=== PATIENT | male | born 1980 | race African-American/Black ===

== ENCOUNTER 2017-01-01 10:45 | Inpatient (IN) | payer OTHER ==
[2017-01-01 11:26] VITALS: BMI 26.1
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
[2017-01-01] MEDS ORDERED: LOPERAMIDE HCL 2 MG CAPSULE PO PRN (14:36)
[2017-01-01] MEDS ORDERED: chlordiazePOXIDE HCL 25 MG CAPSULE PO PRN (14:36)
[2017-01-01] MEDS ORDERED: MENTHOL/PHENOL 1 EACH UD MM PRN (14:36)
[2017-01-01] MEDS ORDERED: NICOTINE POLACRILEX 2 MG GUM BUC PRN (14:36)
[2017-01-01] MEDS ORDERED: P-EPHED 60MG/TRIPROLIDI 2.5MG TABLET PO PRN (14:36)
[2017-01-01] MEDS ORDERED: ACETAMINOPHEN 325 MG TABLET (FP) PO PRN (14:36)
[2017-01-01] MEDS ORDERED: IBUPROFEN 400 MG TABLET (FP) PO PRN (14:36)
[2017-01-01] MEDS ORDERED: guaiFENesin/D-METHORPHAN HB 10 ML UNIT-DOSE CUPS PO PRN (14:36)
[2017-01-01] MEDS ORDERED: MAGNESIUM CITRATE 300 ML BOTTLE PO PRN (14:36)
[2017-01-01] MEDS ORDERED: MAGNESIUM HYDROX 2400MG/30ML ORAL SUSPENSION 30 ML CUP PO PRN (14:36)
[2017-01-01] MEDS ORDERED: chlordiazePOXIDE HCL 25 MG CAPSULE PO ONE (15:20)
[2017-01-01] MEDS ORDERED: cloNIDine HCL 0.1 MG TABLET PO ONE (15:23)
[2017-01-01] MEDS: NICOTINE 14 MG/24 HOURS TOPICAL PATCH TD SCH (15:28)
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
[2017-01-01] MEDS: chlordiazePOXIDE HCL 25 MG CAPSULE PO SCH ×2 (17:22→22:25)
[2017-01-01] MEDS: hydrOXYzine PAMOATE 25 MG CAPSULE (FP) PO PRN (17:24)
[2017-01-01] MEDS ORDERED: ZOLPIDEM TARTRATE 10 MG TABLET (PARK CARE ONLY) PO PRN ×2 (18:06→22:00)
[2017-01-01 19:10] LABS: MCH 33.6 pg (25.7-33.7); MCHC 34.7 g/dl (32.0-35.9); MEAN CELL VOLUME 96.8 fl (80-96); MEAN PLT VOLUME 9.6 fl (7.5-11.1); PLATELET COUNT 240 K/MM3 (134-434); RDW 13.7 % (11.9-15.9); WHITE BLOOD COUNT 5.3 K/mm3 (4.0-10.0)
[2017-01-01 19:20] LABS: SICKLE CELL SCREEN NEGATIVE (NEGATIVE)
[2017-01-01 19:50] LABS: URINE APPEARANCE CLEAR; URINE BILIRUBIN NEGATIVE (NEGATIVE); URINE BLOOD NEGATIVE (NEGATIVE); URINE COLOR STRAW; URINE GLUCOSE (UA) NEGATIVE (NEGATIVE); URINE KETONE NEGATIVE (NEGATIVE); URINE NITRITE NEGATIVE (NEGATIVE); URINE PROTEIN NEGATIVE (NEGATIVE); URINE UROBILINOGEN NEGATIVE mg/dL (0.2-1.0)
[2017-01-01] MEDS: MAG HYDROX/AL HYDROX/SIMETH 30 ML UNIT-DOSE CUP PO PRN (20:14)
[2017-01-01 20:16] LABS: ALBUMIN 3.5 g/dl (3.4-5.0); ALK PHOS 100 U/L (45-117); ANION GAP 12 (8-16); BILIRUBIN,TOTAL 1.4 mg/dL (0.2-1.0); CALCIUM 7.8 mg/dL (8.5-10.1); CO2 25 mmol/L (21-32); CREATININE 1.2 mg/dL (0.7-1.3); GLUCOSE,RANDOM 117 mg/dL (74-106); TOT PROT 6.4 g/dl (6.4-8.2)
[2017-01-01 20:19] LABS: SGOT/AST 402 U/L (15-37); SGPT/ALT 309 U/L (12-78)
[2017-01-01 21:24] LABS: URINE LEUK ESTERASE Negative (NEGATIVE)
[2017-01-01] MEDS ORDERED: PATIENT'S OWN MEDICATION (NON-FORMULARY) (Lisinopril/Hydrochlorothiazide [Lisinopril-Hctz PO SCH (22:00)
[2017-01-01] MEDS: ZOLPIDEM TARTRATE 10 MG TABLET (PARK CARE ONLY) PO PRN (22:25)
[2017-01-01] MEDS: THIAMINE HCL 100 MG TABLET (FP) PO SCH (22:26)
[2017-01-01] MEDS: PATIENT'S OWN MEDICATION (NON-FORMULARY) (Lisinopril/Hydrochlorothiazide [Lisinopril-Hctz PO SCH (22:26)
[2017-01-02] MEDS: chlordiazePOXIDE HCL 25 MG CAPSULE PO SCH ×4 (05:23→22:07)
[2017-01-02] MEDS: PRENATAL VITAMINS W/ FOLIC ACID TABLET (FP) PO SCH (10:24)
[2017-01-02] MEDS: NICOTINE 14 MG/24 HOURS TOPICAL PATCH TD SCH (10:24)
[2017-01-02] MEDS: PATIENT'S OWN MEDICATION (NON-FORMULARY) (Lisinopril/Hydrochlorothiazide [Lisinopril-Hctz PO SCH ×2 (10:24→22:07)
--- NOTE | 2017-01-02 15:34 | PN ---
S CIWA - CIWA Score Nausea/Vomitin-No Nausea/No Vomiting Muscle Tremors: 3 Anxiety: 3 Agitation: 2 Paroxysmal Sweats: 3 Orientation: 0-Oriented Tacttile Disturbances: 1-Very Mild Itch/Numbness Auditory Disturbances: 1-Very Mild Visual Disturbances: 3-Moderate Sensitivity Headache: 0-None Present CIWA-Ar Total Score: 16 BHS Progress Note (SOAP) Subjective: Sweating, Tremors, Body Aches. Objective: PT. A & O X 3, OBSERVED AMBULATING ON UNIT. NO ACUTE DISTRESS. 01/02/17 15:31 Vital Signs Temperature 96.3 F L 01/02/17 13:07 Pulse Rate 85 01/02/17 13:07 Respiratory Rate 18 01/02/17 13:07 Blood Pressure 140/89 01/02/17 13:07 O2 Sat by Pulse Oximetry (%) Laboratory Tests 01/01/17 01/01/17 01/01/17 14:15 14:15 14:15 WBC 5.3 RBC 4.25 Hgb 14.3 Hct 41.1 MCV 96.8 H MCH 33.6 MCHC 34.7 RDW 13.7 Plt Count 240 MPV 9.6 Sickle Cell Screen Negative Sodium 131 L Potassium 3.7 Chloride 94 L Carbon Dioxide 25 Anion Gap 12 BUN 11 Creatinine 1.2 Creat Clearance w eGFR > 60 Random Glucose 117 H Calcium 7.8 L Total Bilirubin 1.4 H AST 402 H ALT 309 H Alkaline Phosphatase 100 Total Protein 6.4 Albumin 3.5 Urine Color Urine Appearance Urine pH Ur Specific [place] Urine Protein Urine Glucose (UA) Urine Ketones Urine Blood Urine Nitrite Urine Bilirubin Urine Urobilinogen Ur Leukocyte Esterase RPR Titer Nonreactive 01/01/17 19:00 WBC RBC Hgb Hct MCV MCH MCHC RDW Plt Count MPV Sickle Cell Screen Sodium Potassium Chloride Carbon Dioxide Anion Gap BUN Creatinine Creat Clearance w eGFR Random Glucose Calcium Total Bilirubin AST ALT Alkaline Phosphatase Total Protein Albumin Urine Color Straw Urine Appearance Clear Urine pH 7.0 Ur Specific [place] 1.003 Urine Protein Negative Urine Glucose (UA) Negative Urine Ketones Negative Urine Blood Negative Urine Nitrite Negative Urine Bilirubin Negative Urine Urobilinogen Negative Ur Leukocyte Esterase Negative RPR Titer LABS NOTED. Assessment: 01/02/17 15:31 WITHDRAWAL SYMPTOMS. Plan: CONTINUE DETOX. REPEAT AST, ALT TOMORROW AM FOR ELEVATED ADMISSION VALUES. INCREASE DAILY PO FLUID INTAKE.
--- NOTE | 2017-01-02 16:39 | EKG ---
Test Reason : Blood Pressure : / mmHG Vent. Rate : 072 BPM Atrial Rate : 072 BPM P-R Int : 142 ms QRS Dur : 086 ms QT Int : 420 ms P-R-T Axes : 065 021 013 degrees QTc Int : 459 ms NORMAL SINUS RHYTHM WITH SINUS ARRHYTHMIA BASELINE ARTIFACT NONSPECIFIC ST AND T WAVE ABNORMALITY IN THE INFERIOR LEADS NO PREVIOUS ECGS AVAILABLE CLINICAL CORRELATION IS RECOMMENDED Confirmed by OPAL MERRILL MD ([id number]) on 01/02/2017 4:39:05 PM Referred By: Confirmed By:OPAL MERRILL MD
[2017-01-02] MEDS: THIAMINE HCL 100 MG TABLET (FP) PO SCH (22:07)
[2017-01-02] MEDS: ZOLPIDEM TARTRATE 10 MG TABLET (PARK CARE ONLY) PO PRN (22:08)
[2017-01-03] MEDS: chlordiazePOXIDE HCL 25 MG CAPSULE PO SCH ×2 (05:31→10:16)
[2017-01-03] MEDS: hydrOXYzine PAMOATE 25 MG CAPSULE (FP) PO PRN (05:33)
[2017-01-03] MEDS: PATIENT'S OWN MEDICATION (NON-FORMULARY) (Lisinopril/Hydrochlorothiazide [Lisinopril-Hctz PO SCH ×2 (10:16→22:13)
[2017-01-03] MEDS: PRENATAL VITAMINS W/ FOLIC ACID TABLET (FP) PO SCH (10:16)
[2017-01-03] MEDS: NICOTINE 14 MG/24 HOURS TOPICAL PATCH TD SCH (10:16)
[2017-01-03 11:35] LABS: SGOT/AST 117 U/L (15-37); SGPT/ALT 162 U/L (12-78)
--- NOTE | 2017-01-03 13:10 | PN ---
S CIWA - CIWA Score Nausea/Vomitin-Mild Nausea/No Vomiting Muscle Tremors: 3 Anxiety: 3 Agitation: 3 Paroxysmal Sweats: 3 Orientation: 0-Oriented Tacttile Disturbances: 1-Very Mild Itch/Numbness Auditory Disturbances: 0-None Visual Disturbances: 0-None Headache: 2-Mild CIWA-Ar Total Score: 16 BHS Progress Note (SOAP) Subjective: Anxious, sweating, interrupted sleep, nausea Objective: 01/03/17 13:10 Last Vital Signs Temp Pulse Resp BP Pulse Ox 97.0 F L 101 H 18 129/87 01/03/17 10:23 01/03/17 10:23 01/03/17 10:23 01/03/17 10:23 Laboratory Tests 01/01/17 01/01/17 01/01/17 14:15 14:15 14:15 WBC 5.3 RBC 4.25 Hgb 14.3 Hct 41.1 MCV 96.8 H MCH 33.6 MCHC 34.7 RDW 13.7 Plt Count 240 MPV 9.6 Sickle Cell Screen Negative Sodium 131 L Potassium 3.7 Chloride 94 L Carbon Dioxide 25 Anion Gap 12 BUN 11 Creatinine 1.2 Creat Clearance w eGFR > 60 Random Glucose 117 H Calcium 7.8 L Total Bilirubin 1.4 H AST 402 H ALT 309 H Alkaline Phosphatase 100 Total Protein 6.4 Albumin 3.5 Urine Color Urine Appearance Urine pH Ur Specific [place] Urine Protein Urine Glucose (UA) Urine Ketones Urine Blood Urine Nitrite Urine Bilirubin Urine Urobilinogen Ur Leukocyte Esterase RPR Titer Nonreactive 01/01/17 01/03/17 19:00 07:40 WBC RBC Hgb Hct MCV MCH MCHC RDW Plt Count MPV Sickle Cell Screen Sodium Potassium Chloride Carbon Dioxide Anion Gap BUN Creatinine Creat Clearance w eGFR Random Glucose Calcium Total Bilirubin AST 117 H D ALT 162 H D Alkaline Phosphatase Total Protein Albumin Urine Color Straw Urine Appearance Clear Urine pH 7.0 Ur Specific [place] 1.003 Urine Protein Negative Urine Glucose (UA) Negative Urine Ketones Negative Urine Blood Negative Urine Nitrite Negative Urine Bilirubin Negative Urine Urobilinogen Negative Ur Leukocyte Esterase Negative RPR Titer Labs noted Assessment: 01/03/17 13:10 Withdrawal symptoms Plan: Continue detox
[2017-01-03] MEDS: MAG HYDROX/AL HYDROX/SIMETH 30 ML UNIT-DOSE CUP PO PRN (15:02)
[2017-01-03] MEDS: chlordiazePOXIDE 5 MG CAPSULE PO SCH ×2 (16:32→22:13)
[2017-01-03] MEDS: THIAMINE HCL 100 MG TABLET (FP) PO SCH (22:13)
[2017-01-03] MEDS: ZOLPIDEM TARTRATE 10 MG TABLET (PARK CARE ONLY) PO PRN (22:15)
[2017-01-04] MEDS: MAG HYDROX/AL HYDROX/SIMETH 30 ML UNIT-DOSE CUP PO PRN (00:29)
[2017-01-04] MEDS: chlordiazePOXIDE 5 MG CAPSULE PO SCH ×3 (05:55→10:19)
[2017-01-04] MEDS: PATIENT'S OWN MEDICATION (NON-FORMULARY) (Lisinopril/Hydrochlorothiazide [Lisinopril-Hctz PO SCH ×3 (07:04→22:15)
[2017-01-04] MEDS ORDERED: cloNIDine HCL 0.1 MG TABLET PO ONE (09:49)
--- NOTE | 2017-01-04 10:18 | PN ---
S Progress Note (SOAP) Subjective: ANXIETY,SWEATS,DECREASED TREMORS. ALERT O X 3. OOB AMBULATING ON HALLWAY. EAGER TO FOLLOW UP WITH NEXT LEVEL OF CARE. Objective: 01/04/17 10:17 Vital Signs Temperature 98.1 F 01/04/17 09:03 Pulse Rate 94 H 01/04/17 09:03 Respiratory Rate 20 01/04/17 09:03 Blood Pressure 140/93 01/04/17 09:03 O2 Sat by Pulse Oximetry (%) Laboratory Last Values WBC 5.3 K/mm3 (4.0-10.0) 01/01/17 14:15 RBC 4.25 M/mm3 (4.00-5.60) 01/01/17 14:15 Hgb 14.3 GM/dL (11.7-16.9) 01/01/17 14:15 Hct 41.1 % (35.4-49) 01/01/17 14:15 MCV 96.8 fl (80-96) H 01/01/17 14:15 MCH 33.6 pg (25.7-33.7) 01/01/17 14:15 MCHC 34.7 g/dl (32.0-35.9) 01/01/17 14:15 RDW 13.7 % (11.9-15.9) 01/01/17 14:15 Plt Count 240 K/MM3 (134-434) 01/01/17 14:15 MPV 9.6 fl (7.5-11.1) 01/01/17 14:15 Sickle Cell Screen Negative (NEGATIVE) 01/01/17 14:15 Sodium 131 mmol/L (136-145) L 01/01/17 14:15 Potassium 3.7 mmol/L (3.5-5.1) 01/01/17 14:15 Chloride 94 mmol/L (98-107) L 01/01/17 14:15 Carbon Dioxide 25 mmol/L (21-32) 01/01/17 14:15 Anion Gap 12 (8-16) 01/01/17 14:15 BUN 11 mg/dL (7-18) 01/01/17 14:15 Creatinine 1.2 mg/dL (0.7-1.3) 01/01/17 14:15 Creat Clearance w eGFR > 60 (>60) 01/01/17 14:15 Random Glucose 117 mg/dL (74-106) H 01/01/17 14:15 Calcium 7.8 mg/dL (8.5-10.1) L 01/01/17 14:15 Total Bilirubin 1.4 mg/dL (0.2-1.0) H 01/01/17 14:15 AST 117 U/L (15-37) H D 01/03/17 07:40 ALT 162 U/L (12-78) H D 01/03/17 07:40 Alkaline Phosphatase 100 U/L (45-117) 01/01/17 14:15 Total Protein 6.4 g/dl (6.4-8.2) 01/01/17 14:15 Albumin 3.5 g/dl (3.4-5.0) 01/01/17 14:15 Urine Color Straw 01/01/17 19:00 Urine Appearance Clear 01/01/17 19:00 Urine pH 7.0 (5.0-8.0) 01/01/17 19:00 Ur Specific [place] 1.003 (1.001-1.035) 01/01/17 19:00 Urine Protein Negative (NEGATIVE) 01/01/17 19:00 Urine Glucose (UA) Negative (NEGATIVE) 01/01/17 19:00 Urine Ketones Negative (NEGATIVE) 01/01/17 19:00 Urine Blood Negative (NEGATIVE) 01/01/17 19:00 Urine Nitrite Negative (NEGATIVE) 01/01/17 19:00 Urine Bilirubin Negative (NEGATIVE) 01/01/17 19:00 Urine Urobilinogen Negative mg/dL (0.2-1.0) 01/01/17 19:00 Ur Leukocyte Esterase Negative (NEGATIVE) 01/01/17 19:00 RPR Titer Nonreactive (NONREACTIVE) 01/01/17 14:15 Assessment: 01/04/17 10:18 DECREASED WITHDRAWAL SX Plan: CONTINUE DETOX
[2017-01-04] MEDS: PRENATAL VITAMINS W/ FOLIC ACID TABLET (FP) PO SCH (10:19)
[2017-01-04] MEDS: NICOTINE 14 MG/24 HOURS TOPICAL PATCH TD SCH (10:19)
[2017-01-04] MEDS: chlordiazePOXIDE HCL 10 MG CAPSULE PO SCH ×2 (17:02→22:12)
[2017-01-04] MEDS: THIAMINE HCL 100 MG TABLET (FP) PO SCH (22:12)
[2017-01-05] MEDS: MAG HYDROX/AL HYDROX/SIMETH 30 ML UNIT-DOSE CUP PO PRN (01:03)
[2017-01-05] MEDS: chlordiazePOXIDE HCL 10 MG CAPSULE PO SCH ×2 (05:15→10:16)
[2017-01-05 09:11] VITALS: BP 138/98; PULSE 81; TEMP 96.1
[2017-01-05] MEDS: PATIENT'S OWN MEDICATION (NON-FORMULARY) (Lisinopril/Hydrochlorothiazide [Lisinopril-Hctz PO SCH (10:16)
[2017-01-05] MEDS: PRENATAL VITAMINS W/ FOLIC ACID TABLET (FP) PO SCH (10:16)
[2017-01-05] MEDS: NICOTINE 14 MG/24 HOURS TOPICAL PATCH TD SCH (10:17)
[2017-01-05] MEDS: hydrOXYzine PAMOATE 25 MG CAPSULE (FP) PO PRN (10:19)
--- NOTE | 2017-01-05 10:23 | DS ---
[facility] Detox Discharge Summary Admission Date: 01/01/17 Discharge Date: 01/05/17 - History Present History: Alcohol Dependence Additional Comments: DETOX COMPLETED. ALERT O X 3. NAD. PT INSTRUCTED TO FOLLOW UP WITH PMD DR ROJAS ANTONY M.D AT [address] [place] [address] FOR MEDICAL MANAGEMENT OF COMORBID CONDITION. Pertinent Past History: HTN GERD ANEMIA - Physical Exam Results Vital Signs: Vital Signs Temperature 96.1 F L 01/05/17 09:10 Pulse Rate 81 01/05/17 09:10 Respiratory Rate 18 01/05/17 09:10 Blood Pressure 138/98 01/05/17 09:10 O2 Sat by Pulse Oximetry (%) Pertinent Admission Physical Exam Findings: WITHDRAWAL SX Laboratory Last Values WBC 5.3 K/mm3 (4.0-10.0) 01/01/17 14:15 RBC 4.25 M/mm3 (4.00-5.60) 01/01/17 14:15 Hgb 14.3 GM/dL (11.7-16.9) 01/01/17 14:15 Hct 41.1 % (35.4-49) 01/01/17 14:15 MCV 96.8 fl (80-96) H 01/01/17 14:15 MCH 33.6 pg (25.7-33.7) 01/01/17 14:15 MCHC 34.7 g/dl (32.0-35.9) 01/01/17 14:15 RDW 13.7 % (11.9-15.9) 01/01/17 14:15 Plt Count 240 K/MM3 (134-434) 01/01/17 14:15 MPV 9.6 fl (7.5-11.1) 01/01/17 14:15 Sickle Cell Screen Negative (NEGATIVE) 01/01/17 14:15 Sodium 131 mmol/L (136-145) L 01/01/17 14:15 Potassium 3.7 mmol/L (3.5-5.1) 01/01/17 14:15 Chloride 94 mmol/L (98-107) L 01/01/17 14:15 Carbon Dioxide 25 mmol/L (21-32) 01/01/17 14:15 Anion Gap 12 (8-16) 01/01/17 14:15 BUN 11 mg/dL (7-18) 01/01/17 14:15 Creatinine 1.2 mg/dL (0.7-1.3) 01/01/17 14:15 Creat Clearance w eGFR > 60 (>60) 01/01/17 14:15 Random Glucose 117 mg/dL (74-106) H 01/01/17 14:15 Calcium 7.8 mg/dL (8.5-10.1) L 01/01/17 14:15 Total Bilirubin 1.4 mg/dL (0.2-1.0) H 01/01/17 14:15 AST 117 U/L (15-37) H D 01/03/17 07:40 ALT 162 U/L (12-78) H D 01/03/17 07:40 Alkaline Phosphatase 100 U/L (45-117) 01/01/17 14:15 Total Protein 6.4 g/dl (6.4-8.2) 01/01/17 14:15 Albumin 3.5 g/dl (3.4-5.0) 01/01/17 14:15 Urine Color Straw 01/01/17 19:00 Urine Appearance Clear 01/01/17 19:00 Urine pH 7.0 (5.0-8.0) 01/01/17 19:00 Ur Specific [place] 1.003 (1.001-1.035) 01/01/17 19:00 Urine Protein Negative (NEGATIVE) 01/01/17 19:00 Urine Glucose (UA) Negative (NEGATIVE) 01/01/17 19:00 Urine Ketones Negative (NEGATIVE) 01/01/17 19:00 Urine Blood Negative (NEGATIVE) 01/01/17 19:00 Urine Nitrite Negative (NEGATIVE) 01/01/17 19:00 Urine Bilirubin Negative (NEGATIVE) 01/01/17 19:00 Urine Urobilinogen Negative mg/dL (0.2-1.0) 01/01/17 19:00 Ur Leukocyte Esterase Negative (NEGATIVE) 01/01/17 19:00 RPR Titer Nonreactive (NONREACTIVE) 01/01/17 14:15 - Treatment Hospital Course: Detox Protocol Followed, Detoxed Safely, Responded well, Discharged Condition Good, Rehab Referral Accepted Patient has Accepted a Rehab Referral to: [facility] - Medication Discharge Medications: Ambulatory Orders Lisinopril/Hydrochlorothiazide [Lisinopril-Hctz 10-12.5 mg Tab] 1 each PO BID - Diagnosis (1) Alcohol dependence with uncomplicated withdrawal Current Visit: Yes Status: Acute (2) Hypertension Current Visit: Yes Status: Chronic Qualifiers: Hypertension type: essential hypertension Qualified Code(s): I10 - Essential (primary) hypertension (3) History of hypercholesterolemia Current Visit: Yes Status: Chronic (4) Hx of gastroesophageal reflux (GERD) Current Visit: Yes Status: Chronic (5) History of anemia Current Visit: Yes Status: Chronic - AMA Did Patient Leave Against Medical Advice: No
== END 2017-01-05 10:56 | disposition home or self-care (01) | DRG 775 ==
LOC: YASAS 10:45 → Y3N 12:30
PROVIDERS: ADMIT Internal Medicine; ATTEND Internal Medicine
PROC: HZ2ZZZZ Detoxification Services for Substance Abuse Treatment (ICD-10-PCS; principal; 2017-01-01)
DX: F10.230 Alcohol dependence with withdrawal, uncomplicated (principal); F17.210 Nicotine dependence, cigarettes, uncomplicated; F32.9 Major depressive disorder, single episode, unspecified; G47.00 Insomnia, unspecified; I10 Essential (primary) hypertension; K21.9 Gastro-esophageal reflux disease without esophagitis; E78.00 Pure hypercholesterolemia, unspecified; D64.9 Anemia, unspecified
CPT/HCPCS: 36415; 80053; 81003; 84450; 84460; 85027; 85660; 86593; 93005; 93010

== ENCOUNTER 2017-05-22 10:51 | Inpatient (IN) | payer OTHER ==
[2017-05-22 11:10] VITALS: BMI 27.2
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
[2017-05-22] MEDS ORDERED: METHADONE HCL 10 MG TABLET (FOR DETOX USE ONLY) PO ONE ×2 (12:30→23:00)
[2017-05-22] MEDS ORDERED: P-EPHED 60MG/TRIPROLIDI 2.5MG TABLET PO PRN (12:30)
[2017-05-22] MEDS ORDERED: chlordiazePOXIDE HCL 25 MG CAPSULE PO ONE (12:30)
[2017-05-22] MEDS ORDERED: ACETAMINOPHEN 325 MG TABLET (FP) PO PRN (12:30)
[2017-05-22] MEDS ORDERED: MAGNESIUM CITRATE 300 ML BOTTLE PO PRN (12:30)
[2017-05-22] MEDS ORDERED: hydrOXYzine PAMOATE 25 MG CAPSULE (FP) PO PRN (12:30)
[2017-05-22] MEDS ORDERED: NICOTINE POLACRILEX 2 MG GUM BUC PRN (12:30)
[2017-05-22] MEDS ORDERED: LOPERAMIDE HCL 2 MG CAPSULE PO PRN (12:30)
[2017-05-22] MEDS ORDERED: IBUPROFEN 400 MG TABLET (FP) PO PRN (12:30)
[2017-05-22] MEDS ORDERED: MENTHOL/PHENOL 1 EACH UD MM PRN (12:30)
[2017-05-22] MEDS ORDERED: guaiFENesin/D-METHORPHAN HB 10 ML UNIT-DOSE CUPS PO PRN (12:30)
[2017-05-22] MEDS ORDERED: NAPROXEN 375 MG TABLET (FP) PO PRN (15:01)
[2017-05-22] MEDS: chlordiazePOXIDE HCL 25 MG CAPSULE PO SCH ×2 (19:15→22:42)
[2017-05-22] MEDS ORDERED: METHADONE HCL 10 MG TABLET (FOR DETOX USE ONLY) ONE (19:34)
[2017-05-22] MEDS ORDERED: PATIENT'S OWN MEDICATION (NON-FORMULARY) (Lisinopril/Hydrochlorothiazide [Lisinopril-Hctz PO SCH (22:00)
[2017-05-22] MEDS ORDERED: MELATONIN 5 MG TABLETS PO PRN (22:00)
[2017-05-22] MEDS ORDERED: NAPROXEN 375 MG TABLET (FP) PO SCH (22:00)
[2017-05-22] MEDS: HYDROCHLOROTHIAZIDE 12.5 MG CAPSULE (FP) PO SCH (22:42)
[2017-05-22] MEDS: LISINOPRIL 10 MG TABLET (FP) PO SCH (22:42)
[2017-05-22] MEDS: THIAMINE HCL 100 MG TABLET (FP) PO SCH (22:42)
[2017-05-23] MEDS: chlordiazePOXIDE HCL 25 MG CAPSULE PO SCH ×4 (05:53→22:11)
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
[2017-05-23] MEDS ORDERED: METHADONE HCL 10 MG TABLET (FOR DETOX USE ONLY) PO SCH (10:00)
[2017-05-23] MEDS: LISINOPRIL 10 MG TABLET (FP) PO SCH ×2 (10:32→22:12)
[2017-05-23] MEDS: PRENATAL VITAMINS W/ FOLIC ACID TABLET (FP) PO SCH (10:32)
[2017-05-23] MEDS: HYDROCHLOROTHIAZIDE 12.5 MG CAPSULE (FP) PO SCH ×2 (10:32→22:12)
--- NOTE | 2017-05-23 10:57 | PN ---
S CIWA - CIWA Score Nausea/Vomitin-Mild Nausea/No Vomiting Muscle Tremors: 4-Moderate,w/Arms Extend Anxiety: 3 Agitation: 3 Paroxysmal Sweats: 1-Minimal Palms Moist Orientation: 0-Oriented Tacttile Disturbances: 1-Very Mild Itch/Numbness Auditory Disturbances: 0-None Visual Disturbances: 0-None Headache: 0-None Present CIWA-Ar Total Score: 13 BHS COWS - Scale Resting Pulse: 0= [place] 80 or Below Sweatin= Chills/Flushing Restless Observation: 1= Difficult to Sit Still Pupil Size: 0= Normal to Room Light Bone or Joint Aches: 1= Mild Discomfort Runny Nose/ Eye Tearin= Nasal Congestion GI Upset > 30mins: 2= Nausea/Diarrhea Tremor Observation of Outstretched Hands: 2= Slight Tremor Visible Yawning Observation: 2= >3x During Session Anxiety or Irritability: 1=Feels Anxious/Irritable Goose Flesh Skin: 0=Smooth Skin COWS Score: 11 BHS Progress Note (SOAP) Subjective: constipation sweat tremor anxiety irritable restlessness trouble fall a sleep Objective: 05/23/17 10:56 Vital Signs Temperature 98.1 F 05/23/17 10:00 Pulse Rate 70 05/23/17 10:30 Respiratory Rate 18 05/23/17 10:30 Blood Pressure 151/94 05/23/17 10:00 O2 Sat by Pulse Oximetry (%) lab not available at this time Assessment: 05/23/17 10:56 withdrawal sx Plan: continue detox
[2017-05-23 11:03] LABS: HEMATOCRIT 38.2 % (35.4-49); HEMOGLOBIN 12.7 GM/dL (11.7-16.9); MCH 32.6 pg (25.7-33.7); MCHC 33.1 g/dl (32.0-35.9); MEAN CELL VOLUME 98.5 fl (80-96); MEAN PLT VOLUME 8.6 fl (7.5-11.1); PLATELET COUNT 187 K/MM3 (134-434); RBC 3.88 M/mm3 (4.00-5.60); RDW 13.2 % (11.9-15.9); WHITE BLOOD COUNT 5.6 K/mm3 (4.0-10.0)
[2017-05-23 11:05] LABS: CHLORIDE 101 mmol/L (98-107); POTASSIUM 3.6 mmol/L (3.5-5.1); SODIUM 136 mmol/L (136-145)
[2017-05-23] MEDS: MAGNESIUM HYDROX 2400MG/30ML ORAL SUSPENSION 30 ML CUP PO PRN (11:30)
[2017-05-23 12:30] LABS: ALBUMIN 3.5 g/dl (3.4-5.0); ANION GAP 7 (8-16); BLOOD UREA NITROGEN 9 mg/dL (7-18); CALCIUM 8.4 mg/dL (8.5-10.1); CO2 28 mmol/L (21-32); CREATININE 0.9 mg/dL (0.7-1.3); GLUCOSE,RANDOM 92 mg/dL (74-106); SGOT/AST 41 U/L (15-37); SGPT/ALT 27 U/L (12-78)
[2017-05-23 12:35] LABS: URINE APPEARANCE CLEAR; URINE BILIRUBIN NEGATIVE (<2.0 mg/dL); URINE BLOOD NEGATIVE (NEGATIVE); URINE COLOR LTYELLOW; URINE GLUCOSE (UA) NEGATIVE (NEGATIVE); URINE KETONE NEGATIVE (NEGATIVE); URINE LEUK ESTERASE NEGATIVE (NEGATIVE); URINE NITRITE NEGATIVE (NEGATIVE); URINE PROTEIN NEGATIVE (NEGATIVE); URINE UROBILINOGEN NEGATIVE mg/dL (0.2-1.0)
[2017-05-23 12:36] LABS: ALK PHOS 65 U/L (45-117); BILIRUBIN,TOTAL 0.4 mg/dL (0.2-1.0); TOT PROT 6.3 g/dl (6.4-8.2)
[2017-05-23] MEDS: chlordiazePOXIDE HCL 25 MG CAPSULE PO PRN ×2 (14:31→18:46)
--- NOTE | 2017-05-23 16:21 | EKG ---
Test Reason : Blood Pressure : / mmHG Vent. Rate : 093 BPM Atrial Rate : 093 BPM P-R Int : 134 ms QRS Dur : 080 ms QT Int : 356 ms P-R-T Axes : 071 031 003 degrees QTc Int : 442 ms NORMAL SINUS RHYTHM SEPTAL INFARCT , AGE UNDETERMINED ABNORMAL ECG WHEN COMPARED WITH ECG OF 01-JAN-2017 16:38, SEPTAL INFARCT IS NOW PRESENT Confirmed by MD TOO, MARCIAL ([id number]) on 05/23/2017 4:20:52 PM Referred By: Confirmed By:MARCIAL GAGE MD
[2017-05-23] MEDS: MAG HYDROX/AL HYDROX/SIMETH 30 ML UNIT-DOSE CUP PO PRN (16:37)
[2017-05-23] MEDS ORDERED: cloNIDine HCL 0.1 MG TABLET PO ONE (19:00)
--- NOTE | 2017-05-23 19:03 | PN ---
BHS Progress Note Note: WITHDRAWAL SYMPTOM Vital Signs Temperature 97.9 F 05/23/17 18:47 Pulse Rate 79 05/23/17 18:47 Respiratory Rate 18 05/23/17 18:47 Blood Pressure 144/113 05/23/17 18:47 O2 Sat by Pulse Oximetry (%) CLONIDINE 0.1 MG PO NOW CONTINUE DETOX BP MONITORING
[2017-05-23] MEDS: THIAMINE HCL 100 MG TABLET (FP) PO SCH (22:11)
[2017-05-23] MEDS: ZOLPIDEM TARTRATE 5 MG TABLET PO PRN (22:12)
[2017-05-24] MEDS: chlordiazePOXIDE HCL 25 MG CAPSULE PO SCH ×2 (05:44→10:35)
[2017-05-24] MEDS: HYDROCHLOROTHIAZIDE 12.5 MG CAPSULE (FP) PO SCH ×2 (10:35→22:32)
[2017-05-24] MEDS: LISINOPRIL 10 MG TABLET (FP) PO SCH ×2 (10:35→22:32)
[2017-05-24] MEDS: PRENATAL VITAMINS W/ FOLIC ACID TABLET (FP) PO SCH (10:35)
[2017-05-24] MEDS: METHADONE HCL 5 MG TABLET (FOR DETOX USE ONLY) PO SCH (10:35)
[2017-05-24] MEDS ORDERED: CYCLOBENZAPRINE HCL 10 MG TABLET (FP) PO PRN (11:43)
--- NOTE | 2017-05-24 11:43 | PN ---
[facility] CIWA - CIWA Score Nausea/Vomitin Muscle Tremors: 3 Anxiety: 2 Agitation: 3 Paroxysmal Sweats: 1-Minimal Palms Moist Orientation: 0-Oriented Tacttile Disturbances: 1-Very Mild Itch/Numbness Auditory Disturbances: 1-Very Mild Visual Disturbances: 0-None Headache: 2-Mild CIWA-Ar Total Score: 16 BHS COWS - Scale Resting Pulse: 1= [place] 81-100 Sweatin= Chills/Flushing Restless Observation: 3= Extraneous Movement Pupil Size: 1= Pupils >than Normal Bone or Joint Aches: 2= Severe Diffuse Aches Runny Nose/ Eye Tearin= Runny Nose/Eyes GI Upset > 30mins: 3= Vomiting/Diarrhea Tremor Observation of Outstretched Hands: 2= Slight Tremor Visible Yawning Observation: 1= 1-2x During Session Anxiety or Irritability: 2=Irritable/Anxious Goose Flesh Skin: 0=Smooth Skin COWS Score: 18 S Progress Note (SOAP) Subjective: ALERT,IRRITABLE,ANXIOUS,INTERRUPTED SLEEP,TREMOR,PAIN IN THE BODY AND BACK Objective: 05/24/17 11:41 Vital Signs Temperature 97.5 F L 05/24/17 09:05 Pulse Rate 86 05/24/17 09:05 Respiratory Rate 18 05/24/17 09:05 Blood Pressure 144/93 05/24/17 09:05 O2 Sat by Pulse Oximetry (%) Laboratory Last Values WBC 5.6 K/mm3 (4.0-10.0) 05/23/17 07:40 RBC 3.88 M/mm3 (4.00-5.60) L 05/23/17 07:40 Hgb 12.7 GM/dL (11.7-16.9) D 05/23/17 07:40 Hct 38.2 % (35.4-49) 05/23/17 07:40 MCV 98.5 fl (80-96) H 05/23/17 07:40 MCH 32.6 pg (25.7-33.7) 05/23/17 07:40 MCHC 33.1 g/dl (32.0-35.9) 05/23/17 07:40 RDW 13.2 % (11.9-15.9) 05/23/17 07:40 Plt Count 187 K/MM3 (134-434) D 05/23/17 07:40 MPV 8.6 fl (7.5-11.1) D 05/23/17 07:40 Sodium 136 mmol/L (136-145) 05/23/17 07:40 Potassium 3.6 mmol/L (3.5-5.1) 05/23/17 07:40 Chloride 101 mmol/L (98-107) 05/23/17 07:40 Carbon Dioxide 28 mmol/L (21-32) 05/23/17 07:40 Anion Gap 7 (8-16) L 05/23/17 07:40 BUN 9 mg/dL (7-18) 05/23/17 07:40 Creatinine 0.9 mg/dL (0.7-1.3) D 05/23/17 07:40 Creat Clearance w eGFR > 60 (>60) 05/23/17 07:40 Random Glucose 92 mg/dL (74-106) D 05/23/17 07:40 Calcium 8.4 mg/dL (8.5-10.1) L 05/23/17 07:40 Total Bilirubin 0.4 mg/dL (0.2-1.0) D 05/23/17 07:40 AST 41 U/L (15-37) H D 05/23/17 07:40 ALT 27 U/L (12-78) D 05/23/17 07:40 Alkaline Phosphatase 65 U/L (45-117) D 05/23/17 07:40 Total Protein 6.3 g/dl (6.4-8.2) L 05/23/17 07:40 Albumin 3.5 g/dl (3.4-5.0) 05/23/17 07:40 Urine Color Ltyellow 05/23/17 08:54 Urine Appearance Clear 05/23/17 08:54 Urine pH 6.0 (5.0-8.0) 05/23/17 08:54 Ur Specific [place] 1.012 (1.001-1.035) 05/23/17 08:54 Urine Protein Negative (NEGATIVE) 05/23/17 08:54 Urine Glucose (UA) Negative (NEGATIVE) 05/23/17 08:54 Urine Ketones Negative (NEGATIVE) 05/23/17 08:54 Urine Blood Negative (NEGATIVE) 05/23/17 08:54 Urine Nitrite Negative (NEGATIVE) 05/23/17 08:54 Urine Bilirubin Negative (<2.0 mg/dL) 05/23/17 08:54 Urine Urobilinogen Negative mg/dL (0.2-1.0) 05/23/17 08:54 Ur Leukocyte Esterase Negative (NEGATIVE) 05/23/17 08:54 RPR Titer Nonreactive (NONREACTIVE) 05/23/17 07:40 HIV 1&2 Antibody Screen Negative 05/23/17 07:40 HIV P24 Antigen Negative 05/23/17 07:40 Assessment: 05/24/17 11:42 WITHDRAWAL SYMPTOM Plan: CONTINUE DETOX
[2017-05-24] MEDS: amLODIPine BESYLATE 10 MG TABLET (FP) PO SCH (14:36)
[2017-05-24] MEDS: chlordiazePOXIDE 5 MG CAPSULE PO SCH ×2 (17:27→22:32)
[2017-05-24] MEDS: MAG HYDROX/AL HYDROX/SIMETH 30 ML UNIT-DOSE CUP PO PRN (19:05)
[2017-05-24] MEDS: THIAMINE HCL 100 MG TABLET (FP) PO SCH (22:31)
[2017-05-24] MEDS: ZOLPIDEM TARTRATE 5 MG TABLET PO PRN (22:32)
[2017-05-24] MEDS: cloNIDine HCL 0.1 MG TABLET PO SCH (22:32)
[2017-05-25] MEDS: chlordiazePOXIDE 5 MG CAPSULE PO SCH ×2 (05:27→10:27)
[2017-05-25] MEDS: MAGNESIUM HYDROX 2400MG/30ML ORAL SUSPENSION 30 ML CUP PO PRN (05:29)
[2017-05-25] MEDS: amLODIPine BESYLATE 10 MG TABLET (FP) PO SCH (10:27)
[2017-05-25] MEDS: LISINOPRIL 10 MG TABLET (FP) PO SCH ×2 (10:27→22:27)
[2017-05-25] MEDS: METHADONE HCL 5 MG TABLET (FOR DETOX USE ONLY) PO SCH (10:27)
[2017-05-25] MEDS: PRENATAL VITAMINS W/ FOLIC ACID TABLET (FP) PO SCH (10:27)
[2017-05-25] MEDS: HYDROCHLOROTHIAZIDE 12.5 MG CAPSULE (FP) PO SCH ×2 (10:27→22:27)
[2017-05-25] MEDS: cloNIDine HCL 0.1 MG TABLET PO SCH ×2 (10:27→22:27)
--- NOTE | 2017-05-25 11:54 | PN ---
S Progress Note (SOAP) Subjective: ALERT,IRRITABLE,ANXIOUS,INTERRUPTED SLEEP,PAIN IN THE BODY Objective: 05/25/17 11:53 Vital Signs Temperature 95.9 F L 05/25/17 10:00 Pulse Rate 89 05/25/17 10:00 Respiratory Rate 20 05/25/17 10:00 Blood Pressure 137/83 05/25/17 10:00 O2 Sat by Pulse Oximetry (%) Assessment: 05/25/17 11:53 WITHDRAWAL SYMPTOM,CONSTIPATED Plan: CONTINUE DETOX,COLACE 100 MGS PO TID
[2017-05-25] MEDS: DOCUSATE SODIUM 100 MG CAPSULE (FP) PO SCH ×2 (14:40→22:27)
[2017-05-25] MEDS: chlordiazePOXIDE HCL 10 MG CAPSULE PO SCH ×2 (17:53→22:27)
[2017-05-25] MEDS: ZOLPIDEM TARTRATE 5 MG TABLET PO PRN (22:27)
[2017-05-25] MEDS: THIAMINE HCL 100 MG TABLET (FP) PO SCH (22:27)
[2017-05-26] MEDS: MAG HYDROX/AL HYDROX/SIMETH 30 ML UNIT-DOSE CUP PO PRN (02:01)
[2017-05-26] MEDS: chlordiazePOXIDE HCL 10 MG CAPSULE PO SCH ×2 (05:58→10:57)
[2017-05-26] MEDS: DOCUSATE SODIUM 100 MG CAPSULE (FP) PO SCH ×3 (05:58→22:34)
[2017-05-26] MEDS ORDERED: METHADONE HCL 10 MG TABLET (FOR DETOX USE ONLY) PO SCH (10:00)
--- NOTE | 2017-05-26 10:31 | PN ---
S Progress Note (SOAP) Subjective: ALERT,IRRITABLE,INTERRUPTED SLEEP Objective: 05/26/17 10:29 Vital Signs Temperature 97.9 F 05/26/17 09:10 Pulse Rate 99 H 05/26/17 09:10 Respiratory Rate 18 05/26/17 09:10 Blood Pressure 133/87 05/26/17 09:10 O2 Sat by Pulse Oximetry (%) Assessment: 05/26/17 10:30 WITHDRAWAL SYMPTOM Plan: CONTINUE DETOX,DISCHARGE IN AM
[2017-05-26] MEDS: PRENATAL VITAMINS W/ FOLIC ACID TABLET (FP) PO SCH (10:56)
[2017-05-26] MEDS: HYDROCHLOROTHIAZIDE 12.5 MG CAPSULE (FP) PO SCH ×2 (10:56→22:34)
[2017-05-26] MEDS: RANITIDINE HCL 150 MG TABLET (FP) PO SCH ×2 (10:56→22:33)
[2017-05-26] MEDS: cloNIDine HCL 0.1 MG TABLET PO SCH ×2 (10:57→22:34)
[2017-05-26] MEDS: LISINOPRIL 10 MG TABLET (FP) PO SCH ×2 (10:57→22:33)
[2017-05-26] MEDS: amLODIPine BESYLATE 10 MG TABLET (FP) PO SCH (10:57)
[2017-05-26] MEDS: THIAMINE HCL 100 MG TABLET (FP) PO SCH (22:33)
[2017-05-26] MEDS: ZOLPIDEM TARTRATE 5 MG TABLET PO PRN (22:33)
[2017-05-27] MEDS: DOCUSATE SODIUM 100 MG CAPSULE (FP) PO SCH (05:47)
[2017-05-27] MEDS ORDERED: METHADONE HCL 5 MG TABLET (FOR DETOX USE ONLY) PO SCH (06:00)
[2017-05-27 06:15] VITALS: BP 147/85; PULSE 91; TEMP 98.1
--- NOTE | 2017-05-27 08:13 | PN ---
S Progress Note (SOAP) Subjective: ALERT,NO COMPLAINT Objective: 05/27/17 08:12 Vital Signs Temperature 98.1 F 05/27/17 06:14 Pulse Rate 91 H 05/27/17 06:14 Respiratory Rate 18 05/27/17 06:14 Blood Pressure 147/85 05/27/17 06:14 O2 Sat by Pulse Oximetry (%) Assessment: 05/27/17 08:12 DETOX COMPLETED,NO WITHDRAWAL SYMPTOM Plan: DISCHARGE TODAY,FOLLOW UP WITH AFTER CARE PROGRAM ARRANGEMENT
--- NOTE | 2017-05-27 08:14 | DS ---
[facility] Detox Discharge Summary Admission Date: 05/22/17 Discharge Date: 05/27/17 - History Present History: Alcohol Dependence, Opioid Dependence Additional Comments: FOLLOW UP WITH AFTER CARE PROGRAM ARRANGEMENT Pertinent Past History: GERD HYPERTENSION DEHYDRATION GOUT NICOTINE DEPENDENCE - Physical Exam Results Vital Signs: Vital Signs Temperature 98.1 F 05/27/17 06:14 Pulse Rate 91 H 05/27/17 06:14 Respiratory Rate 18 05/27/17 06:14 Blood Pressure 147/85 05/27/17 06:14 O2 Sat by Pulse Oximetry (%) Pertinent Admission Physical Exam Findings: WITHDRAWAL SIGNS AND SYMPTOM Vital Signs Temperature 98.1 F 05/27/17 06:14 Pulse Rate 91 H 05/27/17 06:14 Respiratory Rate 18 05/27/17 06:14 Blood Pressure 147/85 05/27/17 06:14 O2 Sat by Pulse Oximetry (%) Laboratory Last Values WBC 5.6 K/mm3 (4.0-10.0) 05/23/17 07:40 RBC 3.88 M/mm3 (4.00-5.60) L 05/23/17 07:40 Hgb 12.7 GM/dL (11.7-16.9) D 05/23/17 07:40 Hct 38.2 % (35.4-49) 05/23/17 07:40 MCV 98.5 fl (80-96) H 05/23/17 07:40 MCH 32.6 pg (25.7-33.7) 05/23/17 07:40 MCHC 33.1 g/dl (32.0-35.9) 05/23/17 07:40 RDW 13.2 % (11.9-15.9) 05/23/17 07:40 Plt Count 187 K/MM3 (134-434) D 05/23/17 07:40 MPV 8.6 fl (7.5-11.1) D 05/23/17 07:40 Sodium 136 mmol/L (136-145) 05/23/17 07:40 Potassium 3.6 mmol/L (3.5-5.1) 05/23/17 07:40 Chloride 101 mmol/L (98-107) 05/23/17 07:40 Carbon Dioxide 28 mmol/L (21-32) 05/23/17 07:40 Anion Gap 7 (8-16) L 05/23/17 07:40 BUN 9 mg/dL (7-18) 05/23/17 07:40 Creatinine 0.9 mg/dL (0.7-1.3) D 05/23/17 07:40 Creat Clearance w eGFR > 60 (>60) 05/23/17 07:40 Random Glucose 92 mg/dL (74-106) D 05/23/17 07:40 Calcium 8.4 mg/dL (8.5-10.1) L 05/23/17 07:40 Total Bilirubin 0.4 mg/dL (0.2-1.0) D 05/23/17 07:40 AST 41 U/L (15-37) H D 05/23/17 07:40 ALT 27 U/L (12-78) D 05/23/17 07:40 Alkaline Phosphatase 65 U/L (45-117) D 05/23/17 07:40 Total Protein 6.3 g/dl (6.4-8.2) L 05/23/17 07:40 Albumin 3.5 g/dl (3.4-5.0) 05/23/17 07:40 Urine Color Ltyellow 05/23/17 08:54 Urine Appearance Clear 05/23/17 08:54 Urine pH 6.0 (5.0-8.0) 05/23/17 08:54 Ur Specific [place] 1.012 (1.001-1.035) 05/23/17 08:54 Urine Protein Negative (NEGATIVE) 05/23/17 08:54 Urine Glucose (UA) Negative (NEGATIVE) 05/23/17 08:54 Urine Ketones Negative (NEGATIVE) 05/23/17 08:54 Urine Blood Negative (NEGATIVE) 05/23/17 08:54 Urine Nitrite Negative (NEGATIVE) 05/23/17 08:54 Urine Bilirubin Negative (<2.0 mg/dL) 05/23/17 08:54 Urine Urobilinogen Negative mg/dL (0.2-1.0) 05/23/17 08:54 Ur Leukocyte Esterase Negative (NEGATIVE) 05/23/17 08:54 RPR Titer Nonreactive (NONREACTIVE) 05/23/17 07:40 HIV 1&2 Antibody Screen Negative 05/23/17 07:40 HIV P24 Antigen Negative 05/23/17 07:40 - Treatment Hospital Course: Detox Protocol Followed, Detoxed Safely, Responded well, Discharged Condition Good Patient has Accepted a Rehab Referral to: DECLINED - Medication Discharge Medications: Ambulatory Orders Naproxen [Naprosyn -] 375 mg PO BID PRN 05/22/17 Quetiapine Fumarate [Seroquel] 50 tab PO HS 05/22/17 Ergocalciferol [Vitamin D2] 50,000 unit PO Q7D@1000 #4 capsule 05/26/17 Lisinopril/Hydrochlorothiazide [Lisinopril-Hctz 10-12.5 mg Tab] 1 each PO BID # 60 tablet 05/26/17 Naproxen [Naprosyn -] 375 mg PO BID PRN #20 tablet 05/26/17 Ranitidine [Zantac -] 150 mg PO BID #60 tablet 05/26/17 - Diagnosis (1) Opioid dependence with withdrawal Current Visit: Yes Status: Acute (2) Alcohol dependence with uncomplicated withdrawal Current Visit: Yes Status: Acute (3) Substance induced mood disorder Current Visit: Yes Status: Acute (4) Substance-induced sleep disorder Current Visit: Yes Status: Acute (5) Dehydration Current Visit: Yes Status: Chronic (6) Gout Current Visit: Yes Status: Chronic Qualifiers: Gout site: foot Gout etiology: unspecified cause Chronicity: chronic Laterality: right Qualified Code(s): M1A.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
--- NOTE | 2017-05-27 09:31 | PN ---
Psychiatric Progress Note Vital Signs: Vital Signs Period Temp Pulse Resp BP Sys/Griggs Pulse Ox Last 24 Hr 96.3 F-98.1 F 82-91 -18 136-147/82-87 Date of Session: 05/27/17 Chief Complaint:: Insomnia HPI: Patient reports using Seroquel 50mg po qhs prior to admission for insomnia , here during detox he used Ambien 10mg po prn qhs,. Patient asking to start Seroquel 50mg po qhs for insomnia upon discharge Current Medications: Active Medications Generic Name Dose Route Start Last Admin Trade Name Freq PRN Reason Stop Dose Admin Acetaminophen 650 mg 05/22/17 12:30 05/22/17 19:41 Tylenol - PO 650 mg Q4H PRN Administration FEVER Al Hydroxide/Mg Hydroxide 30 ml 05/22/17 12:30 05/26/17 02:01 Mylanta Oral Suspension - PO 30 ml Q6H PRN Administration DYSPEPSIA Amlodipine Besylate 10 mg 05/24/17 13:45 05/26/17 10:57 Norvasc - PO 10 mg DAILY [facility] Administration Clonidine 0.1 mg 05/24/17 22:00 05/26/17 22:34 Catapres - PO 0.1 mg BID KATELYN Administration Cyclobenzaprine HCl 10 mg 05/24/17 11:43 Flexeril - PO TID PRN MUSCLE SPASMS Docusate Sodium 100 mg 05/25/17 14:00 05/27/17 05:47 Colace - PO 100 mg TID KATELYN Administration Ergocalciferol 50,000 unit 05/29/17 10:00 Drisdol - PO Q7D@1000 [facility] Eucalyptus/Menthol/Phenol/Sorbitol 1 each 05/22/17 12:30 Cepastat Lozenge - MM Q4H PRN SORE THROAT Guaifenesin 10 ml 05/22/17 12:30 Robitussin Dm - PO Q6H PRN COUGH Hydrochlorothiazide 12.5 mg 05/22/17 22:00 05/26/17 22:34 Hctz - PO 12.5 mg BID KATELYN Administration Hydroxyzine Pamoate 25 mg 05/22/17 12:30 05/23/17 14:30 Vistaril - PO 25 mg Q4H PRN Administration AGITATION Lisinopril 10 mg 05/22/17 22:00 04/04/18 22:33 Prinivil PO 10 mg BID KATELYN Administration Loperamide HCl 4 mg 05/22/17 12:30 Imodium - PO Q6H PRN DIARRHEA Magnesium Citrate 300 ml 05/22/17 12:30 Citroma - PO Q48H PRN CONSTIPATION Magnesium Hydroxide 30 ml 05/22/17 12:30 05/25/17 05:29 Milk Of Magnesia - PO 30 ml DAILY PRN Administration CONSTIPATION Melatonin 5 mg 05/22/17 22:00 05/22/17 22:44 Melatonin PO 5 mg HS PRN Administration INSOMNIA Naproxen 375 mg 05/22/17 15:01 Naprosyn - PO BID PRN PAIN LEVEL 4 - 6 Nicotine Polacrilex 2 mg 05/22/17 12:30 Nicorette Gum - BUC Q2H PRN NICOTINE REPLACEMENT RX Multivit/Folic Acid/Iron 1 tab 05/23/17 10:00 05/26/17 10:56 Vitamins (Sjr) - PO 1 tab DAILY KATELYN Administration Pseudoephedrine/Triprolidine 1 combo 05/22/17 12:30 Actifed - PO TID PRN NASAL CONGESTION Ranitidine HCl 150 mg 05/26/17 10:00 05/26/17 22:33 Zantac - PO 150 mg BID KATELYN Administration Thiamine HCl 100 mg 05/22/17 22:00 05/26/17 22:33 Vitamin B1 - PO 100 mg HS KATELYN Administration Zolpidem Tartrate 10 mg 05/23/17 10:18 05/26/17 22:33 Ambien - PO 10 mg HS PRN Administration INSOMNIA Medication(s) Change(s): Seroquel 50mg po qhs Provider note:: Seroquel 50mg po qhs #30 order was sent to patient's pharmacy Mental Status Exam - Mental Status Exam Alert and Oriented to: Person Cognitive Function: Fair Patient Appearance: Well Groomed Mood: Anxious Affect: Mood Congruent Patient Behavior: Cooperative Speech Pattern: Appropriate Voice Loudness: Mildly Soft/Quiet Thought Process: Circumstantial Thought Disorder: Being Controlled Hallucinations: Denies Suicidal Ideation: Denies Homicidal Ideation: Denies Insight/Judgement: Fair Sleep: Difficulty falling asleep Appetite: Fair Muscle strength/Tone: Normal Gait/Station: Normal Additional Comments: Seroquel 50mg po qhs Psychiatric Treatment Plan - Problem List (1) Alcohol dependence with uncomplicated withdrawal Current Visit: Yes (2) Opioid dependence with withdrawal Current Visit: Yes (3) Substance induced mood disorder Current Visit: Yes (4) Substance-induced sleep disorder Current Visit: Yes (5) Nicotine dependence Current Visit: Yes Qualifiers: Nicotine product type: cigarettes Substance use status: uncomplicated Qualified Code(s): F17.210 - Nicotine dependence, cigarettes, uncomplicated (6) Insomnia Current Visit: No Initial treatment plan: Seroquel 50mg po qhs
[2017-05-27] MEDS: cloNIDine HCL 0.1 MG TABLET PO SCH (09:32)
[2017-05-27] MEDS: PRENATAL VITAMINS W/ FOLIC ACID TABLET (FP) PO SCH (09:32)
[2017-05-27] MEDS: HYDROCHLOROTHIAZIDE 12.5 MG CAPSULE (FP) PO SCH (09:32)
[2017-05-27] MEDS: amLODIPine BESYLATE 10 MG TABLET (FP) PO SCH (09:32)
[2017-05-27] MEDS: RANITIDINE HCL 150 MG TABLET (FP) PO SCH (09:32)
[2017-05-27] MEDS: LISINOPRIL 10 MG TABLET (FP) PO SCH (09:32)
[2017-05-29] MEDS ORDERED: ERGOCALCIFEROL (VITAMIN D2) 50,000 UNIT CAPSULE (FP) PO SCH (10:00)
== END 2017-05-27 09:35 | disposition home or self-care (01) | DRG 773 ==
LOC: YASAS 10:51 → Y6N 15:40
PROVIDERS: ADMIT Internal Medicine; ATTEND Internal Medicine
PROC: HZ2ZZZZ Detoxification Services for Substance Abuse Treatment (ICD-10-PCS; principal; 2017-05-22)
DX: F11.23 Opioid dependence with withdrawal (principal); F10.230 Alcohol dependence with withdrawal, uncomplicated; F17.210 Nicotine dependence, cigarettes, uncomplicated; F19.24 Other psychoactive substance dependence with psychoactive substance-induced mood disorder; F19.282 Other psychoactive substance dependence with psychoactive substance-induced sleep disorder; G47.00 Insomnia, unspecified; I10 Essential (primary) hypertension; K21.9 Gastro-esophageal reflux disease without esophagitis; E86.0 Dehydration; M10.9 Gout, unspecified
CPT/HCPCS: 36415; 80053; 81003; 85027; 86593; 87389; 93005; 93010; J0735

== ENCOUNTER 2017-06-23 11:39 | Inpatient (IN) | payer OTHER ==
[2017-06-23 13:18] VITALS: BMI 27.5
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
[2017-06-23] MEDS ORDERED: MENTHOL/PHENOL 1 EACH UD MM PRN (16:22)
[2017-06-23] MEDS ORDERED: MAG HYDROX/AL HYDROX/SIMETH 30 ML UNIT-DOSE CUP PO PRN (16:22)
[2017-06-23] MEDS ORDERED: ACETAMINOPHEN 325 MG TABLET (FP) PO PRN (16:22)
[2017-06-23] MEDS ORDERED: LOPERAMIDE HCL 2 MG CAPSULE PO PRN (16:22)
[2017-06-23] MEDS ORDERED: IBUPROFEN 400 MG TABLET (FP) PO PRN (16:22)
[2017-06-23] MEDS ORDERED: MAGNESIUM CITRATE 300 ML BOTTLE PO PRN (16:22)
[2017-06-23] MEDS ORDERED: P-EPHED 60MG/TRIPROLIDI 2.5MG TABLET PO PRN (16:22)
[2017-06-23] MEDS ORDERED: guaiFENesin/D-METHORPHAN HB 10 ML UNIT-DOSE CUPS PO PRN (16:22)
[2017-06-23] MEDS ORDERED: chlordiazePOXIDE HCL 25 MG CAPSULE PO PRN (16:25)
[2017-06-23] MEDS ORDERED: chlordiazePOXIDE HCL 25 MG CAPSULE PO ONE (17:30)
[2017-06-23] MEDS ORDERED: METHADONE HCL 10 MG TABLET (FOR DETOX USE ONLY) PO ONE ×2 (17:30→23:00)
[2017-06-23] MEDS: chlordiazePOXIDE HCL 25 MG CAPSULE PO SCH ×2 (18:40→22:08)
[2017-06-23] MEDS ORDERED: PATIENT'S OWN MEDICATION (NON-FORMULARY) (Lisinopril/Hydrochlorothiazide [Lisinopril-Hctz PO SCH (22:00)
[2017-06-23] MEDS: THIAMINE HCL 100 MG TABLET (FP) PO SCH (22:08)
[2017-06-23] MEDS: LISINOPRIL 10 MG TABLET (FP) PO SCH (22:08)
[2017-06-23] MEDS: HYDROCHLOROTHIAZIDE 12.5 MG CAPSULE (FP) PO SCH (22:08)
[2017-06-23 23:41] LABS: URINE APPEARANCE CLEAR; URINE BILIRUBIN NEGATIVE (<2.0 mg/dL); URINE COLOR STRAW; URINE GLUCOSE (UA) NEGATIVE (NEGATIVE); URINE KETONE NEGATIVE (NEGATIVE); URINE LEUK ESTERASE NEGATIVE (NEGATIVE); URINE NITRITE NEGATIVE (NEGATIVE); URINE PROTEIN NEGATIVE (NEGATIVE); URINE UROBILINOGEN NEGATIVE mg/dL (0.2-1.0)
[2017-06-23] MEDS: MELATONIN 5 MG TABLETS PO PRN (23:47)
[2017-06-24] MEDS: hydrOXYzine PAMOATE 50 MG CAPSULE (FP) PO PRN (00:18)
[2017-06-24] MEDS: chlordiazePOXIDE HCL 25 MG CAPSULE PO SCH ×4 (05:21→22:20)
[2017-06-24 09:46] LABS: HEMATOCRIT 40.1 % (35.4-49); HEMOGLOBIN 13.5 GM/dL (11.7-16.9); MCH 32.4 pg (25.7-33.7); MCHC 33.7 g/dl (32.0-35.9); MEAN CELL VOLUME 96.2 fl (80-96); MEAN PLT VOLUME 8.5 fl (7.5-11.1); PLATELET COUNT 251 K/MM3 (134-434); RBC 4.17 M/mm3 (4.00-5.60); RDW 13.5 % (11.9-15.9); WHITE BLOOD COUNT 5.7 K/mm3 (4.0-10.0)
[2017-06-24] MEDS ORDERED: METHADONE HCL 10 MG TABLET (FOR DETOX USE ONLY) PO SCH (10:00)
[2017-06-24] MEDS: HYDROCHLOROTHIAZIDE 12.5 MG CAPSULE (FP) PO SCH ×2 (10:27→22:20)
[2017-06-24] MEDS: PRENATAL VITAMINS W/ FOLIC ACID TABLET (FP) PO SCH (10:27)
[2017-06-24] MEDS: LISINOPRIL 10 MG TABLET (FP) PO SCH ×2 (10:27→22:20)
--- NOTE | 2017-06-24 10:32 | CONSULT ---
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 This is one of multiple admissions for patient. Pt. admitted to for alcohol and opiate dependence. Substance Abuse History: Following information confirmed with Mr. García: Smoking Cessation. Smoking history: Former smoker. Have you smoked in the past 12 months: Yes. Hx Chewing Tobacco Use: No. Initiated information on smoking cessation: No. - Substance & Tx. History. Hx Alcohol Use: Yes. Hx Substance Use: Yes. Substance Use Type: Alcohol, Opiates. Hx Substance Use Treatment: Yes. - Substances Abused. Alcohol. Route: Oral. Frequency: Daily. Amount used: 1-2 pints daily. Age of first use: 15. Date of Last Use: 06/23/17. Oxycontin. Route: Oral. Frequency: Daily. Amount used: 3 pills daily. Age of first use: 27. Date of Last Use: 06/21/17 Medical History: Asthma, hypercholesterolemia Psychiatric History: Patient denies h/o psychiatric hospitalizations and outpatient care. Pt. reports an overdose attempt approximately 2 months ago of pain killers and xanax. Stated to contract writer that he is motivated to complete detox and begin rehab. Patient's protective factors are his mother, brother, and children. Pt. currently denies suicidal and homicidal ideation. Physical/Sexual Abuse/Trauma History: Denies. Mental Status Exam - Mental Status Exam Alert and Oriented to: Time, Place, Person Cognitive Function: Good Patient Appearance: Well Groomed Mood: Hopeful Affect: Mood Congruent Patient Behavior: Cooperative Speech Pattern: Appropriate Voice Loudness: Normal Thought Process: Goal Oriented Thought Disorder: Not Present Hallucinations: Denies Suicidal Ideation: Denies Homicidal Ideation: Denies Insight/Judgement: Poor Sleep: Poorly Appetite: Fair Muscle strength/Tone: Normal Gait/Station: Normal Psychiatric Findings - Problem List ([place] 1, 2,3) (1) Alcohol dependence with uncomplicated withdrawal Current Visit: Yes Status: Acute (2) Opioid dependence with withdrawal Current Visit: Yes Status: Acute (3) Substance induced mood disorder Current Visit: Yes Status: Acute - Initial Treatment Plan Initial Treatment Plan: Psychoeducation provided. Detoxification in progress. Seroquel 50mg qhs. Benefits and side effects discussed. Verbal consent given. Will continue to monitor.
[2017-06-24 10:37] LABS: ALBUMIN 4.1 g/dl (3.4-5.0); ANION GAP 8 (8-16); BLOOD UREA NITROGEN 16 mg/dL (7-18); CALCIUM 8.2 mg/dL (8.5-10.1); CHLORIDE 103 mmol/L (98-107); CO2 28 mmol/L (21-32); CREATININE 1.4 mg/dL (0.7-1.3); GLUCOSE,RANDOM 123 mg/dL (74-106); POTASSIUM 3.8 mmol/L (3.5-5.1); SGOT/AST 49 U/L (15-37); SGPT/ALT 28 U/L (12-78); SODIUM 139 mmol/L (136-145)
[2017-06-24 10:39] LABS: ALK PHOS 69 U/L (45-117); BILIRUBIN,TOTAL 0.6 mg/dL (0.2-1.0); TOT PROT 7.1 g/dl (6.4-8.2)
[2017-06-24] MEDS ORDERED: ONDANSETRON *ODT* 4 MG TABLET SL PRN (11:30)
--- NOTE | 2017-06-24 11:30 | PN ---
[facility] CIWA - CIWA Score Nausea/Vomitin (N/V/D) Muscle Tremors: 4-Moderate,w/Arms Extend Anxiety: 4-Mod. Anxious/Guarded Agitation: 3 Paroxysmal Sweats: 1-Minimal Palms Moist Orientation: 0-Oriented Tacttile Disturbances: 0-None Auditory Disturbances: 0-None Visual Disturbances: 0-None Headache: 0-None Present CIWA-Ar Total Score: 17 [facility] COWS - Scale Resting Pulse: 1= DE 81-100 Sweatin= Chills/Flushing Restless Observation: 3= Extraneous Movement Pupil Size: 0= Normal to Room Light Bone or Joint Aches: 4=Acute Joint/Muscle Pain Runny Nose/ Eye Tearin= Nasal Congestion GI Upset > 30mins: 3= Vomiting/Diarrhea Tremor Observation of Outstretched Hands: 1= Tremor [place], Not Seen Yawning Observation: 1= 1-2x During Session Anxiety or Irritability: 2=Irritable/Anxious Goose Flesh Skin: 0=Smooth Skin COWS Score: 17 [facility] Progress Note (SOAP) Subjective: ANXIETY,IRRITABILITY,SWEATS,NAUSEA,VOMITING,DIARRHEA,DYSPEPSIA. Objective: 06/24/17 11:28 Vital Signs Temperature 98.7 F 06/24/17 09:21 Pulse Rate 89 06/24/17 10:30 Respiratory Rate 18 06/24/17 10:30 Blood Pressure 136/79 06/24/17 09:21 O2 Sat by Pulse Oximetry (%) Laboratory Last Values WBC 5.7 K/mm3 (4.0-10.0) 06/24/17 06:00 RBC 4.17 M/mm3 (4.00-5.60) 06/24/17 06:00 Hgb 13.5 GM/dL (11.7-16.9) 06/24/17 06:00 Hct 40.1 % (35.4-49) 06/24/17 06:00 MCV 96.2 fl (80-96) H 06/24/17 06:00 MCH 32.4 pg (25.7-33.7) 06/24/17 06:00 MCHC 33.7 g/dl (32.0-35.9) 06/24/17 06:00 RDW 13.5 % (11.9-15.9) 06/24/17 06:00 Plt Count 251 K/MM3 (134-434) D 06/24/17 06:00 MPV 8.5 fl (7.5-11.1) 06/24/17 06:00 Sodium 139 mmol/L (136-145) 06/24/17 06:00 Potassium 3.8 mmol/L (3.5-5.1) 06/24/17 06:00 Chloride 103 mmol/L (98-107) 06/24/17 06:00 Carbon Dioxide 28 mmol/L (21-32) 06/24/17 06:00 Anion Gap 8 (8-16) 06/24/17 06:00 BUN 16 mg/dL (7-18) D 06/24/17 06:00 Creatinine 1.4 mg/dL (0.7-1.3) H D 06/24/17 06:00 Creat Clearance w eGFR 57.03 (>60) 06/24/17 06:00 Random Glucose 123 mg/dL (74-106) H D 06/24/17 06:00 Calcium 8.2 mg/dL (8.5-10.1) L 06/24/17 06:00 Total Bilirubin 0.6 mg/dL (0.2-1.0) D 06/24/17 06:00 AST 49 U/L (15-37) H 06/24/17 06:00 ALT 28 U/L (12-78) 06/24/17 06:00 Alkaline Phosphatase 69 U/L (45-117) 06/24/17 06:00 Total Protein 7.1 g/dl (6.4-8.2) 06/24/17 06:00 Albumin 4.1 g/dl (3.4-5.0) 06/24/17 06:00 Urine Color Straw 06/23/17 23:49 Urine Appearance Clear 06/23/17 23:49 Urine pH 7.0 (5.0-8.0) 06/23/17 23:49 Ur Specific [place] 1.005 (1.001-1.035) 06/23/17 23:49 Urine Protein Negative (NEGATIVE) 06/23/17 23:49 Urine Glucose (UA) Negative (NEGATIVE) 06/23/17 23:49 Urine Ketones Negative (NEGATIVE) 06/23/17 23:49 Urine Blood Negative (NEGATIVE) 06/23/17 23:49 Urine Nitrite Negative (NEGATIVE) 06/23/17 23:49 Urine Bilirubin Negative (<2.0 mg/dL) 06/23/17 23:49 Urine Urobilinogen Negative mg/dL (0.2-1.0) 06/23/17 23:49 Ur Leukocyte Esterase Negative (NEGATIVE) 06/23/17 23:49 Assessment: 06/24/17 11:29 WITHDRAWAL SX Plan: CONTINUE DETOX ZOFRAN PRN MYLANTA X 1 DOSE GIVEN; THEN PRN
--- NOTE | 2017-06-24 11:30 | EKG ---
Test Reason : Blood Pressure : / mmHG Vent. Rate : 086 BPM Atrial Rate : 086 BPM P-R Int : 146 ms QRS Dur : 092 ms QT Int : 382 ms P-R-T Axes : 072 002 005 degrees QTc Int : 457 ms NORMAL SINUS RHYTHM NORMAL ECG WHEN COMPARED WITH ECG OF 22-MAY-2017 19:46, CRITERIA FOR SEPTAL INFARCT ARE NO LONGER PRESENT Confirmed by JESSICA CANO MD ([id number]) on 06/24/2017 11:30:27 AM Referred By: Confirmed By:JESSICA CANO MD
[2017-06-24] MEDS ORDERED: RANITIDINE HCL 150 MG TABLET (FP) PO ONE (12:30)
[2017-06-24] MEDS: MAGNESIUM HYDROX 2400MG/30ML ORAL SUSPENSION 30 ML CUP PO PRN (18:14)
[2017-06-24] MEDS: THIAMINE HCL 100 MG TABLET (FP) PO SCH (22:20)
[2017-06-24] MEDS: QUEtiapine FUMARATE 50 MG TABLET PO SCH (22:20)
[2017-06-24] MEDS: RANITIDINE HCL 150 MG TABLET (FP) PO SCH (22:20)
[2017-06-25] MEDS: MAGNESIUM HYDROX 2400MG/30ML ORAL SUSPENSION 30 ML CUP PO PRN (05:37)
[2017-06-25] MEDS: chlordiazePOXIDE HCL 25 MG CAPSULE PO SCH ×2 (05:37→10:19)
[2017-06-25] MEDS: RANITIDINE HCL 150 MG TABLET (FP) PO SCH ×2 (10:18→22:16)
[2017-06-25] MEDS: LISINOPRIL 10 MG TABLET (FP) PO SCH ×2 (10:18→22:17)
[2017-06-25] MEDS: METHADONE HCL 5 MG TABLET (FOR DETOX USE ONLY) PO SCH (10:18)
[2017-06-25] MEDS: PRENATAL VITAMINS W/ FOLIC ACID TABLET (FP) PO SCH (10:18)
[2017-06-25] MEDS: HYDROCHLOROTHIAZIDE 12.5 MG CAPSULE (FP) PO SCH ×2 (10:18→22:16)
--- NOTE | 2017-06-25 12:52 | PN ---
[facility] CIWA - CIWA Score Nausea/Vomitin-No Nausea/No Vomiting Muscle Tremors: 3 Anxiety: 5 Agitation: 4-Moderately Restless Paroxysmal Sweats: 1-Minimal Palms Moist Orientation: 0-Oriented Tacttile Disturbances: 0-None Auditory Disturbances: 0-None Visual Disturbances: 0-None Headache: 0-None Present CIWA-Ar Total Score: 13 [facility] COWS - Scale Resting Pulse: 0= SC 80 or Below Sweatin=Flushed/Facial Moisture Restless Observation: 3= Extraneous Movement Pupil Size: 2= Moderately Dilated Bone or Joint Aches: 1= Mild Discomfort Runny Nose/ Eye Tearin= None GI Upset > 30mins: 1= Stomach Cramp Tremor Observation of Outstretched Hands: 2= Slight Tremor Visible Yawning Observation: 2= >3x During Session Anxiety or Irritability: 2=Irritable/Anxious Goose Flesh Skin: 0=Smooth Skin COWS Score: 15 S Progress Note (SOAP) Subjective: ANXIETY,SWEATS, FATIGUE,CONSTIPATED. Objective: 06/25/17 12:51 Vital Signs 06/25/17 06/25/17 06:15 10:06 Temperature 96.5 F L 96.0 F L Pulse Rate 64 79 Respiratory 18 18 Rate Blood Pressure 140/86 150/91 06/25/17 12:51 Laboratory Tests 06/23/17 06/24/17 06/24/17 23:49 06:00 06:00 WBC 5.7 RBC 4.17 Hgb 13.5 Hct 40.1 MCV 96.2 H MCH 32.4 MCHC 33.7 RDW 13.5 Plt Count 251 D MPV 8.5 Sodium 139 Potassium 3.8 Chloride 103 Carbon Dioxide 28 Anion Gap 8 BUN 16 D Creatinine 1.4 H D Creat Clearance w eGFR 57.03 Random Glucose 123 H D Calcium 8.2 L Total Bilirubin 0.6 D AST 49 H ALT 28 Alkaline Phosphatase 69 Total Protein 7.1 Albumin 4.1 Urine Color Straw Urine Appearance Clear Urine pH 7.0 Ur Specific [place] 1.005 Urine Protein Negative Urine Glucose (UA) Negative Urine Ketones Negative Urine Blood Negative Urine Nitrite Negative Urine Bilirubin Negative Urine Urobilinogen Negative Ur Leukocyte Esterase Negative RPR Titer 06/24/17 06:00 WBC RBC Hgb Hct MCV MCH MCHC RDW Plt Count MPV Sodium Potassium Chloride Carbon Dioxide Anion Gap BUN Creatinine Creat Clearance w eGFR Random Glucose Calcium Total Bilirubin AST ALT Alkaline Phosphatase Total Protein Albumin Urine Color Urine Appearance Urine pH Ur Specific [place] Urine Protein Urine Glucose (UA) Urine Ketones Urine Blood Urine Nitrite Urine Bilirubin Urine Urobilinogen Ur Leukocyte Esterase RPR Titer Nonreactive Assessment: 06/25/17 12:51 WITHDRAWAL SX Plan: CONTINUE DETOX COLACE 100 MG PO TID INCREASE PO FLUIDS
[2017-06-25] MEDS: DOCUSATE SODIUM 100 MG CAPSULE (FP) PO SCH ×2 (13:10→22:17)
[2017-06-25] MEDS: chlordiazePOXIDE 5 MG CAPSULE PO SCH ×2 (17:42→22:17)
[2017-06-25] MEDS: THIAMINE HCL 100 MG TABLET (FP) PO SCH (22:16)
[2017-06-25] MEDS: QUEtiapine FUMARATE 50 MG TABLET PO SCH (22:17)
[2017-06-25] MEDS: MELATONIN 5 MG TABLETS PO PRN (23:45)
[2017-06-26] MEDS: chlordiazePOXIDE 5 MG CAPSULE PO SCH ×2 (05:51→10:37)
[2017-06-26] MEDS: DOCUSATE SODIUM 100 MG CAPSULE (FP) PO SCH ×3 (05:52→22:36)
[2017-06-26] MEDS: MAGNESIUM HYDROX 2400MG/30ML ORAL SUSPENSION 30 ML CUP PO PRN (05:53)
[2017-06-26] MEDS: RANITIDINE HCL 150 MG TABLET (FP) PO SCH ×2 (10:37→22:36)
[2017-06-26] MEDS: PRENATAL VITAMINS W/ FOLIC ACID TABLET (FP) PO SCH (10:37)
[2017-06-26] MEDS: METHADONE HCL 5 MG TABLET (FOR DETOX USE ONLY) PO SCH (10:37)
[2017-06-26] MEDS: LISINOPRIL 10 MG TABLET (FP) PO SCH ×2 (10:37→22:36)
[2017-06-26] MEDS: HYDROCHLOROTHIAZIDE 12.5 MG CAPSULE (FP) PO SCH ×2 (10:37→22:36)
[2017-06-26] MEDS ORDERED: WITCH HAZEL 50% (TUCKS) 40 PAD/JAR PAD TP PRN (10:45)
[2017-06-26] MEDS: BENZOCAINE 28 GM HEMORRHOIDAL OINTMENT PR PRN ×2 (13:57→23:51)
--- NOTE | 2017-06-26 14:19 | PN ---
[facility] Progress Note (SOAP) Subjective: Interrupted Sleep, Anxious, Constipation, Stomach Cramping. Objective: PATIENT A & O X 3, OBSERVED AMBULATING ON UNIT. NO ACUTE DISTRESS. 06/26/17 14:17 Vital Signs Temperature 98.9 F 06/26/17 09:27 Pulse Rate 77 06/26/17 09:27 Respiratory Rate 18 06/26/17 09:27 Blood Pressure 108/60 06/26/17 09:27 O2 Sat by Pulse Oximetry (%) Laboratory Tests 06/23/17 06/24/17 06/24/17 23:49 06:00 06:00 WBC 5.7 RBC 4.17 Hgb 13.5 Hct 40.1 MCV 96.2 H MCH 32.4 MCHC 33.7 RDW 13.5 Plt Count 251 D MPV 8.5 Sodium 139 Potassium 3.8 Chloride 103 Carbon Dioxide 28 Anion Gap 8 BUN 16 D Creatinine 1.4 H D Creat Clearance w eGFR 57.03 Random Glucose 123 H D Calcium 8.2 L Total Bilirubin 0.6 D AST 49 H ALT 28 Alkaline Phosphatase 69 Total Protein 7.1 Albumin 4.1 Urine Color Straw Urine Appearance Clear Urine pH 7.0 Ur Specific [place] 1.005 Urine Protein Negative Urine Glucose (UA) Negative Urine Ketones Negative Urine Blood Negative Urine Nitrite Negative Urine Bilirubin Negative Urine Urobilinogen Negative Ur Leukocyte Esterase Negative RPR Titer 06/24/17 06:00 WBC RBC Hgb Hct MCV MCH MCHC RDW Plt Count MPV Sodium Potassium Chloride Carbon Dioxide Anion Gap BUN Creatinine Creat Clearance w eGFR Random Glucose Calcium Total Bilirubin AST ALT Alkaline Phosphatase Total Protein Albumin Urine Color Urine Appearance Urine pH Ur Specific [place] Urine Protein Urine Glucose (UA) Urine Ketones Urine Blood Urine Nitrite Urine Bilirubin Urine Urobilinogen Ur Leukocyte Esterase RPR Titer Nonreactive LABS NOTED. Assessment: 06/26/17 14:17 WITHDRAWAL SYMPTOMS. Plan: CONTINUE DETOX.
[2017-06-26] MEDS: chlordiazePOXIDE HCL 10 MG CAPSULE PO SCH ×2 (17:28→22:36)
[2017-06-26] MEDS: THIAMINE HCL 100 MG TABLET (FP) PO SCH (22:36)
[2017-06-26] MEDS: QUEtiapine FUMARATE 50 MG TABLET PO SCH (22:36)
[2017-06-26] MEDS: MELATONIN 5 MG TABLETS PO PRN (23:51)
[2017-06-27] MEDS: chlordiazePOXIDE HCL 10 MG CAPSULE PO SCH ×2 (06:11→10:26)
[2017-06-27] MEDS: DOCUSATE SODIUM 100 MG CAPSULE (FP) PO SCH ×3 (06:12→22:34)
[2017-06-27] MEDS ORDERED: METHADONE HCL 10 MG TABLET (FOR DETOX USE ONLY) PO SCH (10:00)
[2017-06-27] MEDS: PRENATAL VITAMINS W/ FOLIC ACID TABLET (FP) PO SCH (10:25)
[2017-06-27] MEDS: HYDROCHLOROTHIAZIDE 12.5 MG CAPSULE (FP) PO SCH ×2 (10:25→22:34)
[2017-06-27] MEDS: LISINOPRIL 10 MG TABLET (FP) PO SCH ×2 (10:25→22:33)
[2017-06-27] MEDS: RANITIDINE HCL 150 MG TABLET (FP) PO SCH ×2 (10:25→22:33)
[2017-06-27] MEDS: BENZOCAINE 28 GM HEMORRHOIDAL OINTMENT PR SCH ×4 (10:26→22:34)
--- NOTE | 2017-06-27 12:36 | PN ---
[facility] Progress Note (SOAP) Subjective: ALERT O X 3. OOB AMBULATING ON UNIT, NO ACUTE DISTRESS. REPORTS POSITIVE BM WITH CITROMA. Objective: 06/27/17 12:36 Vital Signs Temperature 97.8 F 06/27/17 09:31 Pulse Rate 86 06/27/17 09:31 Respiratory Rate 18 06/27/17 09:31 Blood Pressure 130/86 06/27/17 09:31 O2 Sat by Pulse Oximetry (%) Laboratory Last Values WBC 5.7 K/mm3 (4.0-10.0) 06/24/17 06:00 RBC 4.17 M/mm3 (4.00-5.60) 06/24/17 06:00 Hgb 13.5 GM/dL (11.7-16.9) 06/24/17 06:00 Hct 40.1 % (35.4-49) 06/24/17 06:00 MCV 96.2 fl (80-96) H 06/24/17 06:00 MCH 32.4 pg (25.7-33.7) 06/24/17 06:00 MCHC 33.7 g/dl (32.0-35.9) 06/24/17 06:00 RDW 13.5 % (11.9-15.9) 06/24/17 06:00 Plt Count 251 K/MM3 (134-434) D 06/24/17 06:00 MPV 8.5 fl (7.5-11.1) 06/24/17 06:00 Sodium 139 mmol/L (136-145) 06/24/17 06:00 Potassium 3.8 mmol/L (3.5-5.1) 06/24/17 06:00 Chloride 103 mmol/L (98-107) 06/24/17 06:00 Carbon Dioxide 28 mmol/L (21-32) 06/24/17 06:00 Anion Gap 8 (8-16) 06/24/17 06:00 BUN 16 mg/dL (7-18) D 06/24/17 06:00 Creatinine 1.4 mg/dL (0.7-1.3) H D 06/24/17 06:00 Creat Clearance w eGFR 57.03 (>60) 06/24/17 06:00 Random Glucose 123 mg/dL (74-106) H D 06/24/17 06:00 Calcium 8.2 mg/dL (8.5-10.1) L 06/24/17 06:00 Total Bilirubin 0.6 mg/dL (0.2-1.0) D 06/24/17 06:00 AST 49 U/L (15-37) H 06/24/17 06:00 ALT 28 U/L (12-78) 06/24/17 06:00 Alkaline Phosphatase 69 U/L (45-117) 06/24/17 06:00 Total Protein 7.1 g/dl (6.4-8.2) 06/24/17 06:00 Albumin 4.1 g/dl (3.4-5.0) 06/24/17 06:00 Urine Color Straw 06/23/17 23:49 Urine Appearance Clear 06/23/17 23:49 Urine pH 7.0 (5.0-8.0) 06/23/17 23:49 Ur Specific [place] 1.005 (1.001-1.035) 06/23/17 23:49 Urine Protein Negative (NEGATIVE) 06/23/17 23:49 Urine Glucose (UA) Negative (NEGATIVE) 06/23/17 23:49 Urine Ketones Negative (NEGATIVE) 06/23/17 23:49 Urine Blood Negative (NEGATIVE) 06/23/17 23:49 Urine Nitrite Negative (NEGATIVE) 06/23/17 23:49 Urine Bilirubin Negative (<2.0 mg/dL) 06/23/17 23:49 Urine Urobilinogen Negative mg/dL (0.2-1.0) 06/23/17 23:49 Ur Leukocyte Esterase Negative (NEGATIVE) 06/23/17 23:49 RPR Titer Nonreactive (NONREACTIVE) 06/24/17 06:00 Assessment: 06/27/17 12:36 WITHDRAWAL SX Plan: CONTINUE DETOX
[2017-06-27] MEDS: MAGNESIUM HYDROX 2400MG/30ML ORAL SUSPENSION 30 ML CUP PO PRN (18:23)
[2017-06-27] MEDS: THIAMINE HCL 100 MG TABLET (FP) PO SCH (22:34)
[2017-06-27] MEDS: QUEtiapine FUMARATE 50 MG TABLET PO SCH (22:34)
[2017-06-27] MEDS: MELATONIN 5 MG TABLETS PO PRN (22:41)
[2017-06-28] MEDS: DOCUSATE SODIUM 100 MG CAPSULE (FP) PO SCH (05:26)
[2017-06-28] MEDS: hydrOXYzine PAMOATE 50 MG CAPSULE (FP) PO PRN (05:28)
[2017-06-28] MEDS ORDERED: METHADONE HCL 5 MG TABLET (FOR DETOX USE ONLY) PO SCH (06:00)
[2017-06-28 09:16] VITALS: BP 115/69; PULSE 87; TEMP 98.3
[2017-06-28] MEDS: LISINOPRIL 10 MG TABLET (FP) PO SCH (10:32)
[2017-06-28] MEDS: RANITIDINE HCL 150 MG TABLET (FP) PO SCH (10:32)
[2017-06-28] MEDS: HYDROCHLOROTHIAZIDE 12.5 MG CAPSULE (FP) PO SCH (10:32)
[2017-06-28] MEDS: PRENATAL VITAMINS W/ FOLIC ACID TABLET (FP) PO SCH (10:32)
[2017-06-28] MEDS: BENZOCAINE 28 GM HEMORRHOIDAL OINTMENT PR SCH (10:33)
--- NOTE | 2017-06-28 11:45 | PN ---
S Progress Note (SOAP) Subjective: Denies any complaints Objective: 06/28/17 11:43 A & Ox 3 Gait steady Not in acute distress Vital Signs Temperature 98.3 F 06/28/17 09:15 Pulse Rate 87 06/28/17 09:15 Respiratory Rate 18 06/28/17 09:15 Blood Pressure 115/69 06/28/17 09:15 O2 Sat by Pulse Oximetry (%) Assessment: 06/28/17 11:44 Detox successfully completed Plan: For d/c
--- NOTE | 2017-06-28 11:49 | DS ---
[facility] Detox Discharge Summary Admission Date: 06/23/17 Discharge Date: 06/28/17 - History Additional Comments: Pt discharged in stable condition. Will follow up care at [facility] Prescription Zantac and Lisinopril/HCTZ sent to pt's [place] pharmacy Pt will follow up with his PMD upon discharge from [facility]. Pertinent Past History: HTN GERD Chronic pain - Physical Exam Results Vital Signs: Vital Signs Temperature 98.3 F 06/28/17 09:15 Pulse Rate 87 06/28/17 09:15 Respiratory Rate 18 06/28/17 09:15 Blood Pressure 115/69 06/28/17 09:15 O2 Sat by Pulse Oximetry (%) Pertinent Admission Physical Exam Findings: Withdrawal sx - Treatment Hospital Course: Detox Protocol Followed, Detoxed Safely, Responded well, Discharged Condition Good, Rehab Referral Accepted Patient has Accepted a Rehab Referral to: [facility] - Medication Discharge Medications: Ambulatory Orders Naproxen [Naprosyn -] 375 mg PO BID PRN 05/22/17 Ergocalciferol [Vitamin D2] 50,000 unit PO Q7D@1000 #4 capsule 05/26/17 Quetiapine Fumarate [Seroquel] 50 tab PO HS #30 tablet 05/27/17 Lisinopril/Hydrochlorothiazide [Lisinopril-Hctz 10-12.5 mg Tab] 1 each PO BID # 60 tablet 06/28/17 Ranitidine [Zantac -] 150 mg PO BID #60 tablet 06/28/17 - Diagnosis (1) Opioid dependence with uncomplicated intoxication Status: Acute (2) Alcohol dependence with uncomplicated withdrawal Status: Acute (3) Anxiety Status: Chronic (4) Nicotine dependence Status: Acute Qualifiers: Nicotine product type: cigarettes Substance use status: in withdrawal Qualified Code(s): F17.213 - Nicotine dependence, cigarettes, with withdrawal (5) Substance induced mood disorder Status: Chronic (6) Substance-induced sleep disorder Status: Chronic (7) Gout Status: Chronic Qualifiers: Gout site: foot Gout etiology: unspecified cause Chronicity: chronic Laterality: right Qualified Code(s): M1A.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, right ankle and foot, without tophus (tophi) (8) History of hypercholesterolemia Status: Chronic (9) Hx of gastroesophageal reflux (GERD) Status: Chronic (10) Hypertension Status: Chronic Qualifiers: Hypertension type: essential hypertension Qualified Code(s): I10 - Essential (primary) hypertension (11) History of anemia Status: Resolved - AMA Did Patient Leave Against Medical Advice: No
== END 2017-06-28 10:35 | disposition other institution (70) | DRG 773 ==
LOC: YASAS 11:39 → Y3N 17:19
PROVIDERS: ADMIT Internal Medicine; ATTEND Internal Medicine
PROC: HZ2ZZZZ Detoxification Services for Substance Abuse Treatment (ICD-10-PCS; principal; 2017-06-23)
DX: F11.23 Opioid dependence with withdrawal (principal); F10.230 Alcohol dependence with withdrawal, uncomplicated; F17.213 Nicotine dependence, cigarettes, with withdrawal; F41.9 Anxiety disorder, unspecified; F19.24 Other psychoactive substance dependence with psychoactive substance-induced mood disorder; F19.282 Other psychoactive substance dependence with psychoactive substance-induced sleep disorder; R45.89 Other symptoms and signs involving emotional state; I10 Essential (primary) hypertension; E78.00 Pure hypercholesterolemia, unspecified; M1A.0710 Idiopathic chronic gout, right ankle and foot, without tophus (tophi); K21.9 Gastro-esophageal reflux disease without esophagitis; Z86.2 Personal history of diseases of the blood and blood-forming organs and certain disorders involving the immune mechanism
CPT/HCPCS: 36415; 80053; 81003; 85027; 86593; 93005; 93010

== ENCOUNTER 2017-07-30 09:52 | Inpatient (IN) | payer OTHER ==
[2017-07-30 10:28] VITALS: BMI 27.2
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
[2017-07-30] MEDS ORDERED: MAG HYDROX/AL HYDROX/SIMETH 30 ML UNIT-DOSE CUP PO PRN (15:47)
[2017-07-30] MEDS ORDERED: MENTHOL/PHENOL 1 EACH UD MM PRN (15:47)
[2017-07-30] MEDS ORDERED: chlordiazePOXIDE HCL 25 MG CAPSULE PO PRN (15:47)
[2017-07-30] MEDS ORDERED: LOPERAMIDE HCL 2 MG CAPSULE PO PRN (15:47)
[2017-07-30] MEDS ORDERED: MAGNESIUM CITRATE 300 ML BOTTLE PO PRN (15:47)
[2017-07-30] MEDS ORDERED: ACETAMINOPHEN 325 MG TABLET (FP) PO PRN (15:47)
[2017-07-30] MEDS ORDERED: P-EPHED 60MG/TRIPROLIDI 2.5MG TABLET PO PRN (15:47)
[2017-07-30] MEDS ORDERED: IBUPROFEN 400 MG TABLET (FP) PO PRN (15:47)
[2017-07-30] MEDS ORDERED: MAGNESIUM HYDROX 2400MG/30ML ORAL SUSPENSION 30 ML CUP PO PRN (15:47)
[2017-07-30] MEDS ORDERED: NAPROXEN 375 MG TABLET (FP) PO PRN (15:52)
[2017-07-30] MEDS ORDERED: chlordiazePOXIDE HCL 25 MG CAPSULE PO ONE (16:45)
[2017-07-30] MEDS: hydrOXYzine PAMOATE 50 MG CAPSULE (FP) PO PRN ×2 (18:36→22:24)
[2017-07-30] MEDS: guaiFENesin/D-METHORPHAN HB 10 ML UNIT-DOSE CUPS PO PRN (18:37)
[2017-07-30] MEDS ORDERED: MELATONIN 5 MG TABLETS PO PRN (22:00)
[2017-07-30] MEDS ORDERED: PATIENT'S OWN MEDICATION (NON-FORMULARY) (Lisinopril/Hydrochlorothiazide [Lisinopril-Hctz PO SCH (22:00)
[2017-07-30] MEDS: HYDROCHLOROTHIAZIDE 12.5 MG CAPSULE (FP) PO SCH (22:21)
[2017-07-30] MEDS: LISINOPRIL 10 MG TABLET (FP) PO SCH (22:21)
[2017-07-30] MEDS: THIAMINE HCL 100 MG TABLET (FP) PO SCH (22:22)
[2017-07-30] MEDS: chlordiazePOXIDE HCL 25 MG CAPSULE PO SCH (22:22)
[2017-07-30] MEDS: RANITIDINE HCL 150 MG TABLET (FP) PO SCH (22:22)
[2017-07-31] MEDS: chlordiazePOXIDE HCL 25 MG CAPSULE PO SCH ×4 (06:00→22:19)
[2017-07-31] MEDS ORDERED: ERGOCALCIFEROL (VITAMIN D2) 50,000 UNIT CAPSULE (FP) PO SCH (10:00)
[2017-07-31] MEDS: HYDROCHLOROTHIAZIDE 12.5 MG CAPSULE (FP) PO SCH ×2 (10:34→22:19)
[2017-07-31] MEDS: RANITIDINE HCL 150 MG TABLET (FP) PO SCH ×2 (10:34→22:19)
[2017-07-31] MEDS: LISINOPRIL 10 MG TABLET (FP) PO SCH ×2 (10:34→22:19)
[2017-07-31] MEDS: PRENATAL VITAMINS W/ FOLIC ACID TABLET (FP) PO SCH (10:34)
[2017-07-31] MEDS: guaiFENesin/D-METHORPHAN HB 10 ML UNIT-DOSE CUPS PO PRN (10:36)
[2017-07-31 10:53] LABS: HEMATOCRIT 37.7 % (35.4-49); HEMOGLOBIN 12.7 GM/dL (11.7-16.9); MCH 32.6 pg (25.7-33.7); MCHC 33.6 g/dl (32.0-35.9); MEAN CELL VOLUME 96.8 fl (80-96); MEAN PLT VOLUME 8.8 fl (7.5-11.1); PLATELET COUNT 237 K/MM3 (134-434); RDW 13.4 % (11.9-15.9); WHITE BLOOD COUNT 8.7 K/mm3 (4.0-10.0)
[2017-07-31 11:01] LABS: ALBUMIN 3.6 g/dl (3.4-5.0); ANION GAP 11 (8-16); BLOOD UREA NITROGEN 7 mg/dL (7-18); CALCIUM 8.4 mg/dL (8.5-10.1); CHLORIDE 108 mmol/L (98-107); CO2 21 mmol/L (21-32); GLUCOSE,RANDOM 106 mg/dL (74-106); POTASSIUM 3.9 mmol/L (3.5-5.1); SODIUM 140 mmol/L (136-145)
[2017-07-31 11:04] LABS: ALK PHOS 64 U/L (45-117); BILIRUBIN,TOTAL 0.5 mg/dL (0.2-1.0); CREATININE 1.1 mg/dL (0.7-1.3); SGOT/AST 29 U/L (15-37); SGPT/ALT 35 U/L (12-78); TOT PROT 7.1 g/dl (6.4-8.2)
[2017-07-31] MEDS ORDERED: ALBUTEROL SO4 2.5/IPRATROPIUM 0.5 INH SOL 3 ML VIAL.NEB. NEB PRN (12:48)
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
[2017-07-31] MEDS: INDOMETHACIN 50 MG CAPSULE PO SCH ×2 (13:40→22:19)
[2017-07-31] MEDS ORDERED: AZITHROMYCIN 250 MG TABLET PO ONE (14:45)
--- NOTE | 2017-07-31 14:50 | EKG ---
Test Reason : Blood Pressure : / mmHG Vent. Rate : 095 BPM Atrial Rate : 095 BPM P-R Int : 142 ms QRS Dur : 084 ms QT Int : 362 ms P-R-T Axes : 069 011 -07 degrees QTc Int : 454 ms NORMAL SINUS RHYTHM NORMAL ECG WHEN COMPARED WITH ECG OF 23-JUN-2017 18:49, NO SIGNIFICANT CHANGE WAS FOUND Confirmed by MD Helton Daniel ([id number]) on 07/31/2017 2:50:07 PM Referred By: Confirmed By:Gautam Helton MD
--- NOTE | 2017-07-31 14:51 | PN ---
[facility] CIWA - CIWA Score Nausea/Vomitin-No Nausea/No Vomiting Muscle Tremors: None Anxiety: 4-Mod. Anxious/Guarded Agitation: 3 Paroxysmal Sweats: 3 Orientation: 0-Oriented Tacttile Disturbances: 2-Mild Itch/Numbness/Burn Auditory Disturbances: 0-None Visual Disturbances: 2-Mild Sensitivity Headache: 3-Moderate CIWA-Ar Total Score: 17 BHS Progress Note (SOAP) Subjective: Sweating, Body Aches, H/A, Stomach Cramping, Constipation. Patient reports productive cough (green phlegm) and intermittent feeling as if he is "wheezing" and having difficulty breathing X 3 days. Patient reports history of asthma during childhood (since resolved, according to patient), but denies any recent history of chronic respiratory disease. Patient also reports history of Gout (for which he has been prescribed Indomethacin) and that he feels as if pain is beginning to develop on medial aspect of Right foot. Objective: PATIENT A & O X 3, OBSERVED AMBULATING ON UNIT. NO ACUTE DISTRESS. 07/31/17 14:46 Vital Signs Temperature 97.1 F L 07/31/17 14:18 Pulse Rate 91 H 07/31/17 14:18 Respiratory Rate 20 07/31/17 14:18 Blood Pressure 138/86 07/31/17 14:18 O2 Sat by Pulse Oximetry (%) Laboratory Tests 07/31/17 07/31/17 07/31/17 06:00 06:00 06:00 WBC 8.7 D RBC 3.90 L Hgb 12.7 Hct 37.7 MCV 96.8 H MCH 32.6 MCHC 33.6 RDW 13.4 Plt Count 237 MPV 8.8 Sodium 140 Potassium 3.9 Chloride 108 H Carbon Dioxide 21 D Anion Gap 11 BUN 7 D Creatinine 1.1 D Creat Clearance w eGFR > 60 Random Glucose 106 Calcium 8.4 L Total Bilirubin 0.5 AST 29 D ALT 35 D Alkaline Phosphatase 64 Total Protein 7.1 Albumin 3.6 RPR Titer Nonreactive LABS NOTED. UA RESULTS PENDING. 07/31/17 14:53 Assessment: 07/31/17 14:47 WITHDRAWAL SYMPTOMS. UPPER RESPIRATORY INFECTION. GOUT FLARE. 07/31/17 14:48 Plan: CONTINUE DETOX. AZITHROMYCIN, 500 MG PO X 1 DAY, THEN 250 MG PO X 4 DAYS. DUONEB PRN, GUIFENESIN PRN COUGH, DIFFICULTY BREATHING.
[2017-07-31] MEDS: THIAMINE HCL 100 MG TABLET (FP) PO SCH (22:19)
[2017-07-31] MEDS: ZOLPIDEM TARTRATE 10 MG TABLET (PARK CARE ONLY) PO PRN (23:26)
[2017-08-01] MEDS: chlordiazePOXIDE HCL 25 MG CAPSULE PO SCH ×3 (05:32→17:34)
[2017-08-01] MEDS: LISINOPRIL 10 MG TABLET (FP) PO SCH ×2 (10:10→22:30)
[2017-08-01] MEDS: RANITIDINE HCL 150 MG TABLET (FP) PO SCH ×2 (10:10→22:30)
[2017-08-01] MEDS: HYDROCHLOROTHIAZIDE 12.5 MG CAPSULE (FP) PO SCH (10:10)
[2017-08-01] MEDS: PRENATAL VITAMINS W/ FOLIC ACID TABLET (FP) PO SCH (10:10)
[2017-08-01] MEDS: INDOMETHACIN 50 MG CAPSULE PO SCH ×2 (10:11→22:31)
[2017-08-01] MEDS: AZITHROMYCIN 250 MG TABLET PO SCH (10:11)
[2017-08-01] MEDS: guaiFENesin/D-METHORPHAN HB 10 ML UNIT-DOSE CUPS PO PRN ×2 (11:12→21:28)
[2017-08-01] MEDS ORDERED: HYDROCHLOROTHIAZIDE 25 MG TABLET (FP) PO SCH (14:30)
--- NOTE | 2017-08-01 14:38 | PN ---
S CIWA - CIWA Score Nausea/Vomitin-No Nausea/No Vomiting Muscle Tremors: 4-Moderate,w/Arms Extend Anxiety: 4-Mod. Anxious/Guarded Agitation: 4-Moderately Restless Paroxysmal Sweats: 1-Minimal Palms Moist Orientation: 0-Oriented Tacttile Disturbances: 0-None Auditory Disturbances: 0-None Visual Disturbances: 0-None Headache: 0-None Present CIWA-Ar Total Score: 13 BHS Progress Note (SOAP) Subjective: ANXIETY,SWEATS,SLIGHT TREMORS. OCCASIONAL SOB, CHEST COLD. REPORTS HX CHILDHOOD ASTHMA. Objective: 08/01/17 14:27 Vital Signs 08/01/17 08/01/17 08/01/17 10:00 10:09 13:42 Temperature 96.3 F L 96.9 F L Pulse Rate 60 88 Respiratory 18 20 Rate Blood Pressure 150/98 151/102 149/93 Laboratory Tests 07/31/17 07/31/17 07/31/17 06:00 06:00 06:00 WBC 8.7 D RBC 3.90 L Hgb 12.7 Hct 37.7 MCV 96.8 H MCH 32.6 MCHC 33.6 RDW 13.4 Plt Count 237 MPV 8.8 Sodium 140 Potassium 3.9 Chloride 108 H Carbon Dioxide 21 D Anion Gap 11 BUN 7 D Creatinine 1.1 D Creat Clearance w eGFR > 60 Random Glucose 106 Calcium 8.4 L Total Bilirubin 0.5 AST 29 D ALT 35 D Alkaline Phosphatase 64 Total Protein 7.1 Albumin 3.6 RPR Titer Nonreactive OTHER LAB SPENDING LUNGS: CLEAR TO AUSCULTATE, BILATERALLY. Assessment: 08/01/17 14:28 WITHDRAWAL SX Plan: CONTINUE DETOX ROBITUSSIN DM PRN
[2017-08-01] MEDS: ZOLPIDEM TARTRATE 10 MG TABLET (PARK CARE ONLY) PO PRN (22:30)
[2017-08-01] MEDS: cloNIDine HCL 0.1 MG TABLET PO SCH (22:30)
[2017-08-01] MEDS: THIAMINE HCL 100 MG TABLET (FP) PO SCH (22:30)
[2017-08-01] MEDS: chlordiazePOXIDE 5 MG CAPSULE PO SCH (22:34)
[2017-08-02] MEDS: chlordiazePOXIDE 5 MG CAPSULE PO SCH ×3 (05:39→17:57)
[2017-08-02] MEDS ORDERED: HYDROCHLOROTHIAZIDE 12.5 MG CAPSULE (FP) PO SCH (10:00)
[2017-08-02] MEDS: RANITIDINE HCL 150 MG TABLET (FP) PO SCH ×2 (10:45→22:17)
[2017-08-02] MEDS: PRENATAL VITAMINS W/ FOLIC ACID TABLET (FP) PO SCH (10:45)
[2017-08-02] MEDS: INDOMETHACIN 50 MG CAPSULE PO SCH (10:45)
[2017-08-02] MEDS: LISINOPRIL 10 MG TABLET (FP) PO SCH ×2 (10:45→22:16)
[2017-08-02] MEDS: HYDROCHLOROTHIAZIDE 25 MG TABLET (FP) PO SCH (10:45)
[2017-08-02] MEDS: AZITHROMYCIN 250 MG TABLET PO SCH (10:45)
[2017-08-02] MEDS: cloNIDine HCL 0.1 MG TABLET PO SCH ×2 (10:45→22:16)
[2017-08-02] MEDS: amLODIPine BESYLATE 10 MG TABLET (FP) PO SCH (10:45)
[2017-08-02] MEDS: guaiFENesin/D-METHORPHAN HB 10 ML UNIT-DOSE CUPS PO PRN ×2 (11:04→22:19)
--- NOTE | 2017-08-02 11:48 | PN ---
S Progress Note (SOAP) Subjective: Constipation sweats Generalized Aches and pain Objective: 08/02/17 11:43 A & O x 3 Abdomen non tender, + bowel sounds No resp distress, breath sounds clear Vital Signs Temperature 96.6 F L 08/02/17 09:36 Pulse Rate 72 08/02/17 09:36 Respiratory Rate 16 08/02/17 09:36 Blood Pressure 140/85 08/02/17 09:36 O2 Sat by Pulse Oximetry (%) 08/02/17 11:48 Assessment: 08/02/17 11:46 withdrawal sx Constipation Plan: continue detox Increase hydration Mag citrate for constipation Pain meds per order
--- NOTE | 2017-08-02 12:22 | PN ---
PATRICIA Progress Note Note: Psychiatry Attending's note : Approached by patient. Issue : insomnia. Mr García is requesting seroquel. Recent refill for seroquel (100 mg/hs) : noted. Plan : Sleep hygiene discussed. Seroquel 100 mg po hs.Ordered. Side effects/benefits discussed with patient. Consent (verbal ) given to
[2017-08-02] MEDS ORDERED: QUEtiapine FUMARATE 100 MG TABLET (FP) PO SCH (22:00)
[2017-08-02] MEDS: ZOLPIDEM TARTRATE 10 MG TABLET (PARK CARE ONLY) PO PRN (22:15)
[2017-08-02] MEDS: chlordiazePOXIDE HCL 10 MG CAPSULE PO SCH (22:16)
[2017-08-02] MEDS: THIAMINE HCL 100 MG TABLET (FP) PO SCH (22:16)
[2017-08-02] MEDS: INDOMETHACIN 25 MG CAPSULE PO SCH (22:17)
[2017-08-03] MEDS: chlordiazePOXIDE HCL 10 MG CAPSULE PO SCH ×2 (05:20→10:15)
[2017-08-03 09:12] VITALS: BP 149/80; PULSE 90; TEMP 95.7
[2017-08-03] MEDS: cloNIDine HCL 0.1 MG TABLET PO SCH (09:34)
[2017-08-03] MEDS: PRENATAL VITAMINS W/ FOLIC ACID TABLET (FP) PO SCH (09:34)
[2017-08-03] MEDS: RANITIDINE HCL 150 MG TABLET (FP) PO SCH (09:34)
[2017-08-03] MEDS: amLODIPine BESYLATE 10 MG TABLET (FP) PO SCH (09:34)
[2017-08-03] MEDS: HYDROCHLOROTHIAZIDE 25 MG TABLET (FP) PO SCH (09:34)
[2017-08-03] MEDS: AZITHROMYCIN 250 MG TABLET PO SCH (09:35)
[2017-08-03] MEDS: LISINOPRIL 10 MG TABLET (FP) PO SCH (09:35)
[2017-08-03] MEDS: INDOMETHACIN 25 MG CAPSULE PO SCH (09:37)
--- NOTE | 2017-08-03 16:28 | PN ---
BHS Progress Note (SOAP) Subjective: Patient denies current Detox symptoms and reports that he feels well overall. Objective: PATIENT A & O X 3, OBSERVED AMBULATING ON UNIT. NO ACUTE DISTRESS. 08/03/17 16:27 Vital Signs Temperature 95.7 F L 08/03/17 09:11 Pulse Rate 90 08/03/17 09:11 Respiratory Rate 20 08/03/17 09:11 Blood Pressure 149/80 08/03/17 09:11 O2 Sat by Pulse Oximetry (%) Laboratory Tests 07/31/17 07/31/17 07/31/17 06:00 06:00 06:00 WBC 8.7 D RBC 3.90 L Hgb 12.7 Hct 37.7 MCV 96.8 H MCH 32.6 MCHC 33.6 RDW 13.4 Plt Count 237 MPV 8.8 Sodium 140 Potassium 3.9 Chloride 108 H Carbon Dioxide 21 D Anion Gap 11 BUN 7 D Creatinine 1.1 D Creat Clearance w eGFR > 60 Random Glucose 106 Calcium 8.4 L Total Bilirubin 0.5 AST 29 D ALT 35 D Alkaline Phosphatase 64 Total Protein 7.1 Albumin 3.6 RPR Titer Nonreactive LABS NOTED. Assessment: 08/03/17 16:28 COMPLETION OF DETOX REGIMEN. Plan: PATIENT SCHEDULED FOR DISCHARGE FORM DETOX UNIT TODAY.
--- NOTE | 2017-08-03 16:35 | DS ---
[facility] Detox Discharge Summary Admission Date: 07/30/17 Discharge Date: 08/03/17 - History Present History: Alcohol Dependence, Opioid Dependence Additional Comments: PATIENT GOING TO [facility] ([place] FOR AFTERCARE. PATIENT ADVISED TO FOLLOW-UP SOON POSSIBLE AFTER DISCHARGE FROM DETOX WITH [employer] DR. ABDULLAHI ([facility] [place] FOR GENERAL MEDICAL EVALUATION AND FOR FOLLOW-UP EVALUATION FOR HISTORY OF HTN, GOUT , AND URI. PRESCRIPTIONS FOR DISCHARGE MEDICATIONS [email or web address] ( [place] FOR PATIENT TO [facility] MANAGER AFTER DISCHARGE FROM DETOX UNIT. PATIENT WAS DISCHARGED FROM DETOX UNIT IN STABLE MEDICAL CONDITION. Pertinent Past History: HTN, Hypercholesterolemia (no meds.), GOUT, URI, Depression, Anxiety, Insomnia, History of Asthma (during childhood), Nicotine Dependence, Dehydration. - Physical Exam Results Vital Signs: Vital Signs Temperature 95.7 F L 08/03/17 09:11 Pulse Rate 90 08/03/17 09:11 Respiratory Rate 20 08/03/17 09:11 Blood Pressure 149/80 08/03/17 09:11 O2 Sat by Pulse Oximetry (%) Pertinent Admission Physical Exam Findings: WITHDRAWAL SYMPTOMS. Laboratory Tests 07/31/17 07/31/17 07/31/17 06:00 06:00 06:00 WBC 8.7 D RBC 3.90 L Hgb 12.7 Hct 37.7 MCV 96.8 H MCH 32.6 MCHC 33.6 RDW 13.4 Plt Count 237 MPV 8.8 Sodium 140 Potassium 3.9 Chloride 108 H Carbon Dioxide 21 D Anion Gap 11 BUN 7 D Creatinine 1.1 D Creat Clearance w eGFR > 60 Random Glucose 106 Calcium 8.4 L Total Bilirubin 0.5 AST 29 D ALT 35 D Alkaline Phosphatase 64 Total Protein 7.1 Albumin 3.6 RPR Titer Nonreactive LABS NOTED. - Treatment Hospital Course: Detox Protocol Followed, Detoxed Safely, Responded well, Discharged Condition Good Patient has Accepted a Rehab Referral to: PT GOING TO [facility] ([place] - Medication Discharge Medications: Ambulatory Orders Ergocalciferol [Vitamin D2] 50,000 unit PO Q7D@1000 #4 capsule 05/26/17 Quetiapine Fumarate [Seroquel] 100 mg PO HS 07/30/17 Indomethacin [Indocin -] 50 mg PO BID #60 capsule 08/02/17 Lisinopril/Hydrochlorothiazide [Lisinopril-Hctz 10-12.5 mg Tab] 1 each PO BID # 60 tablet 08/02/17 Quetiapine Fumarate [Seroquel] 100 mg PO HS #30 tablet 08/02/17 Ranitidine [Zantac -] 150 mg PO BID #60 tablet 08/02/17 Azithromycin [Zithromax -] 250 mg PO DAILY 3 Days #3 tab 08/03/17 Naproxen [Naprosyn -] 375 mg PO BID PRN #10 tablet 08/03/17 - Diagnosis (1) Gout flare Status: Acute Qualifiers: Gout site: foot Gout etiology: unspecified cause Laterality: right Qualified Code(s): M10.9 - Gout, unspecified (2) Upper respiratory infection Status: Acute Qualifiers: URI type: unspecified viral URI Qualified Code(s): J06.9 - Acute upper respiratory infection, unspecified (3) Alcohol dependence with uncomplicated withdrawal Status: Acute (4) Nicotine dependence Status: Chronic Qualifiers: Nicotine product type: cigarettes Substance use status: in withdrawal Qualified Code(s): F17.213 - Nicotine dependence, cigarettes, with withdrawal (5) Dehydration Status: Acute (6) Insomnia Status: Acute Qualifiers: Insomnia type: unspecified Qualified Code(s): G47.00 - Insomnia, unspecified (7) Opioid dependence with withdrawal Status: Acute - AMA Did Patient Leave Against Medical Advice: No
== END 2017-08-03 09:39 | disposition home or self-care (01) | DRG 773 ==
LOC: YASAS 09:52 → Y3N 15:41
PROVIDERS: ADMIT Surgery; ATTEND Surgery
PROC: HZ2ZZZZ Detoxification Services for Substance Abuse Treatment (ICD-10-PCS; principal; 2017-07-30)
DX: F11.23 Opioid dependence with withdrawal (principal); F10.230 Alcohol dependence with withdrawal, uncomplicated; F17.213 Nicotine dependence, cigarettes, with withdrawal; J06.9 Acute upper respiratory infection, unspecified; M10.9 Gout, unspecified; E86.0 Dehydration; G47.00 Insomnia, unspecified; K59.00 Constipation, unspecified; K21.9 Gastro-esophageal reflux disease without esophagitis; E78.5 Hyperlipidemia, unspecified; Z88.0 Allergy status to penicillin
CPT/HCPCS: 36415; 80053; 81003; 85027; 86593; 93005; 93010; J0735

== ENCOUNTER 2017-08-28 11:57 | Inpatient (IN) | payer OTHER ==
[2017-08-28 12:30] VITALS: BMI 27.4
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
[2017-08-28] MEDS ORDERED: IBUPROFEN 400 MG TABLET (FP) PO PRN (13:33)
[2017-08-28] MEDS ORDERED: P-EPHED 60MG/TRIPROLIDI 2.5MG TABLET PO PRN (13:33)
[2017-08-28] MEDS ORDERED: guaiFENesin/D-METHORPHAN HB 10 ML UNIT-DOSE CUPS PO PRN (13:33)
[2017-08-28] MEDS ORDERED: hydrOXYzine PAMOATE 50 MG CAPSULE (FP) PO PRN (13:33)
[2017-08-28] MEDS ORDERED: MENTHOL/PHENOL 1 EACH UD MM PRN (13:33)
[2017-08-28] MEDS ORDERED: LOPERAMIDE HCL 2 MG CAPSULE PO PRN (13:33)
[2017-08-28] MEDS ORDERED: MAG HYDROX/AL HYDROX/SIMETH 30 ML UNIT-DOSE CUP PO PRN (13:33)
[2017-08-28] MEDS ORDERED: chlordiazePOXIDE HCL 25 MG CAPSULE PO PRN (13:33)
[2017-08-28] MEDS ORDERED: MAGNESIUM HYDROX 2400MG/30ML ORAL SUSPENSION 30 ML CUP PO PRN (13:33)
[2017-08-28] MEDS ORDERED: MAGNESIUM CITRATE 300 ML BOTTLE PO PRN (13:33)
[2017-08-28] MEDS ORDERED: ACETAMINOPHEN 325 MG TABLET (FP) PO PRN (13:33)
[2017-08-28] MEDS: RANITIDINE HCL 150 MG TABLET (FP) PO SCH ×2 (14:59→22:22)
[2017-08-28] MEDS ORDERED: METHADONE HCL 10 MG TABLET (FOR DETOX USE ONLY) PO ONE ×2 (15:00→23:00)
[2017-08-28] MEDS ORDERED: chlordiazePOXIDE HCL 25 MG CAPSULE PO ONE (15:00)
[2017-08-28] MEDS: chlordiazePOXIDE HCL 25 MG CAPSULE PO SCH ×2 (17:36→22:23)
[2017-08-28] MEDS ORDERED: MELATONIN 5 MG TABLETS PO PRN (22:00)
[2017-08-28] MEDS ORDERED: THIAMINE HCL 100 MG TABLET (FP) PO SCH (22:00)
[2017-08-29] MEDS: chlordiazePOXIDE HCL 25 MG CAPSULE PO SCH ×2 (05:46→10:14)
[2017-08-29 09:42] LABS: HEMATOCRIT 37.7 % (35.4-49); HEMOGLOBIN 12.8 GM/dL (11.7-16.9); MCH 33.5 pg (25.7-33.7); MEAN CELL VOLUME 98.6 fl (80-96); MEAN PLT VOLUME 8.8 fl (7.5-11.1); PLATELET COUNT 294 K/MM3 (134-434); RBC 3.83 M/mm3 (4.00-5.60); RDW 14.4 % (11.9-15.9); WHITE BLOOD COUNT 8.8 K/mm3 (4.0-10.0)
[2017-08-29 09:49] VITALS: BP 139/83; PULSE 81; TEMP 97.3
[2017-08-29] MEDS ORDERED: HYDROCHLOROTHIAZIDE 12.5 MG CAPSULE (FP) PO SCH (10:00)
[2017-08-29] MEDS ORDERED: PRENATAL VITAMINS W/ FOLIC ACID TABLET (FP) PO SCH (10:00)
[2017-08-29] MEDS ORDERED: METHADONE HCL 10 MG TABLET (FOR DETOX USE ONLY) PO SCH (10:00)
[2017-08-29] MEDS ORDERED: LISINOPRIL 10 MG TABLET (FP) PO SCH (10:00)
[2017-08-29 10:07] LABS: CHLORIDE 100 mmol/L (98-107); POTASSIUM 4.5 mmol/L (3.5-5.1); SODIUM 137 mmol/L (136-145)
[2017-08-29] MEDS: RANITIDINE HCL 150 MG TABLET (FP) PO SCH (10:13)
[2017-08-29 10:33] LABS: ALBUMIN 4.1 g/dl (3.4-5.0); ALK PHOS 76 U/L (45-117); ANION GAP 17 (8-16); BILIRUBIN,TOTAL 0.2 mg/dL (0.2-1.0); BLOOD UREA NITROGEN 21 mg/dL (7-18); CALCIUM 9.1 mg/dL (8.5-10.1); CO2 20 mmol/L (21-32); CREATININE 1.4 mg/dL (0.7-1.3); GLUCOSE,RANDOM 100 mg/dL (74-106); SGOT/AST 33 U/L (15-37); SGPT/ALT 41 U/L (12-78); TOT PROT 7.4 g/dl (6.4-8.2)
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
--- NOTE | 2017-08-29 13:19 | PN ---
[facility] CIWA - CIWA Score Nausea/Vomitin-No Nausea/No Vomiting Muscle Tremors: 4-Moderate,w/Arms Extend Anxiety: 5 Agitation: 4-Moderately Restless Paroxysmal Sweats: 1-Minimal Palms Moist Orientation: 0-Oriented Tacttile Disturbances: 1-Very Mild Itch/Numbness Auditory Disturbances: 0-None Visual Disturbances: 0-None Headache: 1-Very Mild CIWA-Ar Total Score: 16 BHS COWS - Scale Resting Pulse: 0= [place] 80 or Below Sweatin= Chills/Flushing Restless Observation: 1= Difficult to Sit Still Pupil Size: 0= Normal to Room Light Bone or Joint Aches: 2= Severe Diffuse Aches Runny Nose/ Eye Tearin= Runny Nose/Eyes GI Upset > 30mins: 1= Stomach Cramp Tremor Observation of Outstretched Hands: 2= Slight Tremor Visible Yawning Observation: 2= >3x During Session Anxiety or Irritability: 2=Irritable/Anxious Goose Flesh Skin: 3=Piloerection COWS Score: 16 [facility] Progress Note (SOAP) Subjective: anxiety restlessness irritable agitative sweat tremor body ache joint pain gi distress Objective: 08/29/17 13:21 Vital Signs Temperature 97.3 F L 08/29/17 09:48 Pulse Rate 81 08/29/17 09:48 Respiratory Rate 20 08/29/17 09:48 Blood Pressure 139/83 08/29/17 09:48 O2 Sat by Pulse Oximetry (%) Laboratory Last Values WBC 8.8 K/mm3 (4.0-10.0) 08/29/17 07:45 RBC 3.83 M/mm3 (4.00-5.60) L 08/29/17 07:45 Hgb 12.8 GM/dL (11.7-16.9) 08/29/17 07:45 Hct 37.7 % (35.4-49) 08/29/17 07:45 MCV 98.6 fl (80-96) H 08/29/17 07:45 MCH 33.5 pg (25.7-33.7) 08/29/17 07:45 MCHC 34.0 g/dl (32.0-35.9) 08/29/17 07:45 RDW 14.4 % (11.9-15.9) 08/29/17 07:45 Plt Count 294 K/MM3 (134-434) D 08/29/17 07:45 MPV 8.8 fl (7.5-11.1) 08/29/17 07:45 Sodium 137 mmol/L (136-145) 08/29/17 07:45 Potassium 4.5 mmol/L (3.5-5.1) 08/29/17 07:45 Chloride 100 mmol/L (98-107) 08/29/17 07:45 Carbon Dioxide 20 mmol/L (21-32) L 08/29/17 07:45 Anion Gap 17 (8-16) H 08/29/17 07:45 BUN 21 mg/dL (7-18) H 08/29/17 07:45 Creatinine 1.4 mg/dL (0.7-1.3) H 08/29/17 07:45 Creat Clearance w eGFR 56.72 (>60) 08/29/17 07:45 Random Glucose 100 mg/dL (74-106) 08/29/17 07:45 Calcium 9.1 mg/dL (8.5-10.1) 08/29/17 07:45 Total Bilirubin 0.2 mg/dL (0.2-1.0) 08/29/17 07:45 AST 33 U/L (15-37) 08/29/17 07:45 ALT 41 U/L (12-78) 08/29/17 07:45 Alkaline Phosphatase 76 U/L (45-117) D 08/29/17 07:45 Total Protein 7.4 g/dl (6.4-8.2) 08/29/17 07:45 Albumin 4.1 g/dl (3.4-5.0) 08/29/17 07:45 RPR Titer Nonreactive (NONREACTIVE) 08/29/17 07:45 lab noted 08/29/17 13:23 repeat bun and creatinin Assessment: 08/29/17 13:23 withdrawal sx Plan: continue detox increase oral fluid
[2017-08-29] MEDS ORDERED: chlordiazePOXIDE HCL 25 MG CAPSULE PO SCH (17:00)
--- NOTE | 2017-08-29 18:48 | PN ---
PATRICIA Progress Note Note: patient did not want to complete treatment mentioned he has to go to work,all attempts to convince patient to stay with no avail,denise release ama
--- NOTE | 2017-08-29 18:53 | DS ---
[facility] Detox Discharge Summary Admission Date: 08/28/17 Discharge Date: 08/29/17 - History Present History: Alcohol Dependence, Opioid Dependence, Sedative Dependence Additional Comments: patient signed release ama,stated he has to leave to go to work,all attempts to convinve patient to stay with no avail Pertinent Past History: gerd - Physical Exam Results Vital Signs: Vital Signs Temperature 97.3 F L 08/29/17 09:48 Pulse Rate 81 08/29/17 09:48 Respiratory Rate 20 08/29/17 09:48 Blood Pressure 139/83 08/29/17 09:48 O2 Sat by Pulse Oximetry (%) Pertinent Admission Physical Exam Findings: withdrawal signs and symptom Vital Signs Temperature 97.3 F L 08/29/17 09:48 Pulse Rate 81 08/29/17 09:48 Respiratory Rate 20 08/29/17 09:48 Blood Pressure 139/83 08/29/17 09:48 O2 Sat by Pulse Oximetry (%) Laboratory Last Values WBC 8.8 K/mm3 (4.0-10.0) 08/29/17 07:45 RBC 3.83 M/mm3 (4.00-5.60) L 08/29/17 07:45 Hgb 12.8 GM/dL (11.7-16.9) 08/29/17 07:45 Hct 37.7 % (35.4-49) 08/29/17 07:45 MCV 98.6 fl (80-96) H 08/29/17 07:45 MCH 33.5 pg (25.7-33.7) 08/29/17 07:45 MCHC 34.0 g/dl (32.0-35.9) 08/29/17 07:45 RDW 14.4 % (11.9-15.9) 08/29/17 07:45 Plt Count 294 K/MM3 (134-434) D 08/29/17 07:45 MPV 8.8 fl (7.5-11.1) 08/29/17 07:45 Sodium 137 mmol/L (136-145) 08/29/17 07:45 Potassium 4.5 mmol/L (3.5-5.1) 08/29/17 07:45 Chloride 100 mmol/L (98-107) 08/29/17 07:45 Carbon Dioxide 20 mmol/L (21-32) L 08/29/17 07:45 Anion Gap 17 (8-16) H 08/29/17 07:45 BUN 21 mg/dL (7-18) H 08/29/17 07:45 Creatinine 1.4 mg/dL (0.7-1.3) H 08/29/17 07:45 Creat Clearance w eGFR 56.72 (>60) 08/29/17 07:45 Random Glucose 100 mg/dL (74-106) 08/29/17 07:45 Calcium 9.1 mg/dL (8.5-10.1) 08/29/17 07:45 Total Bilirubin 0.2 mg/dL (0.2-1.0) 08/29/17 07:45 AST 33 U/L (15-37) 08/29/17 07:45 ALT 41 U/L (12-78) 08/29/17 07:45 Alkaline Phosphatase 76 U/L (45-117) D 08/29/17 07:45 Total Protein 7.4 g/dl (6.4-8.2) 08/29/17 07:45 Albumin 4.1 g/dl (3.4-5.0) 08/29/17 07:45 RPR Titer Nonreactive (NONREACTIVE) 08/29/17 07:45 - Medication Discharge Medications: Ambulatory Orders Ergocalciferol [Vitamin D2] 50,000 unit PO Q7D@1000 #4 capsule 05/26/17 Lisinopril/Hydrochlorothiazide [Lisinopril-Hctz 10-12.5 mg Tab] 1 each PO BID # 60 tablet 08/02/17 Quetiapine Fumarate [Seroquel] 100 mg PO HS #30 tablet 08/02/17 Ranitidine [Zantac -] 150 mg PO BID #60 tablet 08/02/17 - AMA Did Patient Leave Against Medical Advice: Yes
[2017-08-29 21:42] LABS: URINE APPEARANCE CLEAR; URINE BILIRUBIN NEGATIVE (<2.0 mg/dL); URINE COLOR STRAW; URINE GLUCOSE (UA) NEGATIVE (NEGATIVE); URINE KETONE NEGATIVE (NEGATIVE); URINE LEUK ESTERASE NEGATIVE (NEGATIVE); URINE NITRITE NEGATIVE (NEGATIVE); URINE PROTEIN NEGATIVE (NEGATIVE); URINE UROBILINOGEN NEGATIVE mg/dL (0.2-1.0)
[2017-08-29] MEDS ORDERED: QUEtiapine FUMARATE 100 MG TABLET (FP) PO SCH (22:00)
[2017-08-30] MEDS ORDERED: METHADONE HCL 5 MG TABLET (FOR DETOX USE ONLY) PO SCH (10:00)
--- NOTE | 2017-08-30 15:10 | EKG ---
Test Reason : Blood Pressure : / mmHG Vent. Rate : 078 BPM Atrial Rate : 277 BPM P-R Int : 000 ms QRS Dur : 084 ms QT Int : 380 ms P-R-T Axes : 000 008 -11 degrees QTc Int : 433 ms PROBABLE SINUS RHYTHM CANNOT RULE OUT SEPTAL INFARCT , AGE UNDETERMINED ABNORMAL ECG WHEN COMPARED WITH ECG OF 30-JUL-2017 18:09, LIKELY NO SIGNIFICANT CHANGES Confirmed by SHARON HORTA, PATRICE ([id number]) on 08/30/2017 3:10:05 PM Referred By: Thmo Rosas Confirmed By:PATRICE HERRERA MD
[2017-08-30] MEDS ORDERED: chlordiazePOXIDE 5 MG CAPSULE PO SCH (17:00)
[2017-08-31] MEDS ORDERED: chlordiazePOXIDE HCL 10 MG CAPSULE PO SCH (17:00)
[2017-09-01] MEDS ORDERED: METHADONE HCL 10 MG TABLET (FOR DETOX USE ONLY) PO SCH (10:00)
[2017-09-02] MEDS ORDERED: METHADONE HCL 5 MG TABLET (FOR DETOX USE ONLY) PO SCH (06:00)
== END 2017-08-29 19:00 | disposition left against medical advice (07) | DRG 770 ==
LOC: YASAS 11:57 → Y6N 13:26
PROVIDERS: ADMIT Surgery; ATTEND Surgery
PROC: HZ2ZZZZ Detoxification Services for Substance Abuse Treatment (ICD-10-PCS; principal; 2017-08-28)
DX: F11.220 Opioid dependence with intoxication, uncomplicated (principal); F13.230 Sedative, hypnotic or anxiolytic dependence with withdrawal, uncomplicated; F10.230 Alcohol dependence with withdrawal, uncomplicated; F41.8 Other specified anxiety disorders; F19.24 Other psychoactive substance dependence with psychoactive substance-induced mood disorder; F19.282 Other psychoactive substance dependence with psychoactive substance-induced sleep disorder; I10 Essential (primary) hypertension; M12.9 Arthropathy, unspecified; M10.9 Gout, unspecified
CPT/HCPCS: 36415; 80053; 81003; 85027; 86593; 93005; 93010

== ENCOUNTER 2017-11-09 11:34 | Inpatient (IN) | payer OTHER ==
[2017-11-09 12:33] VITALS: BMI 27.1
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
[2017-11-09] MEDS ORDERED: MAGNESIUM HYDROX 2400MG/30ML ORAL SUSPENSION 30 ML CUP PO PRN (13:50)
[2017-11-09] MEDS ORDERED: MAG HYDROX/AL HYDROX/SIMETH 30 ML UNIT-DOSE CUP PO PRN (13:50)
[2017-11-09] MEDS ORDERED: ACETAMINOPHEN 325 MG TABLET (FP) PO PRN (13:50)
[2017-11-09] MEDS ORDERED: MAGNESIUM CITRATE 300 ML BOTTLE PO PRN (13:50)
[2017-11-09] MEDS ORDERED: RANITIDINE HCL 150 MG TABLET (FP) PO PRN (15:00)
[2017-11-09] MEDS: chlordiazePOXIDE HCL 25 MG CAPSULE PO PRN (15:33)
--- NOTE | 2017-11-09 16:44 | EKG ---
Test Reason : Blood Pressure : / mmHG Vent. Rate : 091 BPM Atrial Rate : 091 BPM P-R Int : 134 ms QRS Dur : 086 ms QT Int : 378 ms P-R-T Axes : 073 012 010 degrees QTc Int : 464 ms NORMAL SINUS RHYTHM POSSIBLE LEFT ATRIAL ENLARGEMENT SEPTAL INFARCT , AGE UNDETERMINED ABNORMAL ECG WHEN COMPARED WITH ECG OF 05-OCT-2017 19:03, T WAVE INVERSION NO LONGER EVIDENT IN INFERIOR LEADS Confirmed by Doron Nguyen ([id number]) on 11/09/2017 4:44:38 PM Referred By: Confirmed By:Doron Nguyen
[2017-11-09] MEDS: chlordiazePOXIDE HCL 25 MG CAPSULE PO SCH ×2 (17:29→22:37)
[2017-11-09 18:58] LABS: URINE APPEARANCE CLOUDY; URINE BILIRUBIN NEGATIVE (<2.0 mg/dL); URINE COLOR AMBER; URINE GLUCOSE (UA) NEGATIVE (NEGATIVE); URINE KETONE TRACE (NEGATIVE); URINE LEUK ESTERASE NEGATIVE (NEGATIVE); URINE NITRITE NEGATIVE (NEGATIVE)
[2017-11-09 19:03] LABS: URINE PROTEIN 2+ (NEGATIVE)
[2017-11-09 19:09] LABS: EPI CELLS RARE /HPF (FEW); URINE BACTERIA RARE /hpf (NONE SEEN); URINE HYALINE CAST 29 /lpf; URINE MUCUS MANY
[2017-11-09] MEDS ORDERED: METHADONE HCL 10 MG TABLET (FOR DETOX USE ONLY) PO ONE (22:00)
[2017-11-09] MEDS: LISINOPRIL 10 MG TABLET (FP) PO SCH (22:37)
[2017-11-09] MEDS: THIAMINE HCL 100 MG TABLET (FP) PO SCH (22:37)
[2017-11-09] MEDS: MELATONIN 5 MG TABLETS PO PRN (22:40)
[2017-11-10] MEDS: chlordiazePOXIDE HCL 25 MG CAPSULE PO SCH ×4 (05:35→22:36)
[2017-11-10] MEDS ORDERED: METHADONE HCL 10 MG TABLET (FOR DETOX USE ONLY) PO SCH (10:00)
[2017-11-10 10:20] LABS: HEMATOCRIT 43.4 % (35.4-49); HEMOGLOBIN 14.1 GM/dL (11.7-16.9); MCH 31.4 pg (25.7-33.7); MCHC 32.6 g/dl (32.0-35.9); MEAN CELL VOLUME 96.4 fl (80-96); MEAN PLT VOLUME 8.2 fl (7.5-11.1); PLATELET COUNT 245 K/MM3 (134-434); RDW 13.1 % (11.9-15.9); WHITE BLOOD COUNT 9.1 K/mm3 (4.0-10.0)
[2017-11-10] MEDS: LISINOPRIL 10 MG TABLET (FP) PO SCH ×2 (10:41→22:36)
[2017-11-10] MEDS: PRENATAL VITAMINS W/ FOLIC ACID TABLET (FP) PO SCH (10:41)
[2017-11-10] MEDS: PANTOPRAZOLE 40 MG TABLET (FP) PO SCH (10:42)
[2017-11-10] MEDS: HYDROCHLOROTHIAZIDE 12.5 MG CAPSULE (FP) PO SCH (10:45)
--- NOTE | 2017-11-10 11:01 | PN ---
[facility] CIWA - CIWA Score Nausea/Vomitin Muscle Tremors: 3 Anxiety: 2 Agitation: 2 Paroxysmal Sweats: 3 Orientation: 0-Oriented Tacttile Disturbances: 1-Very Mild Itch/Numbness Auditory Disturbances: 0-None Visual Disturbances: 0-None Headache: 0-None Present CIWA-Ar Total Score: 14 S COWS - Scale Resting Pulse: 0= [place] 80 or Below Sweatin=Flushed/Facial Moisture Restless Observation: 1= Difficult to Sit Still Pupil Size: 1= Pupils >than Normal Bone or Joint Aches: 1= Mild Discomfort Runny Nose/ Eye Tearin= Nasal Congestion GI Upset > 30mins: 1= Stomach Cramp Tremor Observation of Outstretched Hands: 1= Tremor [place], Not Seen Yawning Observation: 0= None Anxiety or Irritability: 1=Feels Anxious/Irritable Goose Flesh Skin: 0=Smooth Skin COWS Score: 9 BHS Progress Note (SOAP) Subjective: interrupted sleep, sweats, shakes nausea,body aches , anxiety Objective: 11/10/17 11:05 Vital Signs Temperature 97.9 F 11/10/17 09:41 Pulse Rate 85 11/10/17 09:41 Respiratory Rate 16 11/10/17 09:41 Blood Pressure 140/76 11/10/17 09:41 O2 Sat by Pulse Oximetry (%) Laboratory Tests 11/09/17 11/10/17 17:30 07:00 WBC 9.1 RBC 4.50 Hgb 14.1 Hct 43.4 MCV 96.4 H MCH 31.4 MCHC 32.6 RDW 13.1 Plt Count 245 MPV 8.2 Urine Color Sydni Urine Appearance Cloudy Urine pH 5.0 Ur Specific [place] 1.025 Urine Protein 2+ H Urine Glucose (UA) Negative Urine Ketones Trace H Urine Blood Negative Urine Nitrite Negative Urine Bilirubin Negative Urine Urobilinogen 2.0 Ur Leukocyte Esterase Negative Urine WBC (Auto) 7 Urine RBC (Auto) 5 Ur Epithelial Cells Rare Urine Bacteria Rare Hyaline Casts 29 Urine Mucus Many pt aox3 lying in bed Assessment: 11/10/17 11:06 withdrawal sx's Plan: continue detox increase fluids flexeril 5mg po/d vistaril 25mg q 4h prn
[2017-11-10] MEDS ORDERED: CYCLOBENZAPRINE HCL 5 MG TABLET PO ONE (11:03)
[2017-11-10] MEDS: hydrOXYzine PAMOATE 25 MG CAPSULE (FP) PO PRN (11:10)
[2017-11-10 11:15] LABS: ALBUMIN 4.1 g/dl (3.4-5.0); ALK PHOS 66 U/L (45-117); ANION GAP 10 MMOL/L (8-16); BLOOD UREA NITROGEN 20 mg/dL (7-18); CALCIUM 9.2 mg/dL (8.5-10.1); CHLORIDE 99 mmol/L (98-107); CO2 27 mmol/L (21-32); CREATININE 1.3 mg/dL (0.55-1.3); GLUCOSE,RANDOM 105 mg/dL (74-106); POTASSIUM 4.2 mmol/L (3.5-5.1); SGOT/AST 42 U/L (15-37); SGPT/ALT 36 U/L (13-61); SODIUM 136 mmol/L (136-145); TOT PROT 7.5 g/dl (6.4-8.2)
--- NOTE | 2017-11-10 13:12 | EKG ---
Test Reason : Blood Pressure : / mmHG Vent. Rate : 082 BPM Atrial Rate : 082 BPM P-R Int : 132 ms QRS Dur : 084 ms QT Int : 412 ms P-R-T Axes : 072 024 034 degrees QTc Int : 481 ms NORMAL SINUS RHYTHM PROLONGED QT ABNORMAL ECG WHEN COMPARED WITH ECG OF 09-NOV-2017 15:05, NO SIGNIFICANT CHANGE WAS FOUND Confirmed by MICHELLE VILLA MD ([id number]) on 11/10/2017 1:12:21 PM Referred By: Confirmed By:MICHELLE VILLA MD
[2017-11-10] MEDS: chlordiazePOXIDE HCL 25 MG CAPSULE PO PRN (13:59)
--- NOTE | 2017-11-10 18:25 | PN ---
S Progress Note Note: Psychiatric nurse practitioner note: Chart reviewed. Will order seroquel 50mg qhs for insomnia. Will follow up with psychiatric consultation tomorrow 11/11/17.
[2017-11-10] MEDS ORDERED: QUEtiapine FUMARATE 50 MG TABLET PO SCH (22:00)
[2017-11-10] MEDS: THIAMINE HCL 100 MG TABLET (FP) PO SCH (22:36)
[2017-11-10] MEDS: MELATONIN 5 MG TABLETS PO PRN (22:40)
[2017-11-11] MEDS: IBUPROFEN 400 MG TABLET (FP) PO PRN ×2 (00:06→05:26)
[2017-11-11] MEDS: chlordiazePOXIDE HCL 25 MG CAPSULE PO SCH ×2 (05:25→10:20)
[2017-11-11] MEDS ORDERED: METHADONE HCL 5 MG TABLET (FOR DETOX USE ONLY) PO SCH (10:00)
[2017-11-11] MEDS: CYCLOBENZAPRINE HCL 5 MG TABLET PO SCH (10:18)
[2017-11-11] MEDS: PANTOPRAZOLE 40 MG TABLET (FP) PO SCH (10:18)
[2017-11-11] MEDS: HYDROCHLOROTHIAZIDE 12.5 MG CAPSULE (FP) PO SCH (10:18)
[2017-11-11] MEDS: LISINOPRIL 10 MG TABLET (FP) PO SCH ×2 (10:18→22:10)
[2017-11-11] MEDS: PRENATAL VITAMINS W/ FOLIC ACID TABLET (FP) PO SCH (10:19)
[2017-11-11] MEDS ORDERED: CYCLOBENZAPRINE HCL 5 MG TABLET PO ONE (10:53)
[2017-11-11] MEDS: chlordiazePOXIDE HCL 25 MG CAPSULE PO PRN (13:02)
--- NOTE | 2017-11-11 16:00 | PN ---
[facility] CIWA - CIWA Score Nausea/Vomitin-Mild Nausea/No Vomiting Muscle Tremors: 3 Anxiety: 2 Agitation: 3 Paroxysmal Sweats: 1-Minimal Palms Moist Orientation: 0-Oriented Tacttile Disturbances: 1-Very Mild Itch/Numbness Auditory Disturbances: 0-None Visual Disturbances: 0-None Headache: 1-Very Mild CIWA-Ar Total Score: 12 BHS COWS - Scale Resting Pulse: 0= [place] 80 or Below Sweatin= Chills/Flushing Restless Observation: 1= Difficult to Sit Still Pupil Size: 1= Pupils >than Normal Bone or Joint Aches: 2= Severe Diffuse Aches Runny Nose/ Eye Tearin= Nasal Congestion GI Upset > 30mins: 2= Nausea/Diarrhea Tremor Observation of Outstretched Hands: 1= Tremor [place], Not Seen Yawning Observation: 1= 1-2x During Session Anxiety or Irritability: 2=Irritable/Anxious Goose Flesh Skin: 0=Smooth Skin COWS Score: 12 [facility] Progress Note (SOAP) Subjective: joints pain body aches muscle cramping sweat tremor restlessness Objective: 11/11/17 15:59 Vital Signs Temperature 98.1 F 11/11/17 13:39 Pulse Rate 85 11/11/17 13:39 Respiratory Rate 18 11/11/17 13:39 Blood Pressure 138/81 11/11/17 13:39 O2 Sat by Pulse Oximetry (%) Laboratory Last Values WBC 9.1 K/mm3 (4.0-10.0) 11/10/17 07:00 RBC 4.50 M/mm3 (4.00-5.60) 11/10/17 07:00 Hgb 14.1 GM/dL (11.7-16.9) 11/10/17 07:00 Hct 43.4 % (35.4-49) 11/10/17 07:00 MCV 96.4 fl (80-96) H 11/10/17 07:00 MCH 31.4 pg (25.7-33.7) 11/10/17 07:00 MCHC 32.6 g/dl (32.0-35.9) 11/10/17 07:00 RDW 13.1 % (11.9-15.9) 11/10/17 07:00 Plt Count 245 K/MM3 (134-434) 11/10/17 07:00 MPV 8.2 fl (7.5-11.1) 11/10/17 07:00 Sodium 136 mmol/L (136-145) 11/10/17 07:00 Potassium 4.2 mmol/L (3.5-5.1) 11/10/17 07:00 Chloride 99 mmol/L (98-107) 11/10/17 07:00 Carbon Dioxide 27 mmol/L (21-32) 11/10/17 07:00 Anion Gap 10 MMOL/L (8-16) 11/10/17 07:00 BUN 20 mg/dL (7-18) H 11/10/17 07:00 Creatinine 1.3 mg/dL (0.55-1.3) 11/10/17 07:00 Creat Clearance w eGFR > 60 (>60) 11/10/17 07:00 Random Glucose 105 mg/dL (74-106) 11/10/17 07:00 Calcium 9.2 mg/dL (8.5-10.1) 11/10/17 07:00 Total Bilirubin 1.0 mg/dL (0.2-1) 11/10/17 07:00 AST 42 U/L (15-37) H 11/10/17 07:00 ALT 36 U/L (13-61) 11/10/17 07:00 Alkaline Phosphatase 66 U/L (45-117) 11/10/17 07:00 Total Protein 7.5 g/dl (6.4-8.2) 11/10/17 07:00 Albumin 4.1 g/dl (3.4-5.0) 11/10/17 07:00 Urine Color Sydni 11/09/17 17:30 Urine Appearance Cloudy 11/09/17 17:30 Urine pH 5.0 (5.0-8.0) 11/09/17 17:30 Ur Specific [place] 1.025 (1.001-1.035) 11/09/17 17:30 Urine Protein 2+ (NEGATIVE) H 11/09/17 17:30 Urine Glucose (UA) Negative (NEGATIVE) 11/09/17 17:30 Urine Ketones Trace (NEGATIVE) H 11/09/17 17:30 Urine Blood Negative (NEGATIVE) 11/09/17 17:30 Urine Nitrite Negative (NEGATIVE) 11/09/17 17:30 Urine Bilirubin Negative (<2.0 mg/dL) 11/09/17 17:30 Urine Urobilinogen 2.0 mg/dL (0.2-1.0) 11/09/17 17:30 Ur Leukocyte Esterase Negative (NEGATIVE) 11/09/17 17:30 Urine WBC (Auto) 7 /hpf (3-5) 11/09/17 17:30 Urine RBC (Auto) 5 /hpf (0-3) 11/09/17 17:30 Ur Epithelial Cells Rare /HPF (FEW) 11/09/17 17:30 Urine Bacteria Rare /hpf (NONE SEEN) 11/09/17 17:30 Hyaline Casts 29 /lpf 11/09/17 17:30 Urine Mucus Many 11/09/17 17:30 RPR Titer Nonreactive (NONREACTIVE) 11/10/17 07:00 lab noted Assessment: 11/11/17 15:59 withdrawal sx Plan: continue detox
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
[2017-11-11] MEDS: chlordiazePOXIDE 5 MG CAPSULE PO SCH ×2 (17:36→22:10)
[2017-11-11] MEDS: THIAMINE HCL 100 MG TABLET (FP) PO SCH (22:10)
[2017-11-11] MEDS: QUEtiapine FUMARATE 100 MG TABLET (FP) PO SCH (22:10)
[2017-11-11] MEDS: hydrOXYzine PAMOATE 25 MG CAPSULE (FP) PO PRN (22:13)
[2017-11-11] MEDS: MELATONIN 5 MG TABLETS PO PRN (22:34)
[2017-11-12] MEDS: IBUPROFEN 400 MG TABLET (FP) PO PRN ×3 (01:17→22:42)
[2017-11-12] MEDS: chlordiazePOXIDE HCL 25 MG CAPSULE PO PRN (01:17)
[2017-11-12] MEDS: chlordiazePOXIDE 5 MG CAPSULE PO SCH ×2 (05:48→10:46)
[2017-11-12] MEDS ORDERED: METHADONE HCL 10 MG TABLET (FOR DETOX USE ONLY) PO SCH (10:00)
[2017-11-12] MEDS: CYCLOBENZAPRINE HCL 5 MG TABLET PO SCH (10:46)
[2017-11-12] MEDS: HYDROCHLOROTHIAZIDE 12.5 MG CAPSULE (FP) PO SCH (10:46)
[2017-11-12] MEDS: LISINOPRIL 10 MG TABLET (FP) PO SCH ×2 (10:46→22:41)
[2017-11-12] MEDS: PRENATAL VITAMINS W/ FOLIC ACID TABLET (FP) PO SCH (10:46)
[2017-11-12] MEDS: PANTOPRAZOLE 40 MG TABLET (FP) PO SCH (10:46)
--- NOTE | 2017-11-12 11:44 | PN ---
[facility] Progress Note Note: PATIENT PRESENT WITH FEELING TIRED. IN AND. CONTINUES DETOX FOR ETOH. Vital Signs Temperature 97.7 F 11/12/17 09:19 Pulse Rate 86 11/12/17 09:19 Respiratory Rate 18 11/12/17 09:19 Blood Pressure 119/61 11/12/17 09:19 O2 Sat by Pulse Oximetry (%) Laboratory Tests 11/09/17 11/10/17 11/10/17 17:30 07:00 07:00 WBC 9.1 RBC 4.50 Hgb 14.1 Hct 43.4 MCV 96.4 H MCH 31.4 MCHC 32.6 RDW 13.1 Plt Count 245 MPV 8.2 Sodium 136 Potassium 4.2 Chloride 99 Carbon Dioxide 27 Anion Gap 10 BUN 20 H Creatinine 1.3 Creat Clearance w eGFR > 60 Random Glucose 105 Calcium 9.2 Total Bilirubin 1.0 AST 42 H ALT 36 Alkaline Phosphatase 66 Total Protein 7.5 Albumin 4.1 Urine Color Sydni Urine Appearance Cloudy Urine pH 5.0 Ur Specific [place] 1.025 Urine Protein 2+ H Urine Glucose (UA) Negative Urine Ketones Trace H Urine Blood Negative Urine Nitrite Negative Urine Bilirubin Negative Urine Urobilinogen 2.0 Ur Leukocyte Esterase Negative Urine WBC (Auto) 7 Urine RBC (Auto) 5 Ur Epithelial Cells Rare Urine Bacteria Rare Hyaline Casts 29 Urine Mucus Many RPR Titer 11/10/17 07:00 WBC RBC Hgb Hct MCV MCH MCHC RDW Plt Count MPV Sodium Potassium Chloride Carbon Dioxide Anion Gap BUN Creatinine Creat Clearance w eGFR Random Glucose Calcium Total Bilirubin AST ALT Alkaline Phosphatase Total Protein Albumin Urine Color Urine Appearance Urine pH Ur Specific [place] Urine Protein Urine Glucose (UA) Urine Ketones Urine Blood Urine Nitrite Urine Bilirubin Urine Urobilinogen Ur Leukocyte Esterase Urine WBC (Auto) Urine RBC (Auto) Ur Epithelial Cells Urine Bacteria Hyaline Casts Urine Mucus RPR Titer Nonreactive PE: ALERT AND ORIENTED. RESTING IN BED, SLEEPY SKIN WARM AND DRY CAR S1S2 RESP CTA BL A/P: WITHDRAWAL SYNDROME ENCOURAGE ORAL FLUIDS AND DETOX PER PROTOCOL
[2017-11-12] MEDS: DOCUSATE SODIUM 100 MG CAPSULE (FP) PO SCH ×2 (15:49→22:41)
[2017-11-12] MEDS: chlordiazePOXIDE HCL 10 MG CAPSULE PO SCH ×2 (17:45→22:41)
[2017-11-12] MEDS: THIAMINE HCL 100 MG TABLET (FP) PO SCH (22:41)
[2017-11-12] MEDS: QUEtiapine FUMARATE 100 MG TABLET (FP) PO SCH (22:43)
[2017-11-12] MEDS: MELATONIN 5 MG TABLETS PO PRN (22:46)
[2017-11-12] MEDS: hydrOXYzine PAMOATE 25 MG CAPSULE (FP) PO PRN (22:46)
[2017-11-13] MEDS: DOCUSATE SODIUM 100 MG CAPSULE (FP) PO SCH (05:36)
[2017-11-13] MEDS: chlordiazePOXIDE HCL 10 MG CAPSULE PO SCH (05:36)
[2017-11-13] MEDS ORDERED: METHADONE HCL 5 MG TABLET (FOR DETOX USE ONLY) PO SCH (06:00)
[2017-11-13 06:26] VITALS: BP 134/77; PULSE 80; TEMP 97.5
--- NOTE | 2017-11-13 11:36 | DS ---
[facility] Detox Discharge Summary Admission Date: 11/09/17 Discharge Date: 11/13/17 - History Present History: Alcohol Dependence, Opioid Dependence, Sedative Dependence Pertinent Past History: GERD, HTN, HLD, Insomnia, generalized chronic pain - Physical Exam Results Vital Signs: Vital Signs Temperature 97.5 F L 11/13/17 06:00 Pulse Rate 80 11/13/17 06:00 Respiratory Rate 18 11/13/17 06:00 Blood Pressure 134/77 11/13/17 06:00 O2 Sat by Pulse Oximetry (%) Pertinent Admission Physical Exam Findings: Withdrawal sx Vital Signs - 8 hr 11/13/17 06:00 Temperature 97.5 F L Pulse Rate 80 Respiratory 18 Rate Blood Pressure 134/77 Laboratory Last Values WBC 9.1 K/mm3 (4.0-10.0) 11/10/17 07:00 RBC 4.50 M/mm3 (4.00-5.60) 11/10/17 07:00 Hgb 14.1 GM/dL (11.7-16.9) 11/10/17 07:00 Hct 43.4 % (35.4-49) 11/10/17 07:00 MCV 96.4 fl (80-96) H 11/10/17 07:00 MCH 31.4 pg (25.7-33.7) 11/10/17 07:00 MCHC 32.6 g/dl (32.0-35.9) 11/10/17 07:00 RDW 13.1 % (11.9-15.9) 11/10/17 07:00 Plt Count 245 K/MM3 (134-434) 11/10/17 07:00 MPV 8.2 fl (7.5-11.1) 11/10/17 07:00 Sodium 136 mmol/L (136-145) 11/10/17 07:00 Potassium 4.2 mmol/L (3.5-5.1) 11/10/17 07:00 Chloride 99 mmol/L (98-107) 11/10/17 07:00 Carbon Dioxide 27 mmol/L (21-32) 11/10/17 07:00 Anion Gap 10 MMOL/L (8-16) 11/10/17 07:00 BUN 20 mg/dL (7-18) H 11/10/17 07:00 Creatinine 1.3 mg/dL (0.55-1.3) 11/10/17 07:00 Creat Clearance w eGFR > 60 (>60) 11/10/17 07:00 Random Glucose 105 mg/dL (74-106) 11/10/17 07:00 Calcium 9.2 mg/dL (8.5-10.1) 11/10/17 07:00 Total Bilirubin 1.0 mg/dL (0.2-1) 11/10/17 07:00 AST 42 U/L (15-37) H 11/10/17 07:00 ALT 36 U/L (13-61) 11/10/17 07:00 Alkaline Phosphatase 66 U/L (45-117) 11/10/17 07:00 Total Protein 7.5 g/dl (6.4-8.2) 11/10/17 07:00 Albumin 4.1 g/dl (3.4-5.0) 11/10/17 07:00 Urine Color Sydni 11/09/17 17:30 Urine Appearance Cloudy 11/09/17 17:30 Urine pH 5.0 (5.0-8.0) 11/09/17 17:30 Ur Specific [place] 1.025 (1.001-1.035) 11/09/17 17:30 Urine Protein 2+ (NEGATIVE) H 11/09/17 17:30 Urine Glucose (UA) Negative (NEGATIVE) 11/09/17 17:30 Urine Ketones Trace (NEGATIVE) H 11/09/17 17:30 Urine Blood Negative (NEGATIVE) 11/09/17 17:30 Urine Nitrite Negative (NEGATIVE) 11/09/17 17:30 Urine Bilirubin Negative (<2.0 mg/dL) 11/09/17 17:30 Urine Urobilinogen 2.0 mg/dL (0.2-1.0) 11/09/17 17:30 Ur Leukocyte Esterase Negative (NEGATIVE) 11/09/17 17:30 Urine WBC (Auto) 7 /hpf (3-5) 11/09/17 17:30 Urine RBC (Auto) 5 /hpf (0-3) 11/09/17 17:30 Ur Epithelial Cells Rare /HPF (FEW) 11/09/17 17:30 Urine Bacteria Rare /hpf (NONE SEEN) 11/09/17 17:30 Hyaline Casts 29 /lpf 11/09/17 17:30 Urine Mucus Many 11/09/17 17:30 RPR Titer Nonreactive (NONREACTIVE) 11/10/17 07:00 Labs noted - Treatment Hospital Course: Detox Protocol Followed, Detoxed Safely (Patient requested early discharge), Responded well, Discharged Condition Good - Medication Discharge Medications: Ambulatory Orders Lisinopril/Hydrochlorothiazide [Lisinopril-Hctz 10-12.5 mg Tab] 1 tab PO BID # 30 tablet 10/08/17 Naproxen [Naprosyn -] 375 mg PO BID PRN #60 tablet 10/08/17 Ranitidine [Zantac -] 150 mg PO BID #60 tablet 10/08/17 Pantoprazole Sodium 40 mg PO DAILY 11/09/17 Quetiapine Fumarate [Seroquel] 100 mg PO HS #30 tablet 11/12/17 - Diagnosis (1) Alcohol dependence with uncomplicated withdrawal Current Visit: Yes Status: Acute (2) Opioid dependence with withdrawal Current Visit: Yes Status: Acute (3) Sedative, hypnotic or anxiolytic dependence with withdrawal, uncomplicated Current Visit: Yes Status: Acute (4) Insomnia Current Visit: No Status: Acute Qualifiers: Insomnia type: unspecified Qualified Code(s): G47.00 - Insomnia, unspecified (5) GERD (gastroesophageal reflux disease) Current Visit: No Status: Chronic Qualifiers: Esophagitis presence: esophagitis presence not specified Qualified Code(s) : K21.9 - Gastro-esophageal reflux disease without esophagitis (6) History of hypercholesterolemia Current Visit: No Status: Chronic (7) Hypertension Current Visit: Yes Status: Chronic Qualifiers: Hypertension type: essential hypertension Qualified Code(s): I10 - Essential (primary) hypertension - AMA Did Patient Leave Against Medical Advice: No
[2017-11-13] MEDS: HYDROCHLOROTHIAZIDE 12.5 MG CAPSULE (FP) PO SCH (11:41)
[2017-11-13] MEDS: CYCLOBENZAPRINE HCL 5 MG TABLET PO SCH (11:41)
[2017-11-13] MEDS: LISINOPRIL 10 MG TABLET (FP) PO SCH (11:41)
[2017-11-13] MEDS: PRENATAL VITAMINS W/ FOLIC ACID TABLET (FP) PO SCH (11:41)
[2017-11-13] MEDS: PANTOPRAZOLE 40 MG TABLET (FP) PO SCH (11:41)
[2017-11-13] MEDS: IBUPROFEN 400 MG TABLET (FP) PO PRN (11:44)
== END 2017-11-13 12:10 | disposition home or self-care (01) | DRG 773 ==
LOC: YASAS 11:34 → Y6N 14:17
PROC: HZ2ZZZZ Detoxification Services for Substance Abuse Treatment (ICD-10-PCS; principal; 2017-11-09)
DX: F11.23 Opioid dependence with withdrawal (principal); F10.230 Alcohol dependence with withdrawal, uncomplicated; F13.230 Sedative, hypnotic or anxiolytic dependence with withdrawal, uncomplicated; F19.282 Other psychoactive substance dependence with psychoactive substance-induced sleep disorder; F32.9 Major depressive disorder, single episode, unspecified; G47.00 Insomnia, unspecified; I10 Essential (primary) hypertension; K21.9 Gastro-esophageal reflux disease without esophagitis; M1A.0710 Idiopathic chronic gout, right ankle and foot, without tophus (tophi); Z87.09 Personal history of other diseases of the respiratory system
CPT/HCPCS: 36415; 80053; 81003; 81015; 85027; 86593; 93005; 93010

== ENCOUNTER 2017-11-22 10:54 | Inpatient (IN) | payer OTHER ==
[2017-11-22 11:16] VITALS: BMI 27.9
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
[2017-11-22] MEDS ORDERED: RANITIDINE HCL 150 MG TABLET (FP) PO PRN (11:52)
[2017-11-22] MEDS ORDERED: P-EPHED 60MG/TRIPROLIDI 2.5MG TABLET PO PRN (11:53)
[2017-11-22] MEDS ORDERED: guaiFENesin/D-METHORPHAN HB 10 ML UNIT-DOSE CUPS PO PRN (11:53)
[2017-11-22] MEDS ORDERED: MAG HYDROX/AL HYDROX/SIMETH 30 ML UNIT-DOSE CUP PO PRN (11:53)
[2017-11-22] MEDS ORDERED: IBUPROFEN 400 MG TABLET (FP) PO PRN (11:53)
[2017-11-22] MEDS ORDERED: ACETAMINOPHEN 325 MG TABLET (FP) PO PRN (11:53)
[2017-11-22] MEDS ORDERED: MAGNESIUM CITRATE 300 ML BOTTLE PO PRN (11:53)
[2017-11-22] MEDS ORDERED: MENTHOL/PHENOL 1 EACH UD MM PRN (11:53)
[2017-11-22] MEDS ORDERED: LOPERAMIDE HCL 2 MG CAPSULE PO PRN (11:53)
[2017-11-22] MEDS ORDERED: METHADONE HCL 10 MG TABLET PO ONE (19:15)
[2017-11-22] MEDS: chlordiazePOXIDE HCL 25 MG CAPSULE PO SCH ×2 (19:22→22:05)
[2017-11-22] MEDS: LISINOPRIL 10 MG TABLET (FP) PO SCH (19:44)
[2017-11-22] MEDS: HYDROCHLOROTHIAZIDE 12.5 MG CAPSULE (FP) PO SCH (19:44)
[2017-11-22] MEDS ORDERED: PATIENT'S OWN MEDICATION (NON-FORMULARY) (Lisinopril/Hydrochlorothiazide [Lisinopril-Hctz PO SCH (22:00)
[2017-11-22] MEDS ORDERED: HYDROCHLOROTHIAZIDE 12.5 MG CAPSULE (FP) PO SCH (22:00)
[2017-11-22] MEDS ORDERED: LISINOPRIL 10 MG TABLET (FP) PO SCH (22:00)
[2017-11-22] MEDS: THIAMINE HCL 100 MG TABLET (FP) PO SCH (22:05)
[2017-11-22] MEDS: MELATONIN 5 MG TABLETS PO PRN (22:52)
[2017-11-22] MEDS ORDERED: METHADONE HCL 10 MG TABLET (FOR DETOX USE ONLY) PO ONE (23:00)
[2017-11-22 23:21] LABS: URINE APPEARANCE CLEAR; URINE BILIRUBIN NEGATIVE (<2.0 mg/dL); URINE COLOR YELLOW; URINE GLUCOSE (UA) NEGATIVE (NEGATIVE); URINE KETONE NEGATIVE (NEGATIVE); URINE LEUK ESTERASE NEGATIVE (NEGATIVE); URINE NITRITE NEGATIVE (NEGATIVE); URINE PROTEIN 1+ (NEGATIVE); URINE UROBILINOGEN NEGATIVE mg/dL (0.2-1.0)
[2017-11-22 23:28] LABS: URINE MUCUS RARE
[2017-11-23] MEDS: chlordiazePOXIDE HCL 25 MG CAPSULE PO PRN (01:39)
[2017-11-23] MEDS: chlordiazePOXIDE HCL 25 MG CAPSULE PO SCH ×4 (05:17→22:00)
[2017-11-23] MEDS ORDERED: METHADONE HCL 10 MG TABLET (FOR DETOX USE ONLY) PO SCH (10:00)
[2017-11-23 10:24] LABS: HEMATOCRIT 35.9 % (35.4-49); HEMOGLOBIN 12.3 GM/dL (11.7-16.9); MCH 32.8 pg (25.7-33.7); MCHC 34.4 g/dl (32.0-35.9); MEAN CELL VOLUME 95.2 fl (80-96); MEAN PLT VOLUME 8.1 fl (7.5-11.1); PLATELET COUNT 276 K/MM3 (134-434); RBC 3.77 M/mm3 (4.00-5.60); RDW 13.3 % (11.9-15.9); WHITE BLOOD COUNT 4.7 K/mm3 (4.0-10.0)
[2017-11-23] MEDS: PRENATAL VITAMINS W/ FOLIC ACID TABLET (FP) PO SCH (10:27)
[2017-11-23] MEDS: LISINOPRIL 10 MG TABLET (FP) PO SCH ×2 (10:27→21:48)
[2017-11-23] MEDS: HYDROCHLOROTHIAZIDE 12.5 MG CAPSULE (FP) PO SCH ×2 (10:28→21:48)
[2017-11-23] MEDS: PANTOPRAZOLE 40 MG TABLET (FP) PO SCH (10:28)
[2017-11-23] MEDS ORDERED: METHADONE HCL 5 MG TABLET (FOR DETOX USE ONLY) PO SCH (10:40)
--- NOTE | 2017-11-23 11:07 | EKG ---
Test Reason : Blood Pressure : / mmHG Vent. Rate : 110 BPM Atrial Rate : 110 BPM P-R Int : 134 ms QRS Dur : 084 ms QT Int : 350 ms P-R-T Axes : 074 034 009 degrees QTc Int : 473 ms SINUS TACHYCARDIA NONSPECIFIC T WAVE ABNORMALITY ABNORMAL ECG Confirmed by Sadi Olivera MD ([id number]) on 11/23/2017 11:06:54 AM Referred By: Confirmed By:Sadi Olivera MD
[2017-11-23 11:22] LABS: ALBUMIN 3.3 g/dl (3.4-5.0); ALK PHOS 66 U/L (45-117); ANION GAP 13 MMOL/L (8-16); BILIRUBIN,TOTAL 0.2 mg/dL (0.2-1); BLOOD UREA NITROGEN 13 mg/dL (7-18); CALCIUM 8.2 mg/dL (8.5-10.1); CHLORIDE 102 mmol/L (98-107); CO2 25 mmol/L (21-32); GLUCOSE,RANDOM 109 mg/dL (74-106); POTASSIUM 3.8 mmol/L (3.5-5.1); SGOT/AST 45 U/L (15-37); SGPT/ALT 43 U/L (13-61); SODIUM 140 mmol/L (136-145)
--- NOTE | 2017-11-23 12:07 | PN ---
S CIWA - CIWA Score Nausea/Vomitin Muscle Tremors: 1-None Visible, but [place] Anxiety: 2 Agitation: 0-Normal Activity Paroxysmal Sweats: 2 Orientation: 0-Oriented Tacttile Disturbances: 0-None Auditory Disturbances: 0-None Visual Disturbances: 0-None Headache: 2-Mild CIWA-Ar Total Score: 9 BHS COWS - Scale Resting Pulse: 0= [place] 80 or Below Sweatin= No chills or Flushing Restless Observation: 0= Sits Still Pupil Size: 2= Moderately Dilated Bone or Joint Aches: 2= Severe Diffuse Aches Runny Nose/ Eye Tearin= None GI Upset > 30mins: 2= Nausea/Diarrhea Tremor Observation of Outstretched Hands: 1= Tremor [place], Not Seen Yawning Observation: 0= None Anxiety or Irritability: 1=Feels Anxious/Irritable Goose Flesh Skin: 0=Smooth Skin COWS Score: 8 BHS Progress Note (SOAP) Subjective: PATIENT C/O NAUSEA, DIARRHEA, BODY ACHES, TREMORS. Objective: 11/23/17 12:07 ALERT AND ORIENTED SKIN WARM AND DRY CAR S1S2 RESP CTA GI SOFT, BS+, NT, ND EXT NO EDEMA. +TREMORS PSYCH +ANXIETY 11/23/17 12:12 Assessment: 11/23/17 12:13 ETOH/OPIOD WITHDRAWAL SYNDROME Plan: CONTINUE DETOX PER PROTOCOL ENCOURAGE ORAL FLUIDS ADD FLEXERIL PRN FOR BODY ACHES AND VISTARIL FOR TREMORS/ANXIETY CONTINUE TO MONITOR CLINICALLY
[2017-11-23] MEDS: hydrOXYzine PAMOATE 25 MG CAPSULE (FP) PO PRN (17:37)
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
[2017-11-23] MEDS: MAGNESIUM HYDROX 2400MG/30ML ORAL SUSPENSION 30 ML CUP PO PRN (21:18)
[2017-11-23] MEDS: CYCLOBENZAPRINE HCL 10 MG TABLET (FP) PO PRN (21:48)
[2017-11-23] MEDS: THIAMINE HCL 100 MG TABLET (FP) PO SCH (21:48)
[2017-11-23] MEDS: MELATONIN 5 MG TABLETS PO PRN (23:34)
[2017-11-24] MEDS: chlordiazePOXIDE HCL 25 MG CAPSULE PO SCH ×2 (05:16→11:26)
[2017-11-24] MEDS: HYDROCHLOROTHIAZIDE 12.5 MG CAPSULE (FP) PO SCH ×2 (09:48→22:32)
[2017-11-24] MEDS: PRENATAL VITAMINS W/ FOLIC ACID TABLET (FP) PO SCH (09:48)
[2017-11-24] MEDS: PANTOPRAZOLE 40 MG TABLET (FP) PO SCH (09:48)
[2017-11-24] MEDS: LISINOPRIL 10 MG TABLET (FP) PO SCH ×2 (09:48→22:32)
[2017-11-24] MEDS ORDERED: METHADONE HCL 5 MG TABLET (FOR DETOX USE ONLY) PO SCH (10:00)
--- NOTE | 2017-11-24 14:07 | PN ---
[facility] CI[facility] - CIWA Score Nausea/Vomitin-Mild Nausea/No Vomiting Muscle Tremors: 1-None Visible, but [place] Anxiety: 2 Agitation: 0-Normal Activity Paroxysmal Sweats: 2 Orientation: 0-Oriented Tacttile Disturbances: 0-None Auditory Disturbances: 0-None Visual Disturbances: 0-None Headache: 1-Very Mild CIWA-Ar Total Score: 7 BHS COWS - Scale Resting Pulse: 0= [place] 80 or Below Sweatin=Flushed/Facial Moisture Restless Observation: 0= Sits Still Pupil Size: 1= Pupils >than Normal Bone or Joint Aches: 2= Severe Diffuse Aches Runny Nose/ Eye Tearin= None GI Upset > 30mins: 2= Nausea/Diarrhea Tremor Observation of Outstretched Hands: 1= Tremor [place], Not Seen Yawning Observation: 0= None Anxiety or Irritability: 1=Feels Anxious/Irritable Goose Flesh Skin: 0=Smooth Skin COWS Score: 9 S Progress Note (SOAP) Subjective: PATIENT C/O MUSCULAR ACHE, SHAKES, SWEATINESS AND NAUSEA/DIARRHEA. Objective: 11/24/17 14:06 Vital Signs Temperature 97.9 F 11/24/17 13:24 Pulse Rate 74 11/24/17 13:24 Respiratory Rate 20 11/24/17 13:24 Blood Pressure 155/97 11/24/17 13:24 O2 Sat by Pulse Oximetry (%) Laboratory Tests 11/22/17 11/23/17 11/23/17 19:46 07:30 07:30 WBC 4.7 RBC 3.77 L Hgb 12.3 Hct 35.9 D MCV 95.2 MCH 32.8 MCHC 34.4 RDW 13.3 Plt Count 276 MPV 8.1 Sodium 140 Potassium 3.8 Chloride 102 Carbon Dioxide 25 Anion Gap 13 BUN 13 Creatinine 1.0 Creat Clearance w eGFR > 60 Random Glucose 109 H Calcium 8.2 L Total Bilirubin 0.2 AST 45 H ALT 43 Alkaline Phosphatase 66 Total Protein 6.0 L Albumin 3.3 L Urine Color Yellow Urine Appearance Clear Urine pH 7.0 D Ur Specific [place] 1.029 Urine Protein 1+ H Urine Glucose (UA) Negative Urine Ketones Negative Urine Blood Negative Urine Nitrite Negative Urine Bilirubin Negative Urine Urobilinogen Negative Ur Leukocyte Esterase Negative Urine WBC (Auto) <1 Urine RBC (Auto) 1 Urine Mucus Rare RPR Titer 11/23/17 07:30 WBC RBC Hgb Hct MCV MCH MCHC RDW Plt Count MPV Sodium Potassium Chloride Carbon Dioxide Anion Gap BUN Creatinine Creat Clearance w eGFR Random Glucose Calcium Total Bilirubin AST ALT Alkaline Phosphatase Total Protein Albumin Urine Color Urine Appearance Urine pH Ur Specific [place] Urine Protein Urine Glucose (UA) Urine Ketones Urine Blood Urine Nitrite Urine Bilirubin Urine Urobilinogen Ur Leukocyte Esterase Urine WBC (Auto) Urine RBC (Auto) Urine Mucus RPR Titer Nonreactive PE: SKIN WARM AND FOREHEAD MOIST ALERT AND ORIENTED X 3 AMB AD CARLOS EXT MILD TREMORS Assessment: 11/24/17 14:06 WITHDRAWAL SYNDROME Plan: CONTINUE DETOX PER PROTOCOL INCREASE HCTZ TO 25MG STARTING TOMORROW ENCOURAGE ORAL FLUIDS REPEAT UA
[2017-11-24] MEDS: chlordiazePOXIDE 5 MG CAPSULE PO SCH ×2 (17:41→22:32)
[2017-11-24] MEDS: hydrOXYzine PAMOATE 25 MG CAPSULE (FP) PO PRN (17:43)
[2017-11-24] MEDS: THIAMINE HCL 100 MG TABLET (FP) PO SCH (22:32)
[2017-11-24] MEDS: CYCLOBENZAPRINE HCL 10 MG TABLET (FP) PO PRN (22:32)
[2017-11-24] MEDS: MELATONIN 5 MG TABLETS PO PRN (22:34)
[2017-11-25] MEDS: chlordiazePOXIDE HCL 25 MG CAPSULE PO PRN (01:06)
[2017-11-25] MEDS: chlordiazePOXIDE 5 MG CAPSULE PO SCH ×2 (05:09→10:30)
[2017-11-25] MEDS: MAGNESIUM HYDROX 2400MG/30ML ORAL SUSPENSION 30 ML CUP PO PRN (07:19)
[2017-11-25] MEDS ORDERED: ONDANSETRON *ODT* 4 MG TABLET SL PRN (09:20)
[2017-11-25] MEDS ORDERED: METHADONE HCL 10 MG TABLET (FOR DETOX USE ONLY) PO SCH (10:00)
[2017-11-25] MEDS: LISINOPRIL 10 MG TABLET (FP) PO SCH ×2 (10:30→22:26)
[2017-11-25] MEDS: PANTOPRAZOLE 40 MG TABLET (FP) PO SCH (10:30)
[2017-11-25] MEDS: HYDROCHLOROTHIAZIDE 12.5 MG CAPSULE (FP) PO SCH ×2 (10:30→22:26)
[2017-11-25] MEDS: PRENATAL VITAMINS W/ FOLIC ACID TABLET (FP) PO SCH (10:31)
[2017-11-25] MEDS: hydrOXYzine PAMOATE 25 MG CAPSULE (FP) PO PRN ×3 (10:34→22:27)
[2017-11-25] MEDS ORDERED: METHADONE HCL 5 MG TABLET (FOR DETOX USE ONLY) PO SCH (10:35)
--- NOTE | 2017-11-25 11:40 | PN ---
[facility] Progress Note (SOAP) Subjective: PATIENT C/O NAUSEA AND VOMITED X ONE. Objective: 11/25/17 11:39 Laboratory Tests 11/22/17 11/23/17 11/23/17 19:46 07:30 07:30 WBC 4.7 RBC 3.77 L Hgb 12.3 Hct 35.9 D MCV 95.2 MCH 32.8 MCHC 34.4 RDW 13.3 Plt Count 276 MPV 8.1 Sodium 140 Potassium 3.8 Chloride 102 Carbon Dioxide 25 Anion Gap 13 BUN 13 Creatinine 1.0 Creat Clearance w eGFR > 60 Random Glucose 109 H Calcium 8.2 L Total Bilirubin 0.2 AST 45 H ALT 43 Alkaline Phosphatase 66 Total Protein 6.0 L Albumin 3.3 L Urine Color Yellow Urine Appearance Clear Urine pH 7.0 D Ur Specific [place] 1.029 Urine Protein 1+ H Urine Glucose (UA) Negative Urine Ketones Negative Urine Blood Negative Urine Nitrite Negative Urine Bilirubin Negative Urine Urobilinogen Negative Ur Leukocyte Esterase Negative Urine WBC (Auto) <1 Urine RBC (Auto) 1 Urine Mucus Rare RPR Titer 11/23/17 07:30 WBC RBC Hgb Hct MCV MCH MCHC RDW Plt Count MPV Sodium Potassium Chloride Carbon Dioxide Anion Gap BUN Creatinine Creat Clearance w eGFR Random Glucose Calcium Total Bilirubin AST ALT Alkaline Phosphatase Total Protein Albumin Urine Color Urine Appearance Urine pH Ur Specific [place] Urine Protein Urine Glucose (UA) Urine Ketones Urine Blood Urine Nitrite Urine Bilirubin Urine Urobilinogen Ur Leukocyte Esterase Urine WBC (Auto) Urine RBC (Auto) Urine Mucus RPR Titer Nonreactive PE: ALERT AND ORIENTED X 3 SKIN WARM AND DRY CAR S1S2 RESP CTA BL GI SOFT, BS+, NT EXT FULL ROM Assessment: 11/25/17 11:40 WITHDRAWAL SYNDROME N/V Plan: CONTINUE DETOX ENCOURAGE ORAL FLUIDS GINGERALE ZOFRAN PRN CONTINUE TO MONITOR
[2017-11-25] MEDS: chlordiazePOXIDE HCL 10 MG CAPSULE PO SCH ×2 (16:44→22:26)
[2017-11-25 17:37] LABS: URINE APPEARANCE CLEAR; URINE BILIRUBIN NEGATIVE (<2.0 mg/dL); URINE COLOR STRAW; URINE GLUCOSE (UA) NEGATIVE (NEGATIVE); URINE KETONE NEGATIVE (NEGATIVE); URINE LEUK ESTERASE NEGATIVE (NEGATIVE); URINE NITRITE NEGATIVE (NEGATIVE); URINE PROTEIN NEGATIVE (NEGATIVE); URINE UROBILINOGEN NEGATIVE mg/dL (0.2-1.0)
[2017-11-25] MEDS: THIAMINE HCL 100 MG TABLET (FP) PO SCH (22:26)
[2017-11-25] MEDS: CYCLOBENZAPRINE HCL 10 MG TABLET (FP) PO PRN (22:26)
[2017-11-26] MEDS: MELATONIN 5 MG TABLETS PO PRN (00:04)
[2017-11-26] MEDS: chlordiazePOXIDE HCL 10 MG CAPSULE PO SCH ×2 (05:35→10:24)
[2017-11-26 10:06] VITALS: BP 135/87; PULSE 83; TEMP 96.9
[2017-11-26] MEDS: LISINOPRIL 10 MG TABLET (FP) PO SCH (10:24)
[2017-11-26] MEDS: PANTOPRAZOLE 40 MG TABLET (FP) PO SCH (10:24)
[2017-11-26] MEDS: HYDROCHLOROTHIAZIDE 12.5 MG CAPSULE (FP) PO SCH (10:24)
[2017-11-26] MEDS: PRENATAL VITAMINS W/ FOLIC ACID TABLET (FP) PO SCH (10:24)
[2017-11-26] MEDS: hydrOXYzine PAMOATE 25 MG CAPSULE (FP) PO PRN (10:26)
--- NOTE | 2017-11-26 13:07 | DS ---
[facility] Detox Discharge Summary Admission Date: 11/22/17 Discharge Date: 11/26/17 - History Present History: Alcohol Dependence, Opioid Dependence Pertinent Past History: Denies - Physical Exam Results Vital Signs: Vital Signs Temperature 96.9 F L 11/26/17 10:05 Pulse Rate 83 11/26/17 10:05 Respiratory Rate 18 11/26/17 10:05 Blood Pressure 135/87 11/26/17 10:05 O2 Sat by Pulse Oximetry (%) Pertinent Admission Physical Exam Findings: Withdrawal sxs Laboratory Tests 11/22/17 11/23/17 11/23/17 19:46 07:30 07:30 WBC 4.7 RBC 3.77 L Hgb 12.3 Hct 35.9 D MCV 95.2 MCH 32.8 MCHC 34.4 RDW 13.3 Plt Count 276 MPV 8.1 Sodium 140 Potassium 3.8 Chloride 102 Carbon Dioxide 25 Anion Gap 13 BUN 13 Creatinine 1.0 Creat Clearance w eGFR > 60 Random Glucose 109 H Calcium 8.2 L Total Bilirubin 0.2 AST 45 H ALT 43 Alkaline Phosphatase 66 Total Protein 6.0 L Albumin 3.3 L Urine Color Yellow Urine Appearance Clear Urine pH 7.0 D Ur Specific [place] 1.029 Urine Protein 1+ H Urine Glucose (UA) Negative Urine Ketones Negative Urine Blood Negative Urine Nitrite Negative Urine Bilirubin Negative Urine Urobilinogen Negative Ur Leukocyte Esterase Negative Urine WBC (Auto) <1 Urine RBC (Auto) 1 Urine Mucus Rare RPR Titer 11/23/17 11/25/17 07:30 17:00 WBC RBC Hgb Hct MCV MCH MCHC RDW Plt Count MPV Sodium Potassium Chloride Carbon Dioxide Anion Gap BUN Creatinine Creat Clearance w eGFR Random Glucose Calcium Total Bilirubin AST ALT Alkaline Phosphatase Total Protein Albumin Urine Color [place]raw Urine Appearance Clear Urine pH 5.0 D Ur Specific [place] 1.009 Urine Protein Negative Urine Glucose (UA) Negative Urine Ketones Negative Urine Blood Negative Urine Nitrite Negative Urine Bilirubin Negative Urine Urobilinogen Negative Ur Leukocyte Esterase Negative Urine WBC (Auto) Urine RBC (Auto) Urine Mucus RPR Titer Nonreactive Labs reviewed - Treatment Hospital Course: Detox Protocol Followed, Detoxed Safely, Responded well, Discharged Condition Good - Medication Discharge Medications: Ambulatory Orders Lisinopril/Hydrochlorothiazide [Lisinopril-Hctz 10-12.5 mg Tab] 1 tab PO BID # 30 tablet 10/08/17 Naproxen [Naprosyn -] 375 mg PO BID PRN #60 tablet 10/08/17 Ranitidine [Zantac -] 150 mg PO BID #60 tablet 10/08/17 Pantoprazole Sodium 40 mg PO DAILY 11/09/17 Quetiapine Fumarate [Seroquel] 100 mg PO HS #30 tablet 11/12/17 Quetiapine Fumarate [Seroquel] 100 mg PO HS #30 tablet 11/24/17 - Diagnosis (1) Alcohol dependence with uncomplicated withdrawal Status: Acute (2) Insomnia Status: Acute Qualifiers: Insomnia type: unspecified Qualified Code(s): G47.00 - Insomnia, unspecified (3) Nicotine dependence Status: Chronic Qualifiers: Nicotine product type: cigarettes Substance use status: in withdrawal Qualified Code(s): F17.213 - Nicotine dependence, cigarettes, with withdrawal (4) Opioid dependence with withdrawal Status: Acute - AMA Did Patient Leave Against Medical Advice: No (F/U with your PCP within 1-2 weeks )
== END 2017-11-26 12:55 | disposition other institution (70) | DRG 773 ==
LOC: YASAS 10:54 → Y3N 18:45
PROC: HZ2ZZZZ Detoxification Services for Substance Abuse Treatment (ICD-10-PCS; principal; 2017-11-22)
DX: F11.23 Opioid dependence with withdrawal (principal); F10.230 Alcohol dependence with withdrawal, uncomplicated; F17.213 Nicotine dependence, cigarettes, with withdrawal; I10 Essential (primary) hypertension; G47.00 Insomnia, unspecified; M10.9 Gout, unspecified; K21.9 Gastro-esophageal reflux disease without esophagitis; J45.909 Unspecified asthma, uncomplicated; D64.9 Anemia, unspecified; Z88.0 Allergy status to penicillin
CPT/HCPCS: 36415; 80053; 81003; 81015; 85027; 86593; 93005; 93010; Q0162

== ENCOUNTER 2017-12-27 11:43 | Inpatient (IN) | payer OTHER ==
[2017-12-27 13:26] VITALS: BMI 29.8
--- NOTE | 2017-12-27 15:50 | DS ---
[facility] Detox Discharge Summary Admission Date: 37 yo gentleman here for detox from alcohol, oxycodone and alprazolam. Denies seizures, but does have black outs. This is one of several admissions for detox. Was last in detox and rehab in 11/2017. Pt states he left rehab early- b/ c he did not want to lose his job. Alcohol- 4 pints of vodka/day, uses 4-6 bags heroin a day, uses percocets 10mg- 6 tabs/day, xanax- 4-6 day Says he has h/o HTN, high cholesterol, gout. Childhood asthma- none recently. Never in methadone or suboxone program. - Physical Exam Results Vital Signs: Vital Signs Temperature 97 F L 12/27/17 13:23 Pulse Rate 80 12/27/17 13:23 Respiratory Rate 18 12/27/17 13:23 Blood Pressure 160/96 12/27/17 13:23 O2 Sat by Pulse Oximetry (%) - Medication Discharge Medications: Ambulatory Orders Lisinopril/Hydrochlorothiazide [Lisinopril-Hctz 10-12.5 mg Tab] 1 tab PO BID # 30 tablet 10/08/17 Naproxen [Naprosyn -] 375 mg PO BID PRN #60 tablet 10/08/17 Ranitidine [Zantac -] 150 mg PO BID #60 tablet 10/08/17 Quetiapine Fumarate [Seroquel] 100 mg PO HS #30 tablet 11/30/17 Indomethacin [Indocin -] 50 mg PO BID 12/27/17
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
[2017-12-27] MEDS ORDERED: ACETAMINOPHEN 325 MG TABLET (FP) PO PRN (16:06)
[2017-12-27] MEDS ORDERED: MAG HYDROX/AL HYDROX/SIMETH 30 ML UNIT-DOSE CUP PO PRN (16:06)
[2017-12-27] MEDS ORDERED: guaiFENesin/D-METHORPHAN HB 10 ML UNIT-DOSE CUPS PO PRN (16:06)
[2017-12-27] MEDS ORDERED: P-EPHED 60MG/TRIPROLIDI 2.5MG TABLET PO PRN (16:06)
[2017-12-27] MEDS ORDERED: MENTHOL/PHENOL 1 EACH UD MM PRN (16:06)
[2017-12-27] MEDS ORDERED: LOPERAMIDE HCL 2 MG CAPSULE PO PRN (16:06)
[2017-12-27] MEDS ORDERED: MAGNESIUM CITRATE 300 ML BOTTLE PO PRN (16:06)
[2017-12-27] MEDS ORDERED: IBUPROFEN 400 MG TABLET (FP) PO PRN (16:06)
[2017-12-27] MEDS ORDERED: METHADONE HCL 10 MG TABLET (FOR DETOX USE ONLY) PO ONE ×2 (17:00→23:00)
[2017-12-27] MEDS: chlordiazePOXIDE HCL 25 MG CAPSULE PO SCH ×2 (18:02→22:33)
[2017-12-27] MEDS: LISINOPRIL 10 MG TABLET (FP) PO SCH (18:03)
[2017-12-27] MEDS: HYDROCHLOROTHIAZIDE 12.5 MG CAPSULE (FP) PO SCH (18:03)
[2017-12-27] MEDS: INDOMETHACIN 50 MG CAPSULE PO SCH (22:33)
[2017-12-27] MEDS: THIAMINE HCL 100 MG TABLET (FP) PO SCH (22:34)
[2017-12-27] MEDS: RANITIDINE HCL 150 MG TABLET (FP) PO SCH (22:34)
[2017-12-27] MEDS: cloNIDine HCL 0.1 MG TABLET PO PRN (22:34)
[2017-12-27] MEDS: MELATONIN 5 MG TABLETS PO PRN (22:37)
[2017-12-28 01:16] LABS: URINE APPEARANCE CLEAR; URINE BILIRUBIN NEGATIVE (<2.0 mg/dL); URINE COLOR YELLOW; URINE GLUCOSE (UA) NEGATIVE (NEGATIVE); URINE KETONE NEGATIVE (NEGATIVE); URINE LEUK ESTERASE NEGATIVE (NEGATIVE); URINE NITRITE NEGATIVE (NEGATIVE); URINE PROTEIN NEGATIVE (NEGATIVE); URINE UROBILINOGEN NEGATIVE mg/dL (0.2-1.0)
[2017-12-28] MEDS: chlordiazePOXIDE HCL 25 MG CAPSULE PO PRN ×3 (03:12→20:26)
[2017-12-28] MEDS: chlordiazePOXIDE HCL 25 MG CAPSULE PO SCH ×4 (05:46→22:47)
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
[2017-12-28] MEDS ORDERED: METHADONE HCL 10 MG TABLET (FOR DETOX USE ONLY) PO SCH (10:00)
--- NOTE | 2017-12-28 10:15 | PN ---
[facility] CIWA - CIWA Score Nausea/Vomitin-Mild Nausea/No Vomiting Muscle Tremors: 3 Anxiety: 3 Agitation: 3 Paroxysmal Sweats: 1-Minimal Palms Moist Orientation: 1-Uncertain about Date Tacttile Disturbances: 0-None Auditory Disturbances: 0-None Visual Disturbances: 0-None Headache: 0-None Present CIWA-Ar Total Score: 12 [facility] COWS - Scale Resting Pulse: 0= [place] 80 or Below Sweatin= Chills/Flushing Restless Observation: 1= Difficult to Sit Still Pupil Size: 0= Normal to Room Light Bone or Joint Aches: 1= Mild Discomfort Runny Nose/ Eye Tearin= Nasal Congestion GI Upset > 30mins: 2= Nausea/Diarrhea Tremor Observation of Outstretched Hands: 1= Tremor [place], Not Seen Yawning Observation: 1= 1-2x During Session Anxiety or Irritability: 1=Feels Anxious/Irritable Goose Flesh Skin: 0=Smooth Skin COWS Score: 9 [facility] Progress Note (SOAP) Subjective: tremor sweat anxiety body aches joints pain Objective: 12/28/17 10:14 Vital Signs Temperature 97.3 F L 12/28/17 09:10 Pulse Rate 78 12/28/17 09:10 Respiratory Rate 18 12/28/17 09:10 Blood Pressure 143/113 H 12/28/17 09:10 O2 Sat by Pulse Oximetry (%) Laboratory Last Values Urine Color Yellow 12/28/17 00:00 Urine Appearance Clear 12/28/17 00:00 Urine pH 5.0 (5.0-8.0) 12/28/17 00:00 Ur Specific [place] 1.026 (1.010-1.035) 12/28/17 00:00 Urine Protein Negative (NEGATIVE) 12/28/17 00:00 Urine Glucose (UA) Negative (NEGATIVE) 12/28/17 00:00 Urine Ketones Negative (NEGATIVE) 12/28/17 00:00 Urine Blood Negative (NEGATIVE) 12/28/17 00:00 Urine Nitrite Negative (NEGATIVE) 12/28/17 00:00 Urine Bilirubin Negative (<2.0 mg/dL) 12/28/17 00:00 Urine Urobilinogen Negative mg/dL (0.2-1.0) 12/28/17 00:00 Ur Leukocyte Esterase Negative (NEGATIVE) 12/28/17 00:00 lab noted Assessment: 12/28/17 10:15 withdrawal sx 12/28/17 10:15 hypertension Plan: continue detox
[2017-12-28] MEDS: PRENATAL VITAMINS W/ FOLIC ACID TABLET (FP) PO SCH (10:29)
[2017-12-28] MEDS: INDOMETHACIN 50 MG CAPSULE PO SCH ×2 (10:30→22:46)
[2017-12-28] MEDS: LISINOPRIL 10 MG TABLET (FP) PO SCH (10:30)
[2017-12-28] MEDS: RANITIDINE HCL 150 MG TABLET (FP) PO SCH ×2 (10:30→22:47)
[2017-12-28] MEDS: HYDROCHLOROTHIAZIDE 12.5 MG CAPSULE (FP) PO SCH (10:30)
[2017-12-28] MEDS: cloNIDine HCL 0.1 MG TABLET PO PRN ×2 (10:30→22:47)
[2017-12-28] MEDS ORDERED: BACLOFEN 10 MG TABLET (FP) PO ONE (11:08)
[2017-12-28 11:27] LABS: HEMATOCRIT 36.8 % (35.4-49); HEMOGLOBIN 12.5 GM/dL (11.7-16.9); MCH 31.7 pg (25.7-33.7); MEAN CELL VOLUME 93.2 fl (80-96); MEAN PLT VOLUME 8.4 fl (7.5-11.1); PLATELET COUNT 271 K/MM3 (134-434); RBC 3.95 M/mm3 (4.00-5.60); RDW 13.8 % (11.9-15.9); WHITE BLOOD COUNT 5.4 K/mm3 (4.0-10.0)
[2017-12-28] MEDS ORDERED: FLU VACCINE QUAD 60 MCG/0.5 ML (MDV 18-19) IM ONE (12:00)
[2017-12-28 12:25] LABS: ALBUMIN 3.4 g/dl (3.4-5.0); ALK PHOS 68 U/L (45-117); ANION GAP 6 MMOL/L (8-16); BILIRUBIN,TOTAL 0.3 mg/dL (0.2-1); BLOOD UREA NITROGEN 20 mg/dL (7-18); CALCIUM 8.1 mg/dL (8.5-10.1); CHLORIDE 101 mmol/L (98-107); CO2 29 mmol/L (21-32); CREATININE 1.3 mg/dL (0.55-1.3); SODIUM 136 mmol/L (136-145)
[2017-12-28 12:32] LABS: GLUCOSE,RANDOM 100 mg/dL (74-106); POTASSIUM 4.2 mmol/L (3.5-5.1); SGOT/AST 47 U/L (15-37)
[2017-12-28] MEDS: QUEtiapine FUMARATE 100 MG TABLET (FP) PO SCH (22:46)
[2017-12-28] MEDS: THIAMINE HCL 100 MG TABLET (FP) PO SCH (22:47)
[2017-12-28] MEDS: MELATONIN 5 MG TABLETS PO PRN (23:40)
[2017-12-29] MEDS: MAGNESIUM HYDROX 2400MG/30ML ORAL SUSPENSION 30 ML CUP PO PRN (04:30)
[2017-12-29] MEDS: chlordiazePOXIDE HCL 25 MG CAPSULE PO SCH ×2 (05:17→10:20)
[2017-12-29] MEDS ORDERED: BACLOFEN 10 MG TABLET (FP) PO ONE (09:30)
[2017-12-29] MEDS ORDERED: hydrOXYzine PAMOATE 50 MG CAPSULE (FP) PO ONE (09:31)
--- NOTE | 2017-12-29 09:53 | EKG ---
Test Reason : Blood Pressure : / mmHG Vent. Rate : 088 BPM Atrial Rate : 088 BPM P-R Int : 146 ms QRS Dur : 082 ms QT Int : 384 ms P-R-T Axes : 072 005 -21 degrees QTc Int : 464 ms NORMAL SINUS RHYTHM NORMAL ECG WHEN COMPARED WITH ECG OF 22-NOV-2017 19:02, NONSPECIFIC T WAVE ABNORMALITY NO LONGER EVIDENT IN ANTEROLATERAL LEADS Confirmed by DAISY HORTA, MICHELLE ([id number]) on 12/29/2017 9:52:53 AM Referred By: Confirmed By:MICHELLE VILLA MD
[2017-12-29] MEDS: RANITIDINE HCL 150 MG TABLET (FP) PO SCH ×2 (10:20→22:49)
[2017-12-29] MEDS: METHADONE HCL 5 MG TABLET (FOR DETOX USE ONLY) PO SCH (10:20)
[2017-12-29] MEDS: HYDROCHLOROTHIAZIDE 12.5 MG CAPSULE (FP) PO SCH (10:20)
[2017-12-29] MEDS: INDOMETHACIN 50 MG CAPSULE PO SCH ×2 (10:20→22:49)
[2017-12-29] MEDS: cloNIDine HCL 0.1 MG TABLET PO PRN ×2 (10:20→22:49)
[2017-12-29] MEDS: LISINOPRIL 10 MG TABLET (FP) PO SCH ×2 (10:20→22:50)
[2017-12-29] MEDS: PRENATAL VITAMINS W/ FOLIC ACID TABLET (FP) PO SCH (10:20)
--- NOTE | 2017-12-29 10:30 | PN ---
[facility] CIWA - CIWA Score Nausea/Vomitin-Mild Nausea/No Vomiting Muscle Tremors: 3 Anxiety: 2 Agitation: 2 Paroxysmal Sweats: 1-Minimal Palms Moist Orientation: 1-Uncertain about Date Tacttile Disturbances: 1-Very Mild Itch/Numbness Auditory Disturbances: 1-Very Mild Visual Disturbances: 0-None Headache: 1-Very Mild CIWA-Ar Total Score: 13 [facility] COWS - Scale Resting Pulse: 0= [place] 80 or Below Sweatin= Chills/Flushing Restless Observation: 1= Difficult to Sit Still Pupil Size: 0= Normal to Room Light Bone or Joint Aches: 2= Severe Diffuse Aches Runny Nose/ Eye Tearin= Nasal Congestion GI Upset > 30mins: 1= Stomach Cramp Tremor Observation of Outstretched Hands: 1= Tremor [place], Not Seen Yawning Observation: 1= 1-2x During Session Anxiety or Irritability: 1=Feels Anxious/Irritable Goose Flesh Skin: 0=Smooth Skin COWS Score: 9 S Progress Note (SOAP) Subjective: body aches joints pain sweat tremor trouble sleep at night anxiety Objective: 12/29/17 10:28 Vital Signs Temperature 98.3 F 12/29/17 09:30 Pulse Rate 82 12/29/17 09:30 Respiratory Rate 18 12/29/17 09:30 Blood Pressure 150/98 12/29/17 09:30 O2 Sat by Pulse Oximetry (%) Laboratory Last Values WBC 5.4 K/mm3 (4.0-10.0) 12/28/17 07:00 RBC 3.95 M/mm3 (4.00-5.60) L 12/28/17 07:00 Hgb 12.5 GM/dL (11.7-16.9) 12/28/17 07:00 Hct 36.8 % (35.4-49) 12/28/17 07:00 MCV 93.2 fl (80-96) 12/28/17 07:00 MCH 31.7 pg (25.7-33.7) 12/28/17 07:00 MCHC 34.0 g/dl (32.0-35.9) 12/28/17 07:00 RDW 13.8 % (11.9-15.9) 12/28/17 07:00 Plt Count 271 K/MM3 (134-434) 12/28/17 07:00 MPV 8.4 fl (7.5-11.1) 12/28/17 07:00 Sodium 136 mmol/L (136-145) 12/28/17 07:00 Potassium 4.2 mmol/L (3.5-5.1) 12/28/17 07:00 Chloride 101 mmol/L (98-107) 12/28/17 07:00 Carbon Dioxide 29 mmol/L (21-32) 12/28/17 07:00 Anion Gap 6 MMOL/L (8-16) L 12/28/17 07:00 BUN 20 mg/dL (7-18) H 12/28/17 07:00 Creatinine 1.3 mg/dL (0.55-1.3) 12/28/17 07:00 Creat Clearance w eGFR > 60 (>60) 12/28/17 07:00 Random Glucose 100 mg/dL (74-106) 12/28/17 07:00 Calcium 8.1 mg/dL (8.5-10.1) L 12/28/17 07:00 Total Bilirubin 0.3 mg/dL (0.2-1) 12/28/17 07:00 AST 47 U/L (15-37) H 12/28/17 07:00 ALT TNP 12/28/17 07:00 Alkaline Phosphatase 68 U/L (45-117) 12/28/17 07:00 Total Protein 6.0 g/dl (6.4-8.2) L 12/28/17 07:00 Albumin 3.4 g/dl (3.4-5.0) 12/28/17 07:00 Urine Color Yellow 12/28/17 00:00 Urine Appearance Clear 12/28/17 00:00 Urine pH 5.0 (5.0-8.0) 12/28/17 00:00 Ur Specific [place] 1.026 (1.010-1.035) 12/28/17 00:00 Urine Protein Negative (NEGATIVE) 12/28/17 00:00 Urine Glucose (UA) Negative (NEGATIVE) 12/28/17 00:00 Urine Ketones Negative (NEGATIVE) 12/28/17 00:00 Urine Blood Negative (NEGATIVE) 12/28/17 00:00 Urine Nitrite Negative (NEGATIVE) 12/28/17 00:00 Urine Bilirubin Negative (<2.0 mg/dL) 12/28/17 00:00 Urine Urobilinogen Negative mg/dL (0.2-1.0) 12/28/17 00:00 Ur Leukocyte Esterase Negative (NEGATIVE) 12/28/17 00:00 RPR Titer Nonreactive (NONREACTIVE) 12/28/17 07:00 HIV 1&2 Antibody Screen Negative 12/28/17 07:00 HIV P24 Antigen Negative 12/28/17 07:00 lab noted calcium rich food Assessment: 12/29/17 10:30 withdrawal sx hypertension Plan: continue detox increase lisinopril to bid
[2017-12-29] MEDS: chlordiazePOXIDE HCL 25 MG CAPSULE PO PRN (14:39)
[2017-12-29] MEDS: chlordiazePOXIDE 5 MG CAPSULE PO SCH ×2 (17:55→22:49)
[2017-12-29] MEDS: THIAMINE HCL 100 MG TABLET (FP) PO SCH (22:48)
[2017-12-29] MEDS: QUEtiapine FUMARATE 100 MG TABLET (FP) PO SCH (22:49)
[2017-12-30] MEDS: chlordiazePOXIDE 5 MG CAPSULE PO SCH ×2 (06:00→10:21)
[2017-12-30] MEDS: MAGNESIUM HYDROX 2400MG/30ML ORAL SUSPENSION 30 ML CUP PO PRN (06:04)
--- NOTE | 2017-12-30 09:54 | PN ---
S Progress Note (SOAP) Subjective: received nurse report that the patient has hypertension o 153/106 encourage the nurse administer 10 am antihypertensant and detox regimen repeat pb after 2 hours after antihypertensant c/o constipation sweat tremor anxiety body aches citroma x 1 dose encourage ambulation + oral fluid Objective: 12/30/17 10:02 Vital Signs Temperature 97.5 F L 11 09:24 Pulse Rate 80 12/30/17 09:24 Respiratory Rate 18 12/30/17 09:24 Blood Pressure 153/106 H 12/30/17 09:24 O2 Sat by Pulse Oximetry (%) Laboratory Last Values WBC 5.4 K/mm3 (4.0-10.0) 12/28/17 07:00 RBC 3.95 M/mm3 (4.00-5.60) L 12/28/17 07:00 Hgb 12.5 GM/dL (11.7-16.9) 12/28/17 07:00 Hct 36.8 % (35.4-49) 12/28/17 07:00 MCV 93.2 fl (80-96) 12/28/17 07:00 MCH 31.7 pg (25.7-33.7) 12/28/17 07:00 MCHC 34.0 g/dl (32.0-35.9) 12/28/17 07:00 RDW 13.8 % (11.9-15.9) 12/28/17 07:00 Plt Count 271 K/MM3 (134-434) 12/28/17 07:00 MPV 8.4 fl (7.5-11.1) 12/28/17 07:00 Sodium 136 mmol/L (136-145) 12/28/17 07:00 Potassium 4.2 mmol/L (3.5-5.1) 12/28/17 07:00 Chloride 101 mmol/L (98-107) 12/28/17 07:00 Carbon Dioxide 29 mmol/L (21-32) 12/28/17 07:00 Anion Gap 6 MMOL/L (8-16) L 12/28/17 07:00 BUN 20 mg/dL (7-18) H 12/28/17 07:00 Creatinine 1.3 mg/dL (0.55-1.3) 12/28/17 07:00 Creat Clearance w eGFR > 60 (>60) 12/28/17 07:00 Random Glucose 100 mg/dL (74-106) 12/28/17 07:00 Calcium 8.1 mg/dL (8.5-10.1) L 12/28/17 07:00 Total Bilirubin 0.3 mg/dL (0.2-1) 12/28/17 07:00 AST 47 U/L (15-37) H 12/28/17 07:00 ALT TNP 12/28/17 07:00 Alkaline Phosphatase 68 U/L (45-117) 12/28/17 07:00 Total Protein 6.0 g/dl (6.4-8.2) L 12/28/17 07:00 Albumin 3.4 g/dl (3.4-5.0) 12/28/17 07:00 Urine Color Yellow 12/28/17 00:00 Urine Appearance Clear 12/28/17 00:00 Urine pH 5.0 (5.0-8.0) 12/28/17 00:00 Ur Specific [place] 1.026 (1.010-1.035) 12/28/17 00:00 Urine Protein Negative (NEGATIVE) 12/28/17 00:00 Urine Glucose (UA) Negative (NEGATIVE) 12/28/17 00:00 Urine Ketones Negative (NEGATIVE) 12/28/17 00:00 Urine Blood Negative (NEGATIVE) 12/28/17 00:00 Urine Nitrite Negative (NEGATIVE) 12/28/17 00:00 Urine Bilirubin Negative (<2.0 mg/dL) 12/28/17 00:00 Urine Urobilinogen Negative mg/dL (0.2-1.0) 12/28/17 00:00 Ur Leukocyte Esterase Negative (NEGATIVE) 12/28/17 00:00 RPR Titer Nonreactive (NONREACTIVE) 12/28/17 07:00 HIV 1&2 Antibody Screen Negative 12/28/17 07:00 HIV P24 Antigen Negative 12/28/17 07:00 lab noted Assessment: 12/30/17 10:02 withdrawal sx constipation Plan: continue detox citroma x 1
[2017-12-30] MEDS: RANITIDINE HCL 150 MG TABLET (FP) PO SCH ×2 (10:22→22:40)
[2017-12-30] MEDS: cloNIDine HCL 0.1 MG TABLET PO PRN (10:22)
[2017-12-30] MEDS: PRENATAL VITAMINS W/ FOLIC ACID TABLET (FP) PO SCH (10:22)
[2017-12-30] MEDS: INDOMETHACIN 50 MG CAPSULE PO SCH ×2 (10:22→22:40)
[2017-12-30] MEDS: METHADONE HCL 5 MG TABLET (FOR DETOX USE ONLY) PO SCH (10:22)
[2017-12-30] MEDS: HYDROCHLOROTHIAZIDE 12.5 MG CAPSULE (FP) PO SCH (10:22)
[2017-12-30] MEDS: LISINOPRIL 10 MG TABLET (FP) PO SCH ×2 (10:22→22:40)
[2017-12-30] MEDS: amLODIPine BESYLATE 5 MG TABLET (FP) PO SCH ×2 (15:05→22:40)
[2017-12-30] MEDS: chlordiazePOXIDE HCL 25 MG CAPSULE PO PRN (15:05)
[2017-12-30] MEDS: chlordiazePOXIDE HCL 10 MG CAPSULE PO SCH ×2 (18:10→22:40)
[2017-12-30] MEDS ORDERED: DOCUSATE SODIUM 100 MG CAPSULE (FP) PO SCH (22:00)
[2017-12-30] MEDS: QUEtiapine FUMARATE 100 MG TABLET (FP) PO SCH (22:40)
[2017-12-30] MEDS: THIAMINE HCL 100 MG TABLET (FP) PO SCH (22:40)
[2017-12-31] MEDS: chlordiazePOXIDE HCL 10 MG CAPSULE PO SCH ×2 (05:39→11:02)
[2017-12-31] MEDS ORDERED: METHADONE HCL 5 MG TABLET (FOR DETOX USE ONLY) PO ONE (06:00)
[2017-12-31 06:28] VITALS: PULSE 78
--- NOTE | 2017-12-31 08:38 | DS ---
[facility] Detox Discharge Summary Admission Date: 12/27/17 Discharge Date: 12/31/17 - History Present History: Alcohol Dependence, Opioid Dependence - Physical Exam Results Vital Signs: Vital Signs Temperature 97.9 F 12/31/17 06:00 Pulse Rate 78 12/31/17 06:00 Respiratory Rate 20 12/31/17 06:00 Blood Pressure 129/78 12/31/17 06:00 O2 Sat by Pulse Oximetry (%) - Treatment Hospital Course: Detox Protocol Followed, Detoxed Safely, Responded well, Discharged Condition Good, Rehab Referral Accepted - Medication Discharge Medications: Ambulatory Orders Naproxen [Naprosyn -] 375 mg PO BID PRN #60 tablet 10/08/17 Ranitidine [Zantac -] 150 mg PO BID #60 tablet 10/08/17 Quetiapine Fumarate [Seroquel] 100 mg PO HS #30 tablet 11/30/17 Hydrochlorothiazide [Hctz -] 12.5 mg PO DAILY #14 cap 12/30/17 Indomethacin [Indocin -] 50 mg PO BID #30 capsule 12/30/17 Lisinopril [Prinivil] 10 mg PO BID #30 tablet 12/30/17 Lisinopril/Hydrochlorothiazide [Lisinopril-Hctz 10-12.5 mg Tab] 1 tab PO BID # 30 tablet 12/30/17 - Diagnosis (1) Alcohol dependence with uncomplicated withdrawal Current Visit: Yes Status: Chronic (2) Opioid dependence with withdrawal Current Visit: Yes Status: Chronic (3) Substance-induced sleep disorder Current Visit: Yes Status: Acute (4) Dehydration Current Visit: No Status: Acute (5) Gout flare Current Visit: No Status: Acute Qualifiers: Gout site: foot Gout etiology: unspecified cause Laterality: right Qualified Code(s): M10.9 - Gout, unspecified (6) Insomnia Current Visit: No Status: Acute Qualifiers: Insomnia type: unspecified Qualified Code(s): G47.00 - Insomnia, unspecified (7) Mood disorder Current Visit: No Status: Acute (8) Opioid dependence Current Visit: No Status: Acute (9) Sedative, hypnotic or anxiolytic dependence with withdrawal, uncomplicated Current Visit: No Status: Acute (10) Substance induced mood disorder Current Visit: No Status: Acute (11) Substance induced mood disorder Current Visit: No Status: Acute (12) Substance-induced sleep disorder Current Visit: No Status: Acute (13) Upper respiratory infection Current Visit: No Status: Acute Qualifiers: URI type: unspecified viral URI Qualified Code(s): J06.9 - Acute upper respiratory infection, unspecified (14) Withdrawal syndrome Current Visit: No Status: Acute (15) Anxiety Current Visit: No Status: Chronic (16) Depressed affect Current Visit: No Status: Chronic (17) GERD (gastroesophageal reflux disease) Current Visit: No Status: Chronic Qualifiers: Esophagitis presence: esophagitis presence not specified Qualified Code(s) : K21.9 - Gastro-esophageal reflux disease without esophagitis (18) Gout Current Visit: No Status: Chronic Qualifiers: Gout site: foot Gout etiology: unspecified cause Chronicity: chronic Laterality: right Qualified Code(s): M1A.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, right ankle and foot, without tophus (tophi) (19) Gout Current Visit: No Status: Chronic (20) HTN (hypertension) Current Visit: No Status: Chronic (21) History of hypercholesterolemia Current Visit: No Status: Chronic (22) Hx of gastroesophageal reflux (GERD) Current Visit: No Status: Chronic (23) Hypertension Current Visit: No Status: Chronic Qualifiers: Hypertension type: essential hypertension Qualified Code(s): I10 - Essential (primary) hypertension (24) Opioid abuse Current Visit: No Status: Chronic (25) Opioid dependence with uncomplicated intoxication Current Visit: No Status: Chronic (26) History of anemia Current Visit: No Status: Resolved - AMA Did Patient Leave Against Medical Advice: No (referred [facility])
[2017-12-31] MEDS: HYDROCHLOROTHIAZIDE 12.5 MG CAPSULE (FP) PO SCH (09:27)
[2017-12-31] MEDS: INDOMETHACIN 50 MG CAPSULE PO SCH (09:27)
[2017-12-31] MEDS: RANITIDINE HCL 150 MG TABLET (FP) PO SCH (09:27)
[2017-12-31] MEDS: amLODIPine BESYLATE 5 MG TABLET (FP) PO SCH (09:27)
[2017-12-31] MEDS: LISINOPRIL 10 MG TABLET (FP) PO SCH (09:28)
[2017-12-31] MEDS: PRENATAL VITAMINS W/ FOLIC ACID TABLET (FP) PO SCH (09:28)
[2017-12-31 09:34] VITALS: BP 140/86; TEMP 97.7
[2017-12-31] MEDS ORDERED: METHADONE HCL 10 MG TABLET (FOR DETOX USE ONLY) PO SCH (10:00)
[2018-01-01] MEDS ORDERED: METHADONE HCL 5 MG TABLET (FOR DETOX USE ONLY) PO SCH (06:00)
== END 2017-12-31 11:25 | disposition home or self-care (01) | DRG 773 ==
LOC: YASAS 11:43 → Y6N 16:24
PROC: HZ2ZZZZ Detoxification Services for Substance Abuse Treatment (ICD-10-PCS; principal; 2017-12-27)
DX: F11.23 Opioid dependence with withdrawal (principal); F10.230 Alcohol dependence with withdrawal, uncomplicated; F13.230 Sedative, hypnotic or anxiolytic dependence with withdrawal, uncomplicated; F19.24 Other psychoactive substance dependence with psychoactive substance-induced mood disorder; F19.282 Other psychoactive substance dependence with psychoactive substance-induced sleep disorder; F41.9 Anxiety disorder, unspecified; I10 Essential (primary) hypertension; E78.00 Pure hypercholesterolemia, unspecified; E86.0 Dehydration; K21.9 Gastro-esophageal reflux disease without esophagitis; M1A.0710 Idiopathic chronic gout, right ankle and foot, without tophus (tophi); R45.89 Other symptoms and signs involving emotional state; J06.9 Acute upper respiratory infection, unspecified; B97.89 Other viral agents as the cause of diseases classified elsewhere; Z86.2 Personal history of diseases of the blood and blood-forming organs and certain disorders involving the immune mechanism; G47.00 Insomnia, unspecified
CPT/HCPCS: 36415; 80053; 81003; 85027; 86593; 87389; 90688; 93005; 93010; G0008; J0475; J0735

== ENCOUNTER 2018-01-27 11:01 | Inpatient (IN) | payer OTHER ==
[2018-01-27 11:25] VITALS: BMI 29.4
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
[2018-01-27] MEDS ORDERED: chlordiazePOXIDE HCL 25 MG CAPSULE PO PRN (15:00)
[2018-01-27] MEDS ORDERED: MAGNESIUM CITRATE 300 ML BOTTLE PO PRN (15:00)
[2018-01-27] MEDS ORDERED: MAGNESIUM HYDROX 2400MG/30ML ORAL SUSPENSION 30 ML CUP PO PRN (15:00)
[2018-01-27] MEDS ORDERED: MENTHOL/PHENOL 1 EACH UD MM PRN (15:00)
[2018-01-27] MEDS ORDERED: LOPERAMIDE HCL 2 MG CAPSULE PO PRN (15:00)
[2018-01-27] MEDS ORDERED: IBUPROFEN 400 MG TABLET (FP) PO PRN (15:00)
[2018-01-27] MEDS ORDERED: guaiFENesin/D-METHORPHAN HB 10 ML UNIT-DOSE CUPS PO PRN (15:00)
[2018-01-27] MEDS ORDERED: P-EPHED 60MG/TRIPROLIDI 2.5MG TABLET PO PRN (15:00)
[2018-01-27] MEDS ORDERED: ACETAMINOPHEN 325 MG TABLET (FP) PO PRN (15:00)
[2018-01-27] MEDS ORDERED: METHADONE HCL 10 MG TABLET (FOR DETOX USE ONLY) PO ONE ×2 (15:30→23:00)
[2018-01-27] MEDS ORDERED: chlordiazePOXIDE HCL 25 MG CAPSULE PO ONE (15:30)
[2018-01-27] MEDS: HYDROCHLOROTHIAZIDE 12.5 MG CAPSULE (FP) PO SCH (15:57)
[2018-01-27] MEDS: chlordiazePOXIDE HCL 25 MG CAPSULE PO SCH ×2 (17:21→22:20)
[2018-01-27] MEDS: MAG HYDROX/AL HYDROX/SIMETH 30 ML UNIT-DOSE CUP PO PRN (19:48)
[2018-01-27] MEDS: THIAMINE HCL 100 MG TABLET (FP) PO SCH (22:20)
[2018-01-27] MEDS: QUEtiapine FUMARATE 100 MG TABLET (FP) PO SCH (22:20)
[2018-01-27] MEDS: RANITIDINE HCL 150 MG TABLET (FP) PO SCH (22:20)
[2018-01-27] MEDS: LISINOPRIL 10 MG TABLET (FP) PO SCH (22:20)
[2018-01-27 23:28] LABS: PH,URINE 5.5 (5.0-8.0); URINE APPEARANCE Clear; URINE BILIRUBIN Negative (<2.0 mg/dL); URINE COLOR Yellow; URINE GLUCOSE (UA) Negative (NEGATIVE); URINE KETONE Negative (NEGATIVE); URINE LEUK ESTERASE Negative (NEGATIVE); URINE NITRITE Positive (NEGATIVE); URINE PROTEIN Negative (NEGATIVE); URINE UROBILINOGEN 0.2 mg/dL (0.2-1.0)
[2018-01-28 00:08] LABS: URINE BACTERIA 1+ /hpf (NONE SEEN)
[2018-01-28] MEDS: MAG HYDROX/AL HYDROX/SIMETH 30 ML UNIT-DOSE CUP PO PRN ×2 (02:00→16:40)
[2018-01-28] MEDS: chlordiazePOXIDE HCL 25 MG CAPSULE PO SCH ×4 (05:55→22:14)
[2018-01-28] MEDS ORDERED: METHADONE HCL 10 MG TABLET (FOR DETOX USE ONLY) PO SCH (10:00)
[2018-01-28 10:11] LABS: HEMATOCRIT 34.9 % (35.4-49); HEMOGLOBIN 12.2 GM/dL (11.7-16.9); MCH 32.8 pg (25.7-33.7); MCHC 34.9 g/dl (32.0-35.9); MEAN PLT VOLUME 9.5 fl (7.5-11.1); PLATELET COUNT 249 K/MM3 (134-434); RBC 3.71 M/mm3 (4.00-5.60); WHITE BLOOD COUNT 7.7 K/mm3 (4.0-10.0)
[2018-01-28] MEDS: RANITIDINE HCL 150 MG TABLET (FP) PO SCH (10:19)
[2018-01-28] MEDS: HYDROCHLOROTHIAZIDE 12.5 MG CAPSULE (FP) PO SCH (10:19)
[2018-01-28] MEDS: PRENATAL VITAMINS W/ FOLIC ACID TABLET (FP) PO SCH (10:19)
[2018-01-28] MEDS: LISINOPRIL 10 MG TABLET (FP) PO SCH ×2 (10:21→22:14)
[2018-01-28 11:35] LABS: ALBUMIN 4.1 g/dl (3.4-5.0); ALK PHOS 75 U/L (45-117); ANION GAP 13 MMOL/L (8-16); BILIRUBIN,TOTAL 1.1 mg/dL (0.2-1); BLOOD UREA NITROGEN 16 mg/dL (7-18); CALCIUM 8.6 mg/dL (8.5-10.1); CHLORIDE 110 mmol/L (98-107); CO2 20 mmol/L (21-32); CREATININE 1.2 mg/dL (0.55-1.3); GLUCOSE,RANDOM 82 mg/dL (74-106); SGOT/AST 48 U/L (15-37); SODIUM 144 mmol/L (136-145); TOT PROT 6.7 g/dl (6.4-8.2)
[2018-01-28 11:56] LABS: SGPT/ALT 48 U/L (13-61)
[2018-01-28] MEDS ORDERED: PNEUMOCOCCAL 23 VACCINE 0.5 ML VIAL IM ONE (12:00)
[2018-01-28] MEDS ORDERED: PNEUMOC 13-VAL CONJ-DIP CRM/PF 0.5 ML DISP.SYRIN IM ONE (12:00)
[2018-01-28] MEDS ORDERED: ACETAMINOPHEN 325 MG TABLET (FP) PO PRN (14:36)
--- NOTE | 2018-01-28 14:46 | PN ---
S CIWA - CIWA Score Nausea/Vomitin Muscle Tremors: 4-Moderate,w/Arms Extend Anxiety: 4-Mod. Anxious/Guarded Agitation: 4-Moderately Restless Paroxysmal Sweats: 3 Orientation: 0-Oriented Tacttile Disturbances: 0-None Auditory Disturbances: 0-None Visual Disturbances: 0-None Headache: 0-None Present CIWA-Ar Total Score: 17 BHS COWS - Scale Resting Pulse: 1= [place] 81-100 Sweatin= Chills/Flushing Restless Observation: 3= Extraneous Movement Pupil Size: 0= Normal to Room Light Bone or Joint Aches: 2= Severe Diffuse Aches Runny Nose/ Eye Tearin= Runny Nose/Eyes GI Upset > 30mins: 3= Vomiting/Diarrhea Tremor Observation of Outstretched Hands: 2= Slight Tremor Visible Yawning Observation: 0= None Anxiety or Irritability: 2=Irritable/Anxious Goose Flesh Skin: 0=Smooth Skin COWS Score: 16 BHS Progress Note (SOAP) Subjective: Interrupted sleep, sweating, body ache, fatigue. Patient stated he takes indocin and naproxen at home for gout and is requesting to resume it along with his seroquel for sleep. Objective: 01/28/18 14:42 Last Vital Signs Temp Pulse Resp BP Pulse Ox 96.8 F L 95 H 18 150/91 01/28/18 09:30 01/28/18 09:30 01/28/18 09:30 01/28/18 09:30 Elevated b/p noted (h/o htn, on med) Laboratory Tests 01/27/18 01/28/18 01/28/18 12:45 06:00 06:00 WBC 7.7 RBC 3.71 L Hgb 12.2 Hct 34.9 L MCV 94.0 MCH 32.8 MCHC 34.9 RDW 15.0 Plt Count 249 MPV 9.5 D Sodium 144 Potassium 4.0 Chloride 110 H Carbon Dioxide 20 L Anion Gap 13 BUN 16 Creatinine 1.2 Creat Clearance w eGFR > 60 Random Glucose 82 Calcium 8.6 Total Bilirubin 1.1 H AST 48 H ALT 48 Alkaline Phosphatase 75 Total Protein 6.7 Albumin 4.1 Urine Color Yellow Urine Appearance Clear Urine pH 5.5 Ur Specific [place] >= 1.030 Urine Protein Negative Urine Glucose (UA) Negative Urine Ketones Negative Urine Blood Negative Urine Nitrite Positive Urine Bilirubin Negative Urine Urobilinogen 0.2 Ur Leukocyte Esterase Negative Urine WBC (Auto) <1 Urine RBC (Auto) <1 Urine Bacteria 1+ Labs reviewed: UA shows nitrite positive Assessment: 01/28/18 14:44 Withdrawal symptoms Noted with acute UTI Plan: Continue detox Acute UTI: encouraged PO water intake, send urine cx stat (before first dose of levaquin), start levaquin 500mg PO daily x 10 days, follow up with PCP post discharge for further evaluation
[2018-01-28] MEDS: PANTOPRAZOLE 40 MG TABLET (FP) PO SCH (15:29)
[2018-01-28] MEDS: CYCLOBENZAPRINE HCL 10 MG TABLET (FP) PO PRN ×2 (15:29→22:14)
[2018-01-28] MEDS: INDOMETHACIN 50 MG CAPSULE PO SCH (17:44)
[2018-01-28] MEDS ORDERED: NAPROXEN 375 MG TABLET (FP) PO SCH (22:00)
[2018-01-28] MEDS: THIAMINE HCL 100 MG TABLET (FP) PO SCH (22:14)
[2018-01-28] MEDS: QUEtiapine FUMARATE 100 MG TABLET (FP) PO SCH (22:14)
[2018-01-28] MEDS: MELATONIN 5 MG TABLETS PO PRN (22:15)
[2018-01-29] MEDS: chlordiazePOXIDE HCL 25 MG CAPSULE PO SCH ×2 (05:36→10:31)
[2018-01-29] MEDS: PANTOPRAZOLE 40 MG TABLET (FP) PO SCH (06:02)
[2018-01-29] MEDS ORDERED: PANTOPRAZOLE 40 MG TABLET (FP) PO SCH (07:00)
[2018-01-29] MEDS: INDOMETHACIN 50 MG CAPSULE PO SCH ×4 (07:30→22:17)
[2018-01-29] MEDS: LISINOPRIL 10 MG TABLET (FP) PO SCH ×2 (10:30→22:17)
[2018-01-29] MEDS: HYDROCHLOROTHIAZIDE 12.5 MG CAPSULE (FP) PO SCH (10:30)
[2018-01-29] MEDS: PRENATAL VITAMINS W/ FOLIC ACID TABLET (FP) PO SCH (10:30)
[2018-01-29] MEDS: METHADONE HCL 5 MG TABLET (FOR DETOX USE ONLY) PO SCH (10:31)
[2018-01-29] MEDS: CYCLOBENZAPRINE HCL 10 MG TABLET (FP) PO PRN ×2 (10:34→22:17)
--- NOTE | 2018-01-29 11:19 | PN ---
[facility] CIWA - CIWA Score Nausea/Vomitin-No Nausea/No Vomiting Muscle Tremors: 4-Moderate,w/Arms Extend Anxiety: 4-Mod. Anxious/Guarded Agitation: 4-Moderately Restless Paroxysmal Sweats: 1-Minimal Palms Moist Orientation: 0-Oriented Tacttile Disturbances: 0-None Auditory Disturbances: 0-None Visual Disturbances: 0-None Headache: 0-None Present CIWA-Ar Total Score: 13 S COWS - Scale Resting Pulse: 1= [place] 81-100 Sweatin= Chills/Flushing Restless Observation: 3= Extraneous Movement Pupil Size: 0= Normal to Room Light Bone or Joint Aches: 4=Acute Joint/Muscle Pain Runny Nose/ Eye Tearin= None GI Upset > 30mins: 0= None Tremor Observation of Outstretched Hands: 1= Tremor [place], Not Seen Yawning Observation: 0= None Anxiety or Irritability: 2=Irritable/Anxious Goose Flesh Skin: 0=Smooth Skin COWS Score: 12 S Progress Note (SOAP) Subjective: C/O ANXIETY, JOINT PAIN/FOOT PAIN AND SWELLING- HX GOUT/ON INDOCINE, SWEATS, INTERMITTENT SLEEP. Objective: 01/29/18 11:38 Vital Signs 01/29/18 01/29/18 06:14 09:41 Temperature 96.7 F L 97.4 F L Pulse Rate 91 H 72 Respiratory 20 18 Rate Blood Pressure 137/74 129/75 Laboratory Tests 01/27/18 01/28/18 01/28/18 12:45 06:00 06:00 WBC 7.7 RBC 3.71 L Hgb 12.2 Hct 34.9 L MCV 94.0 MCH 32.8 MCHC 34.9 RDW 15.0 Plt Count 249 MPV 9.5 D Sodium 144 Potassium 4.0 Chloride 110 H Carbon Dioxide 20 L Anion Gap 13 BUN 16 Creatinine 1.2 Creat Clearance w eGFR > 60 Random Glucose 82 Calcium 8.6 Total Bilirubin 1.1 H AST 48 H ALT 48 Alkaline Phosphatase 75 Total Protein 6.7 Albumin 4.1 Urine Color Yellow Urine Appearance Clear Urine pH 5.5 Ur Specific [place] >= 1.030 Urine Protein Negative Urine Glucose (UA) Negative Urine Ketones Negative Urine Blood Negative Urine Nitrite Positive Urine Bilirubin Negative Urine Urobilinogen 0.2 Ur Leukocyte Esterase Negative Urine WBC (Auto) <1 Urine RBC (Auto) <1 Urine Bacteria 1+ RPR Titer 01/28/18 06:00 WBC RBC Hgb Hct MCV MCH MCHC RDW Plt Count MPV Sodium Potassium Chloride Carbon Dioxide Anion Gap BUN Creatinine Creat Clearance w eGFR Random Glucose Calcium Total Bilirubin AST ALT Alkaline Phosphatase Total Protein Albumin Urine Color Urine Appearance Urine pH Ur Specific [place] Urine Protein Urine Glucose (UA) Urine Ketones Urine Blood Urine Nitrite Urine Bilirubin Urine Urobilinogen Ur Leukocyte Esterase Urine WBC (Auto) Urine RBC (Auto) Urine Bacteria RPR Titer Nonreactive Assessment: 01/29/18 11:38 WITHDRAWAL SX Plan: CONTINUE DETOX INCREASE PO FLUIDS RESTART INDOCINE DIRECTED
[2018-01-29] MEDS: chlordiazePOXIDE 5 MG CAPSULE PO SCH ×2 (17:57→22:17)
[2018-01-29] MEDS: THIAMINE HCL 100 MG TABLET (FP) PO SCH (22:17)
[2018-01-29] MEDS: QUEtiapine FUMARATE 100 MG TABLET (FP) PO SCH (22:17)
[2018-01-30] MEDS: MELATONIN 5 MG TABLETS PO PRN ×2 (00:40→22:27)
[2018-01-30] MEDS: chlordiazePOXIDE 5 MG CAPSULE PO SCH ×2 (05:51→10:41)
[2018-01-30] MEDS: PANTOPRAZOLE 40 MG TABLET (FP) PO SCH (06:22)
[2018-01-30] MEDS: INDOMETHACIN 50 MG CAPSULE PO SCH ×4 (07:41→22:25)
[2018-01-30] MEDS: METHADONE HCL 5 MG TABLET (FOR DETOX USE ONLY) PO SCH (10:42)
[2018-01-30] MEDS: PRENATAL VITAMINS W/ FOLIC ACID TABLET (FP) PO SCH (10:42)
[2018-01-30] MEDS: LISINOPRIL 10 MG TABLET (FP) PO SCH ×2 (10:42→22:25)
[2018-01-30] MEDS: HYDROCHLOROTHIAZIDE 12.5 MG CAPSULE (FP) PO SCH (10:42)
[2018-01-30] MEDS: CYCLOBENZAPRINE HCL 10 MG TABLET (FP) PO PRN ×2 (10:46→22:25)
--- NOTE | 2018-01-30 14:16 | PN ---
[facility] Progress Note (SOAP) Subjective: Constipated (hard stool), anxious, sweating Objective: 01/30/18 14:13 Last Vital Signs Temp Pulse Resp BP Pulse Ox 96.8 F L 83 18 139/84 01/30/18 09:56 01/30/18 09:56 01/30/18 09:56 01/30/18 09:56 Laboratory Tests 01/27/18 01/28/18 01/28/18 12:45 06:00 06:00 WBC 7.7 RBC 3.71 L Hgb 12.2 Hct 34.9 L MCV 94.0 MCH 32.8 MCHC 34.9 RDW 15.0 Plt Count 249 MPV 9.5 D Sodium 144 Potassium 4.0 Chloride 110 H Carbon Dioxide 20 L Anion Gap 13 BUN 16 Creatinine 1.2 Creat Clearance w eGFR > 60 Random Glucose 82 Calcium 8.6 Total Bilirubin 1.1 H AST 48 H ALT 48 Alkaline Phosphatase 75 Total Protein 6.7 Albumin 4.1 Urine Color Yellow Urine Appearance Clear Urine pH 5.5 Ur Specific [place] >= 1.030 Urine Protein Negative Urine Glucose (UA) Negative Urine Ketones Negative Urine Blood Negative Urine Nitrite Positive Urine Bilirubin Negative Urine Urobilinogen 0.2 Ur Leukocyte Esterase Negative Urine WBC (Auto) <1 Urine RBC (Auto) <1 Urine Bacteria 1+ RPR Titer 01/28/18 06:00 WBC RBC Hgb Hct MCV MCH MCHC RDW Plt Count MPV Sodium Potassium Chloride Carbon Dioxide Anion Gap BUN Creatinine Creat Clearance w eGFR Random Glucose Calcium Total Bilirubin AST ALT Alkaline Phosphatase Total Protein Albumin Urine Color Urine Appearance Urine pH Ur Specific [place] Urine Protein Urine Glucose (UA) Urine Ketones Urine Blood Urine Nitrite Urine Bilirubin Urine Urobilinogen Ur Leukocyte Esterase Urine WBC (Auto) Urine RBC (Auto) Urine Bacteria RPR Titer Nonreactive Labs reviewed: UA + nitrite Assessment: 01/30/18 14:14 Withdrawal symptoms UTI noted Plan: Continue detox Acute UTI: encouraged PO water intake, continue levaquin until completed, follow up with PCP post discharge for further evaluation
[2018-01-30] MEDS: chlordiazePOXIDE HCL 10 MG CAPSULE PO SCH ×2 (17:11→22:25)
[2018-01-30] MEDS: QUEtiapine FUMARATE 100 MG TABLET (FP) PO SCH (22:25)
[2018-01-30] MEDS: THIAMINE HCL 100 MG TABLET (FP) PO SCH (22:25)
[2018-01-31] MEDS: hydrOXYzine PAMOATE 50 MG CAPSULE (FP) PO PRN ×2 (02:37→10:19)
[2018-01-31] MEDS: chlordiazePOXIDE HCL 10 MG CAPSULE PO SCH ×2 (05:23→10:18)
[2018-01-31] MEDS: PANTOPRAZOLE 40 MG TABLET (FP) PO SCH (07:07)
[2018-01-31] MEDS: INDOMETHACIN 50 MG CAPSULE PO SCH ×3 (08:49→22:22)
[2018-01-31] MEDS ORDERED: METHADONE HCL 10 MG TABLET (FOR DETOX USE ONLY) PO SCH (10:00)
[2018-01-31] MEDS: LISINOPRIL 10 MG TABLET (FP) PO SCH ×2 (10:19→22:21)
[2018-01-31] MEDS: PRENATAL VITAMINS W/ FOLIC ACID TABLET (FP) PO SCH (10:19)
[2018-01-31] MEDS: HYDROCHLOROTHIAZIDE 12.5 MG CAPSULE (FP) PO SCH (10:20)
[2018-01-31] MEDS: CYCLOBENZAPRINE HCL 10 MG TABLET (FP) PO PRN ×2 (10:24→22:24)
--- NOTE | 2018-01-31 11:59 | PN ---
[facility] Progress Note (SOAP) Subjective: feeling better no tremor no body aches less sweat difficulty passing stool MOM x 1 Objective: 01/31/18 11:58 Vital Signs Temperature 97.0 F L 01/31/18 09:18 Pulse Rate 89 01/31/18 09:18 Respiratory Rate 18 01/31/18 09:18 Blood Pressure 144/81 01/31/18 09:18 O2 Sat by Pulse Oximetry (%) Laboratory Last Values WBC 7.7 K/mm3 (4.0-10.0) 01/28/18 06:00 RBC 3.71 M/mm3 (4.00-5.60) L 01/28/18 06:00 Hgb 12.2 GM/dL (11.7-16.9) 01/28/18 06:00 Hct 34.9 % (35.4-49) L 01/28/18 06:00 MCV 94.0 fl (80-96) 01/28/18 06:00 MCH 32.8 pg (25.7-33.7) 01/28/18 06:00 MCHC 34.9 g/dl (32.0-35.9) 01/28/18 06:00 RDW 15.0 % (11.9-15.9) 01/28/18 06:00 Plt Count 249 K/MM3 (134-434) 01/28/18 06:00 MPV 9.5 fl (7.5-11.1) D 01/28/18 06:00 Sodium 144 mmol/L (136-145) 01/28/18 06:00 Potassium 4.0 mmol/L (3.5-5.1) 01/28/18 06:00 Chloride 110 mmol/L (98-107) H 01/28/18 06:00 Carbon Dioxide 20 mmol/L (21-32) L 01/28/18 06:00 Anion Gap 13 MMOL/L (8-16) 01/28/18 06:00 BUN 16 mg/dL (7-18) 01/28/18 06:00 Creatinine 1.2 mg/dL (0.55-1.3) 01/28/18 06:00 Creat Clearance w eGFR > 60 (>60) 01/28/18 06:00 Random Glucose 82 mg/dL (74-106) 01/28/18 06:00 Calcium 8.6 mg/dL (8.5-10.1) 01/28/18 06:00 Total Bilirubin 1.1 mg/dL (0.2-1) H 01/28/18 06:00 AST 48 U/L (15-37) H 01/28/18 06:00 ALT 48 U/L (13-61) 01/28/18 06:00 Alkaline Phosphatase 75 U/L (45-117) 01/28/18 06:00 Total Protein 6.7 g/dl (6.4-8.2) 01/28/18 06:00 Albumin 4.1 g/dl (3.4-5.0) 01/28/18 06:00 Urine Color Yellow 01/27/18 12:45 Urine Appearance Clear 01/27/18 12:45 Urine pH 5.5 (5.0-8.0) 01/27/18 12:45 Ur Specific [place] >= 1.030 (1.010-1.035) 01/27/18 12:45 Urine Protein Negative (NEGATIVE) 01/27/18 12:45 Urine Glucose (UA) Negative (NEGATIVE) 01/27/18 12:45 Urine Ketones Negative (NEGATIVE) 01/27/18 12:45 Urine Blood Negative (NEGATIVE) 01/27/18 12:45 Urine Nitrite Positive (NEGATIVE) 01/27/18 12:45 Urine Bilirubin Negative (<2.0 mg/dL) 01/27/18 12:45 Urine Urobilinogen 0.2 mg/dL (0.2-1.0) 01/27/18 12:45 Ur Leukocyte Esterase Negative (NEGATIVE) 01/27/18 12:45 Urine WBC (Auto) <1 /hpf (3-5) 01/27/18 12:45 Urine RBC (Auto) <1 /hpf (0-3) 01/27/18 12:45 Urine Bacteria 1+ /hpf (NONE SEEN) 01/27/18 12:45 RPR Titer Nonreactive (NONREACTIVE) 01/28/18 06:00 lab noted Assessment: 01/31/18 11:59 mild withdrawal sx constipation Plan: medically supervised detox MOM x 1 discuss high fiber diet
[2018-01-31] MEDS: QUEtiapine FUMARATE 100 MG TABLET (FP) PO SCH (22:21)
[2018-01-31] MEDS: THIAMINE HCL 100 MG TABLET (FP) PO SCH (22:22)
[2018-01-31] MEDS: MELATONIN 5 MG TABLETS PO PRN (22:25)
[2018-02-01] MEDS ORDERED: METHADONE HCL 5 MG TABLET (FOR DETOX USE ONLY) PO SCH (06:00)
[2018-02-01] MEDS: PANTOPRAZOLE 40 MG TABLET (FP) PO SCH (07:51)
--- NOTE | 2018-02-01 08:36 | DS ---
[facility] Detox Discharge Summary Admission Date: 01/27/18 Discharge Date: 02/01/18 - History Present History: Alcohol Dependence, Opioid Dependence Additional Comments: 37 years old male admitted on 01/27/18 for alcohol and opiate withdrawal stability completed detox regimen tolerated well alert no acute distress aftercare [facility] - Physical Exam Results Vital Signs: Vital Signs Temperature 98.2 F 02/01/18 06:20 Pulse Rate 80 02/01/18 06:20 Respiratory Rate 18 02/01/18 06:20 Blood Pressure 126/77 02/01/18 06:20 O2 Sat by Pulse Oximetry (%) Pertinent Admission Physical Exam Findings: alcohol and opiate withdrawal sx Laboratory Last Values WBC 7.7 K/mm3 (4.0-10.0) 01/28/18 06:00 RBC 3.71 M/mm3 (4.00-5.60) L 01/28/18 06:00 Hgb 12.2 GM/dL (11.7-16.9) 01/28/18 06:00 Hct 34.9 % (35.4-49) L 01/28/18 06:00 MCV 94.0 fl (80-96) 01/28/18 06:00 MCH 32.8 pg (25.7-33.7) 01/28/18 06:00 MCHC 34.9 g/dl (32.0-35.9) 01/28/18 06:00 RDW 15.0 % (11.9-15.9) 01/28/18 06:00 Plt Count 249 K/MM3 (134-434) 01/28/18 06:00 MPV 9.5 fl (7.5-11.1) D 01/28/18 06:00 Sodium 144 mmol/L (136-145) 01/28/18 06:00 Potassium 4.0 mmol/L (3.5-5.1) 01/28/18 06:00 Chloride 110 mmol/L (98-107) H 01/28/18 06:00 Carbon Dioxide 20 mmol/L (21-32) L 01/28/18 06:00 Anion Gap 13 MMOL/L (8-16) 01/28/18 06:00 BUN 16 mg/dL (7-18) 01/28/18 06:00 Creatinine 1.2 mg/dL (0.55-1.3) 01/28/18 06:00 Creat Clearance w eGFR > 60 (>60) 01/28/18 06:00 Random Glucose 82 mg/dL (74-106) 01/28/18 06:00 Calcium 8.6 mg/dL (8.5-10.1) 01/28/18 06:00 Total Bilirubin 1.1 mg/dL (0.2-1) H 01/28/18 06:00 AST 48 U/L (15-37) H 01/28/18 06:00 ALT 48 U/L (13-61) 01/28/18 06:00 Alkaline Phosphatase 75 U/L (45-117) 01/28/18 06:00 Total Protein 6.7 g/dl (6.4-8.2) 01/28/18 06:00 Albumin 4.1 g/dl (3.4-5.0) 01/28/18 06:00 Urine Color Yellow 01/27/18 12:45 Urine Appearance Clear 01/27/18 12:45 Urine pH 5.5 (5.0-8.0) 01/27/18 12:45 Ur Specific [place] >= 1.030 (1.010-1.035) 01/27/18 12:45 Urine Protein Negative (NEGATIVE) 01/27/18 12:45 Urine Glucose (UA) Negative (NEGATIVE) 01/27/18 12:45 Urine Ketones Negative (NEGATIVE) 01/27/18 12:45 Urine Blood Negative (NEGATIVE) 01/27/18 12:45 Urine Nitrite Positive (NEGATIVE) 01/27/18 12:45 Urine Bilirubin Negative (<2.0 mg/dL) 01/27/18 12:45 Urine Urobilinogen 0.2 mg/dL (0.2-1.0) 01/27/18 12:45 Ur Leukocyte Esterase Negative (NEGATIVE) 01/27/18 12:45 Urine WBC (Auto) <1 /hpf (3-5) 01/27/18 12:45 Urine RBC (Auto) <1 /hpf (0-3) 01/27/18 12:45 Urine Bacteria 1+ /hpf (NONE SEEN) 01/27/18 12:45 RPR Titer Nonreactive (NONREACTIVE) 01/28/18 06:00 lab noted - Treatment Hospital Course: Detox Protocol Followed, Detoxed Safely, Responded well, Discharged Condition Good, Rehab Referral Accepted Patient has Accepted a Rehab Referral to: [facility] - Medication Discharge Medications: Ambulatory Orders Quetiapine Fumarate [Seroquel] 100 mg PO HS #30 tablet 11/30/17 Naproxen [Naprosyn -] 375 mg PO BID PRN #60 tablet 12/31/17 Ranitidine [Zantac -] 150 mg PO BID #60 tablet 12/31/17 Hydrochlorothiazide [Hctz -] 12.5 mg PO DAILY #14 cap 01/31/18 Indomethacin [Indocin -] 50 mg PO BID #30 capsule 01/31/18 Lisinopril [Prinivil] 10 mg PO BID #14 tablet 01/31/18 - Diagnosis (1) Alcohol dependence with uncomplicated withdrawal Status: Acute (2) Opioid dependence with withdrawal Status: Acute (3) Sedative, hypnotic or anxiolytic dependence with withdrawal, uncomplicated Status: Acute (4) Substance induced mood disorder Status: Suspected (5) GERD (gastroesophageal reflux disease) Status: Chronic Qualifiers: Esophagitis presence: esophagitis presence not specified Qualified Code(s) : K21.9 - Gastro-esophageal reflux disease without esophagitis (6) HTN (hypertension) Status: Chronic Qualifiers: Hypertension type: essential hypertension Qualified Code(s): I10 - Essential (primary) hypertension - AMA Did Patient Leave Against Medical Advice: No
[2018-02-01 09:33] VITALS: BP 144/81; PULSE 94; TEMP 97.2
[2018-02-01] MEDS: LISINOPRIL 10 MG TABLET (FP) PO SCH (10:26)
[2018-02-01] MEDS: PRENATAL VITAMINS W/ FOLIC ACID TABLET (FP) PO SCH (10:26)
[2018-02-01] MEDS: INDOMETHACIN 50 MG CAPSULE PO SCH (10:26)
[2018-02-01] MEDS: HYDROCHLOROTHIAZIDE 12.5 MG CAPSULE (FP) PO SCH (10:26)
== END 2018-02-01 11:48 | disposition home or self-care (01) | DRG 773 ==
LOC: YASAS 11:01 → Y3N 14:38
PROC: HZ2ZZZZ Detoxification Services for Substance Abuse Treatment (ICD-10-PCS; principal; 2018-01-27)
DX: F11.23 Opioid dependence with withdrawal (principal); F10.230 Alcohol dependence with withdrawal, uncomplicated; F13.230 Sedative, hypnotic or anxiolytic dependence with withdrawal, uncomplicated; F19.282 Other psychoactive substance dependence with psychoactive substance-induced sleep disorder; F19.24 Other psychoactive substance dependence with psychoactive substance-induced mood disorder; F41.9 Anxiety disorder, unspecified; F32.9 Major depressive disorder, single episode, unspecified; N39.0 Urinary tract infection, site not specified; I10 Essential (primary) hypertension; E78.00 Pure hypercholesterolemia, unspecified; K21.9 Gastro-esophageal reflux disease without esophagitis; M10.9 Gout, unspecified; K59.00 Constipation, unspecified; R45.89 Other symptoms and signs involving emotional state; Z87.09 Personal history of other diseases of the respiratory system; Z88.0 Allergy status to penicillin
CPT/HCPCS: 36415; 80053; 81003; 81015; 85027; 86593; 87086; 90732; G0009

== ENCOUNTER 2018-03-15 14:54 | Inpatient (IN) | payer OTHER ==
[2018-03-15 15:47] VITALS: BMI 32.3
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
[2018-03-15] MEDS ORDERED: P-EPHED 60MG/TRIPROLIDI 2.5MG TABLET PO PRN (19:34)
[2018-03-15] MEDS ORDERED: ACETAMINOPHEN 325 MG TABLET (FP) PO PRN (19:34)
[2018-03-15] MEDS ORDERED: MAG HYDROX/AL HYDROX/SIMETH 30 ML UNIT-DOSE CUP PO PRN (19:34)
[2018-03-15] MEDS ORDERED: IBUPROFEN 400 MG TABLET (FP) PO PRN (19:34)
[2018-03-15] MEDS ORDERED: LOPERAMIDE HCL 2 MG CAPSULE PO PRN (19:34)
[2018-03-15] MEDS ORDERED: NICOTINE POLACRILEX 2 MG GUM BC PRN (19:34)
[2018-03-15] MEDS ORDERED: MENTHOL/PHENOL 1 EACH UD MM PRN (19:34)
[2018-03-15] MEDS ORDERED: guaiFENesin/D-METHORPHAN HB 10 ML UNIT-DOSE CUPS PO PRN (19:34)
[2018-03-15] MEDS ORDERED: NAPROXEN 375 MG TABLET (FP) PO PRN (19:36)
[2018-03-15] MEDS ORDERED: METHADONE HCL 10 MG TABLET (FOR DETOX USE ONLY) PO ONE ×2 (20:00→23:00)
[2018-03-15] MEDS: THIAMINE HCL 100 MG TABLET (FP) PO SCH (21:01)
[2018-03-15] MEDS: chlordiazePOXIDE HCL 25 MG CAPSULE PO PRN (21:02)
[2018-03-15] MEDS: LISINOPRIL 10 MG TABLET (FP) PO SCH (21:02)
[2018-03-15] MEDS: HYDROCHLOROTHIAZIDE 12.5 MG CAPSULE (FP) PO SCH (21:02)
[2018-03-15] MEDS: RANITIDINE HCL 150 MG TABLET (FP) PO SCH (21:02)
[2018-03-15] MEDS ORDERED: MELATONIN 5 MG TABLETS PO PRN (22:00)
[2018-03-15] MEDS: chlordiazePOXIDE HCL 25 MG CAPSULE PO SCH (22:29)
[2018-03-15] MEDS: INDOMETHACIN 50 MG CAPSULE PO SCH (23:10)
[2018-03-16] MEDS: chlordiazePOXIDE HCL 25 MG CAPSULE PO SCH ×4 (05:13→22:16)
--- NOTE | 2018-03-16 07:41 | CONSULT ---
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 Patient has been in multiple detox in various facilities, Substance Abuse History: - Smoking Cessation. Smoking history: Current every day smoker. Have you smoked in the past 12 months: Yes. Aproximately how many cigarettes per day: 4. Hx Chewing Tobacco Use: No. Initiated information on smoking cessation: Yes. 'Breaking Loose' booklet given: 03/15/18. - Substance & Tx. History. Hx Alcohol Use: Yes. Hx Substance Use: Yes. Substance Use Type : Alcohol, Opiates. Hx Sub[facility] Use [facility]: [facility] - Substances Abused. Alcohol. Route: Oral. Frequency: Daily. Amount used : LIQUOR- 4, BEER- 2 SIX PACK. Age of first use: 14. Date of Last Use: . Percocet. Route: Oral. Frequency: Daily. Amount used: 40mg. Age of first use: 29. Date of Last Use: 03/15/18 Medical History: Asthma, Anemia history, GERD, Gout, HTN, UTI history Psychiatric History: Patient reports history of depression, reports suicidal attempt by OD on 2016 being under Alcohol intoxication, denies suicidal, homicidal history since then. Reports taking prior to admission for his insomnia and depression: Trazodone 100mg po qhs Physical/Sexual Abuse/Trauma History: Denies Additional Comment: Trazodone 100mg po qhs Mental Status Exam - Mental Status Exam Alert and Oriented to: Person Cognitive Function: Fair Patient Appearance: Unkempt Mood: Sad Affect: Flat Patient Behavior: Sedated Speech Pattern: Delayed Voice Loudness: Mildly Soft/Quiet Thought Process: Goal Oriented Thought Disorder: Being Controlled Hallucinations: Denies Suicidal Ideation: Denies Homicidal Ideation: Denies Insight/Judgement: Fair Sleep: Difficulty falling asleep Appetite: Fair Muscle strength/Tone: Normal Gait/Station: Shuffling Additional Comments: Trazodone 100mg po qhs Psychiatric Findings - Problem List ([place] 1, 2,3) (1) Alcohol dependence with uncomplicated withdrawal Current Visit: Yes Status: Chronic (2) Anemia Current Visit: Yes Status: Chronic Qualifiers: Anemia type: iron deficiency (3) Asthma Current Visit: Yes Status: Chronic Qualifiers: Asthma severity: mild Asthma persistence: intermittent (4) GERD (gastroesophageal reflux disease) Current Visit: Yes Status: Chronic Qualifiers: Esophagitis presence: esophagitis presence not specified Qualified Code(s) : K21.9 - Gastro-esophageal reflux disease without esophagitis (5) Gout Current Visit: Yes Status: Chronic Qualifiers: Gout site: foot Chronicity: chronic Laterality: right (6) HTN (hypertension) Current Visit: Yes Status: Chronic Qualifiers: Hypertension type: essential hypertension Qualified Code(s): I10 - Essential (primary) hypertension (7) Opioid dependence with withdrawal Current Visit: Yes Status: Chronic (8) Acute UTI Current Visit: No Status: Acute (9) Sedative, hypnotic or anxiolytic dependence with withdrawal, uncomplicated Current Visit: No Status: Acute (10) Substance-induced sleep disorder Current Visit: No Status: Acute (11) Substance-induced sleep disorder Current Visit: No Status: Acute (12) Substance induced mood disorder Current Visit: No Status: Chronic - Initial Treatment Plan Initial Treatment Plan: Trazodone 100mg po qhs
[2018-03-16] MEDS ORDERED: METHADONE HCL 10 MG TABLET (FOR DETOX USE ONLY) PO SCH (10:00)
[2018-03-16] MEDS: INDOMETHACIN 50 MG CAPSULE PO SCH ×2 (10:15→17:03)
[2018-03-16] MEDS: RANITIDINE HCL 150 MG TABLET (FP) PO SCH ×2 (10:15→22:16)
[2018-03-16] MEDS: LISINOPRIL 10 MG TABLET (FP) PO SCH ×2 (10:15→22:16)
[2018-03-16] MEDS: HYDROCHLOROTHIAZIDE 12.5 MG CAPSULE (FP) PO SCH (10:16)
[2018-03-16] MEDS: PRENATAL VITAMINS W/ FOLIC ACID TABLET (FP) PO SCH (10:16)
[2018-03-16] MEDS: NICOTINE 14 MG/24 HOURS TOPICAL PATCH TD SCH (10:18)
[2018-03-16 10:24] LABS: HEMATOCRIT 39.4 % (35.4-49); MCH 31.3 pg (25.7-33.7); MCHC 33.1 g/dl (32.0-35.9); MEAN CELL VOLUME 94.6 fl (80-96); MEAN PLT VOLUME 8.7 fl (7.5-11.1); PLATELET COUNT 246 K/MM3 (134-434); RBC 4.16 M/mm3 (4.00-5.60); RDW 14.2 % (11.9-15.9); WHITE BLOOD COUNT 5.5 K/mm3 (4.0-10.0)
--- NOTE | 2018-03-16 10:41 | PN ---
[facility] CIWA - CIWA Score Nausea/Vomitin-No Nausea/No Vomiting Muscle Tremors: 4-Moderate,w/Arms Extend Anxiety: 0-No Anxiety, at Ease Agitation: 0-Normal Activity Paroxysmal Sweats: 3 Orientation: 0-Oriented Tacttile Disturbances: 0-None Auditory Disturbances: 1-Very Mild Visual Disturbances: 3-Moderate Sensitivity Headache: 0-None Present CIWA-Ar Total Score: 11 S COWS - Scale Resting Pulse: 1= [place] 81-100 Sweatin= Chills/Flushing Restless Observation: 0= Sits Still Pupil Size: 0= Normal to Room Light Bone or Joint Aches: 2= Severe Diffuse Aches Runny Nose/ Eye Tearin= None GI Upset > 30mins: 1= Stomach Cramp Tremor Observation of Outstretched Hands: 2= Slight Tremor Visible Yawning Observation: 1= 1-2x During Session Anxiety or Irritability: 0= None Goose Flesh Skin: 3=Piloerection COWS Score: 11 S Progress Note (SOAP) Subjective: Sweating, Body Aches, Tremors, Poor Appetite, Interrupted Sleep, Constipation, Stomach Cramping. Objective: PATIENT A & O X 3. IN NO ACUTE DISTRESS. 03/16/18 10:39 Vital Signs Temperature 98.1 F 03/16/18 09:13 Pulse Rate 68 03/16/18 09:13 Respiratory Rate 16 03/16/18 09:13 Blood Pressure 148/81 03/16/18 09:13 O2 Sat by Pulse Oximetry (%) ADMISSION LAB RESULTS PENDING. Assessment: 03/16/18 10:40 WITHDRAWAL SYMPTOMS. Plan: CONTINUE DETOX. INCREASE DAILY PO FLUID INTAKE PRN MOM FOR CONSTIPATION. PRN MELATONIN FOR SLEEP DIFFICULTY.
[2018-03-16 11:04] LABS: ALBUMIN 3.8 g/dl (3.4-5.0); ALK PHOS 81 U/L (45-117); ANION GAP 9 MMOL/L (8-16); BILIRUBIN,TOTAL 0.7 mg/dL (0.2-1); BLOOD UREA NITROGEN 11 mg/dL (7-18); CHLORIDE 104 mmol/L (98-107); CO2 28 mmol/L (21-32); CREATININE 1.1 mg/dL (0.55-1.3); GLUCOSE,RANDOM 100 mg/dL (74-106); SGOT/AST 23 U/L (15-37); SGPT/ALT 25 U/L (13-61); SODIUM 141 mmol/L (136-145); TOT PROT 6.6 g/dl (6.4-8.2)
--- NOTE | 2018-03-16 12:45 | EKG ---
Test Reason : Blood Pressure : / mmHG Vent. Rate : 088 BPM Atrial Rate : 088 BPM P-R Int : 142 ms QRS Dur : 094 ms QT Int : 370 ms P-R-T Axes : 069 -19 -13 degrees QTc Int : 447 ms NORMAL SINUS RHYTHM NORMAL ECG WHEN COMPARED WITH ECG OF 27-DEC-2017 18:49, NO SIGNIFICANT CHANGE WAS FOUND Confirmed by MICHELLE VILLA MD ([id number]) on 03/16/2018 12:44:31 PM Referred By: Confirmed By:MICHELLE VILLA MD
[2018-03-16] MEDS: chlordiazePOXIDE HCL 25 MG CAPSULE PO PRN (14:44)
[2018-03-16] MEDS: THIAMINE HCL 100 MG TABLET (FP) PO SCH (22:16)
[2018-03-16] MEDS: QUEtiapine FUMARATE 200 MG TABLET PO SCH (22:16)
[2018-03-16] MEDS: MAGNESIUM CITRATE 300 ML BOTTLE PO PRN (22:20)
[2018-03-17] MEDS: chlordiazePOXIDE HCL 25 MG CAPSULE PO PRN ×2 (01:10→19:38)
[2018-03-17] MEDS: chlordiazePOXIDE HCL 25 MG CAPSULE PO SCH ×3 (05:46→17:07)
[2018-03-17] MEDS: INDOMETHACIN 50 MG CAPSULE PO SCH ×2 (09:18→17:07)
[2018-03-17] MEDS: NICOTINE 14 MG/24 HOURS TOPICAL PATCH TD SCH (10:25)
[2018-03-17] MEDS: PRENATAL VITAMINS W/ FOLIC ACID TABLET (FP) PO SCH (10:25)
[2018-03-17] MEDS: LISINOPRIL 10 MG TABLET (FP) PO SCH ×2 (10:25→22:12)
[2018-03-17] MEDS: METHADONE HCL 5 MG TABLET (FOR DETOX USE ONLY) PO SCH (10:25)
[2018-03-17] MEDS: RANITIDINE HCL 150 MG TABLET (FP) PO SCH ×2 (10:25→22:12)
[2018-03-17] MEDS: HYDROCHLOROTHIAZIDE 12.5 MG CAPSULE (FP) PO SCH (10:25)
[2018-03-17] MEDS ORDERED: cloNIDine HCL 0.1 MG TABLET PO ONE (12:15)
[2018-03-17] MEDS: hydrOXYzine PAMOATE 50 MG CAPSULE (FP) PO PRN (12:36)
--- NOTE | 2018-03-17 13:45 | PN ---
[facility] CIWA - CIWA Score Nausea/Vomitin Muscle Tremors: None Anxiety: 4-Mod. Anxious/Guarded Agitation: 3 Paroxysmal Sweats: 3 Orientation: 0-Oriented Tacttile Disturbances: 2-Mild Itch/Numbness/Burn Auditory Disturbances: 0-None Visual Disturbances: 0-None Headache: 0-None Present CIWA-Ar Total Score: 15 S COWS - Scale Resting Pulse: 1= [place] 81-100 Sweatin= Chills/Flushing Restless Observation: 1= Difficult to Sit Still Pupil Size: 0= Normal to Room Light Bone or Joint Aches: 0= None Runny Nose/ Eye Tearin= None GI Upset > 30mins: 2= Nausea/Diarrhea Tremor Observation of Outstretched Hands: 0= None Yawning Observation: 0= None Anxiety or Irritability: 2=Irritable/Anxious Goose Flesh Skin: 3=Piloerection COWS Score: 10 S Progress Note (SOAP) Subjective: Nausea, Interrupted Sleep, Constipation, H/A, Sweating. Objective: PATIENT A & O X 3, OBSERVED AMBULATING ON UNIT. IN NO ACUTE DISTRESS. 03/17/18 13:43 Laboratory Tests 03/16/18 03/16/18 03/16/18 07:00 07:00 07:00 WBC 5.5 RBC 4.16 Hgb 13.0 Hct 39.4 MCV 94.6 MCH 31.3 MCHC 33.1 RDW 14.2 Plt Count 246 MPV 8.7 Sodium 141 Potassium 4.0 Chloride 104 Carbon Dioxide 28 Anion Gap 9 BUN 11 Creatinine 1.1 Creat Clearance w eGFR > 60 Random Glucose 100 Calcium 9.0 Total Bilirubin 0.7 AST 23 ALT 25 Alkaline Phosphatase 81 Total Protein 6.6 Albumin 3.8 RPR Titer HIV 1&2 Antibody Screen Negative HIV P24 Antigen Negative 03/16/18 07:00 WBC RBC Hgb Hct MCV MCH MCHC RDW Plt Count MPV Sodium Potassium Chloride Carbon Dioxide Anion Gap BUN Creatinine Creat Clearance w eGFR Random Glucose Calcium Total Bilirubin AST ALT Alkaline Phosphatase Total Protein Albumin RPR Titer Nonreactive HIV 1&2 Antibody Screen HIV P24 Antigen LABS NOTED. Assessment: 03/17/18 13:43 WITHDRAWAL SYMPTOMS. Plan: CONTINUE DETOX. CLONIDINE, 0.1 MG PO BID FOR ELEVATED BLOOD PRESSURE AND FOR WITHDRAWAL SYMPTOMS. PRN MOM FOR CONSTIPATION.
[2018-03-17] MEDS: QUEtiapine FUMARATE 200 MG TABLET PO SCH (22:12)
[2018-03-17] MEDS: chlordiazePOXIDE 5 MG CAPSULE PO SCH (22:12)
[2018-03-17] MEDS: THIAMINE HCL 100 MG TABLET (FP) PO SCH (22:13)
[2018-03-17] MEDS: cloNIDine HCL 0.1 MG TABLET PO SCH (22:13)
[2018-03-17] MEDS: MAGNESIUM HYDROX 2400MG/30ML ORAL SUSPENSION 30 ML CUP PO PRN (22:47)
[2018-03-18] MEDS: hydrOXYzine PAMOATE 50 MG CAPSULE (FP) PO PRN (02:45)
[2018-03-18] MEDS: chlordiazePOXIDE 5 MG CAPSULE PO SCH ×3 (05:12→18:15)
[2018-03-18] MEDS: MAGNESIUM CITRATE 300 ML BOTTLE PO PRN (05:12)
[2018-03-18] MEDS: INDOMETHACIN 50 MG CAPSULE PO SCH ×2 (07:06→18:35)
[2018-03-18] MEDS: RANITIDINE HCL 150 MG TABLET (FP) PO SCH ×2 (10:35→22:57)
[2018-03-18] MEDS: METHADONE HCL 5 MG TABLET (FOR DETOX USE ONLY) PO SCH (10:35)
[2018-03-18] MEDS: NICOTINE 14 MG/24 HOURS TOPICAL PATCH TD SCH (10:35)
[2018-03-18] MEDS: LISINOPRIL 10 MG TABLET (FP) PO SCH ×2 (10:35→22:57)
[2018-03-18] MEDS: cloNIDine HCL 0.1 MG TABLET PO SCH ×2 (10:35→22:57)
[2018-03-18] MEDS: PRENATAL VITAMINS W/ FOLIC ACID TABLET (FP) PO SCH (10:35)
[2018-03-18] MEDS: HYDROCHLOROTHIAZIDE 12.5 MG CAPSULE (FP) PO SCH (10:35)
--- NOTE | 2018-03-18 11:37 | PN ---
[facility] Progress Note (SOAP) Subjective: anxiety feeling better little sweats Objective: 03/18/18 11:36 Vital Signs Temperature 98.1 F 03/18/18 09:14 Pulse Rate 66 03/18/18 09:14 Respiratory Rate 18 03/18/18 09:14 Blood Pressure 144/90 03/18/18 09:14 O2 Sat by Pulse Oximetry (%) aaox3 ambulating no acute distress Assessment: 03/18/18 11:36 mild withdrawal sx Plan: continue detox d/c in am
[2018-03-18] MEDS: chlordiazePOXIDE HCL 25 MG CAPSULE PO PRN (14:34)
[2018-03-18] MEDS: THIAMINE HCL 100 MG TABLET (FP) PO SCH (22:56)
[2018-03-18] MEDS: chlordiazePOXIDE HCL 10 MG CAPSULE PO SCH (22:57)
[2018-03-18] MEDS: QUEtiapine FUMARATE 200 MG TABLET PO SCH (22:57)
[2018-03-18] MEDS: MAGNESIUM HYDROX 2400MG/30ML ORAL SUSPENSION 30 ML CUP PO PRN (23:00)
[2018-03-19] MEDS: hydrOXYzine PAMOATE 50 MG CAPSULE (FP) PO PRN ×2 (01:29→13:34)
[2018-03-19] MEDS: chlordiazePOXIDE HCL 10 MG CAPSULE PO SCH ×3 (06:02→17:06)
[2018-03-19] MEDS: INDOMETHACIN 50 MG CAPSULE PO SCH ×2 (09:00→22:03)
[2018-03-19] MEDS ORDERED: METHADONE HCL 10 MG TABLET (FOR DETOX USE ONLY) PO SCH (10:00)
[2018-03-19] MEDS: LISINOPRIL 10 MG TABLET (FP) PO SCH ×2 (10:34→23:20)
[2018-03-19] MEDS: PRENATAL VITAMINS W/ FOLIC ACID TABLET (FP) PO SCH (10:34)
[2018-03-19] MEDS: RANITIDINE HCL 150 MG TABLET (FP) PO SCH (10:34)
[2018-03-19] MEDS: HYDROCHLOROTHIAZIDE 12.5 MG CAPSULE (FP) PO SCH (10:34)
[2018-03-19] MEDS: cloNIDine HCL 0.1 MG TABLET PO SCH ×2 (10:34→23:19)
[2018-03-19] MEDS: NICOTINE 14 MG/24 HOURS TOPICAL PATCH TD SCH (10:35)
--- NOTE | 2018-03-19 11:10 | PN ---
[facility] Progress Note (SOAP) Subjective: Sweats, fatigue and body aches Objective: 03/19/18 11:08 Vital Signs 03/19/18 03/19/18 03/19/18 03:30 06:00 09:38 Temperature 97.3 F L 96.8 F L Pulse Rate 65 95 H Respiratory 18 18 19 Rate Blood Pressure 145/88 130/86 Laboratory Last Values WBC 5.5 K/mm3 (4.0-10.0) 03/16/18 07:00 RBC 4.16 M/mm3 (4.00-5.60) 03/16/18 07:00 Hgb 13.0 GM/dL (11.7-16.9) 03/16/18 07:00 Hct 39.4 % (35.4-49) 03/16/18 07:00 MCV 94.6 fl (80-96) 03/16/18 07:00 MCH 31.3 pg (25.7-33.7) 03/16/18 07:00 MCHC 33.1 g/dl (32.0-35.9) 03/16/18 07:00 RDW 14.2 % (11.9-15.9) 03/16/18 07:00 Plt Count 246 K/MM3 (134-434) 03/16/18 07:00 MPV 8.7 fl (7.5-11.1) 03/16/18 07:00 Sodium 141 mmol/L (136-145) 03/16/18 07:00 Potassium 4.0 mmol/L (3.5-5.1) 03/16/18 07:00 Chloride 104 mmol/L (98-107) 03/16/18 07:00 Carbon Dioxide 28 mmol/L (21-32) 03/16/18 07:00 Anion Gap 9 MMOL/L (8-16) 03/16/18 07:00 BUN 11 mg/dL (7-18) 03/16/18 07:00 Creatinine 1.1 mg/dL (0.55-1.3) 03/16/18 07:00 Creat Clearance w eGFR > 60 (>60) 03/16/18 07:00 Random Glucose 100 mg/dL (74-106) 03/16/18 07:00 Calcium 9.0 mg/dL (8.5-10.1) 03/16/18 07:00 Total Bilirubin 0.7 mg/dL (0.2-1) 03/16/18 07:00 AST 23 U/L (15-37) 03/16/18 07:00 ALT 25 U/L (13-61) 03/16/18 07:00 Alkaline Phosphatase 81 U/L (45-117) 03/16/18 07:00 Total Protein 6.6 g/dl (6.4-8.2) 03/16/18 07:00 Albumin 3.8 g/dl (3.4-5.0) 03/16/18 07:00 RPR Titer Nonreactive (NONREACTIVE) 03/16/18 07:00 HIV 1&2 Antibody Screen Negative 03/16/18 07:00 HIV P24 Antigen Negative 03/16/18 07:00 Labs noted- No panic values Assessment: 03/19/18 11:09 Withdrawal sx Plan: Continue detox
[2018-03-19] MEDS: MAGNESIUM HYDROX 2400MG/30ML ORAL SUSPENSION 30 ML CUP PO PRN (13:44)
[2018-03-19] MEDS: QUEtiapine FUMARATE 200 MG TABLET PO SCH (22:20)
[2018-03-20] MEDS: THIAMINE HCL 100 MG TABLET (FP) PO SCH (00:22)
[2018-03-20] MEDS: RANITIDINE HCL 150 MG TABLET (FP) PO SCH (00:26)
[2018-03-20] MEDS ORDERED: METHADONE HCL 5 MG TABLET (FOR DETOX USE ONLY) PO SCH (06:00)
[2018-03-20] MEDS: hydrOXYzine PAMOATE 50 MG CAPSULE (FP) PO PRN (06:05)
[2018-03-20 06:07] VITALS: BP 127/75; PULSE 70; TEMP 97.9
[2018-03-20] MEDS: INDOMETHACIN 50 MG CAPSULE PO SCH (07:18)
--- NOTE | 2018-03-20 11:46 | DS ---
[facility] Detox Discharge Summary Admission Date: 03/15/18 Discharge Date: 03/20/18 - History Present History: Alcohol Dependence, Opioid Dependence Additional Comments: Patient completed detox successfully and discharged safely. Instructed to follow up with his PCP within 1 week. Pertinent Past History: Anemia Asthma HTN GERD Alcohol dependence Opioid dependence - Physical Exam Results Vital Signs: Vital Signs Temperature 97.9 F 03/20/18 06:05 Pulse Rate 70 03/20/18 06:05 Respiratory Rate 20 03/20/18 06:05 Blood Pressure 127/75 03/20/18 06:05 O2 Sat by Pulse Oximetry (%) Pertinent Admission Physical Exam Findings: Withdrawal symptoms Laboratory Tests 03/16/18 03/16/18 03/16/18 07:00 07:00 07:00 WBC 5.5 RBC 4.16 Hgb 13.0 Hct 39.4 MCV 94.6 MCH 31.3 MCHC 33.1 RDW 14.2 Plt Count 246 MPV 8.7 Sodium 141 Potassium 4.0 Chloride 104 Carbon Dioxide 28 Anion Gap 9 BUN 11 Creatinine 1.1 Creat Clearance w eGFR > 60 Random Glucose 100 Calcium 9.0 Total Bilirubin 0.7 AST 23 ALT 25 Alkaline Phosphatase 81 Total Protein 6.6 Albumin 3.8 RPR Titer HIV 1&2 Antibody Screen Negative HIV P24 Antigen Negative 03/16/18 07:00 WBC RBC Hgb Hct MCV MCH MCHC RDW Plt Count MPV Sodium Potassium Chloride Carbon Dioxide Anion Gap BUN Creatinine Creat Clearance w eGFR Random Glucose Calcium Total Bilirubin AST ALT Alkaline Phosphatase Total Protein Albumin RPR Titer Nonreactive HIV 1&2 Antibody Screen HIV P24 Antigen Labs reviewed - Treatment Hospital Course: Detox Protocol Followed, Detoxed Safely, Responded well, Discharged Condition Good - Medication Discharge Medications: Ambulatory Orders Quetiapine Fumarate [Seroquel] 100 mg PO HS #30 tablet 11/30/17 Naproxen [Naprosyn -] 375 mg PO BID PRN #60 tablet 12/31/17 Ranitidine [Zantac -] 150 mg PO BID #60 tablet 12/31/17 Hydrochlorothiazide [Hctz -] 12.5 mg PO DAILY #14 cap 01/31/18 Indomethacin [Indocin -] 50 mg PO BID #30 capsule 01/31/18 Lisinopril [Prinivil] 10 mg PO BID #14 tablet 01/31/18 Quetiapine Fumarate [Seroquel] 100 mg PO HS #30 tablet 03/16/18 - Diagnosis (1) Alcohol dependence with uncomplicated withdrawal Status: Acute (2) Anemia Status: Chronic Qualifiers: Anemia type: iron deficiency (3) Anxiety Status: Chronic (4) Asthma Status: Chronic Qualifiers: Asthma severity: mild Asthma persistence: intermittent (5) Depression Status: Chronic Qualifiers: Depression Type: major depressive disorder Active/Remission status: currently active (6) GERD (gastroesophageal reflux disease) Status: Chronic Qualifiers: Esophagitis presence: without esophagitis Qualified Code(s): K21.9 - Gastro -esophageal reflux disease without esophagitis (7) Gout Status: Chronic Qualifiers: Gout site: foot Chronicity: chronic Laterality: right (8) HTN (hypertension) Status: Chronic Qualifiers: Hypertension type: essential hypertension Qualified Code(s): I10 - Essential (primary) hypertension (9) Opioid dependence with withdrawal Status: Acute (10) Nicotine dependence Status: Chronic - AMA Did Patient Leave Against Medical Advice: No (F/U with PCP within 1 week)
== END 2018-03-20 09:29 | disposition home or self-care (01) | DRG 773 ==
LOC: YASAS 14:54 → Y6N 18:33
PROVIDERS: ADMIT Neuromusculoskeletal Medicine & OMM; ATTEND Neuromusculoskeletal Medicine & OMM
PROC: HZ2ZZZZ Detoxification Services for Substance Abuse Treatment (ICD-10-PCS; principal; 2018-03-15)
DX: F11.23 Opioid dependence with withdrawal (principal); F10.230 Alcohol dependence with withdrawal, uncomplicated; F13.230 Sedative, hypnotic or anxiolytic dependence with withdrawal, uncomplicated; F17.210 Nicotine dependence, cigarettes, uncomplicated; F33.9 Major depressive disorder, recurrent, unspecified; F41.9 Anxiety disorder, unspecified; F19.280 Other psychoactive substance dependence with psychoactive substance-induced anxiety disorder; F19.24 Other psychoactive substance dependence with psychoactive substance-induced mood disorder; N39.0 Urinary tract infection, site not specified; I10 Essential (primary) hypertension; D50.9 Iron deficiency anemia, unspecified; K21.9 Gastro-esophageal reflux disease without esophagitis; J45.20 Mild intermittent asthma, uncomplicated; M10.9 Gout, unspecified; Z91.5 Personal history of self-harm
CPT/HCPCS: 36415; 80053; 85027; 86593; 87389; 93005; 93010; J0735

== ENCOUNTER 2018-03-29 09:59 | Inpatient (IN) | payer OTHER ==
[2018-03-29 10:26] VITALS: BMI 30.3
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
[2018-03-29] MEDS ORDERED: guaiFENesin/D-METHORPHAN HB 10 ML UNIT-DOSE CUPS PO PRN (18:55)
[2018-03-29] MEDS ORDERED: P-EPHED 60MG/TRIPROLIDI 2.5MG TABLET PO PRN (18:55)
[2018-03-29] MEDS ORDERED: NICOTINE POLACRILEX 2 MG GUM BC PRN (18:55)
[2018-03-29] MEDS ORDERED: MAGNESIUM CITRATE 300 ML BOTTLE PO PRN (18:55)
[2018-03-29] MEDS ORDERED: IBUPROFEN 400 MG TABLET (FP) PO PRN (18:55)
[2018-03-29] MEDS ORDERED: MAGNESIUM HYDROX 2400MG/30ML ORAL SUSPENSION 30 ML CUP PO PRN (18:55)
[2018-03-29] MEDS ORDERED: MAG HYDROX/AL HYDROX/SIMETH 30 ML UNIT-DOSE CUP PO PRN (18:55)
[2018-03-29] MEDS ORDERED: MENTHOL/PHENOL 1 EACH UD MM PRN (18:55)
[2018-03-29] MEDS: THIAMINE HCL 100 MG TABLET (FP) PO SCH (21:37)
[2018-03-29] MEDS: MELATONIN 5 MG TABLETS PO PRN (21:39)
[2018-03-29] MEDS: LISINOPRIL 10 MG TABLET (FP) PO SCH (21:40)
[2018-03-29] MEDS: RANITIDINE HCL 150 MG TABLET (FP) PO SCH (21:40)
[2018-03-29] MEDS: cloNIDine HCL 0.1 MG TABLET PO PRN (21:41)
[2018-03-29] MEDS: hydrOXYzine PAMOATE 25 MG CAPSULE (FP) PO PRN (21:41)
[2018-03-30 01:50] LABS: URINE APPEARANCE TURBID; URINE BILIRUBIN NEGATIVE (<2.0 mg/dL); URINE COLOR AMBER; URINE GLUCOSE (UA) NEGATIVE (NEGATIVE); URINE KETONE TRACE (NEGATIVE); URINE LEUK ESTERASE NEGATIVE (NEGATIVE); URINE NITRITE NEGATIVE (NEGATIVE); URINE PROTEIN 2+ (NEGATIVE); URINE UROBILINOGEN NEGATIVE mg/dL (0.2-1.0)
[2018-03-30 02:05] LABS: URINE BACTERIA RARE /hpf (NONE SEEN); URINE MUCUS FEW
[2018-03-30] MEDS: hydrOXYzine PAMOATE 25 MG CAPSULE (FP) PO PRN ×3 (03:14→21:49)
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
[2018-03-30] MEDS: PRENATAL VITAMINS W/ FOLIC ACID TABLET (FP) PO SCH (09:32)
[2018-03-30] MEDS: LISINOPRIL 10 MG TABLET (FP) PO SCH ×2 (09:32→21:47)
[2018-03-30] MEDS: RANITIDINE HCL 150 MG TABLET (FP) PO SCH ×2 (09:32→21:47)
[2018-03-30] MEDS ORDERED: LOPERAMIDE HCL 2 MG CAPSULE PO PRN (09:33)
[2018-03-30] MEDS: HYDROCHLOROTHIAZIDE 12.5 MG CAPSULE (FP) PO SCH (09:33)
--- NOTE | 2018-03-30 09:34 | PN ---
S Progress Note Note: PT C/O DIARRHEA Vital Signs 03/30/18 03/30/18 03:30 06:59 Temperature 97.5 F L Pulse Rate 69 Respiratory 18 18 Rate Blood Pressure 146/92 Laboratory Tests 03/29/18 22:33 Urine Color Sydni Urine Appearance Turbid Urine pH 5.0 Ur Specific [place] 1.032 Urine Protein 2+ H Urine Glucose (UA) Negative Urine Ketones Trace H Urine Blood Negative Urine Nitrite Negative Urine Bilirubin Negative Urine Urobilinogen Negative Ur Leukocyte Esterase Negative Urine WBC (Auto) 11 Urine RBC (Auto) None Urine Bacteria Rare Urine Mucus Few PLAN:IMODIUM PRN
[2018-03-30] MEDS: ACETAMINOPHEN 325 MG TABLET (FP) PO PRN (10:50)
[2018-03-30] MEDS ORDERED: PNEUMOC 13-VAL CONJ-DIP CRM/PF 0.5 ML DISP.SYRIN IM ONE (12:00)
[2018-03-30] MEDS: THIAMINE HCL 100 MG TABLET (FP) PO SCH (21:47)
[2018-03-30] MEDS: cloNIDine HCL 0.1 MG TABLET PO PRN (21:49)
[2018-03-30] MEDS: MELATONIN 5 MG TABLETS PO PRN (21:49)
[2018-03-30] MEDS ORDERED: QUEtiapine FUMARATE 100 MG TABLET (FP) PO SCH (22:00)
[2018-03-31] MEDS: ACETAMINOPHEN 325 MG TABLET (FP) PO PRN (06:20)
[2018-03-31] MEDS: hydrOXYzine PAMOATE 25 MG CAPSULE (FP) PO PRN ×2 (06:20→09:57)
[2018-03-31 06:55] VITALS: BP 145/71; PULSE 71; TEMP 98.5
[2018-03-31] MEDS: RANITIDINE HCL 150 MG TABLET (FP) PO SCH (09:57)
[2018-03-31] MEDS: PRENATAL VITAMINS W/ FOLIC ACID TABLET (FP) PO SCH (09:57)
[2018-03-31] MEDS: cloNIDine HCL 0.1 MG TABLET PO PRN (09:57)
[2018-03-31] MEDS: LISINOPRIL 10 MG TABLET (FP) PO SCH (09:57)
[2018-03-31] MEDS: HYDROCHLOROTHIAZIDE 12.5 MG CAPSULE (FP) PO SCH (09:57)
--- NOTE | 2018-03-31 10:40 | PN ---
[facility] Progress Note Note: REHAB DISCHARGE NOTE; PT DECLINED TO CONTINUE REHAB STATING "I HAVE A FAMILY EMERGENCY". PT WAS SEE AND SPOKEN TO BY HIS COUNSELOR ITALO SONG AND MEDICAL STAFF TO ENCOURAGE TREATMENT. PT INSISTS HE HAS TO TAKE CARE OF "EMERGENCY". PT REPORTS HE HAS BEEN REFERRED TO [facility] ON [address], [place]. PT REPORTS HE HAS A PMD DR. ROJAS ANTONY ON [address], [place] WHO IS ALSO WITH THE [place], [place]. PT STATES HE WILL CALL TO FOLLOW UP WITH HIS DOCTOR NEXT WEEK. 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 ALERT O X 3. IN NAD. Vital Signs - 24 hr 03/31/18 03/31/18 03/31/18 00:30 03:30 06:52 Temperature 98.5 F Pulse Rate 71 Respiratory 18 18 18 Rate Blood Pressure 145/71 Laboratory Tests 03/29/18 22:33 Urine Color Sydni Urine Appearance Turbid Urine pH 5.0 Ur Specific [place] 1.032 Urine Protein 2+ H Urine Glucose (UA) Negative Urine Ketones Trace H Urine Blood Negative Urine Nitrite Negative Urine Bilirubin Negative Urine Urobilinogen Negative Ur Leukocyte Esterase Negative Urine WBC (Auto) 11 Urine RBC (Auto) None Urine Bacteria Rare Urine Mucus Few MEDICALLY STABLE PLAN;FOLLOW UP WITH DR. ROJAS ANTONY 1 WEEK AFTER DISCHARGE FOR MEDICAL MANAGEMENT FOLLOW UP WITH [facility] FOR AFTERCARE ON 04/01/18 AT 9:00 A.M.
== END 2018-03-31 10:15 | disposition left against medical advice (07) | DRG 770 ==
LOC: YASAS 09:59 → Y5N 19:40
PROVIDERS: ADMIT Neuromusculoskeletal Medicine & OMM; ATTEND Neuromusculoskeletal Medicine & OMM
PROC: HZ2ZZZZ Detoxification Services for Substance Abuse Treatment (ICD-10-PCS; principal; 2018-03-29)
DX: F11.23 Opioid dependence with withdrawal (principal); F10.230 Alcohol dependence with withdrawal, uncomplicated; F12.20 Cannabis dependence, uncomplicated; F17.210 Nicotine dependence, cigarettes, uncomplicated; F19.24 Other psychoactive substance dependence with psychoactive substance-induced mood disorder; F19.282 Other psychoactive substance dependence with psychoactive substance-induced sleep disorder; I10 Essential (primary) hypertension; D50.9 Iron deficiency anemia, unspecified; J45.20 Mild intermittent asthma, uncomplicated; K21.9 Gastro-esophageal reflux disease without esophagitis; M10.9 Gout, unspecified; E78.5 Hyperlipidemia, unspecified; Z88.0 Allergy status to penicillin
CPT/HCPCS: 81003; 81015; J0735

== ENCOUNTER 2018-04-14 10:58 | Inpatient (IN) | payer OTHER ==
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
[2018-04-14] MEDS ORDERED: NAPROXEN 375 MG TABLET (FP) PO PRN (16:16)
[2018-04-14] MEDS ORDERED: MENTHOL/PHENOL 1 EACH UD MM PRN (16:17)
[2018-04-14] MEDS ORDERED: ACETAMINOPHEN 325 MG TABLET (FP) PO PRN (16:17)
[2018-04-14] MEDS ORDERED: MAGNESIUM HYDROX 2400MG/30ML ORAL SUSPENSION 30 ML CUP PO PRN (16:17)
[2018-04-14] MEDS ORDERED: LOPERAMIDE HCL 2 MG CAPSULE PO PRN (16:17)
[2018-04-14] MEDS ORDERED: P-EPHED 60MG/TRIPROLIDI 2.5MG TABLET PO PRN (16:17)
[2018-04-14] MEDS ORDERED: guaiFENesin/D-METHORPHAN HB 10 ML UNIT-DOSE CUPS PO PRN (16:17)
[2018-04-14] MEDS ORDERED: cloNIDine HCL 0.1 MG TABLET PO ONE (17:00)
[2018-04-14] MEDS ORDERED: METHADONE HCL 10 MG TABLET (FOR DETOX USE ONLY) PO ONE ×2 (17:00→23:00)
[2018-04-14] MEDS: chlordiazePOXIDE HCL 25 MG CAPSULE PO PRN (17:37)
[2018-04-14] MEDS: LISINOPRIL 10 MG TABLET (FP) PO SCH (22:42)
[2018-04-14] MEDS: chlordiazePOXIDE HCL 25 MG CAPSULE PO SCH (22:42)
[2018-04-14] MEDS: THIAMINE HCL 100 MG TABLET (FP) PO SCH (22:42)
[2018-04-14] MEDS: RANITIDINE HCL 150 MG TABLET (FP) PO SCH (22:42)
[2018-04-14] MEDS: MELATONIN 5 MG TABLETS PO PRN (22:43)
[2018-04-14 23:10] LABS: URINE APPEARANCE CLEAR; URINE BILIRUBIN NEGATIVE (<2.0 mg/dL); URINE COLOR STRAW; URINE GLUCOSE (UA) NEGATIVE (NEGATIVE); URINE KETONE NEGATIVE (NEGATIVE); URINE LEUK ESTERASE NEGATIVE (NEGATIVE); URINE NITRITE NEGATIVE (NEGATIVE); URINE PROTEIN NEGATIVE (NEGATIVE); URINE UROBILINOGEN NEGATIVE mg/dL (0.2-1.0)
[2018-04-15] MEDS: chlordiazePOXIDE HCL 25 MG CAPSULE PO SCH ×4 (05:33→22:19)
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
[2018-04-15] MEDS ORDERED: METHADONE HCL 10 MG TABLET (FOR DETOX USE ONLY) PO SCH (10:00)
[2018-04-15] MEDS: RANITIDINE HCL 150 MG TABLET (FP) PO SCH ×2 (10:27→22:19)
[2018-04-15] MEDS: PRENATAL VITAMINS W/ FOLIC ACID TABLET (FP) PO SCH (10:27)
[2018-04-15] MEDS: HYDROCHLOROTHIAZIDE 12.5 MG CAPSULE (FP) PO SCH (10:27)
[2018-04-15] MEDS: LISINOPRIL 10 MG TABLET (FP) PO SCH ×2 (10:30→22:20)
[2018-04-15 10:42] LABS: ALBUMIN 3.8 g/dl (3.4-5.0); ALK PHOS 72 U/L (45-117); ANION GAP 9 MMOL/L (8-16); BILIRUBIN,TOTAL 0.4 mg/dL (0.2-1); BLOOD UREA NITROGEN 12 mg/dL (7-18); CALCIUM 8.3 mg/dL (8.5-10.1); CHLORIDE 100 mmol/L (98-107); CO2 26 mmol/L (21-32); CREATININE 1.1 mg/dL (0.55-1.3); GLUCOSE,RANDOM 92 mg/dL (74-106); HEMATOCRIT 38.5 % (35.4-49); HEMOGLOBIN 12.8 GM/dL (11.7-16.9); MCH 31.7 pg (25.7-33.7); MCHC 33.3 g/dl (32.0-35.9); MEAN CELL VOLUME 95.1 fl (80-96); MEAN PLT VOLUME 9.5 fl (7.5-11.1); PLATELET COUNT 152 K/MM3 (134-434); POTASSIUM 3.5 mmol/L (3.5-5.1); RBC 4.05 M/mm3 (4.00-5.60); RDW 14.2 % (11.9-15.9); SGOT/AST 23 U/L (15-37); SGPT/ALT 22 U/L (13-61); SODIUM 135 mmol/L (136-145); TOT PROT 6.3 g/dl (6.4-8.2); WHITE BLOOD COUNT 6.6 K/mm3 (4.0-10.0)
--- NOTE | 2018-04-15 11:40 | PN ---
S CIWA - CIWA Score Nausea/Vomitin Muscle Tremors: 3 Anxiety: 3 Agitation: 2 Paroxysmal Sweats: 3 Orientation: 0-Oriented Tacttile Disturbances: 2-Mild Itch/Numbness/Burn Auditory Disturbances: 0-None Visual Disturbances: 0-None Headache: 0-None Present CIWA-Ar Total Score: 16 BHS COWS - Scale Resting Pulse: 1= OK 81-100 Sweatin=Flushed/Facial Moisture Restless Observation: 1= Difficult to Sit Still Pupil Size: 1= Pupils >than Normal Bone or Joint Aches: 2= Severe Diffuse Aches Runny Nose/ Eye Tearin= Nasal Congestion GI Upset > 30mins: 2= Nausea/Diarrhea Tremor Observation of Outstretched Hands: 2= Slight Tremor Visible Yawning Observation: 0= None Anxiety or Irritability: 2=Irritable/Anxious Goose Flesh Skin: 0=Smooth Skin COWS Score: 14 BHS Progress Note (SOAP) Subjective: interrupted sleep, sweats, shakes, nausea, constipation , reflux, body aches Objective: 04/15/18 11:37 Vital Signs Temperature 96.8 F L 04/15/18 08:49 Pulse Rate 81 04/15/18 08:49 Respiratory Rate 18 04/15/18 08:49 Blood Pressure 157/92 04/15/18 08:49 O2 Sat by Pulse Oximetry (%) Laboratory Tests 04/14/18 04/15/18 04/15/18 19:05 06:30 06:30 WBC 6.6 RBC 4.05 Hgb 12.8 Hct 38.5 MCV 95.1 MCH 31.7 MCHC 33.3 RDW 14.2 Plt Count 152 D MPV 9.5 Sodium Potassium Chloride Carbon Dioxide Anion Gap BUN Creatinine Creat Clearance w eGFR Random Glucose Calcium Total Bilirubin AST ALT Alkaline Phosphatase Total Protein Albumin Urine Color Straw Urine Appearance Clear Urine pH 6.0 Ur Specific [place] 1.008 L Urine Protein Negative Urine Glucose (UA) Negative Urine Ketones Negative Urine Blood Negative Urine Nitrite Negative Urine Bilirubin Negative Urine Urobilinogen Negative Ur Leukocyte Esterase Negative HIV 1&2 Antibody Screen Negative HIV P24 Antigen Negative 04/15/18 06:30 WBC RBC Hgb Hct MCV MCH MCHC RDW Plt Count MPV Sodium 135 L Potassium 3.5 Chloride 100 Carbon Dioxide 26 Anion Gap 9 BUN 12 Creatinine 1.1 Creat Clearance w eGFR > 60 Random Glucose 92 Calcium 8.3 L Total Bilirubin 0.4 AST 23 ALT 22 Alkaline Phosphatase 72 Total Protein 6.3 L Albumin 3.8 Urine Color Urine Appearance Urine pH Ur Specific [place] Urine Protein Urine Glucose (UA) Urine Ketones Urine Blood Urine Nitrite Urine Bilirubin Urine Urobilinogen Ur Leukocyte Esterase HIV 1&2 Antibody Screen HIV P24 Antigen pt aox3 in nad ambulating Assessment: 04/15/18 11:38 withdrawakl sx's Plan: cont.detox increase fluids protonix flexeril vistaril prn
[2018-04-15] MEDS ORDERED: PANTOPRAZOLE 40 MG TABLET (FP) PO ONE (13:15)
[2018-04-15] MEDS ORDERED: cloNIDine HCL 0.1 MG TABLET PO ONE (14:00)
[2018-04-15] MEDS: CYCLOBENZAPRINE HCL 5 MG TABLET PO PRN ×2 (15:17→22:19)
[2018-04-15] MEDS: MAG HYDROX/AL HYDROX/SIMETH 30 ML UNIT-DOSE CUP PO PRN (17:20)
[2018-04-15] MEDS: traZODone HCL 50 MG TABLET (FP) PO SCH (22:19)
[2018-04-15] MEDS: THIAMINE HCL 100 MG TABLET (FP) PO SCH (22:19)
[2018-04-15] MEDS: MELATONIN 5 MG TABLETS PO PRN (23:07)
[2018-04-16] MEDS: chlordiazePOXIDE HCL 25 MG CAPSULE PO SCH ×3 (05:51→18:06)
[2018-04-16] MEDS: MAG HYDROX/AL HYDROX/SIMETH 30 ML UNIT-DOSE CUP PO PRN (05:52)
[2018-04-16] MEDS: MAGNESIUM CITRATE 300 ML BOTTLE PO PRN (09:04)
[2018-04-16] MEDS: METHADONE HCL 5 MG TABLET (FOR DETOX USE ONLY) PO SCH (10:45)
[2018-04-16] MEDS: HYDROCHLOROTHIAZIDE 12.5 MG CAPSULE (FP) PO SCH (10:45)
[2018-04-16] MEDS: LISINOPRIL 10 MG TABLET (FP) PO SCH ×2 (10:45→22:39)
[2018-04-16] MEDS: PANTOPRAZOLE 40 MG TABLET (FP) PO SCH (10:46)
[2018-04-16] MEDS: PRENATAL VITAMINS W/ FOLIC ACID TABLET (FP) PO SCH (10:46)
[2018-04-16] MEDS: RANITIDINE HCL 150 MG TABLET (FP) PO SCH ×2 (10:46→22:39)
[2018-04-16] MEDS: CYCLOBENZAPRINE HCL 5 MG TABLET PO PRN (10:48)
--- NOTE | 2018-04-16 12:44 | PN ---
Psychiatric Progress Note Vital Signs: Vital Signs Period Temp Pulse Resp BP Sys/Griggs Pulse Ox Last 24 Hr 97.2 F-98.6 F 70-88 16-20 124-158/68-109 Date of Session: 04/16/18 Chief Complaint:: " I did not get my seroquel last night ". HPI: Fur Finisher Tailor was called to see this patient to address issue of medications. Mr García is concerned about " making sure that my seroquel is ordered tonight ". Hospital course is unremarkable. ROS: Unremarkable. No somatic complaints. Current Medications: Active Medications Generic Name Dose Route Start Last Admin Trade Name Freq PRN Reason Stop Dose Admin Acetaminophen 650 mg 04/14/18 16:17 Tylenol - PO Q4H PRN FEVER Al Hydroxide/Mg Hydroxide 30 ml 04/14/18 16:17 04/16/18 05:52 Mylanta Oral Suspension - PO 30 ml Q6H PRN Administration DYSPEPSIA Chlordiazepoxide HCl 25 mg 04/15/18 23:00 04/16/18 10:45 Librium - PO 04/16/18 17:01 25 mg [id number] KATELYN Administration Chlordiazepoxide HCl 15 mg 04/16/18 23:00 Librium - PO 04/17/18 17:01 [id number] KATELYN Chlordiazepoxide HCl 10 mg 04/17/18 23:00 Librium - PO 04/18/18 17:01 [id number] KATELYN Chlordiazepoxide HCl 25 mg 04/14/18 16:17 04/14/18 17:37 Librium - PO 04/17/18 16:17 25 mg Q4H PRN Administration WITHDRAWAL(CONT SUBST) Cyclobenzaprine HCl 5 mg 04/15/18 11:45 04/16/18 10:48 Cyclobenzaprine Hcl PO 5 mg TID PRN Administration MUSCLE SPASMS Eucalyptus/Menthol/Phenol/Sorbitol 1 each 04/14/18 16:17 Cepastat Lozenge - MM Q4H PRN SORE THROAT Guaifenesin 10 ml 04/14/18 16:17 Robitussin Dm - PO Q6H PRN COUGH Hydrochlorothiazide 12.5 mg 04/15/18 10:00 04/16/18 10:45 Hctz - PO 12.5 mg DAILY KATELYN Administration Lisinopril 10 mg 04/14/18 22:00 04/16/18 10:45 Prinivil PO 10 mg BID KATELYN Administration Loperamide HCl 4 mg 04/14/18 16:17 Imodium - PO Q6H PRN DIARRHEA Magnesium Citrate 300 ml 04/14/18 16:17 04/16/18 09:04 Citroma - PO 300 ml Q48H PRN Administration CONSTIPATION Magnesium Hydroxide 30 ml 04/14/18 16:17 04/15/18 23:07 Milk Of Magnesia - PO 30 ml DAILY PRN Administration CONSTIPATION Melatonin 5 mg 04/14/18 22:00 04/15/18 23:07 Melatonin PO 5 mg HS PRN Administration INSOMNIA Methadone HCl 15 mg 04/16/18 10:00 04/16/18 10:45 Dolophine - PO 04/17/18 10:01 15 mg DAILY KATELYN Administration Methadone HCl 5 mg 04/19/18 06:00 Dolophine - PO 04/19/18 06:01 DAILY@0600 KATELYN Methadone HCl 10 mg 04/18/18 10:00 Dolophine - PO 04/18/18 10:01 DAILY KATELYN Naproxen 375 mg 04/14/18 16:16 04/15/18 05:36 Naprosyn - PO 375 mg Q12H PRN Administration PAIN LEVEL 1 - 3 Pantoprazole Sodium 40 mg 04/16/18 10:00 04/16/18 10:46 Protonix - PO 40 mg DAILY KATELYN Administration Multivit/Folic Acid/Iron 1 tab 04/15/18 10:00 04/16/18 10:46 Vitamins (Sjr) - PO 1 tab DAILY KATELYN Administration Pseudoephedrine/Triprolidine 1 combo 04/14/18 16:17 Actifed - PO TID PRN NASAL CONGESTION Ranitidine HCl 150 mg 04/14/18 22:00 04/16/18 10:46 Zantac - PO 150 mg BID KATELYN Administration Thiamine HCl 100 mg 04/14/18 22:00 04/15/18 22:19 Vitamin B1 - PO 100 mg HS KATELYN Administration Trazodone HCl 50 mg 04/15/18 22:00 04/15/18 22:19 Desyrel - PO 50 mg HS KATELYN Administration Medication(s) Change(s): Seroquel 100 mg po hs. Added to the regimen at patient' s request. Side effects/benefits discussed. Verbal agreement granted to MD. Current Side Effect: No Lab tests ordered: No Lab tests reviewed: Yes Provider note:: Chart reviewed. Dr Ortiz's psychiatric consult of 04/15/18 is read and appreciated. Patient is interviewed. Mr García is already known to this manual writer. His concern is validated and patient reassured. Doing fine. Appears more relaxed after verification of newly placed order for seroquel 100 mg/hs (entered by Dr Helms). Issue resolved. Stable mental status. Total face to face time:: 25 Mental Status Exam - Mental Status Exam Alert and Oriented to: Time, Place, Person Cognitive Function: Good Patient Appearance: Well Groomed Mood: Apprehensive Affect: Appropriate, Normal Range Patient Behavior: Appropriate, Cooperative Speech Pattern: Clear, Appropriate Voice Loudness: Normal Thought Process: Goal Oriented Thought Disorder: Not Present Hallucinations: Denies Suicidal Ideation: Denies Homicidal Ideation: Denies Insight/Judgement: Fair Sleep: Poorly, Difficulty falling asleep Appetite: Good Muscle strength/Tone: Normal Gait/Station: Normal Psychiatric Treatment Plan - Problem List (1) Alcohol dependence with uncomplicated withdrawal Current Visit: Yes Comment: . (2) Sedative, hypnotic or anxiolytic dependence with withdrawal, uncomplicated Current Visit: Yes Comment: . (3) Opioid dependence with withdrawal Current Visit: Yes (4) Nicotine dependence Current Visit: Yes Qualifiers: Nicotine product type: cigarettes Comment: . (5) Substance induced mood disorder Current Visit: Yes Comment: . (6) Insomnia Current Visit: Yes Comment: .
--- NOTE | 2018-04-16 13:10 | PN ---
S CIWA - CIWA Score Nausea/Vomitin-No Nausea/No Vomiting Muscle Tremors: 4-Moderate,w/Arms Extend Anxiety: 4-Mod. Anxious/Guarded Agitation: 4-Moderately Restless Paroxysmal Sweats: 1-Minimal Palms Moist Orientation: 0-Oriented Tacttile Disturbances: 0-None Auditory Disturbances: 0-None Visual Disturbances: 0-None Headache: 0-None Present CIWA-Ar Total Score: 13 BHS COWS - Scale Resting Pulse: 1= [place] 81-100 Sweatin= Chills/Flushing Restless Observation: 0= Sits Still Pupil Size: 0= Normal to Room Light Bone or Joint Aches: 1= Mild Discomfort Runny Nose/ Eye Tearin= None GI Upset > 30mins: 0= None Tremor Observation of Outstretched Hands: 2= Slight Tremor Visible Yawning Observation: 1= 1-2x During Session Anxiety or Irritability: 2=Irritable/Anxious Goose Flesh Skin: 0=Smooth Skin COWS Score: 8 S Progress Note (SOAP) Subjective: PT C/O ANXIETY, INTERMITTENT SLEEP. Objective: 04/16/18 13:10 Vital Signs 04/16/18 04/16/18 06:00 09:58 Temperature 97.7 F 97.2 F L Pulse Rate 70 85 Respiratory 20 18 Rate Blood Pressure 124/68 146/88 Laboratory Tests 04/14/18 04/15/18 04/15/18 19:05 06:30 06:30 WBC 6.6 RBC 4.05 Hgb 12.8 Hct 38.5 MCV 95.1 MCH 31.7 MCHC 33.3 RDW 14.2 Plt Count 152 D MPV 9.5 Sodium Potassium Chloride Carbon Dioxide Anion Gap BUN Creatinine Creat Clearance w eGFR Random Glucose Calcium Total Bilirubin AST ALT Alkaline Phosphatase Total Protein Albumin Urine Color Straw Urine Appearance Clear Urine pH 6.0 Ur Specific [place] 1.008 L Urine Protein Negative Urine Glucose (UA) Negative Urine Ketones Negative Urine Blood Negative Urine Nitrite Negative Urine Bilirubin Negative Urine Urobilinogen Negative Ur Leukocyte Esterase Negative RPR Titer HIV 1&2 Antibody Screen Negative HIV P24 Antigen Negative 04/15/18 04/15/18 06:30 06:30 WBC RBC Hgb Hct MCV MCH MCHC RDW Plt Count MPV Sodium 135 L Potassium 3.5 Chloride 100 Carbon Dioxide 26 Anion Gap 9 BUN 12 Creatinine 1.1 Creat Clearance w eGFR > 60 Random Glucose 92 Calcium 8.3 L Total Bilirubin 0.4 AST 23 ALT 22 Alkaline Phosphatase 72 Total Protein 6.3 L Albumin 3.8 Urine Color Urine Appearance Urine pH Ur Specific [place] Urine Protein Urine Glucose (UA) Urine Ketones Urine Blood Urine Nitrite Urine Bilirubin Urine Urobilinogen Ur Leukocyte Esterase RPR Titer Nonreactive HIV 1&2 Antibody Screen HIV P24 Antigen Assessment: 04/16/18 13:10 WITHDRAWAL SX Plan: CONTINUE DETOX
[2018-04-16] MEDS: chlordiazePOXIDE HCL 25 MG CAPSULE PO PRN (14:27)
[2018-04-16] MEDS: chlordiazePOXIDE 5 MG CAPSULE PO SCH (22:38)
[2018-04-16] MEDS: traZODone HCL 50 MG TABLET (FP) PO SCH (22:39)
[2018-04-16] MEDS: QUEtiapine FUMARATE 100 MG TABLET (FP) PO SCH (22:40)
[2018-04-16] MEDS: THIAMINE HCL 100 MG TABLET (FP) PO SCH (23:48)
[2018-04-17] MEDS: chlordiazePOXIDE 5 MG CAPSULE PO SCH ×3 (06:01→18:40)
[2018-04-17] MEDS: MAG HYDROX/AL HYDROX/SIMETH 30 ML UNIT-DOSE CUP PO PRN ×2 (06:02→16:30)
[2018-04-17] MEDS: CYCLOBENZAPRINE HCL 5 MG TABLET PO PRN ×2 (06:02→18:40)
[2018-04-17] MEDS: RANITIDINE HCL 150 MG TABLET (FP) PO SCH ×2 (10:25→23:19)
[2018-04-17] MEDS: HYDROCHLOROTHIAZIDE 12.5 MG CAPSULE (FP) PO SCH (10:25)
[2018-04-17] MEDS: PANTOPRAZOLE 40 MG TABLET (FP) PO SCH (10:25)
[2018-04-17] MEDS: LISINOPRIL 10 MG TABLET (FP) PO SCH ×2 (10:25→23:20)
[2018-04-17] MEDS: PRENATAL VITAMINS W/ FOLIC ACID TABLET (FP) PO SCH (10:25)
[2018-04-17] MEDS: METHADONE HCL 5 MG TABLET (FOR DETOX USE ONLY) PO SCH (10:26)
[2018-04-17] MEDS: chlordiazePOXIDE HCL 25 MG CAPSULE PO PRN (14:25)
--- NOTE | 2018-04-17 15:43 | PN ---
S Progress Note (SOAP) Subjective: Diarrhea, stomachache, nausea, sweating, chills, tremor, interrupted sleep Objective: 04/17/18 15:40 Last Vital Signs Temp Pulse Resp BP Pulse Ox 96.8 F L 82 18 152/96 04/17/18 13:22 04/17/18 13:22 04/17/18 13:22 04/17/18 13:22 b/p: 152/96 Laboratory Tests 04/14/18 04/15/18 04/15/18 19:05 06:30 06:30 WBC 6.6 RBC 4.05 Hgb 12.8 Hct 38.5 MCV 95.1 MCH 31.7 MCHC 33.3 RDW 14.2 Plt Count 152 D MPV 9.5 Sodium Potassium Chloride Carbon Dioxide Anion Gap BUN Creatinine Creat Clearance w eGFR Random Glucose Calcium Total Bilirubin AST ALT Alkaline Phosphatase Total Protein Albumin Urine Color Straw Urine Appearance Clear Urine pH 6.0 Ur Specific [place] 1.008 L Urine Protein Negative Urine Glucose (UA) Negative Urine Ketones Negative Urine Blood Negative Urine Nitrite Negative Urine Bilirubin Negative Urine Urobilinogen Negative Ur Leukocyte Esterase Negative RPR Titer HIV 1&2 Antibody Screen Negative HIV P24 Antigen Negative 04/15/18 04/15/18 06:30 06:30 WBC RBC Hgb Hct MCV MCH MCHC RDW Plt Count MPV Sodium 135 L Potassium 3.5 Chloride 100 Carbon Dioxide 26 Anion Gap 9 BUN 12 Creatinine 1.1 Creat Clearance w eGFR > 60 Random Glucose 92 Calcium 8.3 L Total Bilirubin 0.4 AST 23 ALT 22 Alkaline Phosphatase 72 Total Protein 6.3 L Albumin 3.8 Urine Color Urine Appearance Urine pH Ur Specific [place] Urine Protein Urine Glucose (UA) Urine Ketones Urine Blood Urine Nitrite Urine Bilirubin Urine Urobilinogen Ur Leukocyte Esterase RPR Titer Nonreactive HIV 1&2 Antibody Screen HIV P24 Antigen Labs reviewed Assessment: 04/17/18 15:43 Withdrawal symptoms Noted with elevated b/p, has h/o htn Plan: Continue detox HTN: continue antihypertensive, encouraged low sodium diet, encouraged PO water hydration, continue to monitor
[2018-04-17] MEDS: chlordiazePOXIDE HCL 10 MG CAPSULE PO SCH (23:19)
[2018-04-17] MEDS: traZODone HCL 50 MG TABLET (FP) PO SCH (23:19)
[2018-04-17] MEDS: THIAMINE HCL 100 MG TABLET (FP) PO SCH (23:20)
[2018-04-17] MEDS: QUEtiapine FUMARATE 100 MG TABLET (FP) PO SCH (23:20)
[2018-04-18] MEDS: chlordiazePOXIDE HCL 10 MG CAPSULE PO SCH ×3 (06:03→17:46)
[2018-04-18] MEDS: CYCLOBENZAPRINE HCL 5 MG TABLET PO PRN ×2 (06:05→15:20)
[2018-04-18] MEDS: MAG HYDROX/AL HYDROX/SIMETH 30 ML UNIT-DOSE CUP PO PRN (06:07)
[2018-04-18] MEDS ORDERED: METHADONE HCL 10 MG TABLET (FOR DETOX USE ONLY) PO SCH (10:00)
[2018-04-18] MEDS: PRENATAL VITAMINS W/ FOLIC ACID TABLET (FP) PO SCH (10:49)
[2018-04-18] MEDS: PANTOPRAZOLE 40 MG TABLET (FP) PO SCH ×2 (10:50→22:35)
[2018-04-18] MEDS: LISINOPRIL 10 MG TABLET (FP) PO SCH ×2 (10:50→22:37)
[2018-04-18] MEDS: HYDROCHLOROTHIAZIDE 12.5 MG CAPSULE (FP) PO SCH (11:00)
--- NOTE | 2018-04-18 12:30 | PN ---
S Progress Note (SOAP) Subjective: "GAS" CONSTIPATION Objective: 04/18/18 12:27 A & O X 3 SITTING UP ON STRETCHER NO RESP NOR ACUTE DISTRESS NOTED NOTED BELCHING ABDOMEN SOFT, NON TENDER, NORMAL BOWEL SOUNDS Vital Signs Temperature 97.5 F L 04/18/18 09:11 Pulse Rate 80 04/18/18 09:11 Respiratory Rate 18 04/18/18 09:11 Blood Pressure 148/90 04/18/18 09:11 O2 Sat by Pulse Oximetry (%) Assessment: 04/18/18 12:28 WITHDRAWAL SX Plan: CONTINUE DETOX [facility] FOR CONSTIPATION
[2018-04-18] MEDS: MAGNESIUM CITRATE 300 ML BOTTLE PO PRN (15:20)
[2018-04-18] MEDS: QUEtiapine FUMARATE 100 MG TABLET (FP) PO SCH (22:35)
[2018-04-18] MEDS: THIAMINE HCL 100 MG TABLET (FP) PO SCH (22:36)
[2018-04-18] MEDS: traZODone HCL 50 MG TABLET (FP) PO SCH (22:36)
[2018-04-19] MEDS ORDERED: METHADONE HCL 5 MG TABLET (FOR DETOX USE ONLY) PO SCH (06:00)
[2018-04-19] MEDS: CYCLOBENZAPRINE HCL 5 MG TABLET PO PRN (06:15)
--- NOTE | 2018-04-19 08:15 | DS ---
[facility] Detox Discharge Summary Admission Date: 04/14/18 Discharge Date: 04/19/18 - History Present History: Alcohol Dependence, Cannabis Dependence, Opioid Dependence, Sedative Dependence - Physical Exam Results Vital Signs: Vital Signs Temperature 97.2 F L 04/19/18 06:55 Pulse Rate 97 H 04/19/18 06:55 Respiratory Rate 20 04/19/18 06:55 Blood Pressure 128/84 04/19/18 06:55 O2 Sat by Pulse Oximetry (%) - Treatment Hospital Course: Detox Protocol Followed, Detoxed Safely, Responded well, Discharged Condition Good, Rehab Referral Accepted - Medication Discharge Medications: Ambulatory Orders Hydrochlorothiazide [Hctz -] 12.5 mg PO DAILY #14 cap 01/31/18 Lisinopril 10 mg PO BID #60 tablet 03/20/18 Ranitidine HCl 150 mg PO BID #60 tablet 03/20/18 Indomethacin [Indocin] 50 mg PO BID 03/29/18 Naproxen [Naprosyn -] 375 mg PO BID PRN #60 tablet 03/31/18 Quetiapine Fumarate [Seroquel] 100 mg PO HS #30 tablet 03/31/18 Quetiapine Fumarate [Seroquel] 100 mg PO HS #30 tablet 04/16/18 - Diagnosis (1) Elevated blood pressure reading in office with diagnosis of hypertension Current Visit: Yes Status: Acute (2) Insomnia Current Visit: Yes Status: Acute (3) Alcohol dependence with uncomplicated withdrawal Current Visit: Yes Status: Chronic (4) Asthma Current Visit: Yes Status: Chronic Qualifiers: Asthma severity: mild Asthma persistence: intermittent (5) GERD (gastroesophageal reflux disease) Current Visit: Yes Status: Chronic Qualifiers: Esophagitis presence: without esophagitis (6) Gout Current Visit: Yes Status: Chronic Qualifiers: Gout site: unspecified site Chronicity: unspecified (7) HTN (hypertension) Current Visit: Yes Status: Chronic Qualifiers: Hypertension type: essential hypertension (8) Nicotine dependence Current Visit: Yes Status: Chronic Qualifiers: Nicotine product type: cigarettes Substance use status: uncomplicated Qualified Code(s): F17.210 - Nicotine dependence, cigarettes, uncomplicated (9) Opioid dependence with withdrawal Current Visit: Yes Status: Chronic (10) PTSD (post-traumatic stress disorder) Current Visit: Yes Status: Chronic (11) Sedative, hypnotic or anxiolytic dependence with withdrawal, uncomplicated Current Visit: Yes Status: Chronic (12) Substance induced mood disorder Current Visit: Yes Status: Chronic (13) Cannabis abuse Current Visit: No Status: Acute (14) Substance induced mood disorder Current Visit: No Status: Acute (15) Substance-induced sleep disorder Current Visit: No Status: Acute (16) Substance-induced sleep disorder Current Visit: No Status: Acute (17) Anemia Current Visit: No Status: Chronic Qualifiers: Anemia type: iron deficiency (18) Anxiety Current Visit: No Status: Chronic (19) Depressed affect Current Visit: No Status: Chronic (20) Depression Current Visit: No Status: Chronic Qualifiers: Depression Type: major depressive disorder Active/Remission status: currently active (21) Substance induced mood disorder Current Visit: No Status: Chronic - AMA Did Patient Leave Against Medical Advice: No (declined referral for rehab)
[2018-04-19 09:56] VITALS: BP 148/101; PULSE 100; TEMP 97
[2018-04-19] MEDS: PRENATAL VITAMINS W/ FOLIC ACID TABLET (FP) PO SCH (10:48)
[2018-04-19] MEDS: HYDROCHLOROTHIAZIDE 12.5 MG CAPSULE (FP) PO SCH (10:48)
[2018-04-19] MEDS: PANTOPRAZOLE 40 MG TABLET (FP) PO SCH (10:48)
[2018-04-19] MEDS: LISINOPRIL 10 MG TABLET (FP) PO SCH (10:49)
== END 2018-04-19 11:00 | disposition home or self-care (01) | DRG 773 ==
LOC: YASAS 10:58 → Y6N 16:46
PROVIDERS: ADMIT Surgery; ATTEND Surgery
PROC: HZ2ZZZZ Detoxification Services for Substance Abuse Treatment (ICD-10-PCS; principal; 2018-04-14)
DX: F11.23 Opioid dependence with withdrawal (principal); F10.230 Alcohol dependence with withdrawal, uncomplicated; F13.230 Sedative, hypnotic or anxiolytic dependence with withdrawal, uncomplicated; F12.10 Cannabis abuse, uncomplicated; F17.210 Nicotine dependence, cigarettes, uncomplicated; F43.10 Post-traumatic stress disorder, unspecified; F19.24 Other psychoactive substance dependence with psychoactive substance-induced mood disorder; F19.282 Other psychoactive substance dependence with psychoactive substance-induced sleep disorder; F41.9 Anxiety disorder, unspecified; F32.9 Major depressive disorder, single episode, unspecified; I10 Essential (primary) hypertension; G47.00 Insomnia, unspecified; J45.20 Mild intermittent asthma, uncomplicated; K21.9 Gastro-esophageal reflux disease without esophagitis; M10.9 Gout, unspecified; D50.9 Iron deficiency anemia, unspecified; E66.9 Obesity, unspecified; Z68.30 Body mass index [BMI] 30.0-30.9, adult; Z88.0 Allergy status to penicillin
CPT/HCPCS: 36415; 80053; 81003; 85027; 86593; 87389; J0735

== ENCOUNTER 2018-05-07 07:59 | Inpatient (IN) | payer OTHER ==
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
[2018-05-07 08:30] VITALS: BMI 29.8
[2018-05-07] MEDS ORDERED: MAGNESIUM HYDROX 2400MG/30ML ORAL SUSPENSION 30 ML CUP PO PRN (08:59)
[2018-05-07] MEDS ORDERED: BISMUTH SUBSALICYLATE 524 MG/30 ML UD PO PRN (08:59)
[2018-05-07] MEDS ORDERED: MAG HYDROX/AL HYDROX/SIMETH 30 ML UNIT-DOSE CUP PO PRN (08:59)
[2018-05-07] MEDS ORDERED: ACETAMINOPHEN 325 MG TABLET (FP) PO PRN ×2 (08:59)
[2018-05-07] MEDS ORDERED: MENTHOL/PHENOL 1 EACH UD MM PRN (08:59)
[2018-05-07] MEDS ORDERED: chlordiazePOXIDE HCL 25 MG CAPSULE PO PRN (08:59)
[2018-05-07] MEDS ORDERED: MAGNESIUM CITRATE 300 ML BOTTLE PO PRN (08:59)
[2018-05-07] MEDS: PRENATAL VITAMINS W/ FOLIC ACID TABLET (FP) PO SCH (10:41)
[2018-05-07] MEDS: HYDROCHLOROTHIAZIDE 12.5 MG CAPSULE (FP) PO SCH (10:42)
[2018-05-07] MEDS: LISINOPRIL 10 MG TABLET (FP) PO SCH ×2 (10:42→23:27)
[2018-05-07] MEDS: chlordiazePOXIDE HCL 25 MG CAPSULE PO SCH ×3 (10:42→23:26)
[2018-05-07] MEDS: cloNIDine HCL 0.1 MG TABLET PO SCH ×2 (10:42→23:26)
[2018-05-07] MEDS: RANITIDINE HCL 150 MG TABLET (FP) PO SCH ×2 (10:42→23:27)
[2018-05-07] MEDS: QUEtiapine FUMARATE 100 MG TABLET (FP) PO SCH (23:26)
[2018-05-07] MEDS: THIAMINE HCL 100 MG TABLET (FP) PO SCH (23:27)
[2018-05-08] MEDS: chlordiazePOXIDE HCL 25 MG CAPSULE PO SCH ×4 (05:11→23:06)
--- NOTE | 2018-05-08 09:38 | PN ---
S CIWA - CIWA Score Nausea/Vomitin-No Nausea/No Vomiting Muscle Tremors: 2 Anxiety: 1-Mildly Anxious Agitation: 3 Paroxysmal Sweats: 1-Minimal Palms Moist Orientation: 1-Uncertain about Date Tacttile Disturbances: 0-None Auditory Disturbances: 0-None Visual Disturbances: 0-None Headache: 1-Very Mild CIWA-Ar Total Score: 9 BHS Progress Note (SOAP) Subjective: 37 years old male admitted on 05/07/18 for alcohol and benzo withdrawal stabilization experiencing tremor sweating trouble sleep at night muscle cramping patient requesting for valium xanax for anxiety discuss risks of benzo related to addiction patient currently taking librium as detox regimen and dose not want to giving up librium "works well" Objective: 05/08/18 09:42 Vital Signs Temperature 97.9 F 05/08/18 09:29 Pulse Rate 84 05/08/18 09:29 Respiratory Rate 20 05/08/18 09:29 Blood Pressure 130/86 05/08/18 09:29 O2 Sat by Pulse Oximetry (%) 05/08/18 09:42 lab pending Assessment: 05/08/18 09:42 alcohol and benzo withdrawal sx Plan: continue detox discuss alternative to valium and xanax for anxiety denies psychiatric hospitalization denies seeing psychiatrist regularly denies history of suicidal ideation nor attempted
[2018-05-08] MEDS: LISINOPRIL 10 MG TABLET (FP) PO SCH ×2 (10:07→23:05)
[2018-05-08] MEDS: cloNIDine HCL 0.1 MG TABLET PO SCH ×2 (10:07→23:05)
[2018-05-08] MEDS: PRENATAL VITAMINS W/ FOLIC ACID TABLET (FP) PO SCH (10:07)
[2018-05-08] MEDS: RANITIDINE HCL 150 MG TABLET (FP) PO SCH ×2 (10:07→23:05)
[2018-05-08] MEDS: HYDROCHLOROTHIAZIDE 12.5 MG CAPSULE (FP) PO SCH (10:07)
[2018-05-08 11:25] LABS: HEMATOCRIT 41.8 % (35.4-49); HEMOGLOBIN 14.3 GM/dL (11.7-16.9); MCH 31.7 pg (25.7-33.7); MCHC 34.3 g/dl (32.0-35.9); MEAN CELL VOLUME 92.5 fl (80-96); MEAN PLT VOLUME 8.4 fl (7.5-11.1); PLATELET COUNT 252 K/MM3 (134-434); RBC 4.52 M/mm3 (4.00-5.60); RDW 14.3 % (11.9-15.9)
[2018-05-08 11:58] LABS: ALK PHOS 88 U/L (45-117); ANION GAP 8 MMOL/L (8-16); BILIRUBIN,TOTAL 0.6 mg/dL (0.2-1); BLOOD UREA NITROGEN 11 mg/dL (7-18); CALCIUM 8.8 mg/dL (8.5-10.1); CHLORIDE 100 mmol/L (98-107); CO2 28 mmol/L (21-32); CREATININE 1.3 mg/dL (0.55-1.3); GLUCOSE,RANDOM 99 mg/dL (74-106); POTASSIUM 3.7 mmol/L (3.5-5.1); SGOT/AST 26 U/L (15-37); SGPT/ALT 43 U/L (13-61); SODIUM 136 mmol/L (136-145)
[2018-05-08 17:23] LABS: URINE APPEARANCE CLEAR; URINE BILIRUBIN NEGATIVE (<2.0 mg/dL); URINE COLOR LTYELLOW; URINE GLUCOSE (UA) NEGATIVE (NEGATIVE); URINE KETONE NEGATIVE (NEGATIVE); URINE LEUK ESTERASE NEGATIVE (NEGATIVE); URINE NITRITE NEGATIVE (NEGATIVE); URINE PROTEIN NEGATIVE (NEGATIVE); URINE UROBILINOGEN NEGATIVE mg/dL (0.2-1.0)
[2018-05-08] MEDS: METHOCARBAMOL 500 MG TABLET PO PRN (17:23)
[2018-05-08] MEDS: IBUPROFEN 400 MG TABLET (FP) PO PRN (21:15)
[2018-05-08] MEDS: hydrOXYzine PAMOATE 25 MG CAPSULE (FP) PO PRN (21:16)
[2018-05-08] MEDS: THIAMINE HCL 100 MG TABLET (FP) PO SCH (23:05)
[2018-05-08] MEDS: QUEtiapine FUMARATE 100 MG TABLET (FP) PO SCH (23:05)
[2018-05-08] MEDS: MELATONIN 5 MG TABLETS PO PRN (23:06)
[2018-05-09] MEDS: chlordiazePOXIDE HCL 25 MG CAPSULE PO SCH (05:21)
[2018-05-09] MEDS: IBUPROFEN 400 MG TABLET (FP) PO PRN ×2 (05:22→18:09)
--- NOTE | 2018-05-09 09:30 | PN ---
S CIWA - CIWA Score Nausea/Vomitin-No Nausea/No Vomiting Muscle Tremors: 2 Anxiety: 2 Agitation: 1-Slight > Activity Paroxysmal Sweats: 1-Minimal Palms Moist Orientation: 1-Uncertain about Date Tacttile Disturbances: 0-None Auditory Disturbances: 0-None Visual Disturbances: 0-None Headache: 0-None Present CIWA-Ar Total Score: 7 BHS Progress Note (SOAP) Subjective: tremor sweating mild indigestion treated with Maalox with good effect Objective: 05/09/18 09:32 Vital Signs Temperature 97.1 F L 05/09/18 09:13 Pulse Rate 82 05/09/18 09:13 Respiratory Rate 18 05/09/18 09:13 Blood Pressure 119/71 05/09/18 09:13 O2 Sat by Pulse Oximetry (%) Laboratory Last Values WBC 6.0 K/mm3 (4.0-10.0) 05/08/18 07:35 RBC 4.52 M/mm3 (4.00-5.60) 05/08/18 07:35 Hgb 14.3 GM/dL (11.7-16.9) 05/08/18 07:35 Hct 41.8 % (35.4-49) 05/08/18 07:35 MCV 92.5 fl (80-96) 05/08/18 07:35 MCH 31.7 pg (25.7-33.7) 05/08/18 07:35 MCHC 34.3 g/dl (32.0-35.9) 05/08/18 07:35 RDW 14.3 % (11.9-15.9) 05/08/18 07:35 Plt Count 252 K/MM3 (134-434) D 05/08/18 07:35 MPV 8.4 fl (7.5-11.1) D 05/08/18 07:35 Sodium 136 mmol/L (136-145) 05/08/18 07:35 Potassium 3.7 mmol/L (3.5-5.1) 05/08/18 07:35 Chloride 100 mmol/L (98-107) 05/08/18 07:35 Carbon Dioxide 28 mmol/L (21-32) 05/08/18 07:35 Anion Gap 8 MMOL/L (8-16) 05/08/18 07:35 BUN 11 mg/dL (7-18) 05/08/18 07:35 Creatinine 1.3 mg/dL (0.55-1.3) 05/08/18 07:35 Creat Clearance w eGFR 61.78 (>60) 05/08/18 07:35 Random Glucose 99 mg/dL (74-106) 05/08/18 07:35 Calcium 8.8 mg/dL (8.5-10.1) 05/08/18 07:35 Total Bilirubin 0.6 mg/dL (0.2-1) 05/08/18 07:35 AST 26 U/L (15-37) 05/08/18 07:35 ALT 43 U/L (13-61) 05/08/18 07:35 Alkaline Phosphatase 88 U/L (45-117) 05/08/18 07:35 Total Protein 7.0 g/dl (6.4-8.2) 05/08/18 07:35 Albumin 4.0 g/dl (3.4-5.0) 05/08/18 07:35 Urine Color Ltyellow 05/08/18 14:30 Urine Appearance Clear 05/08/18 14:30 Urine pH 5.0 (5.0-8.0) 05/08/18 14:30 Ur Specific [place] 1.019 (1.010-1.035) 05/08/18 14:30 Urine Protein Negative (NEGATIVE) 05/08/18 14:30 Urine Glucose (UA) Negative (NEGATIVE) 05/08/18 14:30 Urine Ketones Negative (NEGATIVE) 05/08/18 14:30 Urine Blood Negative (NEGATIVE) 05/08/18 14:30 Urine Nitrite Negative (NEGATIVE) 05/08/18 14:30 Urine Bilirubin Negative (<2.0 mg/dL) 05/08/18 14:30 Urine Urobilinogen Negative mg/dL (0.2-1.0) 05/08/18 14:30 Ur Leukocyte Esterase Negative (NEGATIVE) 05/08/18 14:30 RPR Titer Nonreactive (NONREACTIVE) 05/08/18 07:35 lab noted Assessment: 05/09/18 09:33 alcohol and benzo withdrawal sx Plan: continue detox patient wants methadone because [facility] he received methadone discuss negative urine for opiate encourage the patient to walk in methadone maintenance treatment program patient expressing fix daily schedule not suitable to his schedule discuss soboxone program patient agrees to consider
[2018-05-09] MEDS: cloNIDine HCL 0.1 MG TABLET PO SCH ×2 (10:22→22:18)
[2018-05-09] MEDS: chlordiazePOXIDE HCL 10 MG CAPSULE PO SCH ×3 (10:22→22:18)
[2018-05-09] MEDS: LISINOPRIL 10 MG TABLET (FP) PO SCH ×2 (10:22→22:19)
[2018-05-09] MEDS: RANITIDINE HCL 150 MG TABLET (FP) PO SCH ×2 (10:23→22:18)
[2018-05-09] MEDS: HYDROCHLOROTHIAZIDE 12.5 MG CAPSULE (FP) PO SCH (10:23)
[2018-05-09] MEDS: PRENATAL VITAMINS W/ FOLIC ACID TABLET (FP) PO SCH (10:23)
[2018-05-09] MEDS: hydrOXYzine PAMOATE 25 MG CAPSULE (FP) PO PRN (10:24)
[2018-05-09] MEDS: METHOCARBAMOL 500 MG TABLET PO PRN ×2 (10:24→18:10)
[2018-05-09] MEDS ORDERED: chlordiazePOXIDE HCL 10 MG CAPSULE PO PRN (11:00)
--- NOTE | 2018-05-09 16:52 | PN ---
[facility] Progress Note Note: Psychiatry Attending's note : Approached by patient in the office. Came spontaneously. Complaint : insomnia. " 100 mg of seroquel is not enough for me ". " I stay awake at night ". Mr García is requesting a dose increment. Sleep hygiene revisited with the patient. Seroquel 100 mg po hs : discontinued. Seroquel 200 mg po hs. Ordered. Side effects/benefits discussed. Patient agrees to this plan of care.
[2018-05-09] MEDS ORDERED: traZODone HCL 50 MG TABLET (FP) PO ONE (22:00)
[2018-05-09] MEDS: THIAMINE HCL 100 MG TABLET (FP) PO SCH (22:18)
[2018-05-09] MEDS: QUEtiapine FUMARATE 200 MG TABLET PO SCH (22:18)
[2018-05-09] MEDS: MELATONIN 5 MG TABLETS PO PRN (22:19)
[2018-05-10] MEDS: chlordiazePOXIDE HCL 10 MG CAPSULE PO SCH ×3 (05:31→22:10)
[2018-05-10] MEDS: METHOCARBAMOL 500 MG TABLET PO PRN ×2 (05:36→14:37)
--- NOTE | 2018-05-10 09:25 | PN ---
[facility] CIWA - CIWA Score Nausea/Vomitin-No Nausea/No Vomiting Muscle Tremors: 1-None Visible, but [place] Anxiety: 1-Mildly Anxious Agitation: 1-Slight > Activity Paroxysmal Sweats: 1-Minimal Palms Moist Orientation: 0-Oriented Tacttile Disturbances: 0-None Auditory Disturbances: 0-None Visual Disturbances: 0-None Headache: 0-None Present CIWA-Ar Total Score: 4 S Progress Note (SOAP) Subjective: feeling better discuss aftercare with staff interesting in recovery program mild tremor less sweating little anxiousness today encourage and motivate the patient toward sobriety Objective: 05/10/18 09:27 Vital Signs Temperature 95.9 F L 05/10/18 09:18 Pulse Rate 83 05/10/18 09:18 Respiratory Rate 18 05/10/18 09:18 Blood Pressure 136/84 05/10/18 09:18 O2 Sat by Pulse Oximetry (%) Laboratory Last Values WBC 6.0 K/mm3 (4.0-10.0) 05/08/18 07:35 RBC 4.52 M/mm3 (4.00-5.60) 05/08/18 07:35 Hgb 14.3 GM/dL (11.7-16.9) 05/08/18 07:35 Hct 41.8 % (35.4-49) 05/08/18 07:35 MCV 92.5 fl (80-96) 05/08/18 07:35 MCH 31.7 pg (25.7-33.7) 05/08/18 07:35 MCHC 34.3 g/dl (32.0-35.9) 05/08/18 07:35 RDW 14.3 % (11.9-15.9) 05/08/18 07:35 Plt Count 252 K/MM3 (134-434) D 05/08/18 07:35 MPV 8.4 fl (7.5-11.1) D 05/08/18 07:35 Sodium 136 mmol/L (136-145) 05/08/18 07:35 Potassium 3.7 mmol/L (3.5-5.1) 05/08/18 07:35 Chloride 100 mmol/L (98-107) 05/08/18 07:35 Carbon Dioxide 28 mmol/L (21-32) 05/08/18 07:35 Anion Gap 8 MMOL/L (8-16) 05/08/18 07:35 BUN 11 mg/dL (7-18) 05/08/18 07:35 Creatinine 1.3 mg/dL (0.55-1.3) 05/08/18 07:35 Creat Clearance w eGFR 61.78 (>60) 05/08/18 07:35 Random Glucose 99 mg/dL (74-106) 05/08/18 07:35 Calcium 8.8 mg/dL (8.5-10.1) 05/08/18 07:35 Total Bilirubin 0.6 mg/dL (0.2-1) 05/08/18 07:35 AST 26 U/L (15-37) 05/08/18 07:35 ALT 43 U/L (13-61) 05/08/18 07:35 Alkaline Phosphatase 88 U/L (45-117) 05/08/18 07:35 Total Protein 7.0 g/dl (6.4-8.2) 05/08/18 07:35 Albumin 4.0 g/dl (3.4-5.0) 05/08/18 07:35 Urine Color Ltyellow 05/08/18 14:30 Urine Appearance Clear 05/08/18 14:30 Urine pH 5.0 (5.0-8.0) 05/08/18 14:30 Ur Specific [place] 1.019 (1.010-1.035) 05/08/18 14:30 Urine Protein Negative (NEGATIVE) 05/08/18 14:30 Urine Glucose (UA) Negative (NEGATIVE) 05/08/18 14:30 Urine Ketones Negative (NEGATIVE) 05/08/18 14:30 Urine Blood Negative (NEGATIVE) 05/08/18 14:30 Urine Nitrite Negative (NEGATIVE) 05/08/18 14:30 Urine Bilirubin Negative (<2.0 mg/dL) 05/08/18 14:30 Urine Urobilinogen Negative mg/dL (0.2-1.0) 05/08/18 14:30 Ur Leukocyte Esterase Negative (NEGATIVE) 05/08/18 14:30 RPR Titer Nonreactive (NONREACTIVE) 05/08/18 07:35 lab noted Assessment: 05/10/18 09:27 mild alcohol and benzo withdrawal sx Plan: continue detox
[2018-05-10] MEDS: cloNIDine HCL 0.1 MG TABLET PO SCH ×2 (10:15→22:09)
[2018-05-10] MEDS: PRENATAL VITAMINS W/ FOLIC ACID TABLET (FP) PO SCH (10:15)
[2018-05-10] MEDS: HYDROCHLOROTHIAZIDE 12.5 MG CAPSULE (FP) PO SCH (10:15)
[2018-05-10] MEDS: LISINOPRIL 10 MG TABLET (FP) PO SCH ×2 (10:15→22:09)
[2018-05-10] MEDS: RANITIDINE HCL 150 MG TABLET (FP) PO SCH ×2 (10:15→22:09)
[2018-05-10] MEDS: IBUPROFEN 400 MG TABLET (FP) PO PRN ×2 (10:16→20:03)
[2018-05-10] MEDS: THIAMINE HCL 100 MG TABLET (FP) PO SCH (22:09)
[2018-05-10] MEDS: QUEtiapine FUMARATE 200 MG TABLET PO SCH (22:10)
[2018-05-10] MEDS: MELATONIN 5 MG TABLETS PO PRN (22:10)
[2018-05-11] MEDS: IBUPROFEN 400 MG TABLET (FP) PO PRN (06:32)
[2018-05-11] MEDS: METHOCARBAMOL 500 MG TABLET PO PRN (06:33)
[2018-05-11 10:09] VITALS: BP 120/80; PULSE 86; TEMP 97.8
[2018-05-11] MEDS: PRENATAL VITAMINS W/ FOLIC ACID TABLET (FP) PO SCH (10:12)
[2018-05-11] MEDS: RANITIDINE HCL 150 MG TABLET (FP) PO SCH (10:13)
[2018-05-11] MEDS: HYDROCHLOROTHIAZIDE 12.5 MG CAPSULE (FP) PO SCH (10:13)
[2018-05-11] MEDS: cloNIDine HCL 0.1 MG TABLET PO SCH (10:13)
[2018-05-11] MEDS: LISINOPRIL 10 MG TABLET (FP) PO SCH (10:13)
[2018-05-11] MEDS: chlordiazePOXIDE HCL 10 MG CAPSULE PO SCH (10:13)
--- NOTE | 2018-05-11 10:22 | DS ---
[facility] Detox Discharge Summary Admission Date: 05/07/18 Discharge Date: 05/11/18 - History Present History: Alcohol Dependence, Sedative Dependence Additional Comments: 37 years old male admitted on 05/07/18 for alcohol and benzo withdrawal stabilization completed detox regimen aftercare [facility] - Physical Exam Results Vital Signs: Vital Signs Temperature 97.8 F 05/11/18 10:09 Pulse Rate 86 05/11/18 10:09 Respiratory Rate 20 05/11/18 10:09 Blood Pressure 120/80 05/11/18 10:09 O2 Sat by Pulse Oximetry (%) Pertinent Admission Physical Exam Findings: alcohol and benzo withdrawal sx Laboratory Last Values WBC 6.0 K/mm3 (4.0-10.0) 05/08/18 07:35 RBC 4.52 M/mm3 (4.00-5.60) 05/08/18 07:35 Hgb 14.3 GM/dL (11.7-16.9) 05/08/18 07:35 Hct 41.8 % (35.4-49) 05/08/18 07:35 MCV 92.5 fl (80-96) 05/08/18 07:35 MCH 31.7 pg (25.7-33.7) 05/08/18 07:35 MCHC 34.3 g/dl (32.0-35.9) 05/08/18 07:35 RDW 14.3 % (11.9-15.9) 05/08/18 07:35 Plt Count 252 K/MM3 (134-434) D 05/08/18 07:35 MPV 8.4 fl (7.5-11.1) D 05/08/18 07:35 Sodium 136 mmol/L (136-145) 05/08/18 07:35 Potassium 3.7 mmol/L (3.5-5.1) 05/08/18 07:35 Chloride 100 mmol/L (98-107) 05/08/18 07:35 Carbon Dioxide 28 mmol/L (21-32) 05/08/18 07:35 Anion Gap 8 MMOL/L (8-16) 05/08/18 07:35 BUN 11 mg/dL (7-18) 05/08/18 07:35 Creatinine 1.3 mg/dL (0.55-1.3) 05/08/18 07:35 Creat Clearance w eGFR 61.78 (>60) 05/08/18 07:35 Random Glucose 99 mg/dL (74-106) 05/08/18 07:35 Calcium 8.8 mg/dL (8.5-10.1) 05/08/18 07:35 Total Bilirubin 0.6 mg/dL (0.2-1) 05/08/18 07:35 AST 26 U/L (15-37) 05/08/18 07:35 ALT 43 U/L (13-61) 05/08/18 07:35 Alkaline Phosphatase 88 U/L (45-117) 05/08/18 07:35 Total Protein 7.0 g/dl (6.4-8.2) 05/08/18 07:35 Albumin 4.0 g/dl (3.4-5.0) 05/08/18 07:35 Urine Color Ltyellow 05/08/18 14:30 Urine Appearance Clear 05/08/18 14:30 Urine pH 5.0 (5.0-8.0) 05/08/18 14:30 Ur Specific [place] 1.019 (1.010-1.035) 05/08/18 14:30 Urine Protein Negative (NEGATIVE) 05/08/18 14:30 Urine Glucose (UA) Negative (NEGATIVE) 05/08/18 14:30 Urine Ketones Negative (NEGATIVE) 05/08/18 14:30 Urine Blood Negative (NEGATIVE) 05/08/18 14:30 Urine Nitrite Negative (NEGATIVE) 05/08/18 14:30 Urine Bilirubin Negative (<2.0 mg/dL) 05/08/18 14:30 Urine Urobilinogen Negative mg/dL (0.2-1.0) 05/08/18 14:30 Ur Leukocyte Esterase Negative (NEGATIVE) 05/08/18 14:30 RPR Titer Nonreactive (NONREACTIVE) 05/08/18 07:35 lab noted - Treatment Hospital Course: Detox Protocol Followed, Detoxed Safely, Responded well, Discharged Condition Good, Rehab Referral Accepted Patient has Accepted a Rehab Referral to: [facility] - Medication Discharge Medications: Ambulatory Orders Ranitidine HCl 150 mg PO BID #60 tablet 03/20/18 Naproxen [Naprosyn -] 375 mg PO BID PRN #60 tablet 02/07/19 Quetiapine Fumarate [Seroquel] 100 mg PO HS #30 tablet 03/31/18 Hydrochlorothiazide [Hctz -] 12.5 mg PO DAILY #14 cap 05/10/18 Indomethacin [Indocin] 50 mg PO BID #30 oral.susp 05/10/18 Lisinopril 10 mg PO BID #30 tablet 05/10/18 - Diagnosis (1) Substance induced mood disorder Current Visit: Yes Status: Suspected (2) Asthma Current Visit: Yes Status: Chronic Qualifiers: Asthma severity: mild Asthma persistence: intermittent Asthma complication type: with status asthmaticus Qualified Code(s): J45.22 - Mild intermittent asthma with status asthmaticus (3) GERD (gastroesophageal reflux disease) Current Visit: Yes Status: Chronic Qualifiers: Esophagitis presence: without esophagitis Qualified Code(s): K21.9 - Gastro -esophageal reflux disease without esophagitis (4) HTN (hypertension) Current Visit: Yes Status: Chronic Qualifiers: Hypertension type: essential hypertension Qualified Code(s): I10 - Essential (primary) hypertension (5) Nicotine dependence Current Visit: Yes Status: Acute Qualifiers: Nicotine product type: cigarettes Substance use status: in withdrawal Qualified Code(s): F17.213 - Nicotine dependence, cigarettes, with withdrawal (6) Sedative, hypnotic or anxiolytic dependence with withdrawal, uncomplicated Current Visit: Yes Status: Acute - AMA Did Patient Leave Against Medical Advice: No
== END 2018-05-11 11:30 | disposition home or self-care (01) | DRG 773 ==
LOC: YASAS 07:59 → Y3N 09:45
PROVIDERS: ADMIT Surgery; ATTEND Surgery
PROC: HZ2ZZZZ Detoxification Services for Substance Abuse Treatment (ICD-10-PCS; principal; 2018-05-07)
DX: F10.230 Alcohol dependence with withdrawal, uncomplicated (principal); F13.230 Sedative, hypnotic or anxiolytic dependence with withdrawal, uncomplicated; F11.10 Opioid abuse, uncomplicated; F17.213 Nicotine dependence, cigarettes, with withdrawal; F19.24 Other psychoactive substance dependence with psychoactive substance-induced mood disorder; I10 Essential (primary) hypertension; K21.9 Gastro-esophageal reflux disease without esophagitis; J45.22 Mild intermittent asthma with status asthmaticus; G47.00 Insomnia, unspecified; Z88.0 Allergy status to penicillin; Z91.14 Patient's other noncompliance with medication regimen
CPT/HCPCS: 36415; 80053; 81003; 85027; 86593; J0735

== ENCOUNTER 2018-06-15 12:33 | Inpatient (IN) | payer OTHER ==
[2018-06-15 14:42] VITALS: BMI 34.0
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
[2018-06-15] MEDS ORDERED: GABAPENTIN 300 MG CAPSULE (FP) PO PRN (17:46)
[2018-06-15] MEDS ORDERED: ONDANSETRON *ODT* 4 MG TABLET SL PRN (17:52)
[2018-06-15] MEDS ORDERED: MAGNESIUM CITRATE 300 ML BOTTLE PO PRN (18:03)
[2018-06-15] MEDS ORDERED: BISMUTH SUBSALICYLATE 524 MG/30 ML UD PO PRN (18:03)
[2018-06-15] MEDS ORDERED: chlordiazePOXIDE HCL 25 MG CAPSULE PO PRN (18:03)
[2018-06-15] MEDS ORDERED: MAG HYDROX/AL HYDROX/SIMETH 30 ML UNIT-DOSE CUP PO PRN (18:03)
[2018-06-15] MEDS ORDERED: P-EPHED 60MG/TRIPROLIDI 2.5MG TABLET PO PRN (18:03)
[2018-06-15] MEDS ORDERED: MAGNESIUM HYDROX 2400MG/30ML ORAL SUSPENSION 30 ML CUP PO PRN (18:03)
[2018-06-15] MEDS ORDERED: MENTHOL/PHENOL 1 EACH UD MM PRN (18:03)
[2018-06-15] MEDS ORDERED: NICOTINE POLACRILEX 2 MG GUM BUC PRN (18:03)
[2018-06-15] MEDS ORDERED: IBUPROFEN 400 MG TABLET (FP) PO PRN (18:03)
[2018-06-15] MEDS: cloNIDine HCL 0.1 MG TABLET PO PRN (20:15)
[2018-06-15] MEDS ORDERED: traZODone HCL 50 MG TABLET (FP) PO ONE (22:00)
[2018-06-15] MEDS ORDERED: QUEtiapine FUMARATE 50 MG TABLET PO ONE (22:00)
[2018-06-15] MEDS: chlordiazePOXIDE HCL 25 MG CAPSULE PO SCH (22:10)
[2018-06-15] MEDS: THIAMINE HCL 100 MG TABLET (FP) PO SCH (22:10)
[2018-06-15] MEDS: LISINOPRIL 10 MG TABLET (FP) PO SCH (22:11)
[2018-06-15] MEDS: RANITIDINE HCL 150 MG TABLET (FP) PO SCH (22:11)
[2018-06-15] MEDS ORDERED: METHADONE HCL 10 MG TABLET (FOR DETOX USE ONLY) PO ONE (23:00)
[2018-06-15 23:09] LABS: URINE APPEARANCE CLEAR; URINE BILIRUBIN NEGATIVE (NEGATIVE); URINE COLOR YELLOW; URINE GLUCOSE (UA) NEGATIVE (NEGATIVE); URINE KETONE NEGATIVE (NEGATIVE); URINE LEUK ESTERASE NEGATIVE (NEGATIVE); URINE NITRITE NEGATIVE (NEGATIVE); URINE PROTEIN NEGATIVE (NEGATIVE); URINE UROBILINOGEN 0.2 mg/dL (0.2-1.0)
[2018-06-16] MEDS: chlordiazePOXIDE HCL 25 MG CAPSULE PO SCH ×4 (05:15→22:14)
--- NOTE | 2018-06-16 08:46 | CONSULT ---
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 This is one of multiple admissions for patient. Patient admitted to for alcohol and opioid dependence. Substance Abuse History: Smoking Cessation. Smoking history: Never smoked. Have you smoked in the past 12 months: Yes. Aproximately how many cigarettes per day: 4. If you are a former smoker, when did you quit?: 2007. Hx Chewing Tobacco Use: No. Initiated information on smoking cessation: Yes. 'Breaking Loose' booklet given: 06/15/18. - Substance & Tx. History. Hx Alcohol Use: Yes. Hx Substance Use: Yes. Substance Use Type: Alcohol, Opiates. Hx Substance Use Treatment: Yes (Last Detox [facility] 05/07/18 -05/11/18 , reports attended rehab at [facility]). - Substances abused. Alcohol. Substance route: Oral. Frequency: Daily. Amount used: 4-6 PINTS OF VODKA. Age of first use: 15. Date of last use: 06/15/18. Other. Other (specify): PERCOCET. Substance route: Oral. Frequency: Daily. Amount used: 6-10 PILLS. Age of first use: 29. Date of last use: 06/15/18. Alprazolam (Xanax). Substance route: Oral. Frequency: Daily. Amount used: 2 - 4 mg. Age of first use: 31. Date of last use: 06/14/18 Medical History: anemia, asthma, hypertension, acid reflux Psychiatric History: Patient denies h/o psychiatric hospitalizations, outpatient care, and suicide attempt. Patient reports only receiving psychiatric care when admitted to detox/rehab settings. Patient known to facility and has accepted seroquel 100mg for insomnia with favorable effect. Patient reports detox treatment at [facility] last week and was started on prozac 20mg for depression. At present patient reports stable mood but is experiencing difficulty sleeping. Physical/Sexual Abuse/Trauma History: denies Mental Status Exam - Mental Status Exam Alert and Oriented to: Time, Place, Person Cognitive Function: Good Patient Appearance: Well Groomed Mood: Euthymic Affect: Mood Congruent Patient Behavior: Cooperative Speech Pattern: Appropriate Voice Loudness: Normal Thought Process: Goal Oriented Thought Disorder: Not Present Hallucinations: Denies Suicidal Ideation: Denies Homicidal Ideation: Denies Insight/Judgement: Poor Sleep: Poorly Appetite: Fair Muscle strength/Tone: Normal Gait/Station: Normal Psychiatric Findings - Problem List ([place] 1, 2,3) (1) Opioid dependence with withdrawal Current Visit: Yes Status: Acute (2) Sedative, hypnotic or anxiolytic dependence with withdrawal, uncomplicated Current Visit: Yes Status: Acute (3) Alcohol dependence with uncomplicated withdrawal Current Visit: Yes Status: Chronic Comment: . (4) Substance-induced sleep disorder Current Visit: Yes Status: Acute (5) Substance induced mood disorder Current Visit: Yes Status: Acute - Initial Treatment Plan Initial Treatment Plan: Psychoeducation provided. Detoxification in progress. Will order Prozac 20mg + Seroquel 100mg HS. Benefits and side effects discussed. Verbal consent given.
--- NOTE | 2018-06-16 09:59 | PN ---
[facility] CIWA - CIWA Score Nausea/Vomitin-Mild Nausea/No Vomiting Muscle Tremors: 2 Anxiety: 3 Agitation: 2 Paroxysmal Sweats: 1-Minimal Palms Moist Orientation: 3-Disoriented Date>2 days Tacttile Disturbances: 0-None Auditory Disturbances: 0-None Visual Disturbances: 0-None Headache: 1-Very Mild CIWA-Ar Total Score: 13 S COWS - Scale Resting Pulse: 0= HI 80 or Below Sweatin= Chills/Flushing Restless Observation: 0= Sits Still Pupil Size: 0= Normal to Room Light Bone or Joint Aches: 1= Mild Discomfort Runny Nose/ Eye Tearin= Nasal Congestion GI Upset > 30mins: 1= Stomach Cramp Tremor Observation of Outstretched Hands: 2= Slight Tremor Visible Yawning Observation: 1= 1-2x During Session Anxiety or Irritability: 2=Irritable/Anxious Goose Flesh Skin: 3=Piloerection COWS Score: 12 S Progress Note (SOAP) Subjective: anxiety trouble sleep at night poor concentration discuss medication assisted maintenance treatment program Objective: 06/16/18 10:00 Vital Signs Temperature 97.4 F L 06/16/18 09:55 Pulse Rate 73 06/16/18 09:55 Respiratory Rate 20 06/16/18 09:55 Blood Pressure 116/70 06/16/18 09:55 O2 Sat by Pulse Oximetry (%) Laboratory Last Values Urine Color Yellow 06/15/18 22:50 Urine Appearance Clear 06/15/18 22:50 Urine pH 6.0 (5.0-8.0) 06/15/18 22:50 Ur Specific [place] 1.011 (1.010-1.035) 06/15/18 22:50 Urine Protein Negative (NEGATIVE) 06/15/18 22:50 Urine Glucose (UA) Negative (NEGATIVE) 06/15/18 22:50 Urine Ketones Negative (NEGATIVE) 06/15/18 22:50 Urine Blood Negative (NEGATIVE) 06/15/18 22:50 Urine Nitrite Negative (NEGATIVE) 06/15/18 22:50 Urine Bilirubin Negative (NEGATIVE) 06/15/18 22:50 Urine Urobilinogen 0.2 mg/dL (0.2-1.0) 06/15/18 22:50 Ur Leukocyte Esterase Negative (NEGATIVE) 06/15/18 22:50 06/16/18 10:00 lab pending Assessment: 06/16/18 10:00 alcohol benzo opiate withdrawal sx Plan: continue detox
[2018-06-16] MEDS ORDERED: METHADONE HCL 10 MG TABLET (FOR DETOX USE ONLY) PO ONE (10:00)
[2018-06-16 10:17] LABS: ALK PHOS 87 U/L (45-117); ANION GAP 7 MMOL/L (8-16); BILIRUBIN,TOTAL 0.5 mg/dL (0.2-1); BLOOD UREA NITROGEN 16 mg/dL (7-18); CALCIUM 8.4 mg/dL (8.5-10.1); CHLORIDE 104 mmol/L (98-107); CO2 27 mmol/L (21-32); CREATININE 1.3 mg/dL (0.55-1.3); GLUCOSE,RANDOM 106 mg/dL (74-106); POTASSIUM 4.2 mmol/L (3.5-5.1); SGOT/AST 38 U/L (15-37); SGPT/ALT 59 U/L (13-61); SODIUM 138 mmol/L (136-145); TOT PROT 6.8 g/dl (6.4-8.2)
[2018-06-16 10:20] LABS: HEMATOCRIT 40.1 % (35.4-49); HEMOGLOBIN 13.7 GM/dL (11.7-16.9); MCH 31.5 pg (25.7-33.7); MCHC 34.1 g/dl (32.0-35.9); MEAN CELL VOLUME 92.2 fl (80-96); MEAN PLT VOLUME 8.8 fl (7.5-11.1); PLATELET COUNT 280 K/MM3 (134-434); RBC 4.35 M/mm3 (4.00-5.60); RDW 14.9 % (11.9-15.9); WHITE BLOOD COUNT 7.8 K/mm3 (4.0-10.0)
[2018-06-16] MEDS: LISINOPRIL 10 MG TABLET (FP) PO SCH ×2 (10:42→22:14)
[2018-06-16] MEDS: HYDROCHLOROTHIAZIDE 12.5 MG CAPSULE (FP) PO SCH (10:42)
[2018-06-16] MEDS: RANITIDINE HCL 150 MG TABLET (FP) PO SCH ×2 (10:42→22:15)
[2018-06-16] MEDS: PRENATAL VITAMINS W/ FOLIC ACID TABLET (FP) PO SCH (10:42)
[2018-06-16] MEDS: FLUoxetine HCL 20 MG CAPSULE (FP) PO SCH (10:46)
[2018-06-16] MEDS: METHOCARBAMOL 500 MG TABLET PO PRN ×2 (10:46→22:15)
[2018-06-16] MEDS: NICOTINE 14 MG/24 HOURS TOPICAL PATCH TD SCH (10:47)
[2018-06-16] MEDS: cloNIDine HCL 0.1 MG TABLET PO PRN (18:41)
[2018-06-16] MEDS: THIAMINE HCL 100 MG TABLET (FP) PO SCH (22:15)
[2018-06-16] MEDS: MELATONIN 5 MG TABLETS PO PRN (22:15)
[2018-06-16] MEDS: QUEtiapine FUMARATE 100 MG TABLET (FP) PO SCH (22:15)
[2018-06-17] MEDS: chlordiazePOXIDE HCL 25 MG CAPSULE PO SCH ×3 (05:55→16:36)
[2018-06-17] MEDS: METHOCARBAMOL 500 MG TABLET PO PRN ×3 (05:56→22:01)
[2018-06-17] MEDS ORDERED: METHADONE HCL 10 MG TABLET (FOR DETOX USE ONLY) PO ONE (10:00)
[2018-06-17] MEDS: FLUoxetine HCL 20 MG CAPSULE (FP) PO SCH (10:28)
[2018-06-17] MEDS: LISINOPRIL 10 MG TABLET (FP) PO SCH ×2 (10:28→22:00)
[2018-06-17] MEDS: HYDROCHLOROTHIAZIDE 12.5 MG CAPSULE (FP) PO SCH (10:28)
[2018-06-17] MEDS: RANITIDINE HCL 150 MG TABLET (FP) PO SCH ×2 (10:28→22:00)
[2018-06-17] MEDS: PRENATAL VITAMINS W/ FOLIC ACID TABLET (FP) PO SCH (10:29)
[2018-06-17] MEDS: NICOTINE 14 MG/24 HOURS TOPICAL PATCH TD SCH (10:29)
--- NOTE | 2018-06-17 16:43 | PN ---
S CIWA - CIWA Score Nausea/Vomitin Muscle Tremors: None Anxiety: 3 Agitation: 1-Slight > Activity Paroxysmal Sweats: 3 Orientation: 0-Oriented Tacttile Disturbances: 0-None Auditory Disturbances: 2-Mild Harshness/Frighten Visual Disturbances: 2-Mild Sensitivity Headache: 0-None Present CIWA-Ar Total Score: 14 BHS COWS - Scale Resting Pulse: 1= ME 81-100 Sweatin= Chills/Flushing Restless Observation: 1= Difficult to Sit Still Pupil Size: 0= Normal to Room Light Bone or Joint Aches: 2= Severe Diffuse Aches Runny Nose/ Eye Tearin= None GI Upset > 30mins: 2= Nausea/Diarrhea Tremor Observation of Outstretched Hands: 0= None Yawning Observation: 1= 1-2x During Session Anxiety or Irritability: 2=Irritable/Anxious Goose Flesh Skin: 0=Smooth Skin COWS Score: 10 S Progress Note (SOAP) Subjective: Nausea, Sweating, Interrupted Sleep, Stomach Cramping, Constipation, Body Aches. Objective: PATIENT A & O X 3, OBSERVED AMBULATING ON UNIT UNASSISTED. IN NO ACUTE DISTRESS. 06/17/18 16:44 Vital Signs Temperature 96.6 F L 06/17/18 13:13 Pulse Rate 87 06/17/18 13:13 Respiratory Rate 18 06/17/18 13:13 Blood Pressure 145/93 06/17/18 13:13 O2 Sat by Pulse Oximetry (%) Laboratory Tests 06/15/18 06/16/18 06/16/18 22:50 07:00 07:00 WBC 7.8 RBC 4.35 Hgb 13.7 Hct 40.1 MCV 92.2 MCH 31.5 MCHC 34.1 RDW 14.9 Plt Count 280 MPV 8.8 Sodium 138 Potassium 4.2 Chloride 104 Carbon Dioxide 27 Anion Gap 7 L BUN 16 Creatinine 1.3 Creat Clearance w eGFR 61.78 Random Glucose 106 Calcium 8.4 L Total Bilirubin 0.5 AST 38 H ALT 59 Alkaline Phosphatase 87 Total Protein 6.8 Albumin 4.0 Urine Color Yellow Urine Appearance Clear Urine pH 6.0 Ur Specific [place] 1.011 Urine Protein Negative Urine Glucose (UA) Negative Urine Ketones Negative Urine Blood Negative Urine Nitrite Negative Urine Bilirubin Negative Urine Urobilinogen 0.2 Ur Leukocyte Esterase Negative LABS NOTED. Assessment: 06/17/18 16:45 WITHDRAWAL SYMPTOMS. Plan: CONTINUE DETOX. INCREASE DAILY PO FLUID / WATER INTAKE. PRN MOM FOR CONSTIPATION. PRN ZOFRAN SL FOR NAUSEA.
[2018-06-17] MEDS: chlordiazePOXIDE HCL 10 MG CAPSULE PO SCH (22:00)
[2018-06-17] MEDS: QUEtiapine FUMARATE 100 MG TABLET (FP) PO SCH (22:00)
[2018-06-17] MEDS: THIAMINE HCL 100 MG TABLET (FP) PO SCH (22:00)
[2018-06-17] MEDS: MELATONIN 5 MG TABLETS PO PRN (22:01)
[2018-06-17] MEDS ORDERED: chlordiazePOXIDE HCL 10 MG CAPSULE PO PRN (23:00)
[2018-06-18] MEDS: chlordiazePOXIDE HCL 10 MG CAPSULE PO SCH ×4 (05:39→22:28)
[2018-06-18] MEDS ORDERED: METHADONE HCL 10 MG TABLET (FOR DETOX USE ONLY) PO ONE (10:00)
[2018-06-18] MEDS: PRENATAL VITAMINS W/ FOLIC ACID TABLET (FP) PO SCH (11:07)
[2018-06-18] MEDS: FLUoxetine HCL 20 MG CAPSULE (FP) PO SCH (11:08)
[2018-06-18] MEDS: NICOTINE 14 MG/24 HOURS TOPICAL PATCH TD SCH (11:08)
[2018-06-18] MEDS: HYDROCHLOROTHIAZIDE 12.5 MG CAPSULE (FP) PO SCH (11:08)
[2018-06-18] MEDS: LISINOPRIL 10 MG TABLET (FP) PO SCH ×2 (11:08→22:28)
[2018-06-18] MEDS: RANITIDINE HCL 150 MG TABLET (FP) PO SCH ×2 (11:08→22:28)
[2018-06-18] MEDS: NAPHAZOLINE/PHENIRAMINE OPHTHALMIC 15 ML BOTTLE OU PRN ×2 (13:41→21:29)
[2018-06-18] MEDS: SENNOSIDES/DOCUSATE COMBO (SENNA PLUS) TABLET (UD) PO SCH ×2 (13:41→22:29)
[2018-06-18] MEDS: guaiFENesin 200 MG/10 ML 10 ML UNIT-DOSE CUPS PO PRN ×2 (13:41→21:29)
--- NOTE | 2018-06-18 16:37 | PN ---
S CIWA - CIWA Score Nausea/Vomitin-No Nausea/No Vomiting Muscle Tremors: 2 Anxiety: 2 Agitation: 2 Paroxysmal Sweats: No Perspiration Orientation: 0-Oriented Tacttile Disturbances: 2-Mild Itch/Numbness/Burn Auditory Disturbances: 0-None Visual Disturbances: 2-Mild Sensitivity Headache: 0-None Present CIWA-Ar Total Score: 10 BHS COWS - Scale Resting Pulse: 1= [place] 81-100 Sweatin= Chills/Flushing Restless Observation: 1= Difficult to Sit Still Pupil Size: 0= Normal to Room Light Bone or Joint Aches: 2= Severe Diffuse Aches Runny Nose/ Eye Tearin= None GI Upset > 30mins: 1= Stomach Cramp Tremor Observation of Outstretched Hands: 0= None Yawning Observation: 1= 1-2x During Session Anxiety or Irritability: 2=Irritable/Anxious Goose Flesh Skin: 0=Smooth Skin COWS Score: 9 BHS Progress Note (SOAP) Subjective: Stomach Cramping, Constipation, Interrupted Sleep, Body Aches. Objective: PATIENT A & O X 3, OBSERVED AMBULATING ON UNIT UNASSISTED. IN NO ACUTE DISTRESS. 06/18/18 16:38 Vital Signs Temperature 97.4 F L 06/18/18 10:18 Pulse Rate 86 06/18/18 10:18 Respiratory Rate 20 06/18/18 10:18 Blood Pressure 130/82 06/18/18 10:18 O2 Sat by Pulse Oximetry (%) Laboratory Tests 06/15/18 06/16/18 06/16/18 22:50 07:00 07:00 WBC 7.8 RBC 4.35 Hgb 13.7 Hct 40.1 MCV 92.2 MCH 31.5 MCHC 34.1 RDW 14.9 Plt Count 280 MPV 8.8 Sodium 138 Potassium 4.2 Chloride 104 Carbon Dioxide 27 Anion Gap 7 L BUN 16 Creatinine 1.3 Creat Clearance w eGFR 61.78 Random Glucose 106 Calcium 8.4 L Total Bilirubin 0.5 AST 38 H ALT 59 Alkaline Phosphatase 87 Total Protein 6.8 Albumin 4.0 Urine Color Yellow Urine Appearance Clear Urine pH 6.0 Ur Specific [place] 1.011 Urine Protein Negative Urine Glucose (UA) Negative Urine Ketones Negative Urine Blood Negative Urine Nitrite Negative Urine Bilirubin Negative Urine Urobilinogen 0.2 Ur Leukocyte Esterase Negative LABS NOTED. Assessment: 06/18/18 16:38 WITHDRAWAL SYMPTOMS. HYPERTENSION. Plan: CONTINUE DETOX. INCREASE DAILY PO FLUID INTAKE. PATIENT REPORTS POOR EFFECT FROM MOM AND DIFFICULTY INGESTING [place]. CHANGE TO COLACE - SENNA BID FOR CONSTIPATION.
[2018-06-18] MEDS: THIAMINE HCL 100 MG TABLET (FP) PO SCH (22:28)
[2018-06-18] MEDS: QUEtiapine FUMARATE 100 MG TABLET (FP) PO SCH (22:28)
[2018-06-18] MEDS: MELATONIN 5 MG TABLETS PO PRN (22:29)
[2018-06-19] MEDS ORDERED: METHADONE HCL 5 MG TABLET (FOR DETOX USE ONLY) PO ONE (06:00)
[2018-06-19] MEDS: chlordiazePOXIDE HCL 10 MG CAPSULE PO SCH ×2 (10:37→22:30)
[2018-06-19] MEDS: LISINOPRIL 10 MG TABLET (FP) PO SCH ×2 (10:37→22:30)
[2018-06-19] MEDS: RANITIDINE HCL 150 MG TABLET (FP) PO SCH ×2 (10:37→22:29)
[2018-06-19] MEDS: FLUoxetine HCL 20 MG CAPSULE (FP) PO SCH (10:37)
[2018-06-19] MEDS: HYDROCHLOROTHIAZIDE 12.5 MG CAPSULE (FP) PO SCH (10:37)
[2018-06-19] MEDS: NAPHAZOLINE/PHENIRAMINE OPHTHALMIC 15 ML BOTTLE OU PRN (10:37)
[2018-06-19] MEDS: SENNOSIDES/DOCUSATE COMBO (SENNA PLUS) TABLET (UD) PO SCH ×2 (10:38→22:32)
[2018-06-19] MEDS: NICOTINE 14 MG/24 HOURS TOPICAL PATCH TD SCH (10:38)
[2018-06-19] MEDS: PRENATAL VITAMINS W/ FOLIC ACID TABLET (FP) PO SCH (10:38)
--- NOTE | 2018-06-19 14:00 | PN ---
[facility] CIWA - CIWA Score Nausea/Vomitin-No Nausea/No Vomiting Muscle Tremors: 1-None Visible, but [place] Anxiety: 2 Agitation: 1-Slight > Activity Paroxysmal Sweats: 1-Minimal Palms Moist Orientation: 0-Oriented Tacttile Disturbances: 0-None Auditory Disturbances: 0-None Visual Disturbances: 0-None Headache: 0-None Present CIWA-Ar Total Score: 5 BHS COWS - Scale Resting Pulse: 1= [place] 81-100 Sweatin= Chills/Flushing Restless Observation: 0= Sits Still Pupil Size: 0= Normal to Room Light Bone or Joint Aches: 1= Mild Discomfort Runny Nose/ Eye Tearin= Nasal Congestion GI Upset > 30mins: 0= None Tremor Observation of Outstretched Hands: 1= Tremor [place], Not Seen Yawning Observation: 0= None Anxiety or Irritability: 1=Feels Anxious/Irritable Goose Flesh Skin: 0=Smooth Skin COWS Score: 6 S Progress Note (SOAP) Subjective: feeling better today ambulating on hallway strong recommend avoid irritation to the left eye and hand washing Objective: 06/19/18 14:01 Vital Signs Temperature 96.8 F L 06/19/18 09:26 Pulse Rate 84 06/19/18 09:26 Respiratory Rate 20 06/19/18 09:26 Blood Pressure 130/82 06/19/18 09:26 O2 Sat by Pulse Oximetry (%) Laboratory Last Values WBC 7.8 K/mm3 (4.0-10.0) 06/16/18 07:00 RBC 4.35 M/mm3 (4.00-5.60) 06/16/18 07:00 Hgb 13.7 GM/dL (11.7-16.9) 06/16/18 07:00 Hct 40.1 % (35.4-49) 06/16/18 07:00 MCV 92.2 fl (80-96) 06/16/18 07:00 MCH 31.5 pg (25.7-33.7) 06/16/18 07:00 MCHC 34.1 g/dl (32.0-35.9) 06/16/18 07:00 RDW 14.9 % (11.9-15.9) 06/16/18 07:00 Plt Count 280 K/MM3 (134-434) 06/16/18 07:00 MPV 8.8 fl (7.5-11.1) 06/16/18 07:00 Sodium 138 mmol/L (136-145) 06/16/18 07:00 Potassium 4.2 mmol/L (3.5-5.1) 06/16/18 07:00 Chloride 104 mmol/L (98-107) 06/16/18 07:00 Carbon Dioxide 27 mmol/L (21-32) 06/16/18 07:00 Anion Gap 7 MMOL/L (8-16) L 06/16/18 07:00 BUN 16 mg/dL (7-18) 06/16/18 07:00 Creatinine 1.3 mg/dL (0.55-1.3) 06/16/18 07:00 Creat Clearance w eGFR 61.78 (>60) 06/16/18 07:00 Random Glucose 106 mg/dL (74-106) 06/16/18 07:00 Calcium 8.4 mg/dL (8.5-10.1) L 06/16/18 07:00 Total Bilirubin 0.5 mg/dL (0.2-1) 06/16/18 07:00 AST 38 U/L (15-37) H 06/16/18 07:00 ALT 59 U/L (13-61) 06/16/18 07:00 Alkaline Phosphatase 87 U/L (45-117) 06/16/18 07:00 Total Protein 6.8 g/dl (6.4-8.2) 06/16/18 07:00 Albumin 4.0 g/dl (3.4-5.0) 06/16/18 07:00 Urine Color Yellow 06/15/18 22:50 Urine Appearance Clear 06/15/18 22:50 Urine pH 6.0 (5.0-8.0) 06/15/18 22:50 Ur Specific [place] 1.011 (1.010-1.035) 06/15/18 22:50 Urine Protein Negative (NEGATIVE) 06/15/18 22:50 Urine Glucose (UA) Negative (NEGATIVE) 06/15/18 22:50 Urine Ketones Negative (NEGATIVE) 06/15/18 22:50 Urine Blood Negative (NEGATIVE) 06/15/18 22:50 Urine Nitrite Negative (NEGATIVE) 06/15/18 22:50 Urine Bilirubin Negative (NEGATIVE) 06/15/18 22:50 Urine Urobilinogen 0.2 mg/dL (0.2-1.0) 06/15/18 22:50 Ur Leukocyte Esterase Negative (NEGATIVE) 06/15/18 22:50 lab noted Assessment: 06/19/18 14:02 alcohol and opiate withdrawal sx last medication filled 06/11/18 Plan: continue detox encourage the patient to go to urgent care or [facility] for hypertension and sore throat oral pharyngeal no swell no erythema no exudates "tickle" encourage over the counter throat lozenge upon discharge
[2018-06-19] MEDS: ARTIFICIAL TEARS (POLYVINYL ALCOHOL) OPTH DROPS OU SCH ×2 (18:43→22:30)
[2018-06-19] MEDS: THIAMINE HCL 100 MG TABLET (FP) PO SCH (22:29)
[2018-06-19] MEDS: MELATONIN 5 MG TABLETS PO PRN (22:30)
[2018-06-19] MEDS: QUEtiapine FUMARATE 100 MG TABLET (FP) PO SCH (22:32)
[2018-06-20 09:21] VITALS: BP 126/78; PULSE 82; TEMP 98.4
[2018-06-20] MEDS: LISINOPRIL 10 MG TABLET (FP) PO SCH (09:51)
[2018-06-20] MEDS: FLUoxetine HCL 20 MG CAPSULE (FP) PO SCH (09:51)
[2018-06-20] MEDS: ARTIFICIAL TEARS (POLYVINYL ALCOHOL) OPTH DROPS OU SCH (09:51)
[2018-06-20] MEDS: SENNOSIDES/DOCUSATE COMBO (SENNA PLUS) TABLET (UD) PO SCH (09:51)
[2018-06-20] MEDS: RANITIDINE HCL 150 MG TABLET (FP) PO SCH (09:51)
[2018-06-20] MEDS: HYDROCHLOROTHIAZIDE 12.5 MG CAPSULE (FP) PO SCH (09:51)
[2018-06-20] MEDS: PRENATAL VITAMINS W/ FOLIC ACID TABLET (FP) PO SCH (09:52)
[2018-06-20] MEDS: NICOTINE 14 MG/24 HOURS TOPICAL PATCH TD SCH (09:52)
--- NOTE | 2018-06-20 13:25 | DS ---
[facility] Detox Discharge Summary Admission Date: 06/15/18 Discharge Date: 06/20/18 - History Present History: Alcohol Dependence, Opioid Dependence, Sedative Dependence Additional Comments: PATIENT SCHEDULED FOR DISCHARGE FROM DETOX UNIT TO DAY. PATIENT GOING TO [facility] ([facility] GON[facility]ALE[facility]) FOR AFTERCARE. PATIENT WAS DISCHARGED FROM DETOX UNIT TO BE TAKEN OVER TO REHAB UNIT IN STABLE MEDICAL CONDITION. Pertinent Past History: Anxiety, Asthma, G.E.R.D., History Of Gout, HTN, Depression, Hyperlipidemia, Insomnia, History Of Anemia, Nausea / Vomiting. - Physical Exam Results Vital Signs: Vital Signs Temperature 98.4 F 06/20/18 09:20 Pulse Rate 82 06/20/18 09:20 Respiratory Rate 18 06/20/18 09:20 Blood Pressure 126/78 06/20/18 09:20 O2 Sat by Pulse Oximetry (%) Pertinent Admission Physical Exam Findings: WITHDRAWAL SYMPTOMS. Laboratory Tests 06/15/18 06/16/18 06/16/18 22:50 07:00 07:00 WBC 7.8 RBC 4.35 Hgb 13.7 Hct 40.1 MCV 92.2 MCH 31.5 MCHC 34.1 RDW 14.9 Plt Count 280 MPV 8.8 Sodium 138 Potassium 4.2 Chloride 104 Carbon Dioxide 27 Anion Gap 7 L BUN 16 Creatinine 1.3 Creat Clearance w eGFR 61.78 Random Glucose 106 Calcium 8.4 L Total Bilirubin 0.5 AST 38 H ALT 59 Alkaline Phosphatase 87 Total Protein 6.8 Albumin 4.0 Urine Color Yellow Urine Appearance Clear Urine pH 6.0 Ur Specific [place] 1.011 Urine Protein Negative Urine Glucose (UA) Negative Urine Ketones Negative Urine Blood Negative Urine Nitrite Negative Urine Bilirubin Negative Urine Urobilinogen 0.2 Ur Leukocyte Esterase Negative LABS NOTED. - Treatment Hospital Course: Detox Protocol Followed, Detoxed Safely, Responded well, Discharged Condition Good, Rehab Referral Accepted Patient has Accepted a Rehab Referral to: [facility] ([facility]). - Medication Discharge Medications: Ambulatory Orders Ranitidine HCl 150 mg PO BID #60 tablet 03/20/18 Quetiapine Fumarate [Seroquel] 100 mg PO HS #30 tablet 03/31/18 Hydrochlorothiazide [Hctz -] 12.5 mg PO DAILY #14 cap 05/10/18 Lisinopril 10 mg PO BID #30 tablet 05/10/18 Fluoxetine HCl 20 mg PO DAILY 06/15/18 Gabapentin 300 mg PO Q6H PRN 06/15/18 Trazodone HCl 100 mg PO HS PRN 06/15/18 - Diagnosis (1) Nausea and vomiting Status: Acute Qualifiers: Vomiting type: unspecified Vomiting Intractability: unspecified Qualified Code(s): R11.2 - Nausea with vomiting, unspecified (2) Opioid dependence with withdrawal Status: Acute (3) Sedative, hypnotic or anxiolytic dependence with withdrawal, uncomplicated Status: Acute (4) Alcohol dependence with uncomplicated withdrawal Status: Acute (5) Anxiety Status: Chronic (6) Asthma Status: Chronic Qualifiers: Asthma severity: mild Asthma persistence: intermittent Asthma complication type: unspecified Qualified Code(s): J45.20 - Mild intermittent asthma, uncomplicated (7) Depression Status: Chronic Qualifiers: Depression Type: unspecified Qualified Code(s): F32.9 - Major depressive disorder, single episode, unspecified (8) GERD (gastroesophageal reflux disease) Status: Chronic Qualifiers: Esophagitis presence: without esophagitis Qualified Code(s): K21.9 - Gastro -esophageal reflux disease without esophagitis (9) Gout Status: Chronic Qualifiers: Gout site: unspecified site Gout etiology: unspecified cause Chronicity: unspecified Qualified Code(s): M10.9 - Gout, unspecified (10) HTN (hypertension) Status: Chronic Qualifiers: Hypertension type: essential hypertension Qualified Code(s): I10 - Essential (primary) hypertension (11) Substance induced mood disorder Status: Acute (12) Substance-induced sleep disorder Status: Acute - AMA Did Patient Leave Against Medical Advice: No
== END 2018-06-20 11:42 | disposition other institution (70) | DRG 773 ==
LOC: YASAS 12:33 → Y3N 19:13
PROVIDERS: ADMIT Surgery; ATTEND Surgery
PROC: HZ2ZZZZ Detoxification Services for Substance Abuse Treatment (ICD-10-PCS; principal; 2018-06-15)
DX: F11.23 Opioid dependence with withdrawal (principal); F10.230 Alcohol dependence with withdrawal, uncomplicated; F13.230 Sedative, hypnotic or anxiolytic dependence with withdrawal, uncomplicated; F19.24 Other psychoactive substance dependence with psychoactive substance-induced mood disorder; F19.282 Other psychoactive substance dependence with psychoactive substance-induced sleep disorder; F41.8 Other specified anxiety disorders; F32.9 Major depressive disorder, single episode, unspecified; I10 Essential (primary) hypertension; E78.5 Hyperlipidemia, unspecified; K21.9 Gastro-esophageal reflux disease without esophagitis; K59.00 Constipation, unspecified; J45.20 Mild intermittent asthma, uncomplicated; R11.2 Nausea with vomiting, unspecified; Z86.2 Personal history of diseases of the blood and blood-forming organs and certain disorders involving the immune mechanism
CPT/HCPCS: 36415; 80053; 81003; 85027; J0735

== ENCOUNTER 2018-06-20 11:59 | Inpatient (IN) | payer OTHER ==
[2018-06-20] MEDS ORDERED: P-EPHED 60MG/TRIPROLIDI 2.5MG TABLET PO PRN (13:35)
[2018-06-20] MEDS ORDERED: MAGNESIUM CITRATE 300 ML BOTTLE PO PRN (13:35)
[2018-06-20] MEDS ORDERED: MAGNESIUM HYDROX 2400MG/30ML ORAL SUSPENSION 30 ML CUP PO PRN (13:35)
[2018-06-20] MEDS ORDERED: NICOTINE POLACRILEX 2 MG GUM BUC PRN (13:35)
[2018-06-20] MEDS ORDERED: guaiFENesin 200 MG/10 ML 10 ML UNIT-DOSE CUPS PO PRN (13:35)
[2018-06-20] MEDS ORDERED: LOPERAMIDE HCL 2 MG CAPSULE PO PRN (13:35)
[2018-06-20] MEDS ORDERED: MENTHOL/PHENOL 1 EACH UD MM PRN (13:35)
[2018-06-20] MEDS ORDERED: MAG HYDROX/AL HYDROX/SIMETH 30 ML UNIT-DOSE CUP PO PRN (13:35)
--- NOTE | 2018-06-20 13:44 | HP ---
PATRICIA HORTA Rehab Assess/Revision - Admission History Admitted to Rehab from: [facility] Date of Admission to Rehab: 06/19/2018 - Vital signs Vital Signs: NOTED; STABLE. - Findings Detox History & Physical reviewed: Yes Concur with findings: Yes Comments/Additional Findings: PATIENT'S MEDICAL / MEDICATION HISTORY REVIEWED PRIOR TO DISCHARGE FROM DETOX UNIT. CIPROFLOXACIN 0.3 % EYE DROPS ORDERED FOR FIRST 7 DAYS OF REHAB ADMISSION FOR POSSIBLE CONJUNCTIVITIS OF LEFT EYE. PATIENT WAS DISCHARGED FROM DETOX UNIT TO BE TAKEN OVER TO REHAB UNIT IN STABLE MEDICAL CONDITION. Inpatient Rehab Admission - Rehab Decision to Admit Inpatient rehab admission?: Yes - Initial Determination Are CD services needed?: Yes Free of communicable disease: Yes Not in need of hospitalization: Yes - Rehab Admission Criteria Previous failed treatment: Yes Poor recovery environment: Yes Comorbidities: Yes Lacks judgement: No Patient is meeting Inpatient Rehab admission criteria:: Yes
[2018-06-20] MEDS: CIPROFLOXACIN HCL 0.3% OPHTH 2.5ML BOTTLE OS SCH ×5 (17:36→21:59)
[2018-06-20] MEDS: QUEtiapine FUMARATE 100 MG TABLET (FP) PO SCH (21:17)
[2018-06-20] MEDS: MELATONIN 5 MG TABLETS PO PRN (21:17)
[2018-06-20] MEDS: RANITIDINE HCL 150 MG TABLET (FP) PO SCH (21:17)
[2018-06-20] MEDS: LISINOPRIL 10 MG TABLET (FP) PO SCH (21:17)
[2018-06-20] MEDS: THIAMINE HCL 100 MG TABLET (FP) PO SCH (21:17)
[2018-06-20] MEDS ORDERED: QUEtiapine FUMARATE 100 MG TABLET (FP) PO ONE (22:00)
[2018-06-21] MEDS: CIPROFLOXACIN HCL 0.3% OPHTH 2.5ML BOTTLE OS SCH ×12 (00:25→23:08)
[2018-06-21] MEDS ORDERED: PARoxetine HCL 20 MG TABLET (FP) PO ONE (10:00)
[2018-06-21] MEDS: LISINOPRIL 10 MG TABLET (FP) PO SCH ×2 (10:45→21:52)
[2018-06-21] MEDS: RANITIDINE HCL 150 MG TABLET (FP) PO SCH ×2 (10:45→21:52)
[2018-06-21] MEDS: FLUoxetine HCL 20 MG CAPSULE (FP) PO SCH (10:45)
[2018-06-21] MEDS: NICOTINE 14 MG/24 HOURS TOPICAL PATCH TD SCH (10:45)
[2018-06-21] MEDS: HYDROCHLOROTHIAZIDE 12.5 MG CAPSULE (FP) PO SCH (10:45)
[2018-06-21] MEDS: PRENATAL VITAMINS W/ FOLIC ACID TABLET (FP) PO SCH (10:45)
--- NOTE | 2018-06-21 16:06 | PN ---
[facility] Progress Note Note: Wants to start suboxone. Urine toxicology ordered. 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
[2018-06-21] MEDS ORDERED: PT OWN MED DRAWER 7, Y5N ONE (16:28)
[2018-06-21] MEDS: QUEtiapine FUMARATE 100 MG TABLET (FP) PO SCH (21:52)
[2018-06-21] MEDS: THIAMINE HCL 100 MG TABLET (FP) PO SCH (21:52)
[2018-06-21] MEDS: MELATONIN 5 MG TABLETS PO PRN (21:53)
[2018-06-22] MEDS: CIPROFLOXACIN HCL 0.3% OPHTH 2.5ML BOTTLE OS SCH ×8 (00:25→21:38)
[2018-06-22] MEDS: NICOTINE 14 MG/24 HOURS TOPICAL PATCH TD SCH (10:28)
[2018-06-22] MEDS: RANITIDINE HCL 150 MG TABLET (FP) PO SCH ×2 (10:28→21:38)
[2018-06-22] MEDS: FLUoxetine HCL 20 MG CAPSULE (FP) PO SCH (10:28)
[2018-06-22] MEDS: PRENATAL VITAMINS W/ FOLIC ACID TABLET (FP) PO SCH (10:28)
[2018-06-22] MEDS: ACETAMINOPHEN 325 MG TABLET (FP) PO PRN ×3 (10:28→21:50)
[2018-06-22] MEDS: LISINOPRIL 10 MG TABLET (FP) PO SCH ×2 (10:28→21:38)
[2018-06-22] MEDS: HYDROCHLOROTHIAZIDE 12.5 MG CAPSULE (FP) PO SCH (10:28)
--- NOTE | 2018-06-22 13:08 | PN ---
[facility] Progress Note Note: Urine Toxicology was positive for Methamphetamine, methadone, and benzodiazipines. Unable to start Suboxone at this time. Patient aware.
[2018-06-22] MEDS: QUEtiapine FUMARATE 100 MG TABLET (FP) PO SCH (21:38)
[2018-06-22] MEDS: THIAMINE HCL 100 MG TABLET (FP) PO SCH (21:38)
[2018-06-22] MEDS: MELATONIN 5 MG TABLETS PO PRN (21:39)
[2018-06-23] MEDS: ACETAMINOPHEN 325 MG TABLET (FP) PO PRN ×4 (01:11→17:26)
[2018-06-23] MEDS: CIPROFLOXACIN HCL 0.3% OPHTH 2.5ML BOTTLE OS SCH ×5 (06:00→21:13)
[2018-06-23] MEDS: HYDROCHLOROTHIAZIDE 12.5 MG CAPSULE (FP) PO SCH (07:26)
[2018-06-23] MEDS: RANITIDINE HCL 150 MG TABLET (FP) PO SCH ×2 (10:29→21:11)
[2018-06-23] MEDS: LISINOPRIL 10 MG TABLET (FP) PO SCH ×2 (10:29→21:11)
[2018-06-23] MEDS: PRENATAL VITAMINS W/ FOLIC ACID TABLET (FP) PO SCH (10:29)
[2018-06-23] MEDS: FLUoxetine HCL 20 MG CAPSULE (FP) PO SCH (10:29)
[2018-06-23] MEDS ORDERED: OFLOXACIN 0.3% OTIC SOLUTION 5 ML BOTTLE AS SCH (10:30)
[2018-06-23] MEDS: NICOTINE 14 MG/24 HOURS TOPICAL PATCH TD SCH (10:31)
[2018-06-23] MEDS: OFLOXACIN 0.3% OTIC SOLUTION 5 ML BOTTLE AS SCH (11:04)
--- NOTE | 2018-06-23 11:24 | PN ---
[facility] Progress Note (SOAP) Subjective: Patient with complaints of left ear pain; states at first he thought he had a headache, but then it became localized in the ear. Denies using cutips or sticking anything in his ear. Denies previous upper respiratory illness, stuffy nose, throat pain. Left eye red, using eye drops denies drainage, crusting or pain. On eye drops. Objective: Left ear canal red, difficult to visualize tympanic membrane because of swelling. Tender to palpation. Vital Signs Period Temp Pulse Resp BP Sys/Griggs Pulse Ox Last 24 Hr 98 F 88-106 18-20 151-152/98-99 06/23/18 11:22 Assessment: 06/23/18 11:23 Otitis Externa Plan: Ofloxin drops ordered, advised client to take motrin for pain. Will continue to monitor.
[2018-06-23] MEDS: CYCLOBENZAPRINE HCL 10 MG TABLET (FP) PO SCH ×2 (13:06→21:11)
[2018-06-23] MEDS: IBUPROFEN 400 MG TABLET (FP) PO PRN ×2 (13:07→21:11)
[2018-06-23] MEDS: QUEtiapine FUMARATE 100 MG TABLET (FP) PO SCH (21:11)
[2018-06-23] MEDS: MELATONIN 5 MG TABLETS PO PRN (21:11)
[2018-06-23] MEDS: THIAMINE HCL 100 MG TABLET (FP) PO SCH (21:13)
[2018-06-24] MEDS: CIPROFLOXACIN HCL 0.3% OPHTH 2.5ML BOTTLE OS SCH ×5 (05:54→21:04)
[2018-06-24] MEDS: IBUPROFEN 400 MG TABLET (FP) PO PRN ×3 (05:55→23:07)
[2018-06-24] MEDS: CYCLOBENZAPRINE HCL 10 MG TABLET (FP) PO SCH ×3 (05:55→21:05)
[2018-06-24] MEDS: HYDROCHLOROTHIAZIDE 12.5 MG CAPSULE (FP) PO SCH (05:55)
[2018-06-24] MEDS: FLUoxetine HCL 20 MG CAPSULE (FP) PO SCH (10:15)
[2018-06-24] MEDS: PRENATAL VITAMINS W/ FOLIC ACID TABLET (FP) PO SCH (10:15)
[2018-06-24] MEDS: RANITIDINE HCL 150 MG TABLET (FP) PO SCH ×2 (10:15→21:58)
[2018-06-24] MEDS: LISINOPRIL 10 MG TABLET (FP) PO SCH ×2 (10:15→21:05)
[2018-06-24] MEDS: NICOTINE 14 MG/24 HOURS TOPICAL PATCH TD SCH (10:16)
[2018-06-24] MEDS: OFLOXACIN 0.3% OTIC SOLUTION 5 ML BOTTLE AS SCH (10:16)
[2018-06-24] MEDS: ACETAMINOPHEN 325 MG TABLET (FP) PO PRN ×2 (10:18→21:06)
--- NOTE | 2018-06-24 10:45 | PN ---
[facility] Progress Note Note: PATIENT C/O PAIN TO LEFT LOWER GUM LINE AREA. CURRENTLY BEING TREATED FOR LEFT EAR INFECTION WITH ANTIBIOTICS. PATIENT DENIES FEVER, COUGH AND SORE THROAT. Vital Signs Temperature 97.9 F 06/24/18 06:36 Pulse Rate 80 06/24/18 06:36 Respiratory Rate 18 06/24/18 06:36 Blood Pressure 137/80 06/24/18 06:36 O2 Sat by Pulse Oximetry (%) PE: ALERT AND ORIENTED X 3 SKIN WARM AND DRY ORAL CAVITY PINK AND MOIST, SMALL CHANCRE SORE TO LEFT OUTER LOWER GUM LINE PHARYNX PINK, NO VISIBLE EXUDATE A/P: CHANCRE SORE WILL ORDER ORAGEL PRN CONTINUE TO MONITOR CLINICALLY
[2018-06-24] MEDS: BENZOCAINE 20 % GEL TUBE MM PRN ×2 (14:33→21:07)
[2018-06-24] MEDS: THIAMINE HCL 100 MG TABLET (FP) PO SCH (21:04)
[2018-06-24] MEDS: MELATONIN 5 MG TABLETS PO PRN (21:05)
[2018-06-24] MEDS: QUEtiapine FUMARATE 100 MG TABLET (FP) PO SCH (21:05)
[2018-06-25] MEDS: CYCLOBENZAPRINE HCL 10 MG TABLET (FP) PO SCH ×3 (06:13→21:11)
[2018-06-25] MEDS: HYDROCHLOROTHIAZIDE 12.5 MG CAPSULE (FP) PO SCH (06:13)
[2018-06-25] MEDS: CIPROFLOXACIN HCL 0.3% OPHTH 2.5ML BOTTLE OS SCH ×5 (06:13→21:12)
[2018-06-25] MEDS: ACETAMINOPHEN 325 MG TABLET (FP) PO PRN ×2 (06:14→21:11)
[2018-06-25] MEDS: PRENATAL VITAMINS W/ FOLIC ACID TABLET (FP) PO SCH (10:10)
[2018-06-25] MEDS: OFLOXACIN 0.3% OTIC SOLUTION 5 ML BOTTLE AS SCH (10:10)
[2018-06-25] MEDS: RANITIDINE HCL 150 MG TABLET (FP) PO SCH ×2 (10:10→21:47)
[2018-06-25] MEDS: NICOTINE 14 MG/24 HOURS TOPICAL PATCH TD SCH (10:10)
[2018-06-25] MEDS: LISINOPRIL 10 MG TABLET (FP) PO SCH ×2 (10:10→21:11)
[2018-06-25] MEDS: FLUoxetine HCL 20 MG CAPSULE (FP) PO SCH (10:10)
[2018-06-25] MEDS: IBUPROFEN 400 MG TABLET (FP) PO PRN (10:11)
[2018-06-25] MEDS: QUEtiapine FUMARATE 100 MG TABLET (FP) PO SCH (21:11)
[2018-06-25] MEDS: MELATONIN 5 MG TABLETS PO PRN (21:11)
[2018-06-25] MEDS: THIAMINE HCL 100 MG TABLET (FP) PO SCH (21:11)
[2018-06-25] MEDS: BENZOCAINE 20 % GEL TUBE MM PRN (21:12)
[2018-06-26] MEDS: HYDROCHLOROTHIAZIDE 12.5 MG CAPSULE (FP) PO SCH (06:32)
[2018-06-26] MEDS: CYCLOBENZAPRINE HCL 10 MG TABLET (FP) PO SCH ×3 (06:32→21:46)
[2018-06-26] MEDS: ACETAMINOPHEN 325 MG TABLET (FP) PO PRN ×3 (06:33→21:46)
[2018-06-26] MEDS: CIPROFLOXACIN HCL 0.3% OPHTH 2.5ML BOTTLE OS SCH ×5 (06:33→21:47)
[2018-06-26] MEDS: PRENATAL VITAMINS W/ FOLIC ACID TABLET (FP) PO SCH (09:42)
[2018-06-26] MEDS: FLUoxetine HCL 20 MG CAPSULE (FP) PO SCH (09:42)
[2018-06-26] MEDS: OFLOXACIN 0.3% OTIC SOLUTION 5 ML BOTTLE AS SCH (09:42)
[2018-06-26] MEDS: LISINOPRIL 10 MG TABLET (FP) PO SCH ×2 (09:42→21:46)
[2018-06-26] MEDS: RANITIDINE HCL 150 MG TABLET (FP) PO SCH ×2 (09:42→21:46)
[2018-06-26] MEDS: NICOTINE 14 MG/24 HOURS TOPICAL PATCH TD SCH (09:42)
[2018-06-26] MEDS: IBUPROFEN 400 MG TABLET (FP) PO PRN (09:44)
[2018-06-26] MEDS: THIAMINE HCL 100 MG TABLET (FP) PO SCH (21:45)
[2018-06-26] MEDS: MELATONIN 5 MG TABLETS PO PRN (21:46)
[2018-06-26] MEDS: QUEtiapine FUMARATE 100 MG TABLET (FP) PO SCH (21:47)
[2018-06-26] MEDS: BENZOCAINE 20 % GEL TUBE MM PRN (21:48)
[2018-06-27] MEDS: IBUPROFEN 400 MG TABLET (FP) PO PRN ×2 (03:52→11:49)
[2018-06-27] MEDS: CIPROFLOXACIN HCL 0.3% OPHTH 2.5ML BOTTLE OS SCH ×2 (06:14→10:21)
[2018-06-27] MEDS: HYDROCHLOROTHIAZIDE 12.5 MG CAPSULE (FP) PO SCH (06:15)
[2018-06-27] MEDS: CYCLOBENZAPRINE HCL 10 MG TABLET (FP) PO SCH (06:15)
[2018-06-27 06:45] VITALS: TEMP 97.5
--- NOTE | 2018-06-27 10:02 | PN ---
S Progress Note Note: Rehab discharge note: Patient discharged from rehab today as he states he feels better and accomplished all rehab goals. Aftercare arranged for [facility] and patient reports he will schedule is own appointment to coordinate with his work schedule. Patient encouraged to follow up with PCP within one week of discharge and to attend group meetings AA/NA to prevent/minimize risk of relapse. Patient is medically stable at time of discharge and denies SI/HI. Vital Signs Temperature 97.5 F L 06/27/18 06:44 Pulse Rate 85 06/27/18 06:44 Respiratory Rate 20 06/27/18 06:44 Blood Pressure 143/88 06/27/18 06:44 O2 Sat by Pulse Oximetry (%) Ambulatory Orders Quetiapine Fumarate [Seroquel] 100 mg PO HS #30 tablet 03/31/18 Fluoxetine HCl 20 mg PO DAILY 06/15/18 Gabapentin 300 mg PO Q6H PRN 06/15/18 Trazodone HCl 100 mg PO HS PRN 06/15/18 Hydrochlorothiazide [Hctz -] 12.5 mg PO DAILY #14 cap 06/27/18 Lisinopril 10 mg PO BID #30 tablet 06/27/18 Ofloxacin Otic [Floxin Otic -] 10 drop AD DAILY 2 Days #1 bottle 06/27/18 Ranitidine HCl 150 mg PO BID #14 tablet 06/27/18
[2018-06-27 10:14] VITALS: BP 129/75; PULSE 86
[2018-06-27] MEDS: PRENATAL VITAMINS W/ FOLIC ACID TABLET (FP) PO SCH (10:21)
[2018-06-27] MEDS: LISINOPRIL 10 MG TABLET (FP) PO SCH (10:21)
[2018-06-27] MEDS: ACETAMINOPHEN 325 MG TABLET (FP) PO PRN (10:21)
[2018-06-27] MEDS: FLUoxetine HCL 20 MG CAPSULE (FP) PO SCH (10:21)
[2018-06-27] MEDS: NICOTINE 14 MG/24 HOURS TOPICAL PATCH TD SCH (10:22)
[2018-06-27] MEDS: OFLOXACIN 0.3% OTIC SOLUTION 5 ML BOTTLE AS SCH (10:22)
[2018-06-27] MEDS: RANITIDINE HCL 150 MG TABLET (FP) PO SCH (10:22)
== END 2018-06-27 11:50 | disposition home or self-care (01) | DRG 772 ==
LOC: YASAS 11:59 → Y3W 12:00
PROVIDERS: ADMIT Neuromusculoskeletal Medicine & OMM; ATTEND Neuromusculoskeletal Medicine & OMM
PROC: HZ42ZZZ Group Counseling for Substance Abuse Treatment, Cognitive-Behavioral (ICD-10-PCS; principal; 2018-06-20)
DX: F11.20 Opioid dependence, uncomplicated (principal); F10.20 Alcohol dependence, uncomplicated; I10 Essential (primary) hypertension; H60.502 Unspecified acute noninfective otitis externa, left ear; A69.0 Necrotizing ulcerative stomatitis

== ENCOUNTER 2018-07-23 13:41 | Inpatient (IN) | payer OTHER ==
--- NOTE | 2018-07-23 15:54 | HP ---
Screened but not Admitted - Documentation of Visit Screened but not Admitted: Yes Left Prior to Completion of Assessment: No Patient Does Not Meet Criteria for Admission: Yes Alternative Treatment/Assisted Info Provided: Yes Additional Information/Explanation: Patient completed detox and rehab at [facility] on 07/20. He came to [facility] on 07/20 and 07/21 and was referred to [facility] facility. Patient is [place] and is [place] [facility]. He reports last use of drugs 3 days ago, he has no signs of distress.
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
[2018-07-23] MEDS ORDERED: IBUPROFEN 400 MG TABLET (FP) PO PRN ×2 (17:00)
[2018-07-23] MEDS ORDERED: BISMUTH SUBSALICYLATE 524 MG/30 ML UD PO PRN (17:00)
[2018-07-23] MEDS ORDERED: ONDANSETRON *ODT* 4 MG TABLET SL PRN (17:00)
[2018-07-23] MEDS ORDERED: MELATONIN 5 MG TABLETS PO PRN (17:00)
[2018-07-23] MEDS ORDERED: MAG HYDROX/AL HYDROX/SIMETH 30 ML UNIT-DOSE CUP PO PRN (17:00)
[2018-07-23] MEDS ORDERED: chlordiazePOXIDE HCL 25 MG CAPSULE PO ONE (17:00)
[2018-07-23] MEDS ORDERED: MAGNESIUM HYDROX 2400MG/30ML ORAL SUSPENSION 30 ML CUP PO PRN (17:00)
[2018-07-23] MEDS ORDERED: MENTHOL/PHENOL 1 EACH UD MM PRN (17:00)
[2018-07-23] MEDS ORDERED: ACETAMINOPHEN 325 MG TABLET (FP) PO PRN ×2 (17:00)
[2018-07-23] MEDS ORDERED: MAGNESIUM CITRATE 300 ML BOTTLE PO PRN (17:00)
[2018-07-23] MEDS: THIAMINE HCL 100 MG TABLET (FP) PO SCH (21:04)
[2018-07-23] MEDS: chlordiazePOXIDE HCL 25 MG CAPSULE PO SCH (21:04)
[2018-07-23] MEDS: RANITIDINE HCL 150 MG TABLET (FP) PO SCH (21:04)
[2018-07-23] MEDS: QUEtiapine FUMARATE 50 MG TABLET PO SCH (21:04)
[2018-07-24] MEDS: chlordiazePOXIDE HCL 25 MG CAPSULE PO SCH ×2 (05:50→14:00)
[2018-07-24] MEDS: chlordiazePOXIDE HCL 10 MG CAPSULE PO PRN (10:40)
[2018-07-24] MEDS: LISINOPRIL 10 MG TABLET (FP) PO SCH (10:40)
[2018-07-24] MEDS: RANITIDINE HCL 150 MG TABLET (FP) PO SCH ×2 (10:40→22:43)
[2018-07-24] MEDS: PRENATAL VITAMINS W/ FOLIC ACID TABLET (FP) PO SCH (10:40)
[2018-07-24] MEDS: HYDROCHLOROTHIAZIDE 25 MG TABLET (FP) PO SCH (10:40)
[2018-07-24] MEDS: METHOCARBAMOL 500 MG TABLET PO PRN ×2 (10:43→22:44)
[2018-07-24] MEDS: hydrOXYzine PAMOATE 50 MG CAPSULE (FP) PO PRN (10:43)
[2018-07-24 10:50] LABS: HEMATOCRIT 42.9 % (35.4-49); HEMOGLOBIN 14.2 GM/dL (11.7-16.9); MCH 29.9 pg (25.7-33.7); MEAN CELL VOLUME 90.4 fl (80-96); MEAN PLT VOLUME 8.6 fl (7.5-11.1); PLATELET COUNT 305 K/MM3 (134-434); RBC 4.75 M/mm3 (4.00-5.60); RDW 13.9 % (11.9-15.9); WHITE BLOOD COUNT 7.9 K/mm3 (4.0-10.0)
[2018-07-24 11:09] LABS: BILIRUBIN,TOTAL 0.6 mg/dL (0.2-1); CALCIUM 9.8 mg/dL (8.5-10.1); CREATININE 1.3 mg/dL (0.55-1.3); POTASSIUM 4.2 mmol/L (3.5-5.1); TOT PROT 7.3 g/dl (6.4-8.2)
--- NOTE | 2018-07-24 12:01 | PN ---
[facility] CIWA - CIWA Score Nausea/Vomitin-Mild Nausea/No Vomiting Muscle Tremors: 3 Anxiety: 3 Agitation: 3 Paroxysmal Sweats: 3 Orientation: 0-Oriented Tacttile Disturbances: 0-None Auditory Disturbances: 0-None Visual Disturbances: 0-None Headache: 0-None Present CIWA-Ar Total Score: 13 BHS COWS - Scale Resting Pulse: 0= [place] 80 or Below Sweatin= Chills/Flushing Restless Observation: 3= Extraneous Movement Pupil Size: 0= Normal to Room Light Bone or Joint Aches: 2= Severe Diffuse Aches Runny Nose/ Eye Tearin= Runny Nose/Eyes GI Upset > 30mins: 2= Nausea/Diarrhea Tremor Observation of Outstretched Hands: 2= Slight Tremor Visible Yawning Observation: 0= None Anxiety or Irritability: 2=Irritable/Anxious Goose Flesh Skin: 0=Smooth Skin COWS Score: 14 S Progress Note (SOAP) Subjective: Sweating, tremor, feeling tired, interrupted sleep, nausea, muscle spasm Objective: 07/24/18 12:00 Last Vital Signs Temp Pulse Resp BP Pulse Ox 97.2 F L 72 16 116/71 07/24/18 06:00 07/24/18 10:27 07/24/18 10:27 07/24/18 10:27 Laboratory Tests 07/24/18 07/24/18 07:40 07:40 WBC 7.9 RBC 4.75 Hgb 14.2 Hct 42.9 MCV 90.4 MCH 29.9 MCHC 33.0 RDW 13.9 Plt Count 305 MPV 8.6 Sodium 139 Potassium 4.2 Chloride 102 Carbon Dioxide 28 Anion Gap 9 BUN 11 Creatinine 1.3 Est GFR (CKD-EPI)AfAm 80.22 Est GFR (CKD-EPI)NonAf 69.22 Random Glucose 98 Calcium 9.8 Total Bilirubin 0.6 AST 22 ALT 25 Alkaline Phosphatase 93 Total Protein 7.3 Albumin 4.0 Labs reviewed Assessment: 07/24/18 12:00 Withdrawal symptoms Plan: Continue detox Encouraged PO water hydration
[2018-07-24] MEDS: chlordiazePOXIDE 5 MG CAPSULE PO SCH (22:15)
[2018-07-24] MEDS: QUEtiapine FUMARATE 50 MG TABLET PO SCH (22:43)
[2018-07-24] MEDS: THIAMINE HCL 100 MG TABLET (FP) PO SCH (22:43)
[2018-07-25] MEDS: chlordiazePOXIDE 5 MG CAPSULE PO SCH ×2 (06:05→13:12)
[2018-07-25] MEDS: HYDROCHLOROTHIAZIDE 25 MG TABLET (FP) PO SCH (10:25)
[2018-07-25] MEDS: PRENATAL VITAMINS W/ FOLIC ACID TABLET (FP) PO SCH (10:25)
[2018-07-25] MEDS: LISINOPRIL 10 MG TABLET (FP) PO SCH (10:25)
[2018-07-25] MEDS: RANITIDINE HCL 150 MG TABLET (FP) PO SCH ×2 (10:25→22:33)
[2018-07-25] MEDS: chlordiazePOXIDE HCL 10 MG CAPSULE PO PRN ×2 (10:28→18:40)
[2018-07-25] MEDS: hydrOXYzine PAMOATE 50 MG CAPSULE (FP) PO PRN ×2 (10:30→18:40)
[2018-07-25] MEDS: METHOCARBAMOL 500 MG TABLET PO PRN ×2 (10:31→18:40)
--- NOTE | 2018-07-25 12:36 | PN ---
S CIWA - CIWA Score Nausea/Vomitin-No Nausea/No Vomiting Muscle Tremors: 3 Anxiety: 3 Agitation: 1-Slight > Activity Paroxysmal Sweats: 4-Forehead w/Sweat Beads Orientation: 0-Oriented Tacttile Disturbances: 1-Very Mild Itch/Numbness Auditory Disturbances: 0-None Visual Disturbances: 2-Mild Sensitivity Headache: 2-Mild CIWA-Ar Total Score: 16 BHS COWS - Scale Resting Pulse: 1= [place] 81-100 Sweatin= Chills/Flushing Restless Observation: 1= Difficult to Sit Still Pupil Size: 0= Normal to Room Light Bone or Joint Aches: 0= None Runny Nose/ Eye Tearin= None GI Upset > 30mins: 2= Nausea/Diarrhea Tremor Observation of Outstretched Hands: 2= Slight Tremor Visible Yawning Observation: 1= 1-2x During Session Anxiety or Irritability: 2=Irritable/Anxious Goose Flesh Skin: 0=Smooth Skin COWS Score: 10 BHS Progress Note (SOAP) Subjective: Interrupted Sleep, Sweating, Tremors, Diarrhea, H/A, Fatigue, Stomach Cramping. Objective: PATIENT A & O X 3, OBSERVED AMBULATING ON UNIT UNASSISTED. IN NO ACUTE DISTRESS. 07/25/18 12:36 Vital Signs Temperature 97.9 F 07/25/18 09:07 Pulse Rate 83 07/25/18 09:07 Respiratory Rate 18 07/25/18 09:07 Blood Pressure 116/68 07/25/18 09:07 O2 Sat by Pulse Oximetry (%) Laboratory Tests 07/24/18 07/24/18 07/24/18 07:40 07:40 07:40 WBC 7.9 RBC 4.75 Hgb 14.2 Hct 42.9 MCV 90.4 MCH 29.9 MCHC 33.0 RDW 13.9 Plt Count 305 MPV 8.6 Sodium 139 Potassium 4.2 Chloride 102 Carbon Dioxide 28 Anion Gap 9 BUN 11 Creatinine 1.3 Est GFR (CKD-EPI)AfAm 80.22 Est GFR (CKD-EPI)NonAf 69.22 Random Glucose 98 Calcium 9.8 Total Bilirubin 0.6 AST 22 ALT 25 Alkaline Phosphatase 93 Total Protein 7.3 Albumin 4.0 RPR Titer Nonreactive LABS NOTED. Assessment: 07/25/18 12:36 WITHDRAWAL SYMPTOMS. Plan: CONTINUE DETOX. INCREASE DAILY PO FLUID / WATER INTAKE. PRN PEPTO-BISMOL PO FOR DIARRHEA.
[2018-07-25] MEDS ORDERED: chlordiazePOXIDE HCL 10 MG CAPSULE PO PRN (21:00)
[2018-07-25] MEDS: THIAMINE HCL 100 MG TABLET (FP) PO SCH (22:33)
[2018-07-25] MEDS: chlordiazePOXIDE HCL 10 MG CAPSULE PO SCH (22:33)
[2018-07-25] MEDS: QUEtiapine FUMARATE 50 MG TABLET PO SCH (22:33)
[2018-07-26] MEDS: chlordiazePOXIDE HCL 10 MG CAPSULE PO SCH (05:36)
[2018-07-26 09:19] VITALS: BP 120/68; PULSE 79; TEMP 97.5
[2018-07-26] MEDS: RANITIDINE HCL 150 MG TABLET (FP) PO SCH (10:35)
[2018-07-26] MEDS: LISINOPRIL 10 MG TABLET (FP) PO SCH (10:35)
[2018-07-26] MEDS: HYDROCHLOROTHIAZIDE 25 MG TABLET (FP) PO SCH (10:35)
[2018-07-26] MEDS: PRENATAL VITAMINS W/ FOLIC ACID TABLET (FP) PO SCH (10:35)
--- NOTE | 2018-07-26 10:38 | PN ---
S CIWA - CIWA Score Nausea/Vomitin-Mild Nausea/No Vomiting Muscle Tremors: 1-None Visible, but [place] Anxiety: 1-Mildly Anxious Agitation: 1-Slight > Activity Paroxysmal Sweats: No Perspiration Orientation: 0-Oriented Tacttile Disturbances: 0-None Auditory Disturbances: 0-None Visual Disturbances: 0-None Headache: 1-Very Mild CIWA-Ar Total Score: 5 BHS Progress Note (SOAP) Subjective: alert,no complaint Objective: 07/26/18 10:37 Vital Signs Temperature 97.5 F L 07/26/18 09:18 Pulse Rate 79 07/26/18 09:18 Respiratory Rate 18 07/26/18 09:18 Blood Pressure 120/68 07/26/18 09:18 O2 Sat by Pulse Oximetry (%) Assessment: 07/26/18 10:37 detox completed,no withdrawal symptom Plan: discharge today,follow up with after care program as arrangement
--- NOTE | 2018-07-26 10:45 | DS ---
[facility] Detox Discharge Summary Admission Date: 07/23/18 Discharge Date: 07/26/18 - History Present History: Alcohol Dependence, Sedative Dependence Additional Comments: stable for discharge today,follow up with after care program as arrangement Pertinent Past History: hypertension gerd insomnia - Physical Exam Results Vital Signs: Vital Signs Temperature 97.5 F L 07/26/18 09:18 Pulse Rate 79 07/26/18 09:18 Respiratory Rate 18 07/26/18 09:18 Blood Pressure 120/68 07/26/18 09:18 O2 Sat by Pulse Oximetry (%) Pertinent Admission Physical Exam Findings: withdrawal signs and symptom Laboratory Last Values WBC 7.9 K/mm3 (4.0-10.0) 07/24/18 07:40 RBC 4.75 M/mm3 (4.00-5.60) 07/24/18 07:40 Hgb 14.2 GM/dL (11.7-16.9) 07/24/18 07:40 Hct 42.9 % (35.4-49) 07/24/18 07:40 MCV 90.4 fl (80-96) 07/24/18 07:40 MCH 29.9 pg (25.7-33.7) 07/24/18 07:40 MCHC 33.0 g/dl (32.0-35.9) 07/24/18 07:40 RDW 13.9 % (11.9-15.9) 07/24/18 07:40 Plt Count 305 K/MM3 (134-434) 07/24/18 07:40 MPV 8.6 fl (7.5-11.1) 07/24/18 07:40 Sodium 139 mmol/L (136-145) 07/24/18 07:40 Potassium 4.2 mmol/L (3.5-5.1) 07/24/18 07:40 Chloride 102 mmol/L (98-107) 07/24/18 07:40 Carbon Dioxide 28 mmol/L (21-32) 07/24/18 07:40 Anion Gap 9 MMOL/L (8-16) 07/24/18 07:40 BUN 11 mg/dL (7-18) 07/24/18 07:40 Creatinine 1.3 mg/dL (0.55-1.3) 07/24/18 07:40 Est GFR (CKD-EPI)AfAm 80.22 06/02/19 07:40 Est GFR (CKD-EPI)NonAf 69.22 07/24/18 07:40 Random Glucose 98 mg/dL (74-106) 07/24/18 07:40 Calcium 9.8 mg/dL (8.5-10.1) 07/24/18 07:40 Total Bilirubin 0.6 mg/dL (0.2-1) 07/24/18 07:40 AST 22 U/L (15-37) 07/24/18 07:40 ALT 25 U/L (13-61) 07/24/18 07:40 Alkaline Phosphatase 93 U/L (45-117) 07/24/18 07:40 Total Protein 7.3 g/dl (6.4-8.2) 07/24/18 07:40 Albumin 4.0 g/dl (3.4-5.0) 07/24/18 07:40 RPR Titer Nonreactive (NONREACTIVE) 07/24/18 07:40 - Treatment Hospital Course: Detox Protocol Followed, Detoxed Safely, Responded well, Discharged Condition Good Patient has Accepted a Rehab Referral to: declined - Medication Discharge Medications: Ambulatory Orders Quetiapine Fumarate [Seroquel] 100 mg PO HS #30 tablet 03/31/18 Fluoxetine HCl 20 mg PO DAILY 06/15/18 Trazodone HCl 100 mg PO HS PRN 06/15/18 Ranitidine HCl 150 mg PO BID 07/20/18 Hydrochlorothiazide [Hctz -] 25 mg PO DAILY #30 tablet 07/26/18 Lisinopril 10 mg PO BID #60 tablet 07/26/18 Ranitidine [Zantac -] 150 mg PO BID #30 tablet 07/26/18 - AMA Did Patient Leave Against Medical Advice: No
== END 2018-07-26 11:12 | disposition home or self-care (01) | DRG 773 ==
LOC: YASAS 13:41 → Y6N 18:03
PROVIDERS: ADMIT Surgery; ATTEND Surgery
PROC: HZ2ZZZZ Detoxification Services for Substance Abuse Treatment (ICD-10-PCS; principal; 2018-07-23)
DX: F10.230 Alcohol dependence with withdrawal, uncomplicated (principal); F11.23 Opioid dependence with withdrawal; F13.20 Sedative, hypnotic or anxiolytic dependence, uncomplicated; F14.20 Cocaine dependence, uncomplicated; F15.20 Other stimulant dependence, uncomplicated; F41.9 Anxiety disorder, unspecified; F32.9 Major depressive disorder, single episode, unspecified; D64.9 Anemia, unspecified; G47.00 Insomnia, unspecified; I10 Essential (primary) hypertension; K21.9 Gastro-esophageal reflux disease without esophagitis; Z87.09 Personal history of other diseases of the respiratory system; Z88.0 Allergy status to penicillin
CPT/HCPCS: 36415; 80053; 85027; 86593

== ENCOUNTER 2018-08-31 11:12 | Inpatient (IN) | payer OTHER ==
[2018-08-31 14:08] VITALS: BMI 33.6
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
[2018-08-31] MEDS ORDERED: ACETAMINOPHEN 325 MG TABLET (FP) PO PRN ×2 (15:30)
[2018-08-31] MEDS ORDERED: MAGNESIUM HYDROX 2400MG/30ML ORAL SUSPENSION 30 ML CUP PO PRN (15:30)
[2018-08-31] MEDS ORDERED: MAG HYDROX/AL HYDROX/SIMETH 30 ML UNIT-DOSE CUP PO PRN (15:30)
[2018-08-31] MEDS ORDERED: MENTHOL/PHENOL 1 EACH UD MM PRN (15:30)
[2018-08-31] MEDS ORDERED: BISMUTH SUBSALICYLATE 524 MG/30 ML UD PO PRN (15:30)
[2018-08-31] MEDS ORDERED: MAGNESIUM CITRATE 300 ML BOTTLE PO PRN (15:30)
[2018-08-31 17:23] LABS: HEMATOCRIT 45.5 % (35.4-49); HEMOGLOBIN 14.8 GM/dL (11.7-16.9); MCH 29.6 pg (25.7-33.7); MCHC 32.5 g/dl (32.0-35.9); MEAN CELL VOLUME 91.2 fl (80-96); MEAN PLT VOLUME 8.3 fl (7.5-11.1); PLATELET COUNT 329 K/MM3 (134-434); RBC 4.99 M/mm3 (4.00-5.60); RDW 13.8 % (11.9-15.9)
[2018-08-31] MEDS: chlordiazePOXIDE HCL 25 MG CAPSULE PO SCH ×2 (17:25→22:32)
[2018-08-31 17:29] LABS: BILIRUBIN,TOTAL 0.3 mg/dL (0.2-1); BLOOD UREA NITROGEN 9.7 mg/dL (7-18); CALCIUM 9.2 mg/dL (8.5-10.1); CREATININE 1.1 mg/dL (0.55-1.3); POTASSIUM 4.1 mmol/L (3.5-5.1); TOT PROT 7.6 g/dl (6.4-8.2)
[2018-08-31] MEDS: METHOCARBAMOL 500 MG TABLET PO PRN (18:18)
[2018-08-31] MEDS: MELATONIN 5 MG TABLETS PO PRN (22:32)
[2018-08-31] MEDS: LISINOPRIL 10 MG TABLET (FP) PO SCH (22:32)
[2018-08-31] MEDS: THIAMINE HCL 100 MG TABLET (FP) PO SCH (22:32)
[2018-08-31] MEDS: RANITIDINE HCL 150 MG TABLET (FP) PO SCH (22:32)
[2018-09-01] MEDS: chlordiazePOXIDE HCL 25 MG CAPSULE PO SCH ×4 (05:13→22:12)
[2018-09-01 06:21] LABS: PH,URINE 5.5 (5.0-8.0); URINE APPEARANCE CLEAR; URINE BILIRUBIN NEGATIVE (NEGATIVE); URINE COLOR YELLOW; URINE GLUCOSE (UA) NEGATIVE (NEGATIVE); URINE KETONE NEGATIVE (NEGATIVE); URINE LEUK ESTERASE NEGATIVE (NEGATIVE); URINE NITRITE NEGATIVE (NEGATIVE); URINE PROTEIN NEGATIVE (NEGATIVE); URINE UROBILINOGEN 0.2 mg/dL (0.2-1.0)
--- NOTE | 2018-09-01 09:27 | CONSULT ---
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 This is one of multiple admissions for patient. Patient admitted to for alcohol and opioid dependence. Substance Abuse History: Smoking Cessation. Smoking history: Never smoked. Have you smoked in the past 12 months: Yes. Aproximately how many cigarettes per day: 0. If you are a former smoker, when did you quit?: 2007. Hx Chewing Tobacco Use: No. Initiated information on smoking cessation: No. - Substance & Tx. History. Hx Alcohol Use: Yes. Hx Substance Use: Yes. Substance Use Type : Alcohol, Tranquilizers. Hx Substance Use Treatment: Yes (detox [facility] 07/23/18 -). - Substances abused. Alcohol. Substance route: Oral. Frequency: Daily. Amount used: 4-6 PINTS OF VODKA. Age of first use: 16. Date of last use: 08/31/18. Other. Other (specify): PERCOCET . Substance route: Oral. Frequency: Daily. Amount used: 6 PILLS. Age of first use: 29. Date of last use: 08/30/18. Alprazolam (Xanax). Substance route: Oral. Frequency: 1-2 times per week. Amount used: 6-10mg. Age of first use: 29. Date of last use: 08/30/18 Medical History: anemia, asthma, hypertension, acid reflux Psychiatric History: Patient denies h/o psychiatric hospitalizations, outpatient care, and suicide attempt. Patient reports only receiving psychiatric care when admitted to detox/rehab settings. Patient known to facility and has accepted seroquel 100mg for insomnia with favorable effect. Patient reports detox treatment at [facility] two weeks ago and was prescribed prozac 20mg + Seroquel 100mg + trazodone 100mg. Patient reports medication noncompliance since discharge. Patient has also received detox treatment at [facility]. At present patient reports stable mood but is experiencing difficulty sleeping. Physical/Sexual Abuse/Trauma History: denies. Mental Status Exam - Mental Status Exam Alert and Oriented to: Time, Place, Person Cognitive Function: Good Patient Appearance: Well Groomed Mood: Euthymic Affect: Mood Congruent Patient Behavior: Cooperative Speech Pattern: Appropriate Voice Loudness: Normal Thought Process: Goal Oriented Thought Disorder: Not Present Hallucinations: Denies Suicidal Ideation: Denies Homicidal Ideation: Denies Insight/Judgement: Poor Sleep: Poorly Appetite: Fair Muscle strength/Tone: Normal Gait/Station: Normal Psychiatric Findings - Problem List (St[place] 1, 2,3) (1) Alcohol dependence with uncomplicated withdrawal Current Visit: Yes Status: Acute Comment: . (2) Sedative, hypnotic or anxiolytic dependence with withdrawal, uncomplicated Current Visit: Yes Status: Acute (3) Substance-induced sleep disorder Current Visit: Yes Status: Acute (4) Substance induced mood disorder Current Visit: Yes Status: Acute - Initial Treatment Plan Initial Treatment Plan: Psychoeducation provided. Detoxification in progress. Will order Prozac 20mg + seroquel 100mg HS. Benefits and side effects discussed. Verbal consent given.
[2018-09-01] MEDS: LISINOPRIL 10 MG TABLET (FP) PO SCH ×2 (10:08→22:12)
[2018-09-01] MEDS: RANITIDINE HCL 150 MG TABLET (FP) PO SCH ×2 (10:08→22:11)
[2018-09-01] MEDS: HYDROCHLOROTHIAZIDE 25 MG TABLET (FP) PO SCH (10:08)
--- NOTE | 2018-09-01 10:09 | PN ---
S CIWA - CIWA Score Nausea/Vomitin-Mild Nausea/No Vomiting Muscle Tremors: 3 Anxiety: 3 Agitation: 2 Paroxysmal Sweats: 1-Minimal Palms Moist Orientation: 1-Uncertain about Date Tacttile Disturbances: 1-Very Mild Itch/Numbness Auditory Disturbances: 0-None Visual Disturbances: 0-None Headache: 1-Very Mild CIWA-Ar Total Score: 13 BHS Progress Note (SOAP) Subjective: 38 years old male admitted on 08/31/18 for alcohol and benzo withdrawal sx medical history of asthma hypertension none compliance with antihypertensant while drinking alcohol and takine benzo discuss risks of uncontrolled bp elevation Objective: 09/01/18 10:11 Vital Signs Temperature 97.6 F 09/01/18 09:56 Pulse Rate 89 09/01/18 09:56 Respiratory Rate 19 09/01/18 09:56 Blood Pressure 148/97 09/01/18 09:56 O2 Sat by Pulse Oximetry (%) Laboratory Last Values WBC 9.0 K/mm3 (4.0-10.0) 08/31/18 15:45 RBC 4.99 M/mm3 (4.00-5.60) 08/31/18 15:45 Hgb 14.8 GM/dL (11.7-16.9) 08/31/18 15:45 Hct 45.5 % (35.4-49) 08/31/18 15:45 MCV 91.2 fl (80-96) 08/31/18 15:45 MCH 29.6 pg (25.7-33.7) 08/31/18 15:45 MCHC 32.5 g/dl (32.0-35.9) 08/31/18 15:45 RDW 13.8 % (11.9-15.9) 08/31/18 15:45 Plt Count 329 K/MM3 (134-434) 08/31/18 15:45 MPV 8.3 fl (7.5-11.1) 08/31/18 15:45 Sodium 137 mmol/L (136-145) 08/31/18 15:45 Potassium 4.1 mmol/L (3.5-5.1) 08/31/18 15:45 Chloride 104 mmol/L (98-107) 08/31/18 15:45 Carbon Dioxide 25 mmol/L (21-32) 08/31/18 15:45 Anion Gap 8 MMOL/L (8-16) 08/31/18 15:45 BUN 9.7 mg/dL (7-18) 08/31/18 15:45 Creatinine 1.1 mg/dL (0.55-1.3) 08/31/18 15:45 Est GFR (CKD-EPI)AfAm 97.49 08/31/18 15:45 Est GFR (CKD-EPI)NonAf 84.12 08/31/18 15:45 Random Glucose 105 mg/dL (74-106) 08/31/18 15:45 Calcium 9.2 mg/dL (8.5-10.1) 08/31/18 15:45 Total Bilirubin 0.3 mg/dL (0.2-1) 08/31/18 15:45 AST 18 U/L (15-37) 08/31/18 15:45 ALT 37 U/L (13-61) 08/31/18 15:45 Alkaline Phosphatase 104 U/L (45-117) 08/31/18 15:45 Total Protein 7.6 g/dl (6.4-8.2) 08/31/18 15:45 Albumin 4.0 g/dl (3.4-5.0) 08/31/18 15:45 Urine Color Yellow 08/31/18 22:54 Urine Appearance Clear 08/31/18 22:54 Urine pH 5.5 (5.0-8.0) 08/31/18 22:54 Ur Specific [place] 1.010 (1.010-1.035) 08/31/18 22:54 Urine Protein Negative (NEGATIVE) 08/31/18 22:54 Urine Glucose (UA) Negative (NEGATIVE) 08/31/18 22:54 Urine Ketones Negative (NEGATIVE) 08/31/18 22:54 Urine Blood Negative (NEGATIVE) 08/31/18 22:54 Urine Nitrite Negative (NEGATIVE) 08/31/18 22:54 Urine Bilirubin Negative (NEGATIVE) 08/31/18 22:54 Urine Urobilinogen 0.2 mg/dL (0.2-1.0) 08/31/18 22:54 Ur Leukocyte Esterase Negative (NEGATIVE) 08/31/18 22:54 lab noted Assessment: 09/01/18 10:11 alcohol and benzo withdrawal sx Plan: continue alcohol and benzo detox
[2018-09-01] MEDS: PRENATAL VITAMINS W/ FOLIC ACID TABLET (FP) PO SCH (10:11)
[2018-09-01] MEDS: hydrOXYzine HCL 25 MG TABLET (FP) PO PRN (12:49)
[2018-09-01] MEDS: METHOCARBAMOL 500 MG TABLET PO PRN (12:49)
[2018-09-01] MEDS: chlordiazePOXIDE HCL 25 MG CAPSULE PO PRN (12:49)
[2018-09-01] MEDS: IBUPROFEN 400 MG TABLET (FP) PO PRN ×2 (17:30→22:11)
[2018-09-01] MEDS: THIAMINE HCL 100 MG TABLET (FP) PO SCH (22:11)
[2018-09-01] MEDS: MELATONIN 5 MG TABLETS PO PRN (22:12)
[2018-09-01] MEDS ORDERED: QUEtiapine FUMARATE 100 MG TABLET (FP) PO ONE (22:53)
[2018-09-02] MEDS: chlordiazePOXIDE HCL 25 MG CAPSULE PO SCH ×4 (05:39→22:03)
[2018-09-02] MEDS: RANITIDINE HCL 150 MG TABLET (FP) PO SCH ×2 (10:14→22:03)
[2018-09-02] MEDS: HYDROCHLOROTHIAZIDE 25 MG TABLET (FP) PO SCH (10:14)
[2018-09-02] MEDS: LISINOPRIL 10 MG TABLET (FP) PO SCH ×2 (10:14→22:03)
[2018-09-02] MEDS: PRENATAL VITAMINS W/ FOLIC ACID TABLET (FP) PO SCH (10:14)
[2018-09-02] MEDS: FLUoxetine HCL 20 MG CAPSULE (FP) PO SCH (11:53)
[2018-09-02] MEDS: chlordiazePOXIDE HCL 25 MG CAPSULE PO PRN (12:43)
--- NOTE | 2018-09-02 15:07 | PN ---
S CIWA - CIWA Score Nausea/Vomitin-No Nausea/No Vomiting Muscle Tremors: None Anxiety: 2 Agitation: 0-Normal Activity Paroxysmal Sweats: 3 Orientation: 0-Oriented Tacttile Disturbances: 1-Very Mild Itch/Numbness Auditory Disturbances: 2-Mild Harshness/Frighten Visual Disturbances: 0-None Headache: 3-Moderate CIWA-Ar Total Score: 11 BHS Progress Note (SOAP) Subjective: Interrupted Sleep, Body Aches, Sweating, Headache. Objective: PATIENT A & O X 3, OBSERVED AMBULATING ON UNIT UNASSISTED. IN NO ACUTE DISTRESS. 09/02/18 15:12 Vital Signs Temperature 96.9 F L 09/02/18 13:05 Pulse Rate 92 H 09/02/18 13:05 Respiratory Rate 18 09/02/18 13:05 Blood Pressure 130/88 09/02/18 13:05 O2 Sat by Pulse Oximetry (%) Laboratory Tests 08/31/18 08/31/18 08/31/18 15:45 15:45 15:45 WBC 9.0 RBC 4.99 Hgb 14.8 Hct 45.5 MCV 91.2 MCH 29.6 MCHC 32.5 RDW 13.8 Plt Count 329 MPV 8.3 Sodium 137 Potassium 4.1 Chloride 104 Carbon Dioxide 25 Anion Gap 8 BUN 9.7 Creatinine 1.1 Est GFR (CKD-EPI)AfAm 97.49 Est GFR (CKD-EPI)NonAf 84.12 Random Glucose 105 Calcium 9.2 Total Bilirubin 0.3 AST 18 ALT 37 Alkaline Phosphatase 104 Total Protein 7.6 Albumin 4.0 Urine Color Urine Appearance Urine pH Ur Specific [place] Urine Protein Urine Glucose (UA) Urine Ketones Urine Blood Urine Nitrite Urine Bilirubin Urine Urobilinogen Ur Leukocyte Esterase RPR Titer Nonreactive 08/31/18 22:54 WBC RBC Hgb Hct MCV MCH MCHC RDW Plt Count MPV Sodium Potassium Chloride Carbon Dioxide Anion Gap BUN Creatinine Est GFR (CKD-EPI)AfAm Est GFR (CKD-EPI)NonAf Random Glucose Calcium Total Bilirubin AST ALT Alkaline Phosphatase Total Protein Albumin Urine Color Yellow Urine Appearance Clear Urine pH 5.5 Ur Specific [place] 1.010 Urine Protein Negative Urine Glucose (UA) Negative Urine Ketones Negative Urine Blood Negative Urine Nitrite Negative Urine Bilirubin Negative Urine Urobilinogen 0.2 Ur Leukocyte Esterase Negative RPR Titer LABS NOTED. Assessment: 09/02/18 15:12 WITHDRAWAL SYMPTOMS. Plan: CONTINUE DETOX.
[2018-09-02] MEDS: METHOCARBAMOL 500 MG TABLET PO PRN (17:30)
[2018-09-02] MEDS: QUEtiapine FUMARATE 100 MG TABLET (FP) PO SCH (22:03)
[2018-09-02] MEDS: THIAMINE HCL 100 MG TABLET (FP) PO SCH (22:03)
[2018-09-03] MEDS ORDERED: chlordiazePOXIDE HCL 10 MG CAPSULE PO PRN
[2018-09-03] MEDS: METHOCARBAMOL 500 MG TABLET PO PRN (03:55)
[2018-09-03] MEDS: chlordiazePOXIDE HCL 10 MG CAPSULE PO SCH ×4 (05:19→22:21)
[2018-09-03] MEDS: IBUPROFEN 400 MG TABLET (FP) PO PRN (05:20)
[2018-09-03] MEDS: HYDROCHLOROTHIAZIDE 25 MG TABLET (FP) PO SCH (10:12)
[2018-09-03] MEDS: FLUoxetine HCL 20 MG CAPSULE (FP) PO SCH (10:12)
[2018-09-03] MEDS: RANITIDINE HCL 150 MG TABLET (FP) PO SCH ×2 (10:12→22:21)
[2018-09-03] MEDS: LISINOPRIL 10 MG TABLET (FP) PO SCH ×2 (10:12→22:21)
[2018-09-03] MEDS: PRENATAL VITAMINS W/ FOLIC ACID TABLET (FP) PO SCH (10:12)
[2018-09-03] MEDS: hydrOXYzine HCL 25 MG TABLET (FP) PO PRN (14:43)
--- NOTE | 2018-09-03 15:20 | PN ---
S CIWA - CIWA Score Nausea/Vomitin-No Nausea/No Vomiting Muscle Tremors: None Anxiety: 3 Agitation: 1-Slight > Activity Paroxysmal Sweats: 3 Orientation: 0-Oriented Tacttile Disturbances: 2-Mild Itch/Numbness/Burn Auditory Disturbances: 1-Very Mild Visual Disturbances: 0-None Headache: 0-None Present CIWA-Ar Total Score: 10 BHS Progress Note (SOAP) Subjective: Body Aches, Fatigue, Sweating, Anxious. Objective: PATIENT A & O X 3, OBSERVED AMBULATING ON UNIT UNASSISTED. IN NO ACUTE DISTRESS. 09/03/18 15:21 Vital Signs Temperature 96.7 F L 09/03/18 14:32 Pulse Rate 86 09/03/18 14:32 Respiratory Rate 18 09/03/18 14:32 Blood Pressure 139/87 09/03/18 14:32 O2 Sat by Pulse Oximetry (%) Laboratory Tests 08/31/18 08/31/18 08/31/18 15:45 15:45 15:45 WBC 9.0 RBC 4.99 Hgb 14.8 Hct 45.5 MCV 91.2 MCH 29.6 MCHC 32.5 RDW 13.8 Plt Count 329 MPV 8.3 Sodium 137 Potassium 4.1 Chloride 104 Carbon Dioxide 25 Anion Gap 8 BUN 9.7 Creatinine 1.1 Est GFR (CKD-EPI)AfAm 97.49 Est GFR (CKD-EPI)NonAf 84.12 Random Glucose 105 Calcium 9.2 Total Bilirubin 0.3 AST 18 ALT 37 Alkaline Phosphatase 104 Total Protein 7.6 Albumin 4.0 Urine Color Urine Appearance Urine pH Ur Specific [place] Urine Protein Urine Glucose (UA) Urine Ketones Urine Blood Urine Nitrite Urine Bilirubin Urine Urobilinogen Ur Leukocyte Esterase RPR Titer Nonreactive 08/31/18 22:54 WBC RBC Hgb Hct MCV MCH MCHC RDW Plt Count MPV Sodium Potassium Chloride Carbon Dioxide Anion Gap BUN Creatinine Est GFR (CKD-EPI)AfAm Est GFR (CKD-EPI)NonAf Random Glucose Calcium Total Bilirubin AST ALT Alkaline Phosphatase Total Protein Albumin Urine Color Yellow Urine Appearance Clear Urine pH 5.5 Ur Specific [place] 1.010 Urine Protein Negative Urine Glucose (UA) Negative Urine Ketones Negative Urine Blood Negative Urine Nitrite Negative Urine Bilirubin Negative Urine Urobilinogen 0.2 Ur Leukocyte Esterase Negative RPR Titer labs noted. Assessment: 09/03/18 15:21 WITHDRAWAL SYMPTOMS. Plan: CONTINUE DETOX.
[2018-09-03] MEDS: QUEtiapine FUMARATE 100 MG TABLET (FP) PO SCH (22:21)
[2018-09-03] MEDS: THIAMINE HCL 100 MG TABLET (FP) PO SCH (22:21)
[2018-09-04] MEDS: chlordiazePOXIDE HCL 10 MG CAPSULE PO SCH ×2 (05:33→17:14)
[2018-09-04] MEDS: HYDROCHLOROTHIAZIDE 25 MG TABLET (FP) PO SCH (10:15)
[2018-09-04] MEDS: FLUoxetine HCL 20 MG CAPSULE (FP) PO SCH (10:15)
[2018-09-04] MEDS: PRENATAL VITAMINS W/ FOLIC ACID TABLET (FP) PO SCH (10:15)
[2018-09-04] MEDS: LISINOPRIL 10 MG TABLET (FP) PO SCH ×2 (10:15→22:08)
[2018-09-04] MEDS: RANITIDINE HCL 150 MG TABLET (FP) PO SCH ×2 (10:15→22:08)
[2018-09-04] MEDS: METHOCARBAMOL 500 MG TABLET PO PRN ×2 (10:16→17:15)
[2018-09-04] MEDS: hydrOXYzine HCL 25 MG TABLET (FP) PO PRN ×2 (10:17→17:14)
[2018-09-04] MEDS: IBUPROFEN 400 MG TABLET (FP) PO PRN (10:21)
--- NOTE | 2018-09-04 15:19 | PN ---
[facility] CIWA - CIWA Score Nausea/Vomitin-Mild Nausea/No Vomiting Muscle Tremors: 1-None Visible, but [place] Anxiety: 3 Agitation: 2 Paroxysmal Sweats: No Perspiration Orientation: 0-Oriented Tacttile Disturbances: 0-None Auditory Disturbances: 0-None Visual Disturbances: 0-None Headache: 0-None Present CIWA-Ar Total Score: 7 S Progress Note (SOAP) Subjective: 38 years old male admitted on 08/31/18 for alcohol and benzo withdrawal sx medical history of hypertension gerd bp managed well by lisinopril and hctz discuss aftercare with staff patient [facility] Objective: 09/04/18 15:21 Vital Signs Temperature 97.6 F 09/04/18 13:13 Pulse Rate 106 H 09/04/18 13:13 Respiratory Rate 20 09/04/18 13:13 Blood Pressure 135/89 09/04/18 13:13 O2 Sat by Pulse Oximetry (%) Laboratory Last Values WBC 9.0 K/mm3 (4.0-10.0) 08/31/18 15:45 RBC 4.99 M/mm3 (4.00-5.60) 08/31/18 15:45 Hgb 14.8 GM/dL (11.7-16.9) 08/31/18 15:45 Hct 45.5 % (35.4-49) 08/31/18 15:45 MCV 91.2 fl (80-96) 08/31/18 15:45 MCH 29.6 pg (25.7-33.7) 08/31/18 15:45 MCHC 32.5 g/dl (32.0-35.9) 08/31/18 15:45 RDW 13.8 % (11.9-15.9) 08/31/18 15:45 Plt Count 329 K/MM3 (134-434) 08/31/18 15:45 MPV 8.3 fl (7.5-11.1) 08/31/18 15:45 Sodium 137 mmol/L (136-145) 08/31/18 15:45 Potassium 4.1 mmol/L (3.5-5.1) 08/31/18 15:45 Chloride 104 mmol/L (98-107) 08/31/18 15:45 Carbon Dioxide 25 mmol/L (21-32) 08/31/18 15:45 Anion Gap 8 MMOL/L (8-16) 08/31/18 15:45 BUN 9.7 mg/dL (7-18) 08/31/18 15:45 Creatinine 1.1 mg/dL (0.55-1.3) 08/31/18 15:45 Est GFR (CKD-EPI)AfAm 97.49 08/31/18 15:45 Est GFR (CKD-EPI)NonAf 84.12 08/31/18 15:45 Random Glucose 105 mg/dL (74-106) 08/31/18 15:45 Calcium 9.2 mg/dL (8.5-10.1) 08/31/18 15:45 Total Bilirubin 0.3 mg/dL (0.2-1) 08/31/18 15:45 AST 18 U/L (15-37) 08/31/18 15:45 ALT 37 U/L (13-61) 08/31/18 15:45 Alkaline Phosphatase 104 U/L (45-117) 08/31/18 15:45 Total Protein 7.6 g/dl (6.4-8.2) 08/31/18 15:45 Albumin 4.0 g/dl (3.4-5.0) 08/31/18 15:45 Urine Color Yellow 08/31/18 22:54 Urine Appearance Clear 08/31/18 22:54 Urine pH 5.5 (5.0-8.0) 08/31/18 22:54 Ur Specific [place] 1.010 (1.010-1.035) 08/31/18 22:54 Urine Protein Negative (NEGATIVE) 08/31/18 22:54 Urine Glucose (UA) Negative (NEGATIVE) 08/31/18 22:54 Urine Ketones Negative (NEGATIVE) 08/31/18 22:54 Urine Blood Negative (NEGATIVE) 08/31/18 22:54 Urine Nitrite Negative (NEGATIVE) 08/31/18 22:54 Urine Bilirubin Negative (NEGATIVE) 08/31/18 22:54 Urine Urobilinogen 0.2 mg/dL (0.2-1.0) 08/31/18 22:54 Ur Leukocyte Esterase Negative (NEGATIVE) 08/31/18 22:54 RPR Titer Nonreactive (NONREACTIVE) 08/31/18 15:45 lab noted Assessment: 09/04/18 15:21 alcohol and benzo withdrawal sx Plan: continue alcohol and benzo detox
[2018-09-04] MEDS: MELATONIN 5 MG TABLETS PO PRN (22:08)
[2018-09-04] MEDS: QUEtiapine FUMARATE 100 MG TABLET (FP) PO SCH (22:08)
[2018-09-04] MEDS: THIAMINE HCL 100 MG TABLET (FP) PO SCH (22:08)
[2018-09-05] MEDS ORDERED: chlordiazePOXIDE HCL 10 MG CAPSULE PO ONE (05:00)
[2018-09-05] MEDS: HYDROCHLOROTHIAZIDE 25 MG TABLET (FP) PO SCH (10:19)
[2018-09-05] MEDS: PRENATAL VITAMINS W/ FOLIC ACID TABLET (FP) PO SCH (10:19)
[2018-09-05] MEDS: FLUoxetine HCL 20 MG CAPSULE (FP) PO SCH (10:19)
[2018-09-05] MEDS: LISINOPRIL 10 MG TABLET (FP) PO SCH (10:19)
[2018-09-05] MEDS: RANITIDINE HCL 150 MG TABLET (FP) PO SCH (10:19)
[2018-09-05 13:39] VITALS: BP 129/85; PULSE 85; TEMP 97.2
--- NOTE | 2018-09-05 14:30 | DS ---
[facility] Detox Discharge Summary Admission Date: 08/31/18 Discharge Date: 09/05/18 - History Present History: Alcohol Dependence, Sedative Dependence Additional Comments: 38 years old male admitted on for alcohol and benzo withdrawal sx patient is doing well through out the detox period determines to remain sober agrees to [facility] - Physical Exam Results Vital Signs: Vital Signs Temperature 97.2 F L 09/05/18 13:38 Pulse Rate 85 09/05/18 13:38 Respiratory Rate 18 09/05/18 13:38 Blood Pressure 129/85 09/05/18 13:38 O2 Sat by Pulse Oximetry (%) Pertinent Admission Physical Exam Findings: alcohol and benzo withdrawal sx Laboratory Last Values WBC 9.0 K/mm3 (4.0-10.0) 08/31/18 15:45 RBC 4.99 M/mm3 (4.00-5.60) 08/31/18 15:45 Hgb 14.8 GM/dL (11.7-16.9) 08/31/18 15:45 Hct 45.5 % (35.4-49) 08/31/18 15:45 MCV 91.2 fl (80-96) 08/31/18 15:45 MCH 29.6 pg (25.7-33.7) 08/31/18 15:45 MCHC 32.5 g/dl (32.0-35.9) 08/31/18 15:45 RDW 13.8 % (11.9-15.9) 08/31/18 15:45 Plt Count 329 K/MM3 (134-434) 08/31/18 15:45 MPV 8.3 fl (7.5-11.1) 08/31/18 15:45 Sodium 137 mmol/L (136-145) 08/31/18 15:45 Potassium 4.1 mmol/L (3.5-5.1) 08/31/18 15:45 Chloride 104 mmol/L (98-107) 08/31/18 15:45 Carbon Dioxide 25 mmol/L (21-32) 08/31/18 15:45 Anion Gap 8 MMOL/L (8-16) 08/31/18 15:45 BUN 9.7 mg/dL (7-18) 08/31/18 15:45 Creatinine 1.1 mg/dL (0.55-1.3) 08/31/18 15:45 Est GFR (CKD-EPI)AfAm 97.49 08/31/18 15:45 Est GFR (CKD-EPI)NonAf 84.12 08/31/18 15:45 Random Glucose 105 mg/dL (74-106) 08/31/18 15:45 Calcium 9.2 mg/dL (8.5-10.1) 08/31/18 15:45 Total Bilirubin 0.3 mg/dL (0.2-1) 08/31/18 15:45 AST 18 U/L (15-37) 08/31/18 15:45 ALT 37 U/L (13-61) 08/31/18 15:45 Alkaline Phosphatase 104 U/L (45-117) 08/31/18 15:45 Total Protein 7.6 g/dl (6.4-8.2) 08/31/18 15:45 Albumin 4.0 g/dl (3.4-5.0) 08/31/18 15:45 Urine Color Yellow 08/31/18 22:54 Urine Appearance Clear 08/31/18 22:54 Urine pH 5.5 (5.0-8.0) 08/31/18 22:54 Ur Specific [place] 1.010 (1.010-1.035) 08/31/18 22:54 Urine Protein Negative (NEGATIVE) 08/31/18 22:54 Urine Glucose (UA) Negative (NEGATIVE) 08/31/18 22:54 Urine Ketones Negative (NEGATIVE) 08/31/18 22:54 Urine Blood Negative (NEGATIVE) 08/31/18 22:54 Urine Nitrite Negative (NEGATIVE) 08/31/18 22:54 Urine Bilirubin Negative (NEGATIVE) 08/31/18 22:54 Urine Urobilinogen 0.2 mg/dL (0.2-1.0) 08/31/18 22:54 Ur Leukocyte Esterase Negative (NEGATIVE) 08/31/18 22:54 RPR Titer Nonreactive (NONREACTIVE) 08/31/18 15:45 lab noted - Treatment Hospital Course: Detox Protocol Followed, Detoxed Safely, Responded well, Discharged Condition Good, Rehab Referral Accepted Patient has Accepted a Rehab Referral to: [facility] - Medication Discharge Medications: Ambulatory Orders Quetiapine Fumarate [Seroquel] 100 mg PO HS #30 tablet 03/31/18 Fluoxetine HCl 20 mg PO DAILY 06/15/18 Trazodone HCl 100 mg PO HS PRN 06/15/18 Hydrochlorothiazide [Hctz -] 25 mg PO DAILY #30 tablet 07/26/18 Lisinopril 10 mg PO BID #60 tablet 07/26/18 Ranitidine [Zantac -] 150 mg PO BID #30 tablet 07/26/18 - Diagnosis (1) Alcohol dependence with uncomplicated withdrawal Status: Acute (2) Sedative, hypnotic or anxiolytic dependence with withdrawal, uncomplicated Status: Acute (3) Substance induced mood disorder Status: Suspected (4) Asthma Status: Chronic Qualifiers: Asthma severity: mild Asthma persistence: intermittent Asthma complication type: unspecified Qualified Code(s): J45.20 - Mild intermittent asthma, uncomplicated (5) GERD (gastroesophageal reflux disease) Status: Chronic Qualifiers: Esophagitis presence: without esophagitis Qualified Code(s): K21.9 - Gastro -esophageal reflux disease without esophagitis (6) Gout Status: Chronic Qualifiers: Gout site: unspecified site Gout etiology: unspecified cause Chronicity: unspecified Qualified Code(s): M10.9 - Gout, unspecified (7) HTN (hypertension) Status: Chronic Qualifiers: Hypertension type: essential hypertension Qualified Code(s): I10 - Essential (primary) hypertension - AMA Did Patient Leave Against Medical Advice: No
== END 2018-09-05 13:54 | disposition other institution (70) | DRG 773 ==
LOC: YASAS 11:12 → Y3N 16:30
PROVIDERS: ADMIT Surgery; ATTEND Surgery
PROC: HZ2ZZZZ Detoxification Services for Substance Abuse Treatment (ICD-10-PCS; principal; 2018-08-31)
DX: F10.230 Alcohol dependence with withdrawal, uncomplicated (principal); F11.23 Opioid dependence with withdrawal; F13.230 Sedative, hypnotic or anxiolytic dependence with withdrawal, uncomplicated; F19.24 Other psychoactive substance dependence with psychoactive substance-induced mood disorder; F19.282 Other psychoactive substance dependence with psychoactive substance-induced sleep disorder; K21.9 Gastro-esophageal reflux disease without esophagitis; J45.20 Mild intermittent asthma, uncomplicated; I10 Essential (primary) hypertension; M10.9 Gout, unspecified; Z88.0 Allergy status to penicillin
CPT/HCPCS: 36415; 80053; 81003; 85027; 86593

== ENCOUNTER 2018-09-05 14:16 | Inpatient (IN) | payer OTHER | END 2018-09-19 11:00 | disposition home or self-care (01) | LOC: YASAS 14:16 → Y5N 14:17 ==

== ENCOUNTER 2018-11-09 14:33 | Inpatient (IN) | payer OTHER ==
[2018-11-09 16:59] VITALS: BMI 32.0
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
--- NOTE | 2018-11-09 18:16 | PN ---
Teaching Attending Note Name of Resident: Butch Florian ATTENDING PHYSICIAN STATEMENT I saw and evaluated the patient. I reviewed the resident's note and discussed the case with the resident. I agree with the resident's findings and plan as documented. SUBJECTIVE: 38 yo here for detox from alcohol. Drinks about 1 gallon of vodka/ day. OBJECTIVE: Vital Signs - 24 hr 11/09/18 11/09/18 16:55 20:51 Temperature 97.2 F L 97.3 F L Pulse Rate 101 H 105 H Respiratory 18 18 Rate Blood Pressure 182/116 H 177/110 H tremulous alert and oriented ASSESSMENT AND PLAN: AUD- alcohol detox protocol
[2018-11-09] MEDS ORDERED: ACETAMINOPHEN 325 MG TABLET (FP) PO PRN (18:23)
[2018-11-09] MEDS ORDERED: BISMUTH SUBSALICYLATE 524 MG/30 ML UD PO PRN (18:23)
[2018-11-09] MEDS ORDERED: MAG HYDROX/AL HYDROX/SIMETH 30 ML UNIT-DOSE CUP PO PRN (18:23)
[2018-11-09] MEDS ORDERED: MENTHOL/PHENOL 1 EACH UD MM PRN (18:23)
[2018-11-09] MEDS ORDERED: MAGNESIUM CITRATE 300 ML BOTTLE PO PRN (18:23)
[2018-11-09] MEDS ORDERED: chlordiazePOXIDE HCL 25 MG CAPSULE PO PRN (18:23)
[2018-11-09] MEDS: cloNIDine HCL 0.1 MG TABLET PO PRN (19:41)
[2018-11-09] MEDS: LISINOPRIL 10 MG TABLET (FP) PO SCH (22:45)
[2018-11-09] MEDS: MELATONIN 5 MG TABLETS PO PRN (22:45)
[2018-11-09] MEDS: THIAMINE HCL 100 MG TABLET (FP) PO SCH (22:45)
[2018-11-09] MEDS: chlordiazePOXIDE HCL 25 MG CAPSULE PO SCH (22:46)
[2018-11-10] MEDS: chlordiazePOXIDE HCL 25 MG CAPSULE PO SCH ×4 (06:26→22:21)
[2018-11-10] MEDS: METHOCARBAMOL 500 MG TABLET PO PRN ×2 (06:45→22:21)
[2018-11-10] MEDS: ACETAMINOPHEN 325 MG TABLET (FP) PO PRN (06:46)
[2018-11-10] MEDS: LISINOPRIL 10 MG TABLET (FP) PO SCH ×2 (11:28→22:21)
[2018-11-10] MEDS: HYDROCHLOROTHIAZIDE 25 MG TABLET (FP) PO SCH (11:28)
[2018-11-10] MEDS: PRENATAL VITAMINS W/ FOLIC ACID TABLET (FP) PO SCH (11:29)
[2018-11-10 11:33] LABS: BASO % 0.4 % (0-2.0); EOS % 0.3 % (0-4.5); HEMATOCRIT 37.4 % (35.4-49); HEMOGLOBIN 12.4 GM/dL (11.7-16.9); LYMPH % 11.1 % (8-40); MCHC 33.3 g/dl (32.0-35.9); MEAN CELL VOLUME 90.2 fl (80-96); MEAN PLT VOLUME 8.5 fl (7.5-11.1); MONO % 8.7 % (3.8-10.2); NEUT % 79.5 % (42.8-82.8); PLATELET COUNT 201 K/MM3 (134-434); RBC 4.14 M/mm3 (4.00-5.60); RDW 14.8 % (11.9-15.9); WHITE BLOOD COUNT 9.6 K/mm3 (4.0-10.0)
[2018-11-10 11:43] LABS: ALBUMIN 3.8 g/dl (3.4-5.0); BILIRUBIN,TOTAL 0.9 mg/dL (0.2-1); BLOOD UREA NITROGEN 15.2 mg/dL (7-18); CALCIUM 8.7 mg/dL (8.5-10.1); CREATININE 2.4 mg/dL (0.55-1.3); POTASSIUM 3.7 mmol/L (3.5-5.1); TOT PROT 6.5 g/dl (6.4-8.2)
--- NOTE | 2018-11-10 12:32 | CONSULT ---
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 This is one of multiple admissions for patient. Patient admitted to for alcohol and opioid dependence. Substance Abuse History: - Smoking Cessation. Smoking history: Never smoked. Have you smoked in the past 12 months: Yes. Aproximately how many cigarettes per day: 0. If you are a former smoker, when did you quit?: 2007. Hx Chewing Tobacco Use: No. - Substances abused. Alcohol. Substance route: Oral. Frequency: Daily. Amount used: 5-6 PINTS OF VODKA. Age of first use: 16. Date of last use: 11/09/18. Other. Other (specify): PERCOCET . Substance route: Oral. Frequency: Daily. Amount used: 6 PILLS. Age of first use: 29. Date of last use: 08/30/18. Alprazolam (Xanax). Substance route: Oral. Frequency: 1-2 times per week. Amount used: 6-10mg. Age of first use: 29. Date of last use: 08/30/18 Medical History: anemia, asthma, hypertension, acid reflux Psychiatric History: Patient denies h/o psychiatric hospitalizations, outpatient care, and suicide attempt. Mr. García has only received psychiatric treatment in detox/ rehab facilit ([facility] and [facility]). Reports being discharged from Rehab at [facility] with a prescription of Prozac 20mg + Gabapentin 300mg TID + Seroquel 200mg + Trazodone 100mg. Diagnosis of depression and anxiety. States he brought his medications with facility and has been compliant with is medication regiman. At present patient reports difficulty sleeping. Physical/Sexual Abuse/Trauma History: denies. Mental Status Exam - Mental Status Exam Alert and Oriented to: Time, Place, Person Cognitive Function: Good Patient Appearance: Well Groomed Mood: Withdrawn Affect: Mood Congruent Patient Behavior: Fatigued, Cooperative Speech Pattern: Appropriate Voice Loudness: Normal Thought Process: Goal Oriented Thought Disorder: Not Present Hallucinations: Denies Suicidal Ideation: Denies Homicidal Ideation: Denies Insight/Judgement: Poor Sleep: Poorly Appetite: Fair Muscle strength/Tone: Normal Gait/Station: Normal Psychiatric Findings - Problem List ([place] 1, 2,3) (1) Alcohol dependence with uncomplicated withdrawal Current Visit: Yes Status: Acute Comment: . (2) Sedative hypnotic or anxiolytic dependence Current Visit: Yes Status: Acute (3) Substance-induced sleep disorder Current Visit: Yes Status: Acute (4) Depressive disorder Current Visit: Yes Status: Chronic (5) Cocaine dependence Current Visit: Yes Status: Acute (6) Substance induced mood disorder Current Visit: Yes Status: Acute - Initial Treatment Plan Initial Treatment Plan: Psychoeducation provided. Detoxification in progress. Will order Prozac 20mg + gabapentin 300mg TID + Seroquel 200mg HS. Will hold trazodone 100mg HS. benefits and side effects discussed. Verbal consent given.
--- NOTE | 2018-11-10 15:17 | PN ---
S CIWA - CIWA Score Nausea/Vomitin Muscle Tremors: 2 Anxiety: 2 Agitation: 2 Paroxysmal Sweats: 1-Minimal Palms Moist Orientation: 0-Oriented Tacttile Disturbances: 1-Very Mild Itch/Numbness Auditory Disturbances: 0-None Visual Disturbances: 0-None Headache: 2-Mild CIWA-Ar Total Score: 12 BHS Progress Note (SOAP) Subjective: alert,irritable,anxious,interrupted sleep,pain in the body Objective: 11/10/18 15:02 Vital Signs Temperature 98.2 F 11/10/18 13:54 Pulse Rate 105 H 11/10/18 13:54 Respiratory Rate 18 11/10/18 13:54 Blood Pressure 145/89 11/10/18 13:54 O2 Sat by Pulse Oximetry (%) Laboratory Last Values WBC 9.6 K/mm3 (4.0-10.0) 11/10/18 09:25 RBC 4.14 M/mm3 (4.00-5.60) 11/10/18 09:25 Hgb 12.4 GM/dL (11.7-16.9) 11/10/18 09:25 Hct 37.4 % (35.4-49) D 11/10/18 09:25 MCV 90.2 fl (80-96) 11/10/18 09:25 MCH 30.0 pg (25.7-33.7) 11/10/18 09:25 MCHC 33.3 g/dl (32.0-35.9) 11/10/18 09:25 RDW 14.8 % (11.9-15.9) 11/10/18 09:25 Plt Count 201 K/MM3 (134-434) D 11/10/18 09:25 MPV 8.5 fl (7.5-11.1) 11/10/18 09:25 Absolute Neuts (auto) 7.6 K/mm3 (1.5-8.0) 11/10/18 09:25 Neutrophils % 79.5 % (42.8-82.8) 11/10/18 09:25 Lymphocytes % 11.1 % (8-40) 11/10/18 09:25 Monocytes % 8.7 % (3.8-10.2) 11/10/18 09:25 Eosinophils % 0.3 % (0-4.5) 11/10/18 09:25 Basophils % 0.4 % (0-2.0) 11/10/18 09:25 Nucleated RBC % 0 % (0-0) 11/10/18 09:25 Sodium 137 mmol/L (136-145) 11/10/18 09:25 Potassium 3.7 mmol/L (3.5-5.1) 11/10/18 09:25 Chloride 100 mmol/L (98-107) 11/10/18 09:25 Carbon Dioxide 26 mmol/L (21-32) 11/10/18 09:25 Anion Gap 11 MMOL/L (8-16) 11/10/18 09:25 BUN 15.2 mg/dL (7-18) 11/10/18 09:25 Creatinine 2.4 mg/dL (0.55-1.3) H 11/10/18 09:25 Est GFR (CKD-EPI)AfAm 37.96 11/10/18 09:25 Est GFR (CKD-EPI)NonAf 32.75 11/10/18 09:25 Random Glucose 107 mg/dL (74-106) H 11/10/18 09:25 Calcium 8.7 mg/dL (8.5-10.1) 11/10/18 09:25 Total Bilirubin 0.9 mg/dL (0.2-1) 11/10/18 09:25 AST 36 U/L (15-37) 11/10/18 09:25 ALT 31 U/L (13-61) 11/10/18 09:25 Alkaline Phosphatase 100 U/L (45-117) 11/10/18 09:25 Total Protein 6.5 g/dl (6.4-8.2) 11/10/18 09:25 Albumin 3.8 g/dl (3.4-5.0) 11/10/18 09:25 HIV 1&2 Antibody Screen Negative 11/10/18 07:50 HIV P24 Antigen Negative 11/10/18 07:50 Assessment: 11/10/18 15:04 withdrawal symptom Plan: continue detox librium regimen,patient stated he has been receiving suboxone sl 8ms/2mg bid ,has his own Provider,unable to get prescription fill because of insurance patient is aware that he will get suboxone in detox,he will follow up and get suboxone by his own Provider upon discharge
[2018-11-10] MEDS: GABAPENTIN 300 MG CAPSULE (FP) PO SCH ×2 (16:25→22:21)
[2018-11-10] MEDS: BUPRENORPHINE/NALOXONE 8 MG/2 MG FILM PACKET SL SCH (19:31)
[2018-11-10] MEDS: MAGNESIUM HYDROX 2400MG/30ML ORAL SUSPENSION 30 ML CUP PO PRN (20:16)
[2018-11-10] MEDS: THIAMINE HCL 100 MG TABLET (FP) PO SCH (22:21)
[2018-11-10] MEDS: QUEtiapine FUMARATE 200 MG TABLET PO SCH (22:21)
[2018-11-11] MEDS: MAGNESIUM HYDROX 2400MG/30ML ORAL SUSPENSION 30 ML CUP PO PRN (03:25)
[2018-11-11] MEDS: hydrOXYzine PAMOATE 25 MG CAPSULE (FP) PO PRN ×3 (03:25→19:04)
[2018-11-11] MEDS: METHOCARBAMOL 500 MG TABLET PO PRN ×3 (03:25→19:04)
[2018-11-11] MEDS: chlordiazePOXIDE HCL 25 MG CAPSULE PO SCH ×4 (05:53→22:46)
[2018-11-11] MEDS: GABAPENTIN 300 MG CAPSULE (FP) PO SCH ×3 (05:53→22:46)
[2018-11-11] MEDS: BUPRENORPHINE/NALOXONE 8 MG/2 MG FILM PACKET SL SCH ×3 (05:53→19:04)
[2018-11-11] MEDS: cloNIDine HCL 0.1 MG TABLET PO PRN ×2 (05:54→14:40)
--- NOTE | 2018-11-11 09:46 | PN ---
S CIWA - CIWA Score Nausea/Vomitin-No Nausea/No Vomiting Muscle Tremors: 3 Anxiety: 2 Agitation: 2 Paroxysmal Sweats: 2 Orientation: 0-Oriented Tacttile Disturbances: 0-None Auditory Disturbances: 0-None Visual Disturbances: 0-None Headache: 0-None Present CIWA-Ar Total Score: 9 BHS Progress Note (SOAP) Subjective: sweats anxiety interrupted sleep Objective: 11/11/18 09:46 Vital Signs Temperature 97.9 F 11/11/18 07:49 Pulse Rate 105 H 11/11/18 07:49 Respiratory Rate 11/11/18 07:49 Blood Pressure 157/76 11/11/18 07:49 O2 Sat by Pulse Oximetry (%) Laboratory Tests 11/10/18 11/10/18 11/10/18 07:50 09:25 09:25 WBC 9.6 RBC 4.14 Hgb 12.4 Hct 37.4 D MCV 90.2 MCH 30.0 MCHC 33.3 RDW 14.8 Plt Count 201 D MPV 8.5 Absolute Neuts (auto) 7.6 Neutrophils % 79.5 Lymphocytes % 11.1 Monocytes % 8.7 Eosinophils % 0.3 Basophils % 0.4 Nucleated RBC % 0 Sodium 137 Potassium 3.7 Chloride 100 Carbon Dioxide 26 Anion Gap 11 BUN 15.2 Creatinine 2.4 H Est GFR (CKD-EPI)AfAm 37.96 Est GFR (CKD-EPI)NonAf 32.75 Random Glucose 107 H Calcium 8.7 Total Bilirubin 0.9 AST 36 ALT 31 Alkaline Phosphatase 100 Total Protein 6.5 Albumin 3.8 HIV 1&2 Antibody Screen Negative HIV P24 Antigen Negative labs noted aaox3 ambulating no acute distress Assessment: 11/11/18 09:46 mild withdrawals Plan: continue detox increase fluids
[2018-11-11] MEDS: LISINOPRIL 10 MG TABLET (FP) PO SCH ×2 (10:51→22:46)
[2018-11-11] MEDS: PRENATAL VITAMINS W/ FOLIC ACID TABLET (FP) PO SCH (10:51)
[2018-11-11] MEDS: HYDROCHLOROTHIAZIDE 25 MG TABLET (FP) PO SCH (10:52)
[2018-11-11] MEDS: FLUoxetine HCL 20 MG CAPSULE (FP) PO SCH (10:52)
--- NOTE | 2018-11-11 11:30 | PN ---
[facility] Progress Note Note: I spoke with Pharmacist Jaden from [place] [facility]# [phone] to confirm that pt has script/refill for suboxone. Pharmacist confirmed that pt has a Rx sent from Dr. Jeremy Brown from [facility] outpatient on 10/27/2018. pt has yet to pick it up. pt has until Nov 24 2018 to picker / packer his prescription. pt was made aware. pt was also advised that he will need to continue to go to [facility] OTP and continue to receive his scripts for suboxone from same doctor. He can not get new scripts from other providers. pt in agreement.
[2018-11-11] MEDS ORDERED: PNEUMOC 13-VAL CONJ-DIP CRM/PF 0.5 ML DISP.SYRIN IM ONE (12:00)
[2018-11-11] MEDS: QUEtiapine FUMARATE 200 MG TABLET PO SCH (22:46)
[2018-11-11] MEDS: MELATONIN 5 MG TABLETS PO PRN (22:46)
[2018-11-11] MEDS: THIAMINE HCL 100 MG TABLET (FP) PO SCH (22:46)
[2018-11-12] MEDS ORDERED: chlordiazePOXIDE HCL 10 MG CAPSULE PO PRN
[2018-11-12] MEDS: chlordiazePOXIDE HCL 10 MG CAPSULE PO SCH ×4 (06:20→22:15)
[2018-11-12] MEDS: GABAPENTIN 300 MG CAPSULE (FP) PO SCH ×3 (06:20→22:15)
[2018-11-12] MEDS: BUPRENORPHINE/NALOXONE 8 MG/2 MG FILM PACKET SL SCH ×2 (06:20→19:33)
[2018-11-12] MEDS: LISINOPRIL 10 MG TABLET (FP) PO SCH ×2 (09:57→22:15)
[2018-11-12] MEDS: PRENATAL VITAMINS W/ FOLIC ACID TABLET (FP) PO SCH (09:57)
[2018-11-12] MEDS: HYDROCHLOROTHIAZIDE 25 MG TABLET (FP) PO SCH (09:57)
[2018-11-12] MEDS: FLUoxetine HCL 20 MG CAPSULE (FP) PO SCH (09:57)
[2018-11-12] MEDS: hydrOXYzine PAMOATE 25 MG CAPSULE (FP) PO PRN (10:03)
[2018-11-12] MEDS: ACETAMINOPHEN 325 MG TABLET (FP) PO PRN (10:03)
[2018-11-12] MEDS: METHOCARBAMOL 500 MG TABLET PO PRN ×2 (10:07→22:15)
--- NOTE | 2018-11-12 11:17 | PN ---
S CIWA - CIWA Score Nausea/Vomitin-No Nausea/No Vomiting Muscle Tremors: None Anxiety: 3 Agitation: 2 Paroxysmal Sweats: 3 Orientation: 0-Oriented Tacttile Disturbances: 0-None Auditory Disturbances: 0-None Visual Disturbances: 0-None Headache: 2-Mild CIWA-Ar Total Score: 10 S Progress Note (SOAP) Subjective: c/o anxiety, interrupted sleep, sweats, and headache. Objective: 11/12/18 11:16 Vital Signs 11/12/18 11/12/18 11/12/18 03:30 06:00 09:42 Temperature 98.2 F 98.2 F Pulse Rate 101 H 98 H Respiratory 18 20 18 Rate Blood Pressure 113/68 141/84 Lab Results WBC 9.6 K/mm3 (4.0-10.0) 11/10/18 09:25 RBC 4.14 M/mm3 (4.00-5.60) 11/10/18 09:25 Hgb 12.4 GM/dL (11.7-16.9) 11/10/18 09:25 Hct 37.4 % (35.4-49) D 11/10/18 09:25 MCV 90.2 fl (80-96) 11/10/18 09:25 MCHC 33.3 g/dl (32.0-35.9) 11/10/18 09:25 RDW 14.8 % (11.9-15.9) 11/10/18 09:25 Plt Count 201 K/MM3 (134-434) D 11/10/18 09:25 Sodium 137 mmol/L (136-145) 11/10/18 09:25 Potassium 3.7 mmol/L (3.5-5.1) 11/10/18 09:25 Chloride 100 mmol/L (98-107) 11/10/18 09:25 Carbon Dioxide 26 mmol/L (21-32) 11/10/18 09:25 Anion Gap 11 MMOL/L (8-16) 11/10/18 09:25 BUN 15.2 mg/dL (7-18) 11/10/18 09:25 Creatinine 2.4 mg/dL (0.55-1.3) H 11/10/18 09:25 Random Glucose 107 mg/dL (74-106) H 11/10/18 09:25 Calcium 8.7 mg/dL (8.5-10.1) 11/10/18 09:25 Labs noted. Assessment: 11/12/18 11:17 AOX3, in no acute distress. Full ROM, ambulating in the unit. Withdrawal symptoms. Plan: continue detox.
[2018-11-12] MEDS: QUEtiapine FUMARATE 200 MG TABLET PO SCH (22:15)
[2018-11-12] MEDS: THIAMINE HCL 100 MG TABLET (FP) PO SCH (22:15)
[2018-11-13] MEDS: BUPRENORPHINE/NALOXONE 8 MG/2 MG FILM PACKET SL SCH ×2 (06:00→19:05)
[2018-11-13] MEDS: chlordiazePOXIDE HCL 10 MG CAPSULE PO SCH ×2 (06:00→17:47)
[2018-11-13] MEDS: GABAPENTIN 300 MG CAPSULE (FP) PO SCH ×3 (06:00→22:28)
[2018-11-13] MEDS: HYDROCHLOROTHIAZIDE 25 MG TABLET (FP) PO SCH (10:38)
[2018-11-13] MEDS: LISINOPRIL 10 MG TABLET (FP) PO SCH (10:38)
[2018-11-13] MEDS: PRENATAL VITAMINS W/ FOLIC ACID TABLET (FP) PO SCH (10:38)
[2018-11-13] MEDS: METHOCARBAMOL 500 MG TABLET PO PRN ×2 (10:38→17:47)
[2018-11-13] MEDS: FLUoxetine HCL 20 MG CAPSULE (FP) PO SCH (10:38)
[2018-11-13] MEDS ORDERED: PANTOPRAZOLE 40 MG TABLET (FP) PO ONE (11:33)
--- NOTE | 2018-11-13 16:13 | PN ---
S CIWA - CIWA Score Nausea/Vomitin-No Nausea/No Vomiting Muscle Tremors: None Anxiety: 2 Agitation: 2 Paroxysmal Sweats: 2 Orientation: 0-Oriented Tacttile Disturbances: 0-None Auditory Disturbances: 0-None Visual Disturbances: 0-None Headache: 0-None Present CIWA-Ar Total Score: 6 BHS Progress Note (SOAP) Subjective: Stomachache, decreased appetite, interrupted sleep Objective: 11/13/18 16:11 Last Vital Signs Temp Pulse Resp BP Pulse Ox 98.2 F 117 H 18 156/66 11/13/18 13:55 11/13/18 13:55 11/13/18 13:55 11/13/18 13:55 Elevated b/p: has htn, on medication Laboratory Tests 11/10/18 11/10/18 11/10/18 07:50 09:25 09:25 WBC 9.6 RBC 4.14 Hgb 12.4 Hct 37.4 D MCV 90.2 MCH 30.0 MCHC 33.3 RDW 14.8 Plt Count 201 D MPV 8.5 Absolute Neuts (auto) 7.6 Neutrophils % 79.5 Lymphocytes % 11.1 Monocytes % 8.7 Eosinophils % 0.3 Basophils % 0.4 Nucleated RBC % 0 Sodium 137 Potassium 3.7 Chloride 100 Carbon Dioxide 26 Anion Gap 11 BUN 15.2 Creatinine 2.4 H Est GFR (CKD-EPI)AfAm 37.96 Est GFR (CKD-EPI)NonAf 32.75 Random Glucose 107 H Calcium 8.7 Total Bilirubin 0.9 AST 36 ALT 31 Alkaline Phosphatase 100 Total Protein 6.5 Albumin 3.8 HIV 1&2 Antibody Screen Negative HIV P24 Antigen Negative Labs reviewed: serum creatinine 2.4, GFR 32.75 Assessment: 11/13/18 16:12 Withdrawal sxs Noted with ERMELINDA vs CKD Plan: Continue detox Encouraged PO water hydration Hold discharge tomorrow until repeated BMP result available ERMELINDA vs CKD: encouraged PO water hydration, water pitcher ordered, renal function was normal 07/2017 as per chart review, d/c lisinopril 10mg PO bid, start norvasc 5mg PO daily, continue HCTZ for now, repeat BMP in AM.
[2018-11-13] MEDS: hydrOXYzine PAMOATE 25 MG CAPSULE (FP) PO PRN (17:47)
[2018-11-13] MEDS: IBUPROFEN 400 MG TABLET (FP) PO PRN (22:27)
[2018-11-13] MEDS: QUEtiapine FUMARATE 200 MG TABLET PO SCH (22:28)
[2018-11-13] MEDS: THIAMINE HCL 100 MG TABLET (FP) PO SCH (22:28)
[2018-11-14] MEDS ORDERED: chlordiazePOXIDE HCL 10 MG CAPSULE PO ONE ×2 (05:00→08:45)
[2018-11-14] MEDS: BUPRENORPHINE/NALOXONE 8 MG/2 MG FILM PACKET SL SCH (08:41)
[2018-11-14] MEDS: GABAPENTIN 300 MG CAPSULE (FP) PO SCH (08:41)
[2018-11-14] MEDS: FLUoxetine HCL 20 MG CAPSULE (FP) PO SCH (09:13)
[2018-11-14] MEDS: METHOCARBAMOL 500 MG TABLET PO PRN (09:13)
[2018-11-14] MEDS: HYDROCHLOROTHIAZIDE 25 MG TABLET (FP) PO SCH (09:13)
[2018-11-14] MEDS: PRENATAL VITAMINS W/ FOLIC ACID TABLET (FP) PO SCH (09:14)
[2018-11-14] MEDS ORDERED: amLODIPine BESYLATE 5 MG TABLET (FP) PO SCH (10:00)
[2018-11-14 11:01] VITALS: BP 135/77; PULSE 115; TEMP 98.1
--- NOTE | 2018-11-14 11:26 | DS ---
[facility] Detox Discharge Summary Admission Date: 11/09/18 Discharge Date: 11/14/18 - History Present History: Alcohol Dependence, Sedative Dependence - Physical Exam Results Vital Signs: Vital Signs Temperature 98.1 F 11/14/18 11:01 Pulse Rate 115 H 11/14/18 11:01 Respiratory Rate 20 11/14/18 11:01 Blood Pressure 135/77 11/14/18 11:01 O2 Sat by Pulse Oximetry (%) Pertinent Admission Physical Exam Findings: pt arrived in withdrawals Laboratory Tests 11/10/18 11/10/18 11/10/18 07:50 09:25 09:25 WBC 9.6 RBC 4.14 Hgb 12.4 Hct 37.4 D MCV 90.2 MCH 30.0 MCHC 33.3 RDW 14.8 Plt Count 201 D MPV 8.5 Absolute Neuts (auto) 7.6 Neutrophils % 79.5 Lymphocytes % 11.1 Monocytes % 8.7 Eosinophils % 0.3 Basophils % 0.4 Nucleated RBC % 0 Sodium 137 Potassium 3.7 Chloride 100 Carbon Dioxide 26 Anion Gap 11 BUN 15.2 Creatinine 2.4 H Est GFR (CKD-EPI)AfAm 37.96 Est GFR (CKD-EPI)NonAf 32.75 Random Glucose 107 H Calcium 8.7 Total Bilirubin 0.9 AST 36 ALT 31 Alkaline Phosphatase 100 Total Protein 6.5 Albumin 3.8 HIV 1&2 Antibody Screen Negative HIV P24 Antigen Negative today pt is aaox3 ambulating no acute distress pt is aware to go to his pharmacy in [facility] and [facility] picker his suboxone rx. - Treatment Hospital Course: Detox Protocol Followed, Detoxed Safely, Responded well, Discharged Condition Good, Rehab Referral Accepted Patient has Accepted a Rehab Referral to: referred to [facility] otp - Medication Discharge Medications: Ambulatory Orders Trazodone HCl 100 mg PO HS PRN 06/15/18 Fluoxetine HCl 20 mg PO DAILY #30 capsule 09/18/18 Quetiapine Fumarate [Seroquel -] 100 mg PO HS #30 tablet 09/18/18 Buprenorphine/Naloxone [Suboxone 8Mg/2Mg Sl Film -] 1 each SL BID 7 Days #14 packet MDD 2 09/19/18 Hydrochlorothiazide [Hctz -] 25 mg PO DAILY #30 tablet 09/19/18 Lisinopril 10 mg PO BID #60 tablet 09/19/18 Ranitidine [Zantac -] 150 mg PO BID #30 tablet 09/19/18 - Diagnosis (1) Alcohol dependence with uncomplicated withdrawal Current Visit: Yes Status: Chronic (2) Cocaine dependence Current Visit: Yes Status: Chronic Qualifiers: Substance use status: uncomplicated Qualified Code(s): F14.20 - Cocaine dependence, uncomplicated (3) Sedative hypnotic or anxiolytic dependence Current Visit: Yes Status: Chronic (4) Substance induced mood disorder Current Visit: Yes Status: Acute (5) Substance-induced anxiety disorder Current Visit: Yes Status: Acute (6) Substance-induced sleep disorder Current Visit: Yes Status: Acute (7) Depressive disorder Current Visit: Yes Status: Chronic (8) Encounter for monitoring Suboxone maintenance therapy Current Visit: Yes Status: Chronic (9) Sedative, hypnotic or anxiolytic dependence with withdrawal, uncomplicated Current Visit: Yes Status: Chronic (10) Substance-induced sleep disorder Current Visit: No Status: Acute (11) Alcohol dependence, uncomplicated Current Visit: No Status: Chronic (12) Anxiety Current Visit: No Status: Chronic (13) Asthma Current Visit: Yes Status: Chronic Qualifiers: Asthma severity: mild Asthma persistence: intermittent Asthma complication type: unspecified Qualified Code(s): J45.20 - Mild intermittent asthma, uncomplicated (14) Cannabis abuse Current Visit: Yes Status: Chronic (15) Depressed affect Current Visit: No Status: Chronic (16) Depression Current Visit: No Status: Chronic Qualifiers: Depression Type: unspecified Qualified Code(s): F32.9 - Major depressive disorder, single episode, unspecified (17) GERD (gastroesophageal reflux disease) Current Visit: Yes Status: Chronic Qualifiers: Esophagitis presence: without esophagitis Qualified Code(s): K21.9 - Gastro -esophageal reflux disease without esophagitis (18) Gout Current Visit: No Status: Inactive Qualifiers: Gout site: unspecified site Gout etiology: unspecified cause Chronicity: unspecified Qualified Code(s): M10.9 - Gout, unspecified (19) HTN (hypertension) Current Visit: Yes Status: Chronic Qualifiers: Hypertension type: essential hypertension Qualified Code(s): I10 - Essential (primary) hypertension (20) PTSD (post-traumatic stress disorder) Current Visit: No Status: Chronic - AMA Did Patient Leave Against Medical Advice: No
[2018-11-14] MEDS: IBUPROFEN 400 MG TABLET (FP) PO PRN (11:51)
== END 2018-11-14 11:55 | disposition home or self-care (01) | DRG 774 ==
LOC: YASAS 14:33 → Y6N 19:00
PROVIDERS: ADMIT Surgery; ATTEND Surgery
PROC: HZ2ZZZZ Detoxification Services for Substance Abuse Treatment (ICD-10-PCS; principal; 2018-11-09)
DX: F10.230 Alcohol dependence with withdrawal, uncomplicated (principal); F13.230 Sedative, hypnotic or anxiolytic dependence with withdrawal, uncomplicated; F14.20 Cocaine dependence, uncomplicated; F12.10 Cannabis abuse, uncomplicated; F19.280 Other psychoactive substance dependence with psychoactive substance-induced anxiety disorder; F19.282 Other psychoactive substance dependence with psychoactive substance-induced sleep disorder; F19.24 Other psychoactive substance dependence with psychoactive substance-induced mood disorder; F43.10 Post-traumatic stress disorder, unspecified; F41.8 Other specified anxiety disorders; F32.9 Major depressive disorder, single episode, unspecified; G47.39 Other sleep apnea; I10 Essential (primary) hypertension; J45.20 Mild intermittent asthma, uncomplicated; K21.9 Gastro-esophageal reflux disease without esophagitis; M10.9 Gout, unspecified; Z51.81 Encounter for therapeutic drug level monitoring
CPT/HCPCS: 36415; 80053; 85025; 87389; J0735

== ENCOUNTER 2019-02-02 10:58 | Inpatient (IN) | payer OTHER ==
[2019-02-02 11:40] VITALS: BMI 29.7
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
[2019-02-02] MEDS ORDERED: IBUPROFEN 400 MG TABLET (FP) PO PRN (16:18)
[2019-02-02] MEDS ORDERED: MAGNESIUM CITRATE 300 ML BOTTLE PO PRN (16:18)
[2019-02-02] MEDS ORDERED: MAG HYDROX/AL HYDROX/SIMETH 30 ML UNIT-DOSE CUP PO PRN (16:18)
[2019-02-02] MEDS ORDERED: ACETAMINOPHEN 325 MG TABLET (FP) PO PRN (16:18)
[2019-02-02] MEDS ORDERED: MENTHOL/PHENOL 1 EACH UD MM PRN (16:18)
[2019-02-02] MEDS ORDERED: METHADONE HCL 10 MG TABLET (FOR DETOX USE ONLY) PO ONE (16:18)
[2019-02-02] MEDS ORDERED: BISMUTH SUBSALICYLATE 524 MG/30 ML UD PO PRN (16:18)
[2019-02-02] MEDS: LORazepam 2 MG TABLET PO SCH ×2 (18:44→22:14)
[2019-02-02] MEDS: LISINOPRIL 10 MG TABLET (FP) PO SCH (22:14)
[2019-02-02] MEDS: FAMOTIDINE 20 MG TABLET PO SCH (22:14)
[2019-02-02] MEDS: THIAMINE HCL 100 MG TABLET (FP) PO SCH (22:14)
[2019-02-02] MEDS: MELATONIN 5 MG TABLETS PO PRN (22:14)
[2019-02-03] MEDS: LORazepam 2 MG TABLET PO SCH ×4 (05:34→22:21)
[2019-02-03] MEDS ORDERED: METHADONE HCL 5 MG TABLET (FOR DETOX USE ONLY) PO ONE (10:00)
[2019-02-03 10:12] LABS: HEMATOCRIT 38.2 % (35.4-49); HEMOGLOBIN 12.3 GM/dL (11.7-16.9); MCHC 32.4 g/dl (32.0-35.9); MEAN CELL VOLUME 92.6 fl (80-96); MEAN PLT VOLUME 9.1 fl (7.5-11.1); PLATELET COUNT 222 K/MM3 (134-434); RBC 4.12 M/mm3 (4.00-5.60); RDW 15.9 % (11.9-15.9); WHITE BLOOD COUNT 5.1 K/mm3 (4.0-10.0)
[2019-02-03 10:13] LABS: ALBUMIN 3.4 g/dl (3.4-5.0); BILIRUBIN,TOTAL 0.2 mg/dL (0.2-1); BLOOD UREA NITROGEN 7.4 mg/dL (7-18); CALCIUM 8.2 mg/dL (8.5-10.1); CREATININE 0.9 mg/dL (0.55-1.3); POTASSIUM 3.3 mmol/L (3.5-5.1); TOT PROT 6.1 g/dl (6.4-8.2)
[2019-02-03] MEDS: FAMOTIDINE 20 MG TABLET PO SCH ×2 (10:30→22:21)
[2019-02-03] MEDS: HYDROCHLOROTHIAZIDE 25 MG TABLET (FP) PO SCH (10:30)
[2019-02-03] MEDS: LISINOPRIL 10 MG TABLET (FP) PO SCH ×2 (10:30→22:21)
[2019-02-03] MEDS: PRENATAL VITAMINS W/ FOLIC ACID TABLET (FP) PO SCH (10:30)
[2019-02-03] MEDS: cloNIDine HCL 0.1 MG TABLET PO PRN ×3 (10:31→17:47)
[2019-02-03] MEDS: METHOCARBAMOL 500 MG TABLET PO PRN ×3 (10:32→23:57)
[2019-02-03] MEDS: LORazepam 1 MG TABLET PO PRN (12:44)
--- NOTE | 2019-02-03 12:57 | PN ---
S CIWA - CIWA Score Nausea/Vomitin-Mild Nausea/No Vomiting Muscle Tremors: 2 Anxiety: 3 Agitation: 3 Paroxysmal Sweats: No Perspiration Orientation: 0-Oriented Tacttile Disturbances: 1-Very Mild Itch/Numbness Auditory Disturbances: 0-None Visual Disturbances: 0-None Headache: 2-Mild CIWA-Ar Total Score: 12 [facility]HS COWS - Scale Resting Pulse: 1= [place] 81-100 Sweatin= No chills or Flushing Restless Observation: 1= Difficult to Sit Still Pupil Size: 1= Pupils >than Normal Bone or Joint Aches: 1= Mild Discomfort Runny Nose/ Eye Tearin= Nasal Congestion GI Upset > 30mins: 1= Stomach Cramp Tremor Observation of Outstretched Hands: 2= Slight Tremor Visible Yawning Observation: 1= 1-2x During Session Anxiety or Irritability: 2=Irritable/Anxious Goose Flesh Skin: 0=Smooth Skin COWS Score: 11 S Progress Note (SOAP) Subjective: alert,irritable,anxious,interrupted sleep,tremor,pain in the body and back Objective: 02/03/19 12:54 Vital Signs Temperature 97.8 F 02/03/19 09:16 Pulse Rate 97 H 02/03/19 09:16 Respiratory Rate 20 02/03/19 09:16 Blood Pressure 154/101 H 02/03/19 09:16 O2 Sat by Pulse Oximetry (%) 02/03/19 12:54 Laboratory Last Values WBC 5.1 K/mm3 (4.0-10.0) 02/03/19 08:00 RBC 4.12 M/mm3 (4.00-5.60) 02/03/19 08:00 Hgb 12.3 GM/dL (11.7-16.9) 02/03/19 08:00 Hct 38.2 % (35.4-49) 02/03/19 08:00 MCV 92.6 fl (80-96) 02/03/19 08:00 MCH 30.0 pg (25.7-33.7) 02/03/19 08:00 MCHC 32.4 g/dl (32.0-35.9) 02/03/19 08:00 RDW 15.9 % (11.9-15.9) 02/03/19 08:00 Plt Count 222 K/MM3 (134-434) 02/03/19 08:00 MPV 9.1 fl (7.5-11.1) 02/03/19 08:00 Sodium 140 mmol/L (136-145) 02/03/19 08:00 Potassium 3.3 mmol/L (3.5-5.1) L 02/03/19 08:00 Chloride 107 mmol/L (98-107) 02/03/19 08:00 Carbon Dioxide 26 mmol/L (21-32) 02/03/19 08:00 Anion Gap 7 MMOL/L (8-16) L 02/03/19 08:00 BUN 7.4 mg/dL (7-18) 02/03/19 08:00 Creatinine 0.9 mg/dL (0.55-1.3) 02/03/19 08:00 Est GFR (CKD-EPI)AfAm 124.26 02/03/19 08:00 Est GFR (CKD-EPI)NonAf 107.21 02/03/19 08:00 Random Glucose 104 mg/dL (74-106) 02/03/19 08:00 Calcium 8.2 mg/dL (8.5-10.1) L 02/03/19 08:00 Total Bilirubin 0.2 mg/dL (0.2-1) 02/03/19 08:00 AST 151 U/L (15-37) H 02/03/19 08:00 ALT 166 U/L (13-61) H 02/03/19 08:00 Alkaline Phosphatase 116 U/L (45-117) 02/03/19 08:00 Total Protein 6.1 g/dl (6.4-8.2) L 02/03/19 08:00 Albumin 3.4 g/dl (3.4-5.0) 02/03/19 08:00 RPR Titer Nonreactive (NONREACTIVE) 02/03/19 08:00 Assessment: 02/03/19 12:55 withdrawal symptom Plan: continue detox methadone and ativan regimen,k is 3.3,k dur 20 me po daily, elevation alt,ast,repat in am,inr in am
[2019-02-03] MEDS ORDERED: POTASSIUM CHLORIDE TABS 20 MEQ TABLET.ER (FP) PO ONE (12:59)
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
[2019-02-03] MEDS: QUEtiapine FUMARATE 100 MG TABLET (FP) PO SCH (22:21)
[2019-02-03] MEDS: THIAMINE HCL 100 MG TABLET (FP) PO SCH (22:21)
[2019-02-03] MEDS: traZODone HCL 100 MG TABLET (FP) PO PRN (23:57)
[2019-02-04] MEDS: LORazepam 1 MG TABLET PO SCH ×4 (05:29→22:02)
[2019-02-04] MEDS: METHOCARBAMOL 500 MG TABLET PO PRN ×3 (05:30→22:04)
[2019-02-04] MEDS: LORazepam 1 MG TABLET PO PRN ×2 (08:41→16:02)
[2019-02-04] MEDS: PRENATAL VITAMINS W/ FOLIC ACID TABLET (FP) PO SCH (09:32)
[2019-02-04] MEDS: HYDROCHLOROTHIAZIDE 25 MG TABLET (FP) PO SCH (09:33)
[2019-02-04] MEDS: FLUoxetine HCL 20 MG CAPSULE (FP) PO SCH (09:33)
[2019-02-04] MEDS: FAMOTIDINE 20 MG TABLET PO SCH ×2 (09:33→22:02)
[2019-02-04] MEDS: POTASSIUM CHLORIDE TABS 20 MEQ TABLET.ER (FP) PO SCH (09:33)
[2019-02-04] MEDS: LISINOPRIL 10 MG TABLET (FP) PO SCH ×2 (09:33→22:02)
[2019-02-04] MEDS ORDERED: METHADONE HCL 10 MG TABLET (FOR DETOX USE ONLY) PO ONE (10:00)
--- NOTE | 2019-02-04 11:17 | PN ---
[facility] CIWA - CIWA Score Nausea/Vomitin-No Nausea/No Vomiting Muscle Tremors: None Anxiety: 3 Agitation: 0-Normal Activity Paroxysmal Sweats: 3 Orientation: 0-Oriented Tacttile Disturbances: 0-None Auditory Disturbances: 0-None Visual Disturbances: 0-None Headache: 1-Very Mild CIWA-Ar Total Score: 7 S COWS - Scale Resting Pulse: 0= [place] 80 or Below Sweatin= Beads of Sweat on Face Restless Observation: 1= Difficult to Sit Still Pupil Size: 0= Normal to Room Light Bone or Joint Aches: 0= None Runny Nose/ Eye Tearin= None GI Upset > 30mins: 0= None Tremor Observation of Outstretched Hands: 0= None Yawning Observation: 1= 1-2x During Session Anxiety or Irritability: 2=Irritable/Anxious Goose Flesh Skin: 0=Smooth Skin COWS Score: 7 [facility] Progress Note (SOAP) Subjective: c/o sweats, anxiety, headache, and muscle aches. Objective: 02/04/19 11:16 Vital Signs 02/04/19 02/04/19 02/04/19 03:30 06:04 09:19 Temperature 98.8 F 97.2 F L Pulse Rate 58 L 65 Respiratory 18 16 16 Rate Blood Pressure 152/84 143/101 H Laboratory Last Values WBC 5.1 K/mm3 (4.0-10.0) 02/03/19 08:00 RBC 4.12 M/mm3 (4.00-5.60) 02/03/19 08:00 Hgb 12.3 GM/dL (11.7-16.9) 02/03/19 08:00 Hct 38.2 % (35.4-49) 02/03/19 08:00 MCV 92.6 fl (80-96) 02/03/19 08:00 MCH 30.0 pg (25.7-33.7) 02/03/19 08:00 MCHC 32.4 g/dl (32.0-35.9) 02/03/19 08:00 RDW 15.9 % (11.9-15.9) 02/03/19 08:00 Plt Count 222 K/MM3 (134-434) 02/03/19 08:00 MPV 9.1 fl (7.5-11.1) 02/03/19 08:00 Sodium 140 mmol/L (136-145) 02/03/19 08:00 Potassium 3.3 mmol/L (3.5-5.1) L 02/03/19 08:00 Chloride 107 mmol/L (98-107) 02/03/19 08:00 Carbon Dioxide 26 mmol/L (21-32) 02/03/19 08:00 Anion Gap 7 MMOL/L (8-16) L 02/03/19 08:00 BUN 7.4 mg/dL (7-18) 02/03/19 08:00 Creatinine 0.9 mg/dL (0.55-1.3) 02/03/19 08:00 Est GFR (CKD-EPI)AfAm 124.26 02/03/19 08:00 Est GFR (CKD-EPI)NonAf 107.21 02/03/19 08:00 Random Glucose 104 mg/dL (74-106) 02/03/19 08:00 Calcium 8.2 mg/dL (8.5-10.1) L 02/03/19 08:00 Total Bilirubin 0.2 mg/dL (0.2-1) 02/03/19 08:00 AST 81 U/L (15-37) H 02/04/19 08:10 ALT 166 U/L (13-61) H 02/03/19 08:00 Alkaline Phosphatase 116 U/L (45-117) 02/03/19 08:00 Total Protein 6.1 g/dl (6.4-8.2) L 02/03/19 08:00 Albumin 3.4 g/dl (3.4-5.0) 02/03/19 08:00 RPR Titer Nonreactive (NONREACTIVE) 02/03/19 08:00 Labs noted. Assessment: 02/04/19 11:17 AOX3, in no acute respiratory distress. Full ROM, ambulating in the unit. Withdrawal symptoms. Plan: continue detox.
[2019-02-04 11:26] LABS: POTASSIUM 3.6 mmol/L (3.5-5.1)
[2019-02-04 13:18] LABS: INR 0.85 (0.83-1.09)
[2019-02-04 20:26] LABS: PH,URINE 7.5 (5.0-8.0); URINE APPEARANCE CLEAR; URINE BILIRUBIN NEGATIVE (NEGATIVE); URINE COLOR YELLOW; URINE GLUCOSE (UA) NEGATIVE (NEGATIVE); URINE KETONE NEGATIVE (NEGATIVE); URINE LEUK ESTERASE NEGATIVE (NEGATIVE); URINE NITRITE NEGATIVE (NEGATIVE); URINE PROTEIN NEGATIVE (NEGATIVE); URINE UROBILINOGEN 0.2 mg/dL (0.2-1.0)
[2019-02-04] MEDS: THIAMINE HCL 100 MG TABLET (FP) PO SCH (22:02)
[2019-02-04] MEDS: QUEtiapine FUMARATE 100 MG TABLET (FP) PO SCH (22:03)
[2019-02-04] MEDS: traZODone HCL 100 MG TABLET (FP) PO PRN (22:04)
[2019-02-04] MEDS: MAGNESIUM HYDROX 2400MG/30ML ORAL SUSPENSION 30 ML CUP PO PRN (23:59)
[2019-02-05] MEDS: ACETAMINOPHEN 325 MG TABLET (FP) PO PRN (00:25)
[2019-02-05] MEDS: METHOCARBAMOL 500 MG TABLET PO PRN ×3 (05:44→22:26)
[2019-02-05] MEDS: LORazepam 0.5 MG TABLET PO SCH ×4 (05:44→22:24)
[2019-02-05] MEDS ORDERED: METHADONE HCL 5 MG TABLET (FOR DETOX USE ONLY) PO ONE (06:00)
[2019-02-05] MEDS: MAGNESIUM HYDROX 2400MG/30ML ORAL SUSPENSION 30 ML CUP PO PRN (06:41)
[2019-02-05] MEDS: LORazepam 0.5 MG TABLET PO PRN ×3 (08:25→20:48)
--- NOTE | 2019-02-05 09:54 | PN ---
S CIWA - CIWA Score Nausea/Vomitin-No Nausea/No Vomiting Muscle Tremors: 2 Anxiety: 1-Mildly Anxious Agitation: 1-Slight > Activity Paroxysmal Sweats: No Perspiration Orientation: 0-Oriented Tacttile Disturbances: 0-None Auditory Disturbances: 0-None Visual Disturbances: 0-None Headache: 0-None Present CIWA-Ar Total Score: 4 S COWS - Scale Resting Pulse: 0= [place] 80 or Below Sweatin= Chills/Flushing Restless Observation: 0= Sits Still Pupil Size: 0= Normal to Room Light Bone or Joint Aches: 1= Mild Discomfort Runny Nose/ Eye Tearin= None GI Upset > 30mins: 0= None Tremor Observation of Outstretched Hands: 1= Tremor [place], Not Seen Yawning Observation: 0= None Anxiety or Irritability: 1=Feels Anxious/Irritable Goose Flesh Skin: 0=Smooth Skin COWS Score: 4 S Progress Note (SOAP) Subjective: 38 years old male admitted on 02/02/19 for alcohol benzo opiate withdrawal sx mangement treating with ativan and methadone detox regimen feeling better today slept through the night discuss medication assisted treatment program and pick up driver narcan from pharmacy patient received suboxone 8-2mg sl bid on 12/22/18 of 30days as well as 8-2mg sl bid x 30 days on 12/02/18 patient may consider methadone program Objective: 02/05/19 09:54 Vital Signs Temperature 98.3 F 02/05/19 09:15 Pulse Rate 66 02/05/19 09:15 Respiratory Rate 18 02/05/19 09:15 Blood Pressure 144/89 02/05/19 09:15 O2 Sat by Pulse Oximetry (%) Laboratory Last Values WBC 5.1 K/mm3 (4.0-10.0) 02/03/19 08:00 RBC 4.12 M/mm3 (4.00-5.60) 02/03/19 08:00 Hgb 12.3 GM/dL (11.7-16.9) 02/03/19 08:00 Hct 38.2 % (35.4-49) 02/03/19 08:00 MCV 92.6 fl (80-96) 02/03/19 08:00 MCH 30.0 pg (25.7-33.7) 02/03/19 08:00 MCHC 32.4 g/dl (32.0-35.9) 02/03/19 08:00 RDW 15.9 % (11.9-15.9) 02/03/19 08:00 Plt Count 222 K/MM3 (134-434) 02/03/19 08:00 MPV 9.1 fl (7.5-11.1) 02/03/19 08:00 PT with INR 10.00 SEC (9.7-13.0) 02/04/19 08:10 INR 0.85 (0.83-1.09) 02/04/19 08:10 Sodium 140 mmol/L (136-145) 02/03/19 08:00 Potassium 3.6 mmol/L (3.5-5.1) 02/04/19 08:10 Chloride 107 mmol/L (98-107) 02/03/19 08:00 Carbon Dioxide 26 mmol/L (21-32) 02/03/19 08:00 Anion Gap 7 MMOL/L (8-16) L 02/03/19 08:00 BUN 7.4 mg/dL (7-18) 02/03/19 08:00 Creatinine 0.9 mg/dL (0.55-1.3) 02/03/19 08:00 Est GFR (CKD-EPI)AfAm 124.26 02/03/19 08:00 Est GFR (CKD-EPI)NonAf 107.21 02/03/19 08:00 Random Glucose 104 mg/dL (74-106) 02/03/19 08:00 Calcium 8.2 mg/dL (8.5-10.1) L 02/03/19 08:00 Total Bilirubin 0.2 mg/dL (0.2-1) 02/03/19 08:00 AST 81 U/L (15-37) H 02/04/19 08:10 ALT 130 U/L (13-61) H 02/04/19 08:10 Alkaline Phosphatase 116 U/L (45-117) 02/03/19 08:00 Total Protein 6.1 g/dl (6.4-8.2) L 02/03/19 08:00 Albumin 3.4 g/dl (3.4-5.0) 02/03/19 08:00 Urine Color Yellow 12/14/19 12:48 Urine Appearance Clear 02/04/19 12:48 Urine pH 7.5 (5.0-8.0) D 02/04/19 12:48 Ur Specific [place] 1.009 (1.010-1.035) L 02/04/19 12:48 Urine Protein Negative (NEGATIVE) 02/04/19 12:48 Urine Glucose (UA) Negative (NEGATIVE) 02/04/19 12:48 Urine Ketones Negative (NEGATIVE) 02/04/19 12:48 Urine Blood Negative (NEGATIVE) 02/04/19 12:48 Urine Nitrite Negative (NEGATIVE) 02/04/19 12:48 Urine Bilirubin Negative (NEGATIVE) 02/04/19 12:48 Urine Urobilinogen 0.2 mg/dL (0.2-1.0) 02/04/19 12:48 Ur Leukocyte Esterase Negative (NEGATIVE) 02/04/19 12:48 RPR Titer Nonreactive (NONREACTIVE) 02/03/19 08:00 lab noted Assessment: 02/05/19 09:55 alcohol benzo opiate withdrawal Plan: ativan and methadone regimen
[2019-02-05] MEDS: FLUoxetine HCL 20 MG CAPSULE (FP) PO SCH (10:23)
[2019-02-05] MEDS: PRENATAL VITAMINS W/ FOLIC ACID TABLET (FP) PO SCH (10:23)
[2019-02-05] MEDS: FAMOTIDINE 20 MG TABLET PO SCH ×2 (10:23→22:24)
[2019-02-05] MEDS: HYDROCHLOROTHIAZIDE 25 MG TABLET (FP) PO SCH (10:23)
[2019-02-05] MEDS: POTASSIUM CHLORIDE TABS 20 MEQ TABLET.ER (FP) PO SCH (10:23)
[2019-02-05] MEDS: LISINOPRIL 10 MG TABLET (FP) PO SCH (13:05)
[2019-02-05] MEDS: THIAMINE HCL 100 MG TABLET (FP) PO SCH (22:24)
[2019-02-05] MEDS: LISINOPRIL 20 MG TABLET (FP) PO SCH (22:24)
[2019-02-05] MEDS: hydrOXYzine PAMOATE 25 MG CAPSULE (FP) PO PRN (22:26)
[2019-02-05] MEDS: QUEtiapine FUMARATE 100 MG TABLET (FP) PO SCH (22:27)
[2019-02-05] MEDS: MELATONIN 5 MG TABLETS PO PRN (23:34)
[2019-02-05] MEDS: traZODone HCL 100 MG TABLET (FP) PO PRN (23:34)
[2019-02-06] MEDS ORDERED: LORazepam 0.5 MG TABLET PO ONE (05:00)
[2019-02-06] MEDS: ACETAMINOPHEN 325 MG TABLET (FP) PO PRN (05:37)
[2019-02-06] MEDS: METHOCARBAMOL 500 MG TABLET PO PRN ×2 (05:39→22:16)
[2019-02-06] MEDS: FAMOTIDINE 20 MG TABLET PO SCH ×2 (10:16→22:14)
[2019-02-06] MEDS: PRENATAL VITAMINS W/ FOLIC ACID TABLET (FP) PO SCH (10:16)
[2019-02-06] MEDS: POTASSIUM CHLORIDE TABS 20 MEQ TABLET.ER (FP) PO SCH (10:16)
[2019-02-06] MEDS: FLUoxetine HCL 20 MG CAPSULE (FP) PO SCH (10:16)
[2019-02-06] MEDS: HYDROCHLOROTHIAZIDE 25 MG TABLET (FP) PO SCH (10:16)
[2019-02-06] MEDS: LISINOPRIL 10 MG TABLET (FP) PO SCH (10:16)
[2019-02-06] MEDS: hydrOXYzine PAMOATE 25 MG CAPSULE (FP) PO PRN ×2 (10:19→22:16)
--- NOTE | 2019-02-06 13:25 | PN ---
[facility] CIWA - CIWA Score Nausea/Vomitin-No Nausea/No Vomiting Muscle Tremors: 1-None Visible, but [place] Anxiety: 1-Mildly Anxious Agitation: 0-Normal Activity Paroxysmal Sweats: No Perspiration Orientation: 0-Oriented Tacttile Disturbances: 0-None Auditory Disturbances: 0-None Visual Disturbances: 0-None Headache: 0-None Present CIWA-Ar Total Score: 2 S COWS - Scale Resting Pulse: 1= [place] 81-100 Sweatin= No chills or Flushing Restless Observation: 0= Sits Still Pupil Size: 0= Normal to Room Light Bone or Joint Aches: 0= None Runny Nose/ Eye Tearin= None GI Upset > 30mins: 0= None Tremor Observation of Outstretched Hands: 1= Tremor [place], Not Seen Yawning Observation: 0= None Anxiety or Irritability: 0= None Goose Flesh Skin: 0=Smooth Skin COWS Score: 2 [facility] Progress Note (SOAP) Subjective: 38 years old male admitted on 02/02/19 for alcohol benzo opiate withdrawal sx management treating with ativan and methadone detox regimen reports anxious about leaving detox unit and fear of relapse patient appears unease and restlessness case discuss with the counselor manager corporate communications and the nurse that observation is necessary at this time continue vistaril and lisinopril 10 mg po with 20 mg po hs Objective: 02/06/19 13:28 Vital Signs Temperature 96.5 F L 02/06/19 13:04 Pulse Rate 97 H 02/06/19 13:04 Respiratory Rate 18 02/06/19 13:04 Blood Pressure 120/72 02/06/19 13:04 O2 Sat by Pulse Oximetry (%) Laboratory Last Values WBC 5.1 K/mm3 (4.0-10.0) 02/03/19 08:00 RBC 4.12 M/mm3 (4.00-5.60) 02/03/19 08:00 Hgb 12.3 GM/dL (11.7-16.9) 02/03/19 08:00 Hct 38.2 % (35.4-49) 02/03/19 08:00 MCV 92.6 fl (80-96) 02/03/19 08:00 MCH 30.0 pg (25.7-33.7) 02/03/19 08:00 MCHC 32.4 g/dl (32.0-35.9) 02/03/19 08:00 RDW 15.9 % (11.9-15.9) 02/03/19 08:00 Plt Count 222 K/MM3 (134-434) 02/03/19 08:00 MPV 9.1 fl (7.5-11.1) 02/03/19 08:00 PT with INR 10.00 SEC (9.7-13.0) 02/04/19 08:10 INR 0.85 (0.83-1.09) 02/04/19 08:10 Sodium 140 mmol/L (136-145) 02/03/19 08:00 Potassium 3.6 mmol/L (3.5-5.1) 02/04/19 08:10 Chloride 107 mmol/L (98-107) 02/03/19 08:00 Carbon Dioxide 26 mmol/L (21-32) 02/03/19 08:00 Anion Gap 7 MMOL/L (8-16) L 02/03/19 08:00 BUN 7.4 mg/dL (7-18) 02/03/19 08:00 Creatinine 0.9 mg/dL (0.55-1.3) 02/03/19 08:00 Est GFR (CKD-EPI)AfAm 124.26 02/03/19 08:00 Est GFR (CKD-EPI)NonAf 107.21 02/03/19 08:00 Random Glucose 104 mg/dL (74-106) 02/03/19 08:00 Calcium 8.2 mg/dL (8.5-10.1) L 02/03/19 08:00 Total Bilirubin 0.2 mg/dL (0.2-1) 02/03/19 08:00 AST 81 U/L (15-37) H 02/04/19 08:10 ALT 130 U/L (13-61) H 02/04/19 08:10 Alkaline Phosphatase 116 U/L (45-117) 02/03/19 08:00 Total Protein 6.1 g/dl (6.4-8.2) L 02/03/19 08:00 Albumin 3.4 g/dl (3.4-5.0) 02/03/19 08:00 Urine Color Yellow 02/04/19 12:48 Urine Appearance Clear 02/04/19 12:48 Urine pH 7.5 (5.0-8.0) D 02/04/19 12:48 Ur Specific [place] 1.009 (1.010-1.035) L 02/04/19 12:48 Urine Protein Negative (NEGATIVE) 02/04/19 12:48 Urine Glucose (UA) Negative (NEGATIVE) 02/04/19 12:48 Urine Ketones Negative (NEGATIVE) 02/04/19 12:48 Urine Blood Negative (NEGATIVE) 02/04/19 12:48 Urine Nitrite Negative (NEGATIVE) 02/04/19 12:48 Urine Bilirubin Negative (NEGATIVE) 02/04/19 12:48 Urine Urobilinogen 0.2 mg/dL (0.2-1.0) 02/04/19 12:48 Ur Leukocyte Esterase Negative (NEGATIVE) 02/04/19 12:48 RPR Titer Nonreactive (NONREACTIVE) 02/03/19 08:00 lab noted Assessment: 02/06/19 13:28 alcohol benzo opiate withdrawal Plan: ativan and methadone regimen
[2019-02-06] MEDS: THIAMINE HCL 100 MG TABLET (FP) PO SCH (22:14)
[2019-02-06] MEDS: LISINOPRIL 20 MG TABLET (FP) PO SCH (22:14)
[2019-02-06] MEDS: QUEtiapine FUMARATE 100 MG TABLET (FP) PO SCH (22:14)
[2019-02-06] MEDS: MELATONIN 5 MG TABLETS PO PRN (23:46)
[2019-02-06] MEDS: traZODone HCL 100 MG TABLET (FP) PO PRN (23:47)
[2019-02-07 09:20] VITALS: BP 145/90; PULSE 67; TEMP 98.7
[2019-02-07] MEDS: LISINOPRIL 10 MG TABLET (FP) PO SCH (09:22)
[2019-02-07] MEDS: FAMOTIDINE 20 MG TABLET PO SCH (09:22)
[2019-02-07] MEDS: PRENATAL VITAMINS W/ FOLIC ACID TABLET (FP) PO SCH (09:22)
[2019-02-07] MEDS: HYDROCHLOROTHIAZIDE 25 MG TABLET (FP) PO SCH (09:22)
[2019-02-07] MEDS: FLUoxetine HCL 20 MG CAPSULE (FP) PO SCH (09:22)
--- NOTE | 2019-02-07 14:16 | DS ---
[facility] Detox Discharge Summary Admission Date: 02/02/19 Discharge Date: 02/07/19 - History Present History: Alcohol Dependence, Opioid Dependence, Sedative Dependence Additional Comments: 38 years old male admitted on 02/02/19 for alcohol benzo opiate withdrawal sx management treated with ativan and methadone detox regimen patient tolerated well alert oriented x 3 cardiac s1s2 regular rate rhythm respiratory clear lung bilaterally on auscultation extremities full range of motion - Physical Exam Results Vital Signs: Vital Signs Temperature 98.7 F 02/07/19 09:20 Pulse Rate 67 02/07/19 09:20 Respiratory Rate 18 02/07/19 09:20 Blood Pressure 145/90 02/07/19 09:20 O2 Sat by Pulse Oximetry (%) Pertinent Admission Physical Exam Findings: alcohol benzo opiate withdrawal Laboratory Last Values WBC 5.1 K/mm3 (4.0-10.0) 02/03/19 08:00 RBC 4.12 M/mm3 (4.00-5.60) 02/03/19 08:00 Hgb 12.3 GM/dL (11.7-16.9) 02/03/19 08:00 Hct 38.2 % (35.4-49) 02/03/19 08:00 MCV 92.6 fl (80-96) 02/03/19 08:00 MCH 30.0 pg (25.7-33.7) 02/03/19 08:00 MCHC 32.4 g/dl (32.0-35.9) 02/03/19 08:00 RDW 15.9 % (11.9-15.9) 02/03/19 08:00 Plt Count 222 K/MM3 (134-434) 02/03/19 08:00 MPV 9.1 fl (7.5-11.1) 02/03/19 08:00 PT with INR 10.00 SEC (9.7-13.0) 02/04/19 08:10 INR 0.85 (0.83-1.09) 02/04/19 08:10 Sodium 140 mmol/L (136-145) 02/03/19 08:00 Potassium 3.6 mmol/L (3.5-5.1) 02/04/19 08:10 Chloride 107 mmol/L (98-107) 02/03/19 08:00 Carbon Dioxide 26 mmol/L (21-32) 02/03/19 08:00 Anion Gap 7 MMOL/L (8-16) L 02/03/19 08:00 BUN 7.4 mg/dL (7-18) 02/03/19 08:00 Creatinine 0.9 mg/dL (0.55-1.3) 02/03/19 08:00 Est GFR (CKD-EPI)AfAm 124.26 02/03/19 08:00 Est GFR (CKD-EPI)NonAf 107.21 02/03/19 08:00 Random Glucose 104 mg/dL (74-106) 02/03/19 08:00 Calcium 8.2 mg/dL (8.5-10.1) L 02/03/19 08:00 Total Bilirubin 0.2 mg/dL (0.2-1) 02/03/19 08:00 AST 81 U/L (15-37) H 02/04/19 08:10 ALT 130 U/L (13-61) H 02/04/19 08:10 Alkaline Phosphatase 116 U/L (45-117) 02/03/19 08:00 Total Protein 6.1 g/dl (6.4-8.2) L 02/03/19 08:00 Albumin 3.4 g/dl (3.4-5.0) 02/03/19 08:00 Urine Color Yellow 02/04/19 12:48 Urine Appearance Clear 02/04/19 12:48 Urine pH 7.5 (5.0-8.0) D 02/04/19 12:48 Ur Specific [place] 1.009 (1.010-1.035) L 02/04/19 12:48 Urine Protein Negative (NEGATIVE) 02/04/19 12:48 Urine Glucose (UA) Negative (NEGATIVE) 02/04/19 12:48 Urine Ketones Negative (NEGATIVE) 02/04/19 12:48 Urine Blood Negative (NEGATIVE) 02/04/19 12:48 Urine Nitrite Negative (NEGATIVE) 02/04/19 12:48 Urine Bilirubin Negative (NEGATIVE) 02/04/19 12:48 Urine Urobilinogen 0.2 mg/dL (0.2-1.0) 02/04/19 12:48 Ur Leukocyte Esterase Negative (NEGATIVE) 02/04/19 12:48 RPR Titer Nonreactive (NONREACTIVE) 02/03/19 08:00 lab noted patient agrees to follow up with community health service provider for bp monitoring and antihypertensive medication adjustment - Treatment Hospital Course: Detox Protocol Followed, Detoxed Safely, Responded well, Discharged Condition Good, Rehab Referral Accepted Patient has Accepted a Rehab Referral to: community support approach - Medication Discharge Medications: Ambulatory Orders Trazodone HCl 100 mg PO HS PRN 06/15/18 Fluoxetine HCl 20 mg PO DAILY #30 capsule 09/18/18 Quetiapine Fumarate [Seroquel -] 100 mg PO HS #30 tablet 09/18/18 Buprenorphine/Naloxone [Suboxone 8Mg/2Mg Sl Film -] 1 each SL BID 7 Days #14 packet MDD 2 09/19/18 Lisinopril [Prinivil] 10 mg PO BID #60 tablet 11/14/18 Ranitidine [Zantac -] 150 mg PO BID #30 tablet 11/14/18 Ranitidine [Zantac -] 150 mg PO BID #60 tablet 11/14/18 Hydrochlorothiazide [Hctz -] 25 mg PO DAILY #14 tablet 02/05/19 Lisinopril [Prinivil] 10 mg PO DAILY@1000 #14 tablet 02/05/19 Lisinopril [Prinivil] 20 mg PO HS #14 tablet 02/05/19 Naloxone HCl [Narcan] 4 mg NS ASDIR PRN #1 spray 02/05/19 - Diagnosis (1) Alcohol dependence with uncomplicated withdrawal Status: Acute (2) Essential hypertension Status: Chronic (3) Substance induced mood disorder Status: Suspected (4) Asthma Status: Chronic Qualifiers: Asthma severity: mild Asthma persistence: intermittent Asthma complication type: uncomplicated Qualified Code(s): J45.20 - Mild intermittent asthma, uncomplicated (5) GERD (gastroesophageal reflux disease) Status: Chronic Qualifiers: Esophagitis presence: without esophagitis Qualified Code(s): K21.9 - Gastro -esophageal reflux disease without esophagitis (6) HTN (hypertension) Status: Chronic Qualifiers: Hypertension type: essential hypertension Qualified Code(s): I10 - Essential (primary) hypertension (7) Opioid dependence Status: Acute Qualifiers: Substance use status: uncomplicated Qualified Code(s): F11.20 - Opioid dependence, uncomplicated (8) Sedative, hypnotic or anxiolytic dependence with withdrawal, uncomplicated Status: Acute - AMA Did Patient Leave Against Medical Advice: No CIWA Score - CIWA Score Nausea/Vomitin-No Nausea/No Vomiting Muscle Tremors: None Anxiety: 0-No Anxiety, at Ease Agitation: 0-Normal Activity Paroxysmal Sweats: No Perspiration Orientation: 0-Oriented Tacttile Disturbances: 0-None Auditory Disturbances: 0-None Visual Disturbances: 0-None Headache: 0-None Present CIWA-Ar Total Score: 0 COWS (PN) - Opiate Withdrawal Resting Pulse: 0= [place] 80 or Below Sweatin= No chills or Flushing Restless Observation: 0= Sits Still Pupil Size: 0= Normal to Room Light Bone or Joint Aches: 0= None Runny Nose/ Eye Tearin= None GI Upset > 30mins: 0= None Tremor Observation of Outstretched Hands: 0= None Yawning Observation: 0= None Anxiety or Irritability: 1=Feels Anxious/Irritable Goose Flesh Skin: 0=Smooth Skin [facility] Score: 1
== END 2019-02-07 09:59 | disposition home or self-care (01) | DRG 773 ==
LOC: YASAS 10:58 → Y3N 16:01
PROVIDERS: ADMIT Allergy & Immunology; ATTEND Allergy & Immunology
PROC: HZ2ZZZZ Detoxification Services for Substance Abuse Treatment (ICD-10-PCS; principal; 2019-02-02)
DX: F10.230 Alcohol dependence with withdrawal, uncomplicated (principal); F10.220 Alcohol dependence with intoxication, uncomplicated; F11.23 Opioid dependence with withdrawal; F13.20 Sedative, hypnotic or anxiolytic dependence, uncomplicated; F14.20 Cocaine dependence, uncomplicated; F19.24 Other psychoactive substance dependence with psychoactive substance-induced mood disorder; F43.10 Post-traumatic stress disorder, unspecified; F31.9 Bipolar disorder, unspecified; I10 Essential (primary) hypertension; K21.9 Gastro-esophageal reflux disease without esophagitis; J45.20 Mild intermittent asthma, uncomplicated; E78.5 Hyperlipidemia, unspecified; Z88.8 Allergy status to other drugs, medicaments and biological substances
CPT/HCPCS: 36415; 80053; 81003; 84132; 84450; 84460; 85027; 85610; 86593; J0735

== ENCOUNTER 2019-03-09 10:53 | Inpatient (IN) | payer OTHER ==
[2019-03-09 12:37] VITALS: BMI 28.5
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
[2019-03-09] MEDS ORDERED: MAG HYDROX/AL HYDROX/SIMETH 30 ML UNIT-DOSE CUP PO PRN (14:36)
[2019-03-09] MEDS ORDERED: cloNIDine HCL 0.1 MG TABLET PO PRN (14:36)
[2019-03-09] MEDS ORDERED: IBUPROFEN 400 MG TABLET (FP) PO PRN (14:36)
[2019-03-09] MEDS ORDERED: BISMUTH SUBSALICYLATE 262 MG/15 ML BTL PO PRN (14:36)
[2019-03-09] MEDS ORDERED: MAGNESIUM CITRATE 300 ML BOTTLE PO PRN (14:36)
[2019-03-09] MEDS ORDERED: MENTHOL/PHENOL 1 EACH UD MM PRN (14:36)
[2019-03-09] MEDS ORDERED: MAGNESIUM HYDROX 2400MG/30ML ORAL SUSPENSION 30 ML CUP PO PRN (14:36)
[2019-03-09] MEDS ORDERED: LORazepam 2 MG TABLET PO ONE (15:15)
[2019-03-09] MEDS ORDERED: METHADONE HCL 10 MG TABLET (FOR DETOX USE ONLY) PO ONE (15:18)
[2019-03-09] MEDS: LORazepam 2 MG TABLET PO SCH ×2 (16:55→22:27)
[2019-03-09] MEDS: LISINOPRIL 10 MG TABLET (FP) PO SCH (22:26)
[2019-03-09] MEDS: MELATONIN 5 MG TABLETS PO PRN (22:27)
[2019-03-09] MEDS: THIAMINE HCL 100 MG TABLET (FP) PO SCH (23:01)
[2019-03-10] MEDS: LORazepam 2 MG TABLET PO SCH ×4 (05:37→22:32)
[2019-03-10 09:33] LABS: HEMOGLOBIN 13.3 GM/dL (11.7-16.9); MCH 31.8 pg (25.7-33.7); MCHC 33.2 g/dl (32.0-35.9); MEAN CELL VOLUME 95.6 fl (80-96); MEAN PLT VOLUME 9.6 fl (7.5-11.1); PLATELET COUNT 191 K/MM3 (134-434); RBC 4.19 M/mm3 (4.00-5.60); RDW 16.9 % (11.9-15.9); WHITE BLOOD COUNT 6.7 K/mm3 (4.0-10.0)
[2019-03-10 09:38] LABS: ALBUMIN 3.8 g/dl (3.4-5.0); BILIRUBIN,TOTAL 0.5 mg/dL (0.2-1); BLOOD UREA NITROGEN 10.6 mg/dL (7-18); CALCIUM 8.6 mg/dL (8.5-10.1); POTASSIUM 3.4 mmol/L (3.5-5.1); TOT PROT 6.5 g/dl (6.4-8.2)
[2019-03-10] MEDS ORDERED: METHADONE HCL 5 MG TABLET (FOR DETOX USE ONLY) PO ONE (10:00)
[2019-03-10] MEDS: METHOCARBAMOL 500 MG TABLET PO PRN ×2 (10:15→17:41)
[2019-03-10] MEDS: LISINOPRIL 10 MG TABLET (FP) PO SCH ×2 (10:15→22:32)
[2019-03-10] MEDS: PRENATAL VITAMINS W/ FOLIC ACID TABLET (FP) PO SCH (10:15)
[2019-03-10] MEDS: HYDROCHLOROTHIAZIDE 25 MG TABLET (FP) PO SCH (10:15)
--- NOTE | 2019-03-10 11:29 | PN ---
[facility] CIWA - CIWA Score Nausea/Vomitin-Mild Nausea/No Vomiting Muscle Tremors: 1-None Visible, but [place] Anxiety: 1-Mildly Anxious Agitation: 0-Normal Activity Paroxysmal Sweats: 2 Orientation: 0-Oriented Tacttile Disturbances: 2-Mild Itch/Numbness/Burn Auditory Disturbances: 0-None Visual Disturbances: 0-None Headache: 0-None Present CIWA-Ar Total Score: 7 BHS COWS - Scale Resting Pulse: 1= [place] 81-100 Sweatin= Chills/Flushing Restless Observation: 1= Difficult to Sit Still Pupil Size: 1= Pupils >than Normal Bone or Joint Aches: 1= Mild Discomfort Runny Nose/ Eye Tearin= None GI Upset > 30mins: 2= Nausea/Diarrhea Tremor Observation of Outstretched Hands: 1= Tremor [place], Not Seen Yawning Observation: 0= None Anxiety or Irritability: 1=Feels Anxious/Irritable Goose Flesh Skin: 0=Smooth Skin COWS Score: 9 [facility] Progress Note (SOAP) Subjective: interrupted sleep,sweats, nausealbp, knee pains Objective: 03/10/19 11:26 Vital Signs Temperature 98.1 F 03/10/19 09:29 Pulse Rate 87 03/10/19 09:29 Respiratory Rate 18 03/10/19 09:29 Blood Pressure 147/93 03/10/19 09:29 O2 Sat by Pulse Oximetry (%) Laboratory Tests 03/10/19 03/10/19 08:20 08:20 WBC 6.7 RBC 4.19 Hgb 13.3 Hct 40.0 MCV 95.6 MCH 31.8 MCHC 33.2 RDW 16.9 H Plt Count 191 MPV 9.6 Sodium 140 Potassium 3.4 L Chloride 103 Carbon Dioxide 30 Anion Gap 6 L BUN 10.6 Creatinine 1.0 Est GFR (CKD-EPI)AfAm 109.40 Est GFR (CKD-EPI)NonAf 94.39 Random Glucose 97 Calcium 8.6 Total Bilirubin 0.5 AST 71 H ALT 77 H Alkaline Phosphatase 114 Total Protein 6.5 Albumin 3.8 pt aox3 in nad ambulating Assessment: 03/10/19 11:27 withdrawal sx's arthritis htn Plan: cont. detox increase fluids cont lisinopril cont robaxin
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
[2019-03-10] MEDS ORDERED: POTASSIUM CHLORIDE TABS 20 MEQ TABLET.ER (FP) PO ONE (12:30)
--- NOTE | 2019-03-10 13:10 | EKG ---
Test Reason : Blood Pressure : / mmHG Vent. Rate : 085 BPM Atrial Rate : 085 BPM P-R Int : 140 ms QRS Dur : 096 ms QT Int : 394 ms P-R-T Axes : 073 010 -04 degrees QTc Int : 468 ms NORMAL SINUS RHYTHM NONSPECIFIC ST ABNORMALITY WHEN COMPARED WITH ECG OF 15-MAR-2018 20:44, NO SIGNIFICANT CHANGE WAS FOUND Confirmed by FRANTZ BILL MD ([id number]) on 03/10/2019 1:09:59 PM Referred By: Confirmed By:FRANTZ BILL MD
[2019-03-10] MEDS: LORazepam 1 MG TABLET PO PRN (15:39)
[2019-03-10 17:22] LABS: EPI CELLS 0.9 /HPF (0-5/HPF); HYALINE CASTS 3 /lpf (0-8); URINE APPEARANCE TURBID; URINE BACTERIA 3.4 /hpf (NEGATIVE); URINE BILIRUBIN NEGATIVE (NEGATIVE); URINE COLOR ORANGE; URINE GLUCOSE (UA) NEGATIVE (NEGATIVE); URINE KETONE TRACE (NEGATIVE); URINE LEUK ESTERASE NEGATIVE (NEGATIVE); URINE NITRITE POSITIVE (NEGATIVE); URINE PROTEIN TRACE (NEGATIVE); URINE RBC 1 /hpf (0-4); URINE UROBILINOGEN 0.2 mg/dL (0.2-1.0); URINE WBC 1 /hpf (0-5)
[2019-03-10 19:37] LABS: URINE CRYSTALS MANY /hpf
[2019-03-10] MEDS: THIAMINE HCL 100 MG TABLET (FP) PO SCH (22:32)
[2019-03-10] MEDS: MELATONIN 5 MG TABLETS PO PRN (22:32)
[2019-03-10] MEDS: QUEtiapine FUMARATE 100 MG TABLET (FP) PO SCH (22:32)
[2019-03-11] MEDS: METHOCARBAMOL 500 MG TABLET PO PRN ×3 (00:38→17:42)
[2019-03-11] MEDS: traZODone HCL 100 MG TABLET (FP) PO PRN ×2 (00:38→22:24)
[2019-03-11] MEDS: LORazepam 1 MG TABLET PO SCH ×4 (05:24→22:20)
[2019-03-11] MEDS ORDERED: METHADONE HCL 10 MG TABLET (FOR DETOX USE ONLY) PO ONE (10:00)
[2019-03-11] MEDS: LISINOPRIL 10 MG TABLET (FP) PO SCH ×2 (10:06→22:20)
[2019-03-11] MEDS: HYDROCHLOROTHIAZIDE 25 MG TABLET (FP) PO SCH (10:06)
[2019-03-11] MEDS: FLUoxetine HCL 20 MG CAPSULE PO SCH (10:06)
[2019-03-11] MEDS: PRENATAL VITAMINS W/ FOLIC ACID TABLET (FP) PO SCH (10:06)
--- NOTE | 2019-03-11 11:20 | PN ---
S CIWA - CIWA Score Nausea/Vomitin-No Nausea/No Vomiting Muscle Tremors: None Anxiety: 2 Agitation: 0-Normal Activity Paroxysmal Sweats: 3 Orientation: 0-Oriented Tacttile Disturbances: 0-None Auditory Disturbances: 0-None Visual Disturbances: 0-None Headache: 2-Mild CIWA-Ar Total Score: 7 BHS COWS - Scale Resting Pulse: 0= [place] 80 or Below Sweatin= Chills/Flushing Restless Observation: 1= Difficult to Sit Still Pupil Size: 0= Normal to Room Light Bone or Joint Aches: 2= Severe Diffuse Aches Runny Nose/ Eye Tearin= None GI Upset > 30mins: 0= None Tremor Observation of Outstretched Hands: 0= None Yawning Observation: 1= 1-2x During Session Anxiety or Irritability: 2=Irritable/Anxious Goose Flesh Skin: 0=Smooth Skin COWS Score: 7 S Progress Note (SOAP) Subjective: c/o anxiety, sweats, headache, and muscle aches. Objective: 03/11/19 11:21 Vital Signs 03/11/19 03/11/19 03/11/19 03:30 06:31 09:19 Temperature 99.2 F 97.0 F L Pulse Rate 71 85 Respiratory 18 18 18 Rate Blood Pressure 128/65 155/95 Laboratory Last Values WBC 6.7 K/mm3 (4.0-10.0) 03/10/19 08:20 RBC 4.19 M/mm3 (4.00-5.60) 03/10/19 08:20 Hgb 13.3 GM/dL (11.7-16.9) 03/10/19 08:20 Hct 40.0 % (35.4-49) 03/10/19 08:20 MCV 95.6 fl (80-96) 03/10/19 08:20 MCH 31.8 pg (25.7-33.7) 03/10/19 08:20 MCHC 33.2 g/dl (32.0-35.9) 03/10/19 08:20 RDW 16.9 % (11.9-15.9) H 03/10/19 08:20 Plt Count 191 K/MM3 (134-434) 03/10/19 08:20 MPV 9.6 fl (7.5-11.1) 03/10/19 08:20 Sodium 140 mmol/L (136-145) 03/10/19 08:20 Potassium 3.4 mmol/L (3.5-5.1) L 03/10/19 08:20 Chloride 103 mmol/L (98-107) 03/10/19 08:20 Carbon Dioxide 30 mmol/L (21-32) 03/10/19 08:20 Anion Gap 6 MMOL/L (8-16) L 03/10/19 08:20 BUN 10.6 mg/dL (7-18) 03/10/19 08:20 Creatinine 1.0 mg/dL (0.55-1.3) 03/10/19 08:20 Est GFR (CKD-EPI)AfAm 109.40 03/10/19 08:20 Est GFR (CKD-EPI)NonAf 94.39 03/10/19 08:20 Random Glucose 97 mg/dL (74-106) 03/10/19 08:20 Calcium 8.6 mg/dL (8.5-10.1) 03/10/19 08:20 Total Bilirubin 0.5 mg/dL (0.2-1) 03/10/19 08:20 AST 71 U/L (15-37) H 03/10/19 08:20 ALT 77 U/L (13-61) H 03/10/19 08:20 Alkaline Phosphatase 114 U/L (45-117) 03/10/19 08:20 Total Protein 6.5 g/dl (6.4-8.2) 03/10/19 08:20 Albumin 3.8 g/dl (3.4-5.0) 03/10/19 08:20 Urine Color [place] 03/10/19 13:00 Urine Appearance Turbid 03/10/19 13:00 Urine pH 5.0 (5.0-8.0) D 03/10/19 13:00 Ur Specific [place] 1.032 (1.010-1.035) 03/10/19 13:00 Urine Protein Trace (NEGATIVE) 03/10/19 13:00 Urine Glucose (UA) Negative (NEGATIVE) 03/10/19 13:00 Urine Ketones Trace (NEGATIVE) H 03/10/19 13:00 Urine Blood Negative (NEGATIVE) 03/10/19 13:00 Urine Nitrite Positive (NEGATIVE) H 03/10/19 13:00 Urine Bilirubin Negative (NEGATIVE) 03/10/19 13:00 Urine Urobilinogen 0.2 mg/dL (0.2-1.0) 03/10/19 13:00 Ur Leukocyte Esterase Negative (NEGATIVE) 03/10/19 13:00 Urine WBC (Auto) 1 /hpf (0-5) 03/10/19 13:00 Urine RBC (Auto) 1 /hpf (0-4) 03/10/19 13:00 Urine Casts (Auto) 3 /lpf (0-8) 03/10/19 13:00 U Epithel Cells (Auto) 0.9 /HPF (0-5/HPF) 03/10/19 13:00 Urine Crystals (Auto) Many /hpf 03/10/19 13:00 Urine Bacteria (Auto) 3.4 /hpf (NEGATIVE) 03/10/19 13:00 RPR Titer Nonreactive (NONREACTIVE) 03/10/19 08:20 Labs noted. Assessment: 03/11/19 11:21 AOX3, in no acute respiratory distress. Full ROM, ambulating in the unit. Withdrawal symptoms. Plan: continue detox.
[2019-03-11] MEDS: LORazepam 1 MG TABLET PO PRN (14:11)
[2019-03-11] MEDS: QUEtiapine FUMARATE 100 MG TABLET (FP) PO SCH (22:20)
[2019-03-11] MEDS: THIAMINE HCL 100 MG TABLET (FP) PO SCH (22:20)
[2019-03-11] MEDS: MELATONIN 5 MG TABLETS PO PRN (22:21)
[2019-03-12] MEDS ORDERED: LORazepam 0.5 MG TABLET PO PRN
[2019-03-12] MEDS: LORazepam 0.5 MG TABLET PO SCH ×2 (05:37→10:48)
[2019-03-12] MEDS: METHOCARBAMOL 500 MG TABLET PO PRN (05:38)
[2019-03-12] MEDS ORDERED: METHADONE HCL 5 MG TABLET (FOR DETOX USE ONLY) PO ONE (06:00)
[2019-03-12 09:10] VITALS: BP 137/91; PULSE 73; TEMP 964
[2019-03-12] MEDS: FLUoxetine HCL 20 MG CAPSULE PO SCH (10:47)
[2019-03-12] MEDS: PRENATAL VITAMINS W/ FOLIC ACID TABLET (FP) PO SCH (10:47)
[2019-03-12] MEDS: HYDROCHLOROTHIAZIDE 25 MG TABLET (FP) PO SCH (10:47)
[2019-03-12] MEDS: LISINOPRIL 10 MG TABLET (FP) PO SCH (10:47)
--- NOTE | 2019-03-12 11:03 | DS ---
[facility] Detox Discharge Summary Admission Date: 03/09/19 Discharge Date: 03/12/19 - History Present History: Alcohol Dependence, Opioid Dependence Additional Comments: 38 years old male admitted on 03/09/19 for alcohol and opiate withdrawal sx management treated with ativan and methadone detox regimen patient prefers to leave the detox one day earlier than estimated date of 03/13/19 seen by psychiatrist resume seroquel prozac and trazadone patient tolerated well case discussed with the nurse routine discharge is appropriated patient is alert oriented x 3 cardiac s1s2 regular rate rhythm respiratory clear lungs bilaterally on auscultation extremities full range of motion - Physical Exam Results Vital Signs: Vital Signs Temperature 964 F H 03/12/19 09:09 Pulse Rate 73 03/12/19 09:09 Respiratory Rate 19 03/12/19 09:09 Blood Pressure 137/91 03/12/19 09:09 O2 Sat by Pulse Oximetry (%) Pertinent Admission Physical Exam Findings: alcohol and opiate withdrawal Laboratory Last Values WBC 6.7 K/mm3 (4.0-10.0) 03/10/19 08:20 RBC 4.19 M/mm3 (4.00-5.60) 03/10/19 08:20 Hgb 13.3 GM/dL (11.7-16.9) 03/10/19 08:20 Hct 40.0 % (35.4-49) 03/10/19 08:20 MCV 95.6 fl (80-96) 03/10/19 08:20 MCH 31.8 pg (25.7-33.7) 03/10/19 08:20 MCHC 33.2 g/dl (32.0-35.9) 03/10/19 08:20 RDW 16.9 % (11.9-15.9) H 03/10/19 08:20 Plt Count 191 K/MM3 (134-434) 03/10/19 08:20 MPV 9.6 fl (7.5-11.1) 03/10/19 08:20 Sodium 140 mmol/L (136-145) 03/10/19 08:20 Potassium 3.4 mmol/L (3.5-5.1) L 03/10/19 08:20 Chloride 103 mmol/L (98-107) 03/10/19 08:20 Carbon Dioxide 30 mmol/L (21-32) 03/10/19 08:20 Anion Gap 6 MMOL/L (8-16) L 03/10/19 08:20 BUN 10.6 mg/dL (7-18) 03/10/19 08:20 Creatinine 1.0 mg/dL (0.55-1.3) 03/10/19 08:20 Est GFR (CKD-EPI)AfAm 109.40 03/10/19 08:20 Est GFR (CKD-EPI)NonAf 94.39 03/10/19 08:20 Random Glucose 97 mg/dL (74-106) 03/10/19 08:20 Calcium 8.6 mg/dL (8.5-10.1) 03/10/19 08:20 Total Bilirubin 0.5 mg/dL (0.2-1) 03/10/19 08:20 AST 71 U/L (15-37) H 03/10/19 08:20 ALT 77 U/L (13-61) H 03/10/19 08:20 Alkaline Phosphatase 114 U/L (45-117) 03/10/19 08:20 Total Protein 6.5 g/dl (6.4-8.2) 03/10/19 08:20 Albumin 3.8 g/dl (3.4-5.0) 03/10/19 08:20 Urine Color [place] 03/10/19 13:00 Urine Appearance Turbid 03/10/19 13:00 Urine pH 5.0 (5.0-8.0) D 03/10/19 13:00 Ur Specific [place] 1.032 (1.010-1.035) 03/10/19 13:00 Urine Protein Trace (NEGATIVE) 03/10/19 13:00 Urine Glucose (UA) Negative (NEGATIVE) 03/10/19 13:00 Urine Ketones Trace (NEGATIVE) H 03/10/19 13:00 Urine Blood Negative (NEGATIVE) 03/10/19 13:00 Urine Nitrite Positive (NEGATIVE) H 03/10/19 13:00 Urine Bilirubin Negative (NEGATIVE) 03/10/19 13:00 Urine Urobilinogen 0.2 mg/dL (0.2-1.0) 03/10/19 13:00 Ur Leukocyte Esterase Negative (NEGATIVE) 03/10/19 13:00 Urine WBC (Auto) 1 /hpf (0-5) 03/10/19 13:00 Urine RBC (Auto) 1 /hpf (0-4) 03/10/19 13:00 Urine Casts (Auto) 3 /lpf (0-8) 03/10/19 13:00 U Epithel Cells (Auto) 0.9 /HPF (0-5/HPF) 03/10/19 13:00 Urine Crystals (Auto) Many /hpf 03/10/19 13:00 Urine Bacteria (Auto) 3.4 /hpf (NEGATIVE) 03/10/19 13:00 RPR Titer Nonreactive (NONREACTIVE) 03/10/19 08:20 lab noted - Treatment Hospital Course: Detox Protocol Followed, Detoxed Safely, Responded well, Discharged Condition Good, Rehab Referral Accepted Patient has Accepted a Rehab Referral to: [facility] - Medication Discharge Medications: Ambulatory Orders Trazodone HCl 100 mg PO HS PRN 06/15/18 Fluoxetine HCl 20 mg PO DAILY #30 capsule 09/18/18 Quetiapine Fumarate [Seroquel -] 100 mg PO HS #30 tablet 09/18/18 Buprenorphine/Naloxone [Suboxone 8Mg/2Mg Sl Film -] 1 each SL BID 7 Days #14 packet MDD 2 09/19/18 Lisinopril [Prinivil] 10 mg PO BID #60 tablet 11/14/18 Ranitidine [Zantac -] 150 mg PO BID #60 tablet 11/14/18 Hydrochlorothiazide [Hctz -] 25 mg PO DAILY #14 tablet 02/05/19 Naloxone HCl [Narcan] 4 mg NS ASDIR PRN #1 spray 02/05/19 - Diagnosis (1) Alcohol dependence with uncomplicated withdrawal Status: Acute (2) Opioid dependence with withdrawal Status: Acute (3) Asthma Status: Chronic Qualifiers: Asthma severity: mild Asthma persistence: intermittent Asthma complication type: uncomplicated Qualified Code(s): J45.20 - Mild intermittent asthma, uncomplicated (4) Essential hypertension Status: Chronic (5) GERD (gastroesophageal reflux disease) Status: Chronic Qualifiers: Esophagitis presence: without esophagitis Qualified Code(s): K21.9 - Gastro -esophageal reflux disease without esophagitis (6) HTN (hypertension) Status: Chronic Qualifiers: Hypertension type: essential hypertension Qualified Code(s): I10 - Essential (primary) hypertension (7) Substance induced mood disorder Status: Suspected - AMA Did Patient Leave Against Medical Advice: No CIWA Score - CIWA Score Nausea/Vomitin-No Nausea/No Vomiting Muscle Tremors: None Anxiety: 1-Mildly Anxious Agitation: 0-Normal Activity Paroxysmal Sweats: 1-Minimal Palms Moist Orientation: 0-Oriented Tacttile Disturbances: 0-None Auditory Disturbances: 0-None Visual Disturbances: 0-None Headache: 1-Very Mild CIWA-Ar Total Score: 3 COWS (PN) - Opiate Withdrawal Resting Pulse: 0= [place] 80 or Below Sweatin= Chills/Flushing Restless Observation: 0= Sits Still Pupil Size: 0= Normal to Room Light Bone or Joint Aches: 0= None Runny Nose/ Eye Tearin= None GI Upset > 30mins: 0= None Tremor Observation of Outstretched Hands: 1= Tremor [place], Not Seen Yawning Observation: 0= None Anxiety or Irritability: 1=Feels Anxious/Irritable Goose Flesh Skin: 0=Smooth Skin COWS Score: 3
[2019-03-13] MEDS ORDERED: LORazepam 0.5 MG TABLET PO ONE (05:00)
== END 2019-03-12 11:15 | disposition home or self-care (01) | DRG 773 ==
LOC: YASAS 10:53 → Y3N 14:58
PROVIDERS: ADMIT Allergy & Immunology; ATTEND Allergy & Immunology
PROC: HZ2ZZZZ Detoxification Services for Substance Abuse Treatment (ICD-10-PCS; principal; 2019-03-09)
DX: F11.23 Opioid dependence with withdrawal (principal); F10.230 Alcohol dependence with withdrawal, uncomplicated; F12.10 Cannabis abuse, uncomplicated; F19.24 Other psychoactive substance dependence with psychoactive substance-induced mood disorder; F31.9 Bipolar disorder, unspecified; I10 Essential (primary) hypertension; J45.20 Mild intermittent asthma, uncomplicated; K21.9 Gastro-esophageal reflux disease without esophagitis; G47.00 Insomnia, unspecified; E78.5 Hyperlipidemia, unspecified; M10.9 Gout, unspecified; Z91.19 Patient's noncompliance with other medical treatment and regimen; Z88.0 Allergy status to penicillin
CPT/HCPCS: 36415; 80053; 81003; 85027; 86593; 93005; 93010

== ENCOUNTER 2019-04-09 11:36 | Inpatient (IN) | payer OTHER ==
[2019-04-09 15:29] VITALS: BMI 29.7
--- NOTE | 2019-04-09 16:18 | BHS.RME ---
Substance Use & Tx History - Substance Use History Opiates (Heroin) Substance amount: heroin 3 to 6 bags Frequency of use: Daily (3 to 6 bags) Substance route: Inhalation (ex: sniffing or snorting) Date of Last Use: 04/09/19 Alcohol Substance amount: 2 to 3 pins of vodka Frequency of use: Daily Date of Last Use: 04/09/19 - Last Treatment Date of last treatment: 03/09/2019 to 03/12/2019 Where was last treatment: Detox ([facility]) Physical/Psych/Mental Status - Behavior General Behavior: Increased activity (restlessness, agitation) Eye Contact: Normal - Cooperativeness Cooperativeness: Cooperative - Thinking Thought Processes: Logical Thought content: Future oriented - Physical Health Problems Is patient presently having any pain?: Yes (right hand) Does patient presently have any injuries (include location): No Does patient currently have a fever: No COWS - Scale Resting Pulse: 1= [place] 81-100 Sweatin= Chills/Flushing Restless Observation: 1= Difficult to Sit Still Pupil Size: 1= Pupils >than Normal Bone or Joint Aches: 2= Severe Diffuse Aches Runny Nose/ Eye Tearin= Nasal Congestion GI Upset > 30mins: 2= Nausea/Diarrhea Tremor Observation: 2= Slight Tremor Visible Yawning Observation: 1= 1-2x During Session Anxiety or Irritability: 2=Irritable/Anxious Goose Flesh Skin: 0=Smooth Skin COWS Score: 14 CIWA Nausea/Vomitin Muscle Tremors: 3 Anxiety: 3 Agitation: 2 Paroxysmal Sweats: 1-Minimal Palms Moist Orientation: 0-Oriented Tacttile Disturbances: 1-Very Mild Itch/Numbness Auditory Disturbances: 0-None Visual Disturbances: 0-None Headache: 2-Mild CIWA-Ar Total Score: 14
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
[2019-04-09] MEDS ORDERED: MENTHOL/PHENOL 1 EACH UD MM PRN (16:42)
[2019-04-09] MEDS ORDERED: IBUPROFEN 400 MG TABLET (FP) PO PRN (16:42)
[2019-04-09] MEDS ORDERED: ACETAMINOPHEN 325 MG TABLET (FP) PO PRN ×2 (16:42)
[2019-04-09] MEDS ORDERED: BISMUTH SUBSALICYLATE 524 MG/30 ML UD PO PRN (16:42)
[2019-04-09] MEDS ORDERED: MAG HYDROX/AL HYDROX/SIMETH 30 ML UNIT-DOSE CUP PO PRN (16:42)
[2019-04-09] MEDS ORDERED: MAGNESIUM HYDROX 2400MG/30ML ORAL SUSPENSION 30 ML CUP PO PRN (16:42)
[2019-04-09] MEDS ORDERED: MAGNESIUM CITRATE 300 ML BOTTLE PO PRN (16:42)
[2019-04-09] MEDS ORDERED: METHADONE HCL 10 MG TABLET (FOR DETOX USE ONLY) PO ONE (16:44)
[2019-04-09] MEDS ORDERED: chlordiazePOXIDE HCL 25 MG CAPSULE PO PRN (16:44)
[2019-04-09] MEDS ORDERED: cloNIDine HCL 0.1 MG TABLET PO PRN (16:44)
[2019-04-09] MEDS: HYDROCHLOROTHIAZIDE 25 MG TABLET (FP) PO SCH (18:10)
[2019-04-09] MEDS: FAMOTIDINE 20 MG TABLET PO SCH (22:42)
[2019-04-09] MEDS: LISINOPRIL 10 MG TABLET (FP) PO SCH (22:42)
[2019-04-09] MEDS: THIAMINE HCL 100 MG TABLET (FP) PO SCH (22:42)
[2019-04-09] MEDS: chlordiazePOXIDE HCL 25 MG CAPSULE PO SCH (22:42)
[2019-04-09] MEDS: MELATONIN 5 MG TABLETS PO PRN (22:45)
[2019-04-09] MEDS: TRIMETHOBENZAMIDE HCL 200MG/2ML INJ IM PRN (23:14)
[2019-04-10] MEDS: chlordiazePOXIDE HCL 25 MG CAPSULE PO SCH ×4 (05:36→22:16)
[2019-04-10] MEDS ORDERED: METHADONE HCL 5 MG TABLET (FOR DETOX USE ONLY) ONE (09:46)
[2019-04-10] MEDS ORDERED: METHADONE HCL 10 MG TABLET (FOR DETOX USE ONLY) ONE (09:46)
[2019-04-10] MEDS ORDERED: METHADONE (DETOX) 20 MG, METHADONE (DETOX) 5 MG PO ONE (10:00)
[2019-04-10 10:22] LABS: ALBUMIN 4.4 g/dl (3.4-5.0); BILIRUBIN,TOTAL 1.7 mg/dL (0.2-1); BLOOD UREA NITROGEN 9.1 mg/dL (7-18); CALCIUM 9.1 mg/dL (8.5-10.1); CREATININE 1.1 mg/dL (0.55-1.3); POTASSIUM 3.2 mmol/L (3.5-5.1); TOT PROT 7.6 g/dl (6.4-8.2)
[2019-04-10 10:23] LABS: HEMATOCRIT 43.6 % (35.4-49); HEMOGLOBIN 14.4 GM/dL (11.7-16.9); MCH 32.1 pg (25.7-33.7); MCHC 33.1 g/dl (32.0-35.9); MEAN PLT VOLUME 9.7 fl (7.5-11.1); PLATELET COUNT 180 K/MM3 (134-434); RBC 4.49 M/mm3 (4.00-5.60); RDW 16.1 % (11.9-15.9)
[2019-04-10] MEDS: PRENATAL VITAMINS W/ FOLIC ACID TABLET (FP) PO SCH (10:23)
[2019-04-10] MEDS: HYDROCHLOROTHIAZIDE 25 MG TABLET (FP) PO SCH (10:23)
[2019-04-10] MEDS: LISINOPRIL 10 MG TABLET (FP) PO SCH ×2 (10:23→22:15)
[2019-04-10] MEDS: FAMOTIDINE 20 MG TABLET PO SCH ×2 (10:24→22:16)
[2019-04-10] MEDS: METHOCARBAMOL 500 MG TABLET PO PRN ×2 (10:26→16:34)
--- NOTE | 2019-04-10 11:14 | PN ---
S CIWA - CIWA Score Nausea/Vomitin Muscle Tremors: 3 Anxiety: 3 Agitation: 1-Slight > Activity Paroxysmal Sweats: 2 Orientation: 0-Oriented Tacttile Disturbances: 0-None Auditory Disturbances: 0-None Visual Disturbances: 0-None Headache: 0-None Present CIWA-Ar Total Score: 12 BHS COWS - Scale Resting Pulse: 0= [place] 80 or Below Sweatin= Chills/Flushing Restless Observation: 0= Sits Still Pupil Size: 1= Pupils >than Normal Bone or Joint Aches: 1= Mild Discomfort Runny Nose/ Eye Tearin= None GI Upset > 30mins: 3= Vomiting/Diarrhea Tremor Observation of Outstretched Hands: 2= Slight Tremor Visible Yawning Observation: 0= None Anxiety or Irritability: 1=Feels Anxious/Irritable Goose Flesh Skin: 3=Piloerection COWS Score: 12 S Progress Note (SOAP) Subjective: 38 years old male admitted on 04/09/19 for alcohol and opiate withdrawal sx management treating with librium and methadone detox regiment reports vomited x 1 received tigan IM feeling ok today tolerated methadone and librium and antihypertensive medications well Objective: 04/10/19 11:14 Vital Signs Temperature 96.5 F L 04/10/19 08:38 Pulse Rate 72 04/10/19 08:38 Respiratory Rate 18 04/10/19 08:38 Blood Pressure 128/82 04/10/19 08:38 O2 Sat by Pulse Oximetry (%) Laboratory Last Values WBC 9.0 K/mm3 (4.0-10.0) 04/10/19 07:30 RBC 4.49 M/mm3 (4.00-5.60) 04/10/19 07:30 Hgb 14.4 GM/dL (11.7-16.9) 04/10/19 07:30 Hct 43.6 % (35.4-49) 04/10/19 07:30 MCV 97.0 fl (80-96) H 04/10/19 07:30 MCH 32.1 pg (25.7-33.7) 04/10/19 07:30 MCHC 33.1 g/dl (32.0-35.9) 04/10/19 07:30 RDW 16.1 % (11.9-15.9) H 04/10/19 07:30 Plt Count 180 K/MM3 (134-434) 04/10/19 07:30 MPV 9.7 fl (7.5-11.1) 04/10/19 07:30 Sodium 134 mmol/L (136-145) L 04/10/19 07:30 Potassium 3.2 mmol/L (3.5-5.1) L 04/10/19 07:30 Chloride 94 mmol/L (98-107) L 04/10/19 07:30 Carbon Dioxide 35 mmol/L (21-32) H 04/10/19 07:30 Anion Gap 5 MMOL/L (8-16) L 04/10/19 07:30 BUN 9.1 mg/dL (7-18) 04/10/19 07:30 Creatinine 1.1 mg/dL (0.55-1.3) 04/10/19 07:30 Est GFR (CKD-EPI)AfAm 97.49 04/10/19 07:30 Est GFR (CKD-EPI)NonAf 84.12 04/10/19 07:30 Random Glucose 93 mg/dL (74-106) 04/10/19 07:30 Calcium 9.1 mg/dL (8.5-10.1) 04/10/19 07:30 Total Bilirubin 1.7 mg/dL (0.2-1) H 04/10/19 07:30 AST 76 U/L (15-37) H 04/10/19 07:30 ALT 63 U/L (13-61) H 04/10/19 07:30 Alkaline Phosphatase 113 U/L (45-117) 04/10/19 07:30 Total Protein 7.6 g/dl (6.4-8.2) 04/10/19 07:30 Albumin 4.4 g/dl (3.4-5.0) 04/10/19 07:30 lab noted low K+ K+ supplement repeat K+ Assessment: 04/10/19 11:16 alcohol and opiate withdrawal Plan: librium and methadone regiments
[2019-04-10] MEDS ORDERED: POTASSIUM CHLORIDE ORAL LIQUID 20 MEQ/15 ML PO ONE ×2 (12:00→16:00)
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
[2019-04-10] MEDS: hydrOXYzine PAMOATE 25 MG CAPSULE (FP) PO PRN (16:34)
[2019-04-10 19:29] LABS: EPI CELLS 0.5 /HPF (0-5/HPF); HYALINE CASTS 2 /lpf (0-8); PH,URINE 8.5 (5.0-8.0); URINE APPEARANCE CLEAR; URINE BACTERIA 2.4 /hpf (NEGATIVE); URINE BILIRUBIN NEGATIVE (NEGATIVE); URINE COLOR DK YELLOW; URINE GLUCOSE (UA) NEGATIVE (NEGATIVE); URINE KETONE NEGATIVE (NEGATIVE); URINE LEUK ESTERASE TRACE (NEGATIVE); URINE NITRITE NEGATIVE (NEGATIVE); URINE PROTEIN 1+ (NEGATIVE); URINE RBC 3 /hpf (0-4); URINE WBC 1 /hpf (0-5)
[2019-04-10] MEDS: THIAMINE HCL 100 MG TABLET (FP) PO SCH (22:15)
[2019-04-10] MEDS: QUEtiapine FUMARATE 100 MG TABLET (FP) PO SCH (22:16)
[2019-04-10] MEDS: traZODone HCL 50 MG TABLET (FP) PO SCH (22:16)
[2019-04-10] MEDS: MELATONIN 5 MG TABLETS PO PRN (22:18)
[2019-04-11] MEDS: chlordiazePOXIDE HCL 25 MG CAPSULE PO SCH ×4 (05:51→22:25)
[2019-04-11] MEDS ORDERED: METHADONE HCL 10 MG TABLET (FOR DETOX USE ONLY) PO ONE (10:00)
[2019-04-11] MEDS: HYDROCHLOROTHIAZIDE 25 MG TABLET (FP) PO SCH (10:31)
[2019-04-11] MEDS: FAMOTIDINE 20 MG TABLET PO SCH ×2 (10:31→22:26)
[2019-04-11] MEDS: hydrOXYzine PAMOATE 25 MG CAPSULE (FP) PO PRN ×2 (10:31→17:53)
[2019-04-11] MEDS: FLUoxetine HCL 20 MG CAPSULE PO SCH (10:31)
[2019-04-11] MEDS: PRENATAL VITAMINS W/ FOLIC ACID TABLET (FP) PO SCH (10:32)
[2019-04-11] MEDS: LISINOPRIL 10 MG TABLET (FP) PO SCH ×2 (10:32→22:25)
--- NOTE | 2019-04-11 11:04 | PN ---
[facility] CIWA - CIWA Score Nausea/Vomitin-No Nausea/No Vomiting Muscle Tremors: 2 Anxiety: 3 Agitation: 1-Slight > Activity Paroxysmal Sweats: 2 Orientation: 0-Oriented Tacttile Disturbances: 1-Very Mild Itch/Numbness Auditory Disturbances: 0-None Visual Disturbances: 1-Very Mild Sensitivity Headache: 0-None Present CIWA-Ar Total Score: 10 S COWS - Scale Resting Pulse: 1= [place] 81-100 Sweatin= Chills/Flushing Restless Observation: 0= Sits Still Pupil Size: 1= Pupils >than Normal Bone or Joint Aches: 1= Mild Discomfort Runny Nose/ Eye Tearin= Nasal Congestion GI Upset > 30mins: 1= Stomach Cramp Tremor Observation of Outstretched Hands: 2= Slight Tremor Visible Yawning Observation: 0= None Anxiety or Irritability: 2=Irritable/Anxious Goose Flesh Skin: 0=Smooth Skin COWS Score: 10 S Progress Note (SOAP) Subjective: 38 years old male admitted on 04/09/19 for alcohol and opiate withdrawal sx management treating with librium and methadone detox regiments feeling ok today right hand splint in place fingers pink mobile denies pain Objective: 04/11/19 11:15 Vital Signs Temperature 96.4 F L 04/11/19 08:40 Pulse Rate 87 04/11/19 08:40 Respiratory Rate 18 04/11/19 08:40 Blood Pressure 117/76 04/11/19 08:40 O2 Sat by Pulse Oximetry (%) 04/11/19 11:16 Laboratory Last Values WBC 9.0 K/mm3 (4.0-10.0) 04/10/19 07:30 RBC 4.49 M/mm3 (4.00-5.60) 04/10/19 07:30 Hgb 14.4 GM/dL (11.7-16.9) 04/10/19 07:30 Hct 43.6 % (35.4-49) 04/10/19 07:30 MCV 97.0 fl (80-96) H 04/10/19 07:30 MCH 32.1 pg (25.7-33.7) 04/10/19 07:30 MCHC 33.1 g/dl (32.0-35.9) 04/10/19 07:30 RDW 16.1 % (11.9-15.9) H 04/10/19 07:30 Plt Count 180 K/MM3 (134-434) 04/10/19 07:30 MPV 9.7 fl (7.5-11.1) 04/10/19 07:30 Sodium 134 mmol/L (136-145) L 04/10/19 07:30 Potassium 3.2 mmol/L (3.5-5.1) L 04/10/19 07:30 Chloride 94 mmol/L (98-107) L 04/10/19 07:30 Carbon Dioxide 35 mmol/L (21-32) H 04/10/19 07:30 Anion Gap 5 MMOL/L (8-16) L 04/10/19 07:30 BUN 9.1 mg/dL (7-18) 04/10/19 07:30 Creatinine 1.1 mg/dL (0.55-1.3) 04/10/19 07:30 Est GFR (CKD-EPI)AfAm 97.49 04/10/19 07:30 Est GFR (CKD-EPI)NonAf 84.12 04/10/19 07:30 Random Glucose 93 mg/dL (74-106) 04/10/19 07:30 Calcium 9.1 mg/dL (8.5-10.1) 04/10/19 07:30 Total Bilirubin 1.7 mg/dL (0.2-1) H 04/10/19 07:30 AST 76 U/L (15-37) H 04/10/19 07:30 ALT 63 U/L (13-61) H 04/10/19 07:30 Alkaline Phosphatase 113 U/L (45-117) 04/10/19 07:30 Total Protein 7.6 g/dl (6.4-8.2) 04/10/19 07:30 Albumin 4.4 g/dl (3.4-5.0) 04/10/19 07:30 Urine Color Dk yellow 04/10/19 16:01 Urine Appearance Clear 04/10/19 16:01 Urine pH 8.5 (5.0-8.0) H D 04/10/19 16:01 Ur Specific [place] 1.024 (1.010-1.035) 04/10/19 16:01 Urine Protein 1+ (NEGATIVE) H 04/10/19 16:01 Urine Glucose (UA) Negative (NEGATIVE) 04/10/19 16:01 Urine Ketones Negative (NEGATIVE) 04/10/19 16:01 Urine Blood Negative (NEGATIVE) 04/10/19 16:01 Urine Nitrite Negative (NEGATIVE) 04/10/19 16:01 Urine Bilirubin Negative (NEGATIVE) 04/10/19 16:01 Urine Urobilinogen 1.0 mg/dL (0.2-1.0) 04/10/19 16:01 Ur Leukocyte Esterase Trace (NEGATIVE) 04/10/19 16:01 Urine WBC (Auto) 1 /hpf (0-5) 04/10/19 16:01 Urine RBC (Auto) 3 /hpf (0-4) 04/10/19 16:01 Urine Casts (Auto) 2 /lpf (0-8) 04/10/19 16:01 U Epithel Cells (Auto) 0.5 /HPF (0-5/HPF) 04/10/19 16:01 Urine Bacteria (Auto) 2.4 /hpf (NEGATIVE) 04/10/19 16:01 RPR Titer Nonreactive (NONREACTIVE) 04/10/19 07:30 lab noted K+ low repeat pending received 60meq K+ supplement 04/11/19 11:17 Assessment: 04/11/19 11:17 alcohol and opiate withdrawal Plan: librium and methadone regiments
[2019-04-11] MEDS: METHOCARBAMOL 500 MG TABLET PO PRN (17:53)
[2019-04-11] MEDS: QUEtiapine FUMARATE 100 MG TABLET (FP) PO SCH (22:25)
[2019-04-11] MEDS: THIAMINE HCL 100 MG TABLET (FP) PO SCH (22:25)
[2019-04-11] MEDS: traZODone HCL 50 MG TABLET (FP) PO SCH (22:26)
[2019-04-12] MEDS ORDERED: chlordiazePOXIDE HCL 10 MG CAPSULE PO PRN
[2019-04-12] MEDS: chlordiazePOXIDE HCL 10 MG CAPSULE PO SCH ×4 (05:15→22:27)
[2019-04-12] MEDS: hydrOXYzine PAMOATE 25 MG CAPSULE (FP) PO PRN ×3 (05:16→18:01)
[2019-04-12] MEDS: METHOCARBAMOL 500 MG TABLET PO PRN ×3 (05:16→22:29)
[2019-04-12] MEDS ORDERED: METHADONE HCL 10 MG TABLET (FOR DETOX USE ONLY) ONE (09:18)
[2019-04-12] MEDS ORDERED: METHADONE HCL 5 MG TABLET (FOR DETOX USE ONLY) ONE (09:19)
[2019-04-12] MEDS ORDERED: METHADONE (DETOX) 10 MG, METHADONE (DETOX) 5 MG PO ONE (10:00)
[2019-04-12] MEDS: PRENATAL VITAMINS W/ FOLIC ACID TABLET (FP) PO SCH (10:43)
[2019-04-12] MEDS: FAMOTIDINE 20 MG TABLET PO SCH ×2 (10:44→22:27)
[2019-04-12] MEDS: HYDROCHLOROTHIAZIDE 25 MG TABLET (FP) PO SCH (10:48)
[2019-04-12] MEDS: LISINOPRIL 10 MG TABLET (FP) PO SCH ×2 (10:48→22:27)
[2019-04-12] MEDS: FLUoxetine HCL 20 MG CAPSULE PO SCH (10:48)
--- NOTE | 2019-04-12 12:05 | PN ---
S CIWA - CIWA Score Nausea/Vomitin-Mild Nausea/No Vomiting Muscle Tremors: 1-None Visible, but [place] Anxiety: 2 Agitation: 1-Slight > Activity Paroxysmal Sweats: 2 Orientation: 0-Oriented Tacttile Disturbances: 0-None Auditory Disturbances: 0-None Visual Disturbances: 1-Very Mild Sensitivity Headache: 0-None Present CIWA-Ar Total Score: 8 BHS COWS - Scale Resting Pulse: 0= [place] 80 or Below Sweatin= Chills/Flushing Restless Observation: 0= Sits Still Pupil Size: 1= Pupils >than Normal Bone or Joint Aches: 1= Mild Discomfort Runny Nose/ Eye Tearin= None GI Upset > 30mins: 2= Nausea/Diarrhea Tremor Observation of Outstretched Hands: 2= Slight Tremor Visible Yawning Observation: 0= None Anxiety or Irritability: 1=Feels Anxious/Irritable Goose Flesh Skin: 0=Smooth Skin COWS Score: 8 S Progress Note (SOAP) Subjective: 38 years old male admitted on 04/09/19 for alcohol and opiate withdrawal sx management treating wtih librium and methadone detox regiment feeling ok today slept through the night social with peers attending behavior and psychosocial therapies groups and meetings daily Objective: 04/12/19 12:05 Vital Signs Temperature 98.3 F 04/12/19 09:35 Pulse Rate 74 04/12/19 09:35 Respiratory Rate 18 04/12/19 09:35 Blood Pressure 106/73 04/12/19 09:35 O2 Sat by Pulse Oximetry (%) Laboratory Last Values WBC 9.0 K/mm3 (4.0-10.0) 04/10/19 07:30 RBC 4.49 M/mm3 (4.00-5.60) 04/10/19 07:30 Hgb 14.4 GM/dL (11.7-16.9) 04/10/19 07:30 Hct 43.6 % (35.4-49) 04/10/19 07:30 MCV 97.0 fl (80-96) H 04/10/19 07:30 MCH 32.1 pg (25.7-33.7) 04/10/19 07:30 MCHC 33.1 g/dl (32.0-35.9) 04/10/19 07:30 RDW 16.1 % (11.9-15.9) H 04/10/19 07:30 Plt Count 180 K/MM3 (134-434) 04/10/19 07:30 MPV 9.7 fl (7.5-11.1) 04/10/19 07:30 Sodium 134 mmol/L (136-145) L 04/10/19 07:30 Potassium 3.3 mmol/L (3.5-5.1) L 04/11/19 09:10 Chloride 94 mmol/L (98-107) L 04/10/19 07:30 Carbon Dioxide 35 mmol/L (21-32) H 04/10/19 07:30 Anion Gap 5 MMOL/L (8-16) L 04/10/19 07:30 BUN 9.1 mg/dL (7-18) 04/10/19 07:30 Creatinine 1.1 mg/dL (0.55-1.3) 04/10/19 07:30 Est GFR (CKD-EPI)AfAm 97.49 04/10/19 07:30 Est GFR (CKD-EPI)NonAf 84.12 04/10/19 07:30 Random Glucose 93 mg/dL (74-106) 04/10/19 07:30 Calcium 9.1 mg/dL (8.5-10.1) 04/10/19 07:30 Total Bilirubin 1.7 mg/dL (0.2-1) H 04/10/19 07:30 AST 76 U/L (15-37) H 04/10/19 07:30 ALT 63 U/L (13-61) H 04/10/19 07:30 Alkaline Phosphatase 113 U/L (45-117) 04/10/19 07:30 Total Protein 7.6 g/dl (6.4-8.2) 04/10/19 07:30 Albumin 4.4 g/dl (3.4-5.0) 04/10/19 07:30 Urine Color Dk yellow 04/10/19 16:01 Urine Appearance Clear 04/10/19 16:01 Urine pH 8.5 (5.0-8.0) H D 04/10/19 16:01 Ur Specific [place] 1.024 (1.010-1.035) 04/10/19 16:01 Urine Protein 1+ (NEGATIVE) H 04/10/19 16:01 Urine Glucose (UA) Negative (NEGATIVE) 04/10/19 16:01 Urine Ketones Negative (NEGATIVE) 04/10/19 16:01 Urine Blood Negative (NEGATIVE) 04/10/19 16:01 Urine Nitrite Negative (NEGATIVE) 04/10/19 16:01 Urine Bilirubin Negative (NEGATIVE) 04/10/19 16:01 Urine Urobilinogen 1.0 mg/dL (0.2-1.0) 04/10/19 16:01 Ur Leukocyte Esterase Trace (NEGATIVE) 04/10/19 16:01 Urine WBC (Auto) 1 /hpf (0-5) 04/10/19 16:01 Urine RBC (Auto) 3 /hpf (0-4) 04/10/19 16:01 Urine Casts (Auto) 2 /lpf (0-8) 04/10/19 16:01 U Epithel Cells (Auto) 0.5 /HPF (0-5/HPF) 04/10/19 16:01 Urine Bacteria (Auto) 2.4 /hpf (NEGATIVE) 04/10/19 16:01 RPR Titer Nonreactive (NONREACTIVE) 04/10/19 07:30 lab noted low K+ K+ supplement Assessment: 04/12/19 12:09 alcohol and opiate withdrawal Plan: librium and methadone regiments
[2019-04-12] MEDS: POTASSIUM CHLORIDE ORAL LIQUID 20 MEQ/15 ML PO SCH ×2 (12:56→17:59)
[2019-04-12] MEDS: TRIMETHOBENZAMIDE HCL 200MG/2ML INJ IM PRN (20:12)
[2019-04-12] MEDS: QUEtiapine FUMARATE 100 MG TABLET (FP) PO SCH (22:27)
[2019-04-12] MEDS: THIAMINE HCL 100 MG TABLET (FP) PO SCH (22:27)
[2019-04-12] MEDS: traZODone HCL 50 MG TABLET (FP) PO SCH (22:27)
[2019-04-12] MEDS: MELATONIN 5 MG TABLETS PO PRN (22:29)
[2019-04-13] MEDS: chlordiazePOXIDE HCL 10 MG CAPSULE PO SCH ×2 (05:42→17:48)
[2019-04-13] MEDS ORDERED: METHADONE HCL 10 MG TABLET (FOR DETOX USE ONLY) PO ONE (10:00)
[2019-04-13] MEDS: FLUoxetine HCL 20 MG CAPSULE PO SCH (10:31)
[2019-04-13] MEDS: LISINOPRIL 10 MG TABLET (FP) PO SCH ×2 (10:31→22:14)
[2019-04-13] MEDS: FAMOTIDINE 20 MG TABLET PO SCH ×2 (10:31→22:14)
[2019-04-13] MEDS: PRENATAL VITAMINS W/ FOLIC ACID TABLET (FP) PO SCH (10:31)
[2019-04-13] MEDS: HYDROCHLOROTHIAZIDE 25 MG TABLET (FP) PO SCH (10:31)
[2019-04-13] MEDS: hydrOXYzine PAMOATE 25 MG CAPSULE (FP) PO PRN ×2 (10:35→17:49)
[2019-04-13] MEDS: METHOCARBAMOL 500 MG TABLET PO PRN ×2 (10:35→17:49)
--- NOTE | 2019-04-13 12:57 | PN ---
[facility] CIWA - CIWA Score Nausea/Vomitin-No Nausea/No Vomiting Muscle Tremors: 1-None Visible, but [place] Anxiety: 1-Mildly Anxious Agitation: 0-Normal Activity Paroxysmal Sweats: 1-Minimal Palms Moist Orientation: 0-Oriented Tacttile Disturbances: 0-None Auditory Disturbances: 0-None Visual Disturbances: 0-None Headache: 1-Very Mild (right wrist) CIWA-Ar Total Score: 4 S COWS - Scale Resting Pulse: 1= [place] 81-100 Sweatin= No chills or Flushing Restless Observation: 0= Sits Still Pupil Size: 0= Normal to Room Light Bone or Joint Aches: 1= Mild Discomfort Runny Nose/ Eye Tearin= None GI Upset > 30mins: 0= None Tremor Observation of Outstretched Hands: 1= Tremor [place], Not Seen Yawning Observation: 0= None Anxiety or Irritability: 1=Feels Anxious/Irritable Goose Flesh Skin: 0=Smooth Skin COWS Score: 4 S Progress Note (SOAP) Subjective: 38 years old male admitted on 04/09/19 for alcohol and opiate withdrawal sx management treating with librium and methadone detox regiments feeling better today less tremor mild general body aches Objective: 04/13/19 12:57 Vital Signs Temperature 96.1 F L 04/13/19 09:00 Pulse Rate 100 H 04/13/19 09:00 Respiratory Rate 20 04/13/19 09:00 Blood Pressure 124/79 04/13/19 09:00 O2 Sat by Pulse Oximetry (%) Laboratory Last Values WBC 9.0 K/mm3 (4.0-10.0) 04/10/19 07:30 RBC 4.49 M/mm3 (4.00-5.60) 04/10/19 07:30 Hgb 14.4 GM/dL (11.7-16.9) 04/10/19 07:30 Hct 43.6 % (35.4-49) 04/10/19 07:30 MCV 97.0 fl (80-96) H 04/10/19 07:30 MCH 32.1 pg (25.7-33.7) 04/10/19 07:30 MCHC 33.1 g/dl (32.0-35.9) 04/10/19 07:30 RDW 16.1 % (11.9-15.9) H 04/10/19 07:30 Plt Count 180 K/MM3 (134-434) 04/10/19 07:30 MPV 9.7 fl (7.5-11.1) 04/10/19 07:30 Sodium 134 mmol/L (136-145) L 04/10/19 07:30 Potassium 4.3 mmol/L (3.5-5.1) 04/13/19 07:30 Chloride 94 mmol/L (98-107) L 04/10/19 07:30 Carbon Dioxide 35 mmol/L (21-32) H 04/10/19 07:30 Anion Gap 5 MMOL/L (8-16) L 04/10/19 07:30 BUN 9.1 mg/dL (7-18) 04/10/19 07:30 Creatinine 1.1 mg/dL (0.55-1.3) 04/10/19 07:30 Est GFR (CKD-EPI)AfAm 97.49 04/10/19 07:30 Est GFR (CKD-EPI)NonAf 84.12 04/10/19 07:30 Random Glucose 93 mg/dL (74-106) 04/10/19 07:30 Calcium 9.1 mg/dL (8.5-10.1) 04/10/19 07:30 Total Bilirubin 1.7 mg/dL (0.2-1) H 04/10/19 07:30 AST 76 U/L (15-37) H 04/10/19 07:30 ALT 63 U/L (13-61) H 04/10/19 07:30 Alkaline Phosphatase 113 U/L (45-117) 04/10/19 07:30 Total Protein 7.6 g/dl (6.4-8.2) 04/10/19 07:30 Albumin 4.4 g/dl (3.4-5.0) 04/10/19 07:30 Urine Color Dk yellow 04/10/19 16:01 Urine Appearance Clear 04/10/19 16:01 Urine pH 8.5 (5.0-8.0) H D 04/10/19 16:01 Ur Specific [place] 1.024 (1.010-1.035) 04/10/19 16:01 Urine Protein 1+ (NEGATIVE) H 04/10/19 16:01 Urine Glucose (UA) Negative (NEGATIVE) 04/10/19 16:01 Urine Ketones Negative (NEGATIVE) 04/10/19 16:01 Urine Blood Negative (NEGATIVE) 04/10/19 16:01 Urine Nitrite Negative (NEGATIVE) 04/10/19 16:01 Urine Bilirubin Negative (NEGATIVE) 04/10/19 16:01 Urine Urobilinogen 1.0 mg/dL (0.2-1.0) 04/10/19 16:01 Ur Leukocyte Esterase Trace (NEGATIVE) 04/10/19 16:01 Urine WBC (Auto) 1 /hpf (0-5) 04/10/19 16:01 Urine RBC (Auto) 3 /hpf (0-4) 04/10/19 16:01 Urine Casts (Auto) 2 /lpf (0-8) 04/10/19 16:01 U Epithel Cells (Auto) 0.5 /HPF (0-5/HPF) 04/10/19 16:01 Urine Bacteria (Auto) 2.4 /hpf (NEGATIVE) 04/10/19 16:01 RPR Titer Nonreactive (NONREACTIVE) 04/10/19 07:30 lab noted Assessment: 04/13/19 12:57 alcohol and opiate withdrawal Plan: librium and methadone regiment
[2019-04-13] MEDS: TRIMETHOBENZAMIDE HCL 200MG/2ML INJ IM PRN (15:45)
[2019-04-13] MEDS: THIAMINE HCL 100 MG TABLET (FP) PO SCH (22:14)
[2019-04-13] MEDS: QUEtiapine FUMARATE 100 MG TABLET (FP) PO SCH (22:14)
[2019-04-13] MEDS: traZODone HCL 50 MG TABLET (FP) PO SCH (22:14)
[2019-04-14] MEDS ORDERED: chlordiazePOXIDE HCL 10 MG CAPSULE PO ONE (05:00)
[2019-04-14] MEDS ORDERED: METHADONE HCL 5 MG TABLET (FOR DETOX USE ONLY) PO ONE (06:00)
[2019-04-14 09:11] VITALS: BP 145/75; PULSE 90; TEMP 96.4
--- NOTE | 2019-04-14 10:45 | PN ---
[facility] CIWA - CIWA Score Nausea/Vomitin-No Nausea/No Vomiting Muscle Tremors: None Anxiety: 1-Mildly Anxious Agitation: 1-Slight > Activity Paroxysmal Sweats: No Perspiration Orientation: 0-Oriented Tacttile Disturbances: 0-None Auditory Disturbances: 0-None Visual Disturbances: 0-None Headache: 0-None Present CIWA-Ar Total Score: 2 [facility] COWS - Scale Resting Pulse: 1= [place] 81-100 Sweatin= No chills or [place] Restless Observation: 0= Sits Still Pupil Size: 0= Normal to Room Light Bone or Joint Aches: 0= None Runny Nose/ Eye Tearin= None GI Upset > 30mins: 0= None Tremor Observation of Outstretched Hands: 0= None Yawning Observation: 0= None Anxiety or Irritability: 0= None Goose Flesh Skin: 0=Smooth Skin COWS Score: 1 [facility] Progress Note (SOAP) Subjective: alert,no complaint Objective: 04/14/19 10:49 Vital Signs Temperature 96.4 F L 04/14/19 08:50 Pulse Rate 90 04/14/19 08:50 Respiratory Rate 20 04/14/19 08:50 Blood Pressure 145/75 04/14/19 08:50 O2 Sat by Pulse Oximetry (%) Assessment: 04/14/19 10:49 detox completed,no withdrawal symptom Plan: discharge today to rehab
--- NOTE | 2019-04-14 10:55 | DS ---
[facility] Detox Discharge Summary Admission Date: 04/09/19 Discharge Date: 04/14/19 - History Present History: Alcohol Dependence, Opioid Dependence Additional Comments: alert,oriented x3 ambulation on the unit lung clear no abdominal pain stable to be discharge to rehab total time spending on discharge 30 mins Pertinent Past History: depression fx of right hand - Physical Exam Results Vital Signs: Vital Signs Temperature 96.4 F L 04/14/19 08:50 Pulse Rate 90 04/14/19 08:50 Respiratory Rate 20 04/14/19 08:50 Blood Pressure 145/75 04/14/19 08:50 O2 Sat by Pulse Oximetry (%) Pertinent Admission Physical Exam Findings: withdrawal sign and symptom Laboratory Last Values WBC 9.0 K/mm3 (4.0-10.0) 04/10/19 07:30 RBC 4.49 M/mm3 (4.00-5.60) 04/10/19 07:30 Hgb 14.4 GM/dL (11.7-16.9) 04/10/19 07:30 Hct 43.6 % (35.4-49) 04/10/19 07:30 MCV 97.0 fl (80-96) H 04/10/19 07:30 MCH 32.1 pg (25.7-33.7) 04/10/19 07:30 MCHC 33.1 g/dl (32.0-35.9) 04/10/19 07:30 RDW 16.1 % (11.9-15.9) H 04/10/19 07:30 Plt Count 180 K/MM3 (134-434) 04/10/19 07:30 MPV 9.7 fl (7.5-11.1) 04/10/19 07:30 Sodium 134 mmol/L (136-145) L 04/10/19 07:30 Potassium 4.3 mmol/L (3.5-5.1) 04/13/19 07:30 Chloride 94 mmol/L (98-107) L 04/10/19 07:30 Carbon Dioxide 35 mmol/L (21-32) H 04/10/19 07:30 Anion Gap 5 MMOL/L (8-16) L 04/10/19 07:30 BUN 9.1 mg/dL (7-18) 04/10/19 07:30 Creatinine 1.1 mg/dL (0.55-1.3) 04/10/19 07:30 Est GFR (CKD-EPI)AfAm 97.49 04/10/19 07:30 Est GFR (CKD-EPI)NonAf 84.12 04/10/19 07:30 Random Glucose 93 mg/dL (74-106) 04/10/19 07:30 Calcium 9.1 mg/dL (8.5-10.1) 04/10/19 07:30 Total Bilirubin 1.7 mg/dL (0.2-1) H 04/10/19 07:30 AST 76 U/L (15-37) H 04/10/19 07:30 ALT 63 U/L (13-61) H 04/10/19 07:30 Alkaline Phosphatase 113 U/L (45-117) 04/10/19 07:30 Total Protein 7.6 g/dl (6.4-8.2) 04/10/19 07:30 Albumin 4.4 g/dl (3.4-5.0) 04/10/19 07:30 Urine Color Dk yellow 04/10/19 16:01 Urine Appearance Clear 04/10/19 16:01 Urine pH 8.5 (5.0-8.0) H D 04/10/19 16:01 Ur Specific [place] 1.024 (1.010-1.035) 04/10/19 16:01 Urine Protein 1+ (NEGATIVE) H 04/10/19 16:01 Urine Glucose (UA) Negative (NEGATIVE) 04/10/19 16:01 Urine Ketones Negative (NEGATIVE) 04/10/19 16:01 Urine Blood Negative (NEGATIVE) 04/10/19 16:01 Urine Nitrite Negative (NEGATIVE) 04/10/19 16:01 Urine Bilirubin Negative (NEGATIVE) 04/10/19 16:01 Urine Urobilinogen 1.0 mg/dL (0.2-1.0) 04/10/19 16:01 Ur Leukocyte Esterase Trace (NEGATIVE) 04/10/19 16:01 Urine WBC (Auto) 1 /hpf (0-5) 04/10/19 16:01 Urine RBC (Auto) 3 /hpf (0-4) 04/10/19 16:01 Urine Casts (Auto) 2 /lpf (0-8) 02/17/20 16:01 U Epithel Cells (Auto) 0.5 /HPF (0-5/HPF) 04/10/19 16:01 Urine Bacteria (Auto) 2.4 /hpf (NEGATIVE) 04/10/19 16:01 RPR Titer Nonreactive (NONREACTIVE) 04/10/19 07:30 Vital Signs Temperature 96.4 F L 04/14/19 08:50 Pulse Rate 90 04/14/19 08:50 Respiratory Rate 20 04/14/19 08:50 Blood Pressure 145/75 04/14/19 08:50 O2 Sat by Pulse Oximetry (%) - Treatment Hospital Course: Detox Protocol Followed, Detoxed Safely, Responded well, Discharged Condition Good, Rehab Referral Accepted - Medication Discharge Medications: Ambulatory Orders Trazodone HCl 100 mg PO HS PRN 06/15/18 Fluoxetine HCl 20 mg PO DAILY #30 capsule 09/18/18 Lisinopril [Prinivil] 10 mg PO BID #60 tablet 11/14/18 Ranitidine [Zantac -] 150 mg PO BID #60 tablet 11/14/18 Hydrochlorothiazide [Hctz -] 25 mg PO DAILY #14 tablet 02/05/19 Naloxone HCl [Narcan] 4 mg NS ASDIR PRN #1 spray 02/05/19 Buprenorphine/Naloxone [Suboxone 8Mg/2Mg Sl Film -] 2 each SL DAILY MDD 2 Gabapentin [Neurontin -] 300 mg PO QID 04/09/19 Ibuprofen [Motrin -] 600 mg PO TID 04/09/19 Quetiapine Fumarate [Seroquel -] 200 mg PO HS 04/09/19 - Diagnosis (1) Opioid dependence with withdrawal Current Visit: Yes Status: Acute (2) Alcohol dependence with uncomplicated withdrawal Current Visit: Yes Status: Acute (3) Fx metacarpal Current Visit: No Status: Acute Qualifiers: Metacarpal bone: fifth Fracture type: closed Metacarpal location: unspecified portion of metacarpal (4) Syncope Current Visit: No Status: Acute (5) HTN (hypertension) Current Visit: No Status: Chronic Qualifiers: Hypertension type: essential hypertension Qualified Code(s): I10 - Essential (primary) hypertension (6) History of bipolar disorder Current Visit: No Status: Chronic (7) Gout Current Visit: No Status: Inactive Qualifiers: Gout site: unspecified site Gout etiology: unspecified cause Chronicity: unspecified Qualified Code(s): M10.9 - Gout, unspecified (8) Hypertension Current Visit: Yes Status: Acute - AMA Did Patient Leave Against Medical Advice: No
[2019-04-14] MEDS: FLUoxetine HCL 20 MG CAPSULE PO SCH (11:00)
[2019-04-14] MEDS: HYDROCHLOROTHIAZIDE 25 MG TABLET (FP) PO SCH (11:00)
[2019-04-14] MEDS: PRENATAL VITAMINS W/ FOLIC ACID TABLET (FP) PO SCH (11:00)
[2019-04-14] MEDS: FAMOTIDINE 20 MG TABLET PO SCH (11:00)
[2019-04-14] MEDS: LISINOPRIL 10 MG TABLET (FP) PO SCH (11:00)
--- NOTE | 2019-04-14 11:00 | HP ---
[facility] Rehab Assess/Revision - Admission History Admitted to Rehab from: [facility] Date of Admission to Rehab: 04/14/2019 - Vital signs Vital Signs: Vital Signs Period Temp Pulse Resp BP Sys/Griggs Pulse Ox Last 24 Hr 95.6 F-97.8 F 75-90 18-20 115-145/75-90 - Findings Detox History & Physical reviewed: Yes Concur with findings: Yes Comments/Additional Findings: for rehab as protocol Inpatient Rehab Admission - Rehab Decision to Admit Inpatient rehab admission?: Yes - Initial Determination Are CD services needed?: Yes Free of communicable disease: Yes Not in need of hospitalization: Yes - Rehab Admission Criteria Previous failed treatment: Yes Poor recovery environment: Yes Comorbidities: Yes Lacks judgement: No Patient is meeting Inpatient Rehab admission criteria:: Yes
== END 2019-04-14 12:45 | disposition other institution (70) | DRG 773 ==
LOC: YASAS 11:36 → Y3N 16:43
PROVIDERS: ADMIT Allergy & Immunology; ATTEND Allergy & Immunology
PROC: HZ2ZZZZ Detoxification Services for Substance Abuse Treatment (ICD-10-PCS; principal; 2019-04-09)
DX: F10.230 Alcohol dependence with withdrawal, uncomplicated (principal); F11.23 Opioid dependence with withdrawal; F17.210 Nicotine dependence, cigarettes, uncomplicated; F19.24 Other psychoactive substance dependence with psychoactive substance-induced mood disorder; F31.9 Bipolar disorder, unspecified; E87.6 Hypokalemia; I10 Essential (primary) hypertension; G47.00 Insomnia, unspecified; M10.9 Gout, unspecified; E78.5 Hyperlipidemia, unspecified; K21.9 Gastro-esophageal reflux disease without esophagitis; R55 Syncope and collapse; S62.308D Unspecified fracture of other metacarpal bone, subsequent encounter for fracture with routine healing; X58.XXXD Exposure to other specified factors, subsequent encounter
CPT/HCPCS: 36415; 80053; 81003; 84132; 85027; 86593